=== PATIENT | female | born 1985 | race Caucasian/White ===

== ENCOUNTER 2018-06-05 13:42 | Inpatient (IN) | payer MEDICAID ==
[~2018-06-05] VITALS: Ht 160 cm; Wt 51.8 kg
[~2018-06-05 13:42] MED LIST: ALBU18HF2 INH; AMOX500C2 PO; HYDR1TAB69 PO; SERT25TA PO
[2018-06-05] MEDS ORDERED: normal saline 1000ML IV soln IV ONE (13:50)
[2018-06-05] MEDS ORDERED: vancomycin/NS 1 GM ADD-VANTAGE 250 ML IV ONE (13:50)
[2018-06-05] MEDS ORDERED: CefTRIAXone 2gm/D5W 50ml 50 ML IV ONE (13:50)
[2018-06-05] MEDS ORDERED: metoclopramide 5 mg/ml inj IV ONE (14:00)
[2018-06-05] MEDS ORDERED: diphenhydrAMINE 50 mg/ml inj IV ONE (14:00)
[2018-06-05] MEDS ORDERED: ketorolac trometh. 30mg/ml inj. IV ONE (14:05)
[2018-06-05 14:21] LABS: BASOPHILS % (AUTO) 0 % (0-1); EOSINOPHILS % (AUTO) 0 % (0-6); HEMATOCRIT 34.6 % (35.0-45.0); LYMPHOCYTES # (AUTO) 0.3 X10'3 (1.1-4.8); LYMPHOCYTES % (AUTO) 2.8 % (21-51); MEAN CORPUSCULAR HEMOGLOBIN 30.7 PG (27.0-31.0); MEAN CORPUSCULAR HGB CONC 34.7 % (33.0-36.5); MEAN CORPUSCULAR VOLUME 88.5 FL (78-98); MONOCYTES # (AUTO) 0.3 X10'3 (0-0.9); MONOCYTES % (AUTO) 3.2 % (2-12); NEUTROPHILS # (AUTO) 8.9 X10'3 (1.8-7.7); PLATELET COUNT 73 X10'3 (140-440); RED CELL DISTRIBUTION WIDTH 13.5 % (11.5-14.5); WHITE BLOOD COUNT 9.5 X10'3 (4.5-11.0)
[2018-06-05 14:31] LABS: PARTIAL THROMBOPLASTIN TIME 46 SECONDS (22-32); PROTHROMBIN TIME 20.1 SECONDS (9.0-12.0)
[2018-06-05 14:36] LABS: ALANINE AMINOTRANSFERASE 44 U/L (12-78); ALBUMIN 1.9 G/DL (3.4-5.0); ALBUMIN/GLOBULIN RATIO 0.7 (1.1-1.5); ALKALINE PHOSPHATASE 92 IU/L (46-116); ANION GAP 13 (8-16); ASPARTATE AMINO TRANSFERASE 61 U/L (10-37); BILIRUBIN,TOTAL 1.6 MG/DL (0.1-1.0); BLOOD UREA NITROGEN 19 MG/DL (7-18); BUN/CREATININE RATIO 9.2 (6.6-38.0); CALCIUM 6.6 MG/DL (8.5-10.1); CHLORIDE 96 MMOL/L (99-107); CREATININE 2.07 MG/DL (0.40-0.90); MAGNESIUM 1.1 MG/DL (1.5-2.4); PLATELET ESTIMATE DECREASED; SODIUM 129 MMOL/L (135-145); TOTAL CARBON DIOXIDE 20.2 MMOL/L (24-32); TOTAL CELLS COUNTED 100; TOTAL PROTEIN 4.7 G/DL (6.4-8.2); eGFR 28 ML/MIN
[2018-06-05 14:37] LABS: GLUCOSE 131 MG/DL (70-104)
[2018-06-05] MEDS ORDERED: normal saline 1000ML IV soln IVB ONE (14:50)
[2018-06-05 14:51] LABS: CLARITY,URINE CLOUDY (Clear); COLOR,URINE AMBER (Yellow); GLUCOSE, URINE 100 mg/dl (Neg); KETONES,URINE NEGATIVE (Neg); LEUKOCYTE ESTERASE ,URINE TRACE (Neg); NITRITES, URINE NEGATIVE (Neg); OCCULT BLOOD,URINE TRACE-LYSED (Neg); PROTEIN,URINE 30 mg/dl (Neg); URINE HCG NEGATIVE (NEG); UROBILINOGEN,URINE >=8.0 E.U/dL (0.2-1.0)
[2018-06-05 14:54] LABS: UA COLLECTION TYPE FOLEY CATH
[2018-06-05] MEDS ORDERED: dexamethasone 4mg/ml inj IV STA (14:54)
[2018-06-05 15:01] LABS: AMORPHOUS URATES 2+; BACTERIA,URINE FEW /HPF (Neg); MUCUS STRANDS MODERATE /LPF (Neg); SQUAMOUS EPITHELIAL CELL,UR MODERATE /LPF (FEW); WBC,URINE 20-30 /HPF (0-4)
[2018-06-05] MEDS: magnesium 1gm/100ml D5W IVPB 100 ML IV SCH ×2 (15:02→16:25)
[2018-06-05 15:05] LABS: URINE AMPHETAMINE SCREEN POSITIVE (Neg); URINE BARBITUATE SCREEN NEGATIVE (Neg); URINE BENZODIAZEPINES SCREEN NEGATIVE (Neg); URINE CANNABINOID SCREEN NEGATIVE (Neg); URINE COCAINE SCREEN NEGATIVE (Neg); URINE METHADONE SCREEN NEGATIVE (Neg); URINE OPIATE SCREEN POSITIVE (Neg); URINE PHENCYCLIDINE SCREEN NEGATIVE (Neg)
[2018-06-05 15:46] LABS: TROPONIN I < 0.04 NG/ML (0.0-0.05)
[2018-06-05] MEDS ORDERED: NORepinephrine 8mg/ 250ml NS 250 ML IV PRN ×2 (15:59→16:20)
[2018-06-05] MEDS ORDERED: calcium gluconate inj. 1 GM in normal saline 100ml IV soln 90 ML IV ONE (16:05)
[2018-06-05] MEDS ORDERED: pantoprazole 40 MG vial IV ONE (16:09)
[2018-06-05] MEDS ORDERED: ipratropium/albuterol 3ml nebule NEB PRN (16:10)
[2018-06-05] MEDS ORDERED: acetaminophen 325mg tablet PO PRN ×2 (16:10)
[2018-06-05] MEDS ORDERED: ondansetron/PF 4mg/2ml inj IV PRN (16:10)
[2018-06-05] MEDS: potassium 10mEq/100ml NS w/LIDOcaine (10mg/bag) IV SCH ×2 (16:25→18:55)
[2018-06-05] MEDS: pantoprazole 40 MG vial IV SCH (16:40)
[2018-06-05] MEDS: NORepinephrine 8mg/ 250ml NS 250 ML IV PRN ×2 (16:49→17:38)
[2018-06-05 17:21] LABS: OXYGEN SATURATION (MIXED VEN) 71.2 % (60-80); PO2 MIXED VENOUS (TEMP COR) 38.4 mmHg (35-46)
[2018-06-05] MEDS ORDERED: NO HOME MEDS (18:10)
[2018-06-05] MEDS: normal saline 1000ml 1,000 ML IV SCH (18:55)
[2018-06-05 19:00] VITALS: BP 108/61
[2018-06-05 20:00] VITALS: BP 90/60
[2018-06-05] MEDS ORDERED: vancomycin/NS 1 GM ADD-VANTAGE 250 ML IV SCH (20:00)
[2018-06-05 21:00] VITALS: BP 93/61
[2018-06-05 22:00] VITALS: BP 96/68
[2018-06-05 23:00] VITALS: BP 100/66
[2018-06-05] MEDS: piperacillin/tazo 4.5gm/100ml 100 ML IV SCH (23:42)
[2018-06-06] VITALS (15 sets, daily range): BP systolic 90–104; BP diastolic 57–72
[2018-06-06] MEDS: normal saline 1000ml 1,000 ML IV SCH ×2 (00:09→08:09)
[2018-06-06] MEDS ORDERED: HYDROcodone/acetaminophen 5mg/325mg tablet PO PRN (01:05)
[2018-06-06] MEDS: HYDROcodone/acetaminophen 10/325mg tab PO PRN ×3 (01:11→13:58)
[2018-06-06] MEDS: morphine 2 MG/ML inj. syringe IV PRN ×2 (02:20→08:02)
[2018-06-06 03:29] LABS: BASOPHILS % (AUTO) 0.1 % (0-1); EOSINOPHILS % (AUTO) 0.1 % (0-6); HEMATOCRIT 34.3 % (35.0-45.0); HEMOGLOBIN 11.5 g/dl (12.0-16.0); LYMPHOCYTES # (AUTO) 0.5 X10'3 (1.1-4.8); LYMPHOCYTES % (AUTO) 3.6 % (21-51); MEAN CORPUSCULAR HGB CONC 33.4 % (33.0-36.5); MEAN CORPUSCULAR VOLUME 89.9 FL (78-98); MEAN PLATELET VOLUME 9.4 FL (7.4-10.4); MONOCYTES # (AUTO) 0.3 X10'3 (0-0.9); NEUTROPHILS # (AUTO) 14.2 X10'3 (1.8-7.7); NEUTROPHILS % (AUTO) 94.2 % (42-75); PLATELET COUNT 84 X10'3 (140-440); RED BLOOD COUNT 3.82 X10'6 (4.20-5.60); RED CELL DISTRIBUTION WIDTH 13.1 % (11.5-14.5)
[2018-06-06 03:33] LABS: ALANINE AMINOTRANSFERASE 44 U/L (12-78); ALBUMIN 1.9 G/DL (3.4-5.0); ALBUMIN/GLOBULIN RATIO 0.6 (1.1-1.5); ALKALINE PHOSPHATASE 89 IU/L (46-116); ANION GAP 10 (8-16); ASPARTATE AMINO TRANSFERASE 45 U/L (10-37); BILIRUBIN,TOTAL 2.6 MG/DL (0.1-1.0); BLOOD UREA NITROGEN 19 MG/DL (7-18); BUN/CREATININE RATIO 17.8 (6.6-38.0); CALCIUM 6.5 MG/DL (8.5-10.1); CHLORIDE 106 MMOL/L (99-107); CREATININE 1.07 MG/DL (0.40-0.90); MAGNESIUM 2.2 MG/DL (1.5-2.4); PHOSPHORUS 3.3 MG/DL (2.3-4.5); POTASSIUM 3.8 MMOL/L (3.5-5.1); SODIUM 136 MMOL/L (135-145); TOTAL CARBON DIOXIDE 19.6 MMOL/L (24-32); TOTAL PROTEIN 4.9 G/DL (6.4-8.2); eGFR 60 ML/MIN
[2018-06-06 03:39] LABS: GLUCOSE 135 MG/DL (70-104)
[2018-06-06] MEDS: pantoprazole 40 MG vial IV SCH (07:57)
[2018-06-06] MEDS: piperacillin/tazo 4.5gm/100ml 100 ML IV SCH (07:57)
[2018-06-06] MEDS ORDERED: VANCOMYCIN 750MG IV in NS 250 ML IV SCH (10:00)
[2018-06-06] MEDS ORDERED: vancomycin/NS 1 GM ADD-VANTAGE 250 ML IV SCH (14:00)
[2018-06-06] MEDS ORDERED: baclofen 10mg tablet PO PRN (14:50)
[2018-06-07] MEDS ORDERED: VANCOMYCIN LEVEL IV ONE (21:30)
== END 2018-06-06 17:34 | disposition left against medical advice (07) | DRG 720 ==
LOC: ER 13:43 → ED HOLD 16:09 → CICU 2S 17:44
PROC: 02HV33Z Insertion of Infusion Device into Superior Vena Cava, Percutaneous Approach (ICD-10-PCS; principal; 2018-06-05)
DX: A41.9 Sepsis, unspecified organism (principal); E87.6 Hypokalemia; J45.909 Unspecified asthma, uncomplicated; N39.0 Urinary tract infection, site not specified; F17.210 Nicotine dependence, cigarettes, uncomplicated; Z53.21 Procedure and treatment not carried out due to patient leaving prior to being seen by health care provider; F15.129 Other stimulant abuse with intoxication, unspecified; F11.229 Opioid dependence with intoxication, unspecified; F32.9 Major depressive disorder, single episode, unspecified; F41.9 Anxiety disorder, unspecified; G89.29 Other chronic pain; M54.9 Dorsalgia, unspecified; Z88.8 Allergy status to other drugs, medicaments and biological substances
CPT/HCPCS: 36415; 36556; 70450; 71045; 71250; 80053; 80305; 81001; 81025; 82810; 82948; 83605; 83735; 83880; 84100; 84145; 84484; 85025; 85610; 85730; 87040; 87070; 87077; 87088; 87186; 93005; 93306; 94760; 96365; 96367; 96375; 99291; A4315; A6213; A6257; C1751; C1758; C9113; J0610; J0696; J1100; J1200; J1885; J2270; J2543; J2765; J3370; J3480; J7030

== ENCOUNTER 2018-11-27 08:41 | Inpatient (IN) | payer MEDICAID ==
[2018-11-27] VITALS (20 sets, daily range): BP systolic 81–105; BP diastolic 30–54
[~2018-11-27] VITALS: Ht 160 cm; Wt 52.8 kg
[~2018-11-27 08:41] MED LIST changes: -ALBU18HF2 INH; -AMOX500C2 PO; -HYDR1TAB69 PO; +NO HOME MEDS; -SERT25TA PO
[2018-11-27] MEDS ORDERED: normal saline 1000ML IV soln IV ONE (08:55)
[2018-11-27] MEDS ORDERED: CefTRIAXone/D5W-Rocephin 1gm 50 ML IV ONE (08:55)
[2018-11-27] MEDS ORDERED: fentaNYL/PF 50MCG/1 ML 2ML syringe IV ONE (09:05)
[2018-11-27 09:17] LABS: PARTIAL THROMBOPLASTIN TIME 45 SECONDS (22-32); PROTHROMBIN TIME 19.2 SECONDS (9.0-12.0)
[2018-11-27 09:19] LABS: ALANINE AMINOTRANSFERASE 26 U/L (12-78); ALBUMIN 1.5 G/DL (3.4-5.0); ALBUMIN/GLOBULIN RATIO 0.4 (1.1-1.5); ALKALINE PHOSPHATASE 80 IU/L (46-116); ANION GAP 15 (8-16); ASPARTATE AMINO TRANSFERASE 49 U/L (10-37); BLOOD UREA NITROGEN 64 MG/DL (7-18); CALCIUM 7.2 MG/DL (8.5-10.1); CHLORIDE 92 MMOL/L (99-107); CREATININE 1.83 MG/DL (0.40-0.90); GLUCOSE 115 MG/DL (70-104); MAGNESIUM 2.1 MG/DL (1.5-2.4); POTASSIUM 4.2 MMOL/L (3.5-5.1); SODIUM 127 MMOL/L (135-145); TOTAL CARBON DIOXIDE 19.6 MMOL/L (24-32); TOTAL PROTEIN 5.6 G/DL (6.4-8.2); eGFR 32 ML/MIN
[2018-11-27] MEDS ORDERED: azithromycin/NS 500mg/250ml 250 ML IV ONE (09:25)
[2018-11-27 09:53] LABS: EOSINOPHILS # (AUTO) 0.1 X10'3 (0-0.9); HEMOGLOBIN 9.4 g/dl (12.0-16.0); RED BLOOD COUNT 3.24 X10'6 (4.20-5.60)
[2018-11-27 10:07] LABS: BASOPHILS # (AUTO) 0.1 X10'3 (0-0.2); BASOPHILS % (AUTO) 1.3 % (0-1); EOSINOPHILS % (AUTO) 1.4 % (0-6); HEMATOCRIT 27.8 % (35.0-45.0); LYMPHOCYTES # (AUTO) 0.6 X10'3 (1.1-4.8); LYMPHOCYTES % (AUTO) 14.9 % (21-51); MEAN CORPUSCULAR HGB CONC 33.9 g/dL (33.0-36.5); MEAN CORPUSCULAR VOLUME 85.8 FL (78-98); MEAN PLATELET VOLUME 9.2 FL (7.4-10.4); MONOCYTES # (AUTO) 0.1 X10'3 (0-0.9); MONOCYTES % (AUTO) 3.3 % (2-12); NEUTROPHILS # (AUTO) 3.2 X10'3 (1.8-7.7); NEUTROPHILS % (AUTO) 79.1 % (42-75); RED CELL DISTRIBUTION WIDTH 14.9 % (11.5-14.5); WHITE BLOOD COUNT 4.1 X10'3 (4.5-11.0)
[2018-11-27 10:10] LABS: PLATELET COUNT 8 X10'3 (140-440)
[2018-11-27 10:18] LABS: TOTAL CELLS COUNTED 100
[2018-11-27] MEDS ORDERED: potassium Cl 40MEQ/NS 500ml 500 ML IV PRN ×2 (10:25)
[2018-11-27] MEDS ORDERED: ondansetron/PF 4mg/2ml inj IV PRN (10:25)
[2018-11-27] MEDS ORDERED: potassium Cl 20 mEq SR tablet PO PRN ×2 (10:25)
[2018-11-27] MEDS ORDERED: acetaminophen 325mg tablet PO PRN ×2 (10:25)
[2018-11-27] MEDS ORDERED: morphine 4 MG/ML inj SYRINge IV PRN (10:25)
[2018-11-27] MEDS ORDERED: NORepinephrine 8mg/ 250ml NS 250 ML IV SCH (10:30)
[2018-11-27 10:36] LABS: ABG BASE EXCESS -6.6 mmol/L (-2.0-3.0); ABG HCO3 17.1 mmol/L (22.0-26.0); ABG PCO2 (T) 27.4 mmHg (32.0-45.0); ABG PH (T) 7.414 (7.350-7.450); FCOHb 0.4 % (0.5-1.5); FMetHb 0.3 % (0.3-1.12); FO2Hb 95.3 % (94-100); TOTAL HEMOGLOBIN 7.8 G/dl (12.0-16.0)
[2018-11-27] MEDS ORDERED: LIDOcaine 2% 10ml TOPICAL JELLY (Urojet) MM ONE (10:40)
[2018-11-27 10:41] LABS: SCHISTOCYTES FEW
[2018-11-27 10:43] LABS: TOXIC GRANULATION 1+; TOXIC VACUOLATION 1+
[2018-11-27] MEDS: piperacillin/tazo 3.375gm/50ml 50 ML IV SCH ×2 (10:50→19:08)
[2018-11-27 10:52] LABS: D-DIMER 6.17 MG/L FEU (0-0.50)
[2018-11-27 10:57] LABS: PLATELET ESTIMATE DECREASED
[2018-11-27] MEDS: normal saline 1000ml 1,000 ML IV SCH ×3 (10:57→19:12)
--- NOTE | 2018-11-27 11:06 | NUR ---
Zithromax not give R/T change in ABX Tx from ICU MD Dr. Noland. Pt. Given Zosyn 3.375g in kavitha of.
[2018-11-27 11:46] LABS: URINE HCG NEGATIVE (NEG)
[2018-11-27 11:48] LABS: CLARITY,URINE CLOUDY (Clear); COLOR,URINE YELLOW (Yellow); GLUCOSE, URINE NEGATIVE (Neg); KETONES,URINE NEGATIVE (Neg); LEUKOCYTE ESTERASE ,URINE NEGATIVE (Neg); NITRITES, URINE NEGATIVE (Neg); OCCULT BLOOD,URINE SMALL (Neg); PROTEIN,URINE TRACE mg/dl (Neg); UROBILINOGEN,URINE 0.2 E.U/dL (0.2-1.0)
[2018-11-27 11:54] LABS: UA COLLECTION TYPE FOLEY CATH
[2018-11-27 11:56] LABS: AMORPHOUS URATES 1+; BACTERIA,URINE FEW /HPF (Neg); MUCUS STRANDS MODERATE /LPF (Neg); RBC,URINE 0-2 /HPF (0-2); SQUAMOUS EPITHELIAL CELL,UR FEW /LPF (FEW); WBC,URINE 0-4 /HPF (0-4)
[2018-11-27] MEDS ORDERED: etomidate 2mg/ml inj. ONE (12:00)
[2018-11-27] MEDS ORDERED: rocuronium 10mg/ml inj IV ONE (12:00)
[2018-11-27] MEDS ORDERED: sod chloride 0.9% 10ml flush syringe IV ONE (12:00)
[2018-11-27 12:03] LABS: SODIUM,URINE RANDOM < 15 MEQ/L
[2018-11-27 12:15] LABS: OSMOLALITY UA 384 MOSM/K (50-1400)
[2018-11-27] MEDS: vancomycin/NS 1 GM ADD-VANTAGE 250 ML IV SCH (13:17)
[2018-11-27] MEDS: HYDROcodone/acetaminophen 10/325mg tab PO PRN (13:41)
--- NOTE | 2018-11-27 16:52 | NUR ---
IV with NS running infiltrated in RUE. Fluid aspirated. IV removed, pt has palpable Radial pulse. Elevated and instructed pt to keep elevated. RN will continue to monitor
[2018-11-27] MEDS ORDERED: normal saline 1000ml 1,000 ML IV ONE (16:55)
[2018-11-27] MEDS: diatr meglu/diatrizoate 30ml oral sol.-(3 dose) bottle PO SCH ×3 (17:18→21:26)
[2018-11-27] MEDS: ceFAZolin 1GM/D5W- ADD-VANTAGE 50 ML IV SCH ×2 (17:40→23:59)
[2018-11-27] MEDS ORDERED: NORepinephrine 8mg/ 250ml NS 250 ML IV PRN (18:16)
[2018-11-27] MEDS ORDERED: MIDAZolam 1mg/ml 10ml vial IV ONE (18:20)
--- NOTE | 2018-11-27 18:30 | NUR ---
Patient in room CICU 2007. I have received report from Dustin MATSON and had the opportunity to ask questions and assume patient care.
[2018-11-27] MEDS ORDERED: midazolam 2 mg/2 ml injection ONE (18:33)
[2018-11-27 19:31] LABS: OXYGEN SATURATION (MIXED VEN) 63.7 % (60-80); PO2 MIXED VENOUS (TEMP COR) 36.4 mmHg (35-46)
[2018-11-27] MEDS ORDERED: docusate sod 100mg capsule PO SCH (20:00)
[2018-11-27] MEDS: morphine 4 MG/ML inj SYRINge IV PRN (21:54)
[2018-11-28] VITALS (25 sets, daily range): BP systolic 90–123; BP diastolic 38–75
--- NOTE | 2018-11-28 | NUR ---
CVL and NGT placed. Blood products given CT done. Levophed started to maintain MAP greater than 65.
[2018-11-28] MEDS: piperacillin/tazo 3.375gm/50ml 50 ML IV SCH (00:33)
[2018-11-28] MEDS: normal saline 1000ml 1,000 ML IV SCH ×3 (02:16→20:23)
[2018-11-28] MEDS: HYDROcodone/acetaminophen 10/325mg tab PO PRN (02:16)
[2018-11-28 04:59] LABS: INR 1.3 INR; PROTHROMBIN TIME 13.4 SECONDS (9.0-12.0)
[2018-11-28] MEDS: morphine 4 MG/ML inj SYRINge IV PRN ×3 (04:59→23:10)
[2018-11-28 05:00] LABS: ALANINE AMINOTRANSFERASE 17 U/L (12-78); ALBUMIN 1.6 G/DL (3.4-5.0); ALBUMIN/GLOBULIN RATIO 0.4 (1.1-1.5); ALKALINE PHOSPHATASE 55 IU/L (46-116); ANION GAP 12 (8-16); ASPARTATE AMINO TRANSFERASE 45 U/L (10-37); BILIRUBIN,TOTAL 0.8 MG/DL (0.1-1.0); BLOOD UREA NITROGEN 40 MG/DL (7-18); CALCIUM 7.6 MG/DL (8.5-10.1); CHLORIDE 104 MMOL/L (99-107); CREATININE 0.87 MG/DL (0.40-0.90); GLUCOSE 99 MG/DL (70-104); MAGNESIUM 2.4 MG/DL (1.5-2.4); PHOSPHORUS 3.6 MG/DL (2.3-4.5); POTASSIUM 3.2 MMOL/L (3.5-5.1); SODIUM 137 MMOL/L (135-145); TOTAL CARBON DIOXIDE 21.1 MMOL/L (24-32); TOTAL PROTEIN 5.2 G/DL (6.4-8.2); eGFR 76 ML/MIN
[2018-11-28 05:17] LABS: MEAN CORPUSCULAR HEMOGLOBIN 28.9 PG (27.0-31.0); MEAN CORPUSCULAR HGB CONC 33.5 g/dL (33.0-36.5); MEAN CORPUSCULAR VOLUME 86.2 FL (78-98); RED CELL DISTRIBUTION WIDTH 14.8 % (11.5-14.5); WHITE BLOOD COUNT 2.5 X10'3 (4.5-11.0)
[2018-11-28] MEDS ORDERED: potassium Cl oral solution 20 MEQ/15 ML PO PRN (06:21)
--- NOTE | 2018-11-28 06:38 | NUR ---
Pt still taking rapid shallow breathes, weak cough, using yauker to clear orally. Pt is appropriate and thankful for the care she has received. Problems reprioritized. Patient report given, questions answered & plan of care reviewed with Dustin MATSON.
[2018-11-28] MEDS: acetaminophen 325mg/10.15ml oral unit dose solution PO PRN (06:39)
[2018-11-28] MEDS: potassium Cl oral solution 20 MEQ/15 ML PO PRN ×3 (06:40→15:32)
--- NOTE | 2018-11-28 06:40 | NUR ---
Notified Tobin Burden NP of critical hct and plt. No orders at this time. Deferred to Dr. Solares.
[2018-11-28] MEDS: ceFAZolin 1GM/D5W- ADD-VANTAGE 50 ML IV SCH (06:45)
[2018-11-28 06:52] LABS: PLATELET COUNT 17 X10'3 (140-440)
[2018-11-28 06:53] LABS: RED BLOOD COUNT 2.44 X10'6 (4.20-5.60)
[2018-11-28 06:58] LABS: PLATELET ESTIMATE DECREASED; TOTAL CELLS COUNTED 100; TOXIC GRANULATION 1+
[2018-11-28 06:59] LABS: SCHISTOCYTES 1+
[2018-11-28] MEDS: docusate sodium 100mg/10ml UD cup PO SCH ×2 (08:00→20:00)
[2018-11-28] MEDS ORDERED: gentamicin 40 MG/1 ML inj IV SCH (08:25)
--- NOTE | 2018-11-28 08:30 | NUR ---
Notified Dr. Solares of critical PLT and HCT. no new orders received at this time. RN will continue to monitor
[2018-11-28] MEDS ORDERED: GENTAMICIN IV SCH ×2 (09:00)
[2018-11-28] MEDS ORDERED: NORMAL SALINE IV SCH ×2 (09:00)
[2018-11-28 10:02] LABS: HIV ANTIBODY 1&2 RAPID NON-REACTIVE (Neg)
[2018-11-28] MEDS: vancomycin/NS 1 GM ADD-VANTAGE 250 ML IV SCH ×2 (10:03→22:57)
[2018-11-28] MEDS: ampicillin inj 2 GM in normal saline 100ml IV soln 100 ML IV SCH ×3 (12:22→19:37)
[2018-11-28] MEDS ORDERED: normal saline 1000ml 1,000 ML IV ONE (12:25)
--- NOTE | 2018-11-28 15:45 | NUR ---
Speech therapy at bedside. Will place pt on liquid diet
[2018-11-28] MEDS: NORMAL SALINE IV SCH (21:05)
[2018-11-28] MEDS: GENTAMICIN IV SCH (21:05)
[2018-11-29] VITALS (25 sets, daily range): BP systolic 112–140; BP diastolic 52–85
[2018-11-29] MEDS: ampicillin inj 2 GM in normal saline 100ml IV soln 100 ML IV SCH ×6 (00:27→20:39)
[2018-11-29] MEDS: acetaminophen 325mg/10.15ml oral unit dose solution PO PRN ×2 (01:10→22:57)
[2018-11-29] MEDS: normal saline 1000ml 1,000 ML IV SCH ×2 (02:20→09:58)
[2018-11-29] MEDS: morphine 4 MG/ML inj SYRINge IV PRN ×2 (05:10→09:59)
[2018-11-29 05:55] LABS: LYMPHOCYTES # (AUTO) 0.4 X10'3 (1.1-4.8); MEAN CORPUSCULAR HEMOGLOBIN 28.4 PG (27.0-31.0); MEAN CORPUSCULAR HGB CONC 33.5 g/dL (33.0-36.5); MEAN CORPUSCULAR VOLUME 84.7 FL (78-98); MEAN PLATELET VOLUME 9.7 FL (7.4-10.4); MONOCYTES # (AUTO) 0.1 X10'3 (0-0.9); NEUTROPHILS # (AUTO) 1.3 X10'3 (1.8-7.7); RED BLOOD COUNT 2.04 X10'6 (4.20-5.60); RED CELL DISTRIBUTION WIDTH 16.1 % (11.5-14.5); WHITE BLOOD COUNT 1.7 X10'3 (4.5-11.0)
[2018-11-29 06:08] LABS: HEMATOCRIT 17.3 % (35.0-45.0); HEMOGLOBIN 5.8 g/dl (12.0-16.0)
[2018-11-29 06:09] LABS: PLATELET COUNT 11 X10'3 (140-440)
[2018-11-29 06:10] LABS: BASOPHILS % (AUTO) 0.4 % (0-1); EOSINOPHILS % (AUTO) 0 % (0-6); LYMPHOCYTES % (AUTO) 20.5 % (21-51); MONOCYTES % (AUTO) 5.3 % (2-12); NEUTROPHILS % (AUTO) 73.8 % (42-75)
[2018-11-29 06:11] LABS: PROTHROMBIN TIME 12.7 SECONDS (9.0-12.0)
[2018-11-29 06:12] LABS: ALANINE AMINOTRANSFERASE 13 U/L (12-78); ALBUMIN 1.2 G/DL (3.4-5.0); ALBUMIN/GLOBULIN RATIO 0.3 (1.1-1.5); ALKALINE PHOSPHATASE 145 IU/L (46-116); ANION GAP 6 (8-16); ASPARTATE AMINO TRANSFERASE 40 U/L (10-37); BILIRUBIN,TOTAL 0.5 MG/DL (0.1-1.0); BLOOD UREA NITROGEN 22 MG/DL (7-18); BUN/CREATININE RATIO 32.4 (6.6-38.0); CHLORIDE 111 MMOL/L (99-107); CREATININE 0.68 MG/DL (0.40-0.90); MAGNESIUM 1.9 MG/DL (1.5-2.4); PHOSPHORUS 1.8 MG/DL (2.3-4.5); POTASSIUM 3.6 MMOL/L (3.5-5.1); SODIUM 136 MMOL/L (135-145); TOTAL CARBON DIOXIDE 18.7 MMOL/L (24-32); eGFR > 90 ML/MIN
[2018-11-29 06:13] LABS: GLUCOSE 124 MG/DL (70-104); INR 1.3 INR
--- NOTE | 2018-11-29 06:27 | NUR ---
Attempted to call José Luis Burden twice to notify him regarding patient's critical lab values of hgb 5.8, hct 17.3, and platelets of 11. No answer, left voicemail on cell. Report given to Dustin MATSON, who is aware that I have not been able to contact José Luis Burden.
[2018-11-29 06:49] LABS: TOTAL CELLS COUNTED 100
[2018-11-29 06:50] LABS: ANISOCYTOSIS 1+; PLATELET ESTIMATE DECREASED; SCHISTOCYTES 1+; TOXIC GRANULATION 1+
[2018-11-29] MEDS ORDERED: furosemide 20 MG/2 ML vial IV ONE (07:15)
[2018-11-29] MEDS: docusate sodium 100mg/10ml UD cup PO SCH ×2 (08:00→20:40)
[2018-11-29 08:15] LABS: HBSAG SCREEN Negative (Negative); HEPATITIS C ANTIBODY >11.0 s/co ratio (0.0-0.9)
[2018-11-29] MEDS ORDERED: GENTAMICIN TROUGH IV ONE (08:30)
[2018-11-29] MEDS: NORMAL SALINE IV SCH ×2 (09:58→20:38)
[2018-11-29] MEDS: GENTAMICIN IV SCH ×2 (09:58→20:38)
[2018-11-29] MEDS: vancomycin/NS 1 GM ADD-VANTAGE 250 ML IV SCH ×2 (10:00→22:05)
[2018-11-29 13:35] LABS: HEMOGLOBIN 7.1 g/dl (12.0-16.0); MEAN CORPUSCULAR HEMOGLOBIN 28.3 PG (27.0-31.0); MEAN CORPUSCULAR HGB CONC 33.1 g/dL (33.0-36.5); MEAN CORPUSCULAR VOLUME 85.6 FL (78-98); MEAN PLATELET VOLUME 7.6 FL (7.4-10.4); RED BLOOD COUNT 2.52 X10'6 (4.20-5.60); RED CELL DISTRIBUTION WIDTH 16.1 % (11.5-14.5); WHITE BLOOD COUNT 2.4 X10'3 (4.5-11.0)
[2018-11-29 13:43] LABS: HEMATOCRIT 21.6 % (35.0-45.0); PLATELET COUNT 23 X10'3 (140-440)
[2018-11-29] MEDS: buprenorphine/naloxone 2-0.5mg sublingual tablet SL SCH (14:50)
--- NOTE | 2018-11-29 16:00 | NUR ---
Pt having small amount of vaginal bleeding.
--- NOTE | 2018-11-29 16:55 | NUR ---
Received report from Dustin MATSON in the CICU. Awaiting patient's arrival to the unit.
--- NOTE | 2018-11-29 16:55 | NUR ---
Problems reprioritized. Patient report given, questions answered & plan of care reviewed with DANO Wilkes.
--- NOTE | 2018-11-29 17:20 | NUR ---
Patient arrived to the unit accompanied by ICU personnel. Vital signs obtained, telemetry monitoring continued, 2 RN skin check completed, belongings placed on bedside table, patient oriented to room and call light. Will continue to monitor patient.
--- NOTE | 2018-11-29 18:14 | NUR ---
Problems reprioritized. Patient report given, questions answered & plan of care reviewed with Korin MATSON. Patient stable at transfer of care.
--- NOTE | 2018-11-29 18:15 | NUR ---
Patient in room PCU 3013. I have received report from DANO Subramanian and had the opportunity to ask questions and assume patient care. Patient is sleeping comfortably on hospital bed, I will continue to monitor.
[2018-11-29] MEDS ORDERED: VANCOMYCIN LEVEL IV ONE (21:30)
--- NOTE | 2018-11-29 23:02 | NUR ---
Patient HR has been climbing and is now in the 130's, she is hot to touch and Temp is 103.3. I have just given her Tylenol, a fluid bolus and taken off her blankets. I will continue to monitor.
[2018-11-30] VITALS (20 sets, daily range): BP systolic 88–140; BP diastolic 48–95
[2018-11-30] MEDS: ampicillin inj 2 GM in normal saline 100ml IV soln 100 ML IV SCH ×5 (00:32→16:34)
--- NOTE | 2018-11-30 01:01 | NUR ---
Patient complaining she can't sleep and hyperventilating, I cld JENNIFER Hayes and he said to give her Ativan 2mg IV now.
[2018-11-30] MEDS ORDERED: LORazepam 2 mg/ml vial IV ONE (01:05)
[2018-11-30 03:00] LABS: ABG HCO3 17.7 mmol/L (22.0-26.0); ABG OXYGEN SATURATION 87.6 % (95-98); ABG PCO2 (T) 41.9 mmHg (32.0-45.0); ABG PH (T) 7.244 (7.350-7.450); ABG PO2 (T) 63.7 mmHg (83-108); ALLEN'S TEST Positive; FCOHb 0.7 % (0.5-1.5); FLOW 15 L/min; FMetHb 0.2 % (0.3-1.12); FO2Hb 86.8 % (94-100); RESPIRATORY RATE (OBSERVED) 24 b/min; TOTAL HEMOGLOBIN 9.4 G/dl (12.0-16.0)
--- NOTE | 2018-11-30 03:06 | NUR ---
During vitals patient was found with SpO2 in the low 80's, confused and tachypneic. A non-rebreather mask and 15L O2 were applied and Spo2 went up to the low 90's, Blood Gas was rec'd by RT. Patients pO2 was 63.7, JENNIFER Hayes was called and he ordered Bipap and a blood gas in one hour.
[2018-11-30 04:31] LABS: ABG BASE EXCESS -5.9 mmol/L (-2.0-3.0); ABG HCO3 19.9 mmol/L (22.0-26.0); ABG OXYGEN SATURATION 91.6 % (95-98); ABG PCO2 (T) 40.5 mmHg (32.0-45.0); ABG PH (T) 7.309 (7.350-7.450); ABG PO2 (T) 68.1 mmHg (83-108); ALLEN'S TEST Positive; FCOHb 1.2 % (0.5-1.5); FMetHb 0.2 % (0.3-1.12); FO2Hb 90.3 % (94-100); MINUTE VOLUME 24 L/min; PATIENT TEMPERATURE 36.7; RESPIRATORY RATE 16 b/min; RESPIRATORY RATE (OBSERVED) 67 b/min; TIDAL VOLUME 652 mL; TOTAL HEMOGLOBIN 8.4 G/dl (12.0-16.0)
--- NOTE | 2018-11-30 04:50 | NUR ---
Problems reprioritized. Patient report given, questions answered & plan of care reviewed with DANO Stevens.
[2018-11-30] MEDS ORDERED: NORepinephrine 8mg/ 250ml NS 250 ML IV ONE (04:52)
[2018-11-30] MEDS ORDERED: furosemide 20 MG/2 ML vial IV ONE (04:55)
[2018-11-30 04:58] LABS: BASOPHILS % (AUTO) 0.1 % (0-1); EOSINOPHILS % (AUTO) 0.1 % (0-6); HEMATOCRIT 22.7 % (35.0-45.0); HEMOGLOBIN 7.6 g/dl (12.0-16.0); LYMPHOCYTES # (AUTO) 0.5 X10'3 (1.1-4.8); LYMPHOCYTES % (AUTO) 16.4 % (21-51); MEAN CORPUSCULAR HEMOGLOBIN 28.4 PG (27.0-31.0); MEAN CORPUSCULAR HGB CONC 33.5 g/dL (33.0-36.5); MEAN CORPUSCULAR VOLUME 84.9 FL (78-98); MEAN PLATELET VOLUME 8.5 FL (7.4-10.4); MONOCYTES # (AUTO) 0.1 X10'3 (0-0.9); MONOCYTES % (AUTO) 2.1 % (2-12); NEUTROPHILS # (AUTO) 2.6 X10'3 (1.8-7.7); NEUTROPHILS % (AUTO) 81.3 % (42-75); RED BLOOD COUNT 2.68 X10'6 (4.20-5.60); RED CELL DISTRIBUTION WIDTH 15.9 % (11.5-14.5); WHITE BLOOD COUNT 3.2 X10'3 (4.5-11.0)
[2018-11-30 05:09] LABS: INR 1.3 INR
[2018-11-30 05:10] LABS: PARTIAL THROMBOPLASTIN TIME 37 SECONDS (22-32); PLATELET COUNT 19 X10'3 (140-440)
--- NOTE | 2018-11-30 05:18 | NUR ---
Tried call patient's mother Bailee and update her on Deb's status with no success, [place] [facility] [place]
[2018-11-30 05:33] LABS: ALANINE AMINOTRANSFERASE 10 U/L (12-78); ALBUMIN 1.2 G/DL (3.4-5.0); ALBUMIN/GLOBULIN RATIO 0.3 (1.1-1.5); ALKALINE PHOSPHATASE 114 IU/L (46-116); ANION GAP 11 (8-16); ASPARTATE AMINO TRANSFERASE 34 U/L (10-37); BILIRUBIN,TOTAL 0.8 MG/DL (0.1-1.0); BLOOD UREA NITROGEN 14 MG/DL (7-18); BUN/CREATININE RATIO 24.1 (6.6-38.0); CALCIUM 7.1 MG/DL (8.5-10.1); CHLORIDE 109 MMOL/L (99-107); CREATININE 0.58 MG/DL (0.40-0.90); GLUCOSE 104 MG/DL (70-104); MAGNESIUM 1.6 MG/DL (1.5-2.4); PHOSPHORUS 4.1 MG/DL (2.3-4.5); POTASSIUM 3.7 MMOL/L (3.5-5.1); SODIUM 138 MMOL/L (135-145); TOTAL CARBON DIOXIDE 18.4 MMOL/L (24-32); TOTAL PROTEIN 5.5 G/DL (6.4-8.2); eGFR > 90 ML/MIN
--- NOTE | 2018-11-30 05:56 | NUR ---
[id number]..Received pt from PCU via bed, pt not responsive and tachypneic, ER MD at bedside, pt intubated with 7.0 et tube, x1 attempt. OG tube placed x1 attempt. Pt tolerated well.
--- NOTE | 2018-11-30 05:59 | NUR ---
0545..Incontinent of large amount stool, bath given and complete linen change.
--- NOTE | 2018-11-30 06:28 | NUR ---
0625..Problems reprioritized. Patient report given, questions answered & plan of care reviewed with Anila MATSON.
--- NOTE | 2018-11-30 06:30 | NUR ---
Patient in room CICU 2010. I have received report from DANO Stevens and had the opportunity to ask questions and assume patient care.
[2018-11-30] MEDS: docusate sodium 100mg/10ml UD cup PO SCH ×2 (07:26→19:47)
[2018-11-30] MEDS: buprenorphine/naloxone 2-0.5mg sublingual tablet SL SCH (07:45)
[2018-11-30 08:11] LABS: ABG BASE EXCESS -5.9 mmol/L (-2.0-3.0); ABG HCO3 19.4 mmol/L (22.0-26.0); ABG OXYGEN SATURATION 97.4 % (95-98); ABG PCO2 (T) 37.5 mmHg (32.0-45.0); ABG PH (T) 7.332 (7.350-7.450); ABG PO2 (T) 107.6 mmHg (83-108); FCOHb 0.6 % (0.5-1.5); FMetHb 0.1 % (0.3-1.12); FO2Hb 96.7 % (94-100); MINUTE VOLUME 12 L/min; PEEP 5 cm H2O; RESPIRATORY RATE 18 b/min; RESPIRATORY RATE (OBSERVED) 32 b/min; TIDAL VOLUME 350 mL; TOTAL HEMOGLOBIN 8.8 G/dl (12.0-16.0)
[2018-11-30] MEDS: NORMAL SALINE IV SCH (10:28)
[2018-11-30] MEDS: GENTAMICIN IV SCH (10:28)
[2018-11-30] MEDS ORDERED: VANCOMYCIN LEVEL IV NR (10:30)
--- NOTE | 2018-11-30 11:00 | NUR ---
pt is intubated and sedated. withdraws to light pain. Dr. Solares arrived on unit and assessed pt, order received to pull ETT out 1cm. it is currently 19 at teeth. pt oxygenation well at 99-100%. Titrating FiO2 down to maintain O2sat between 88-90% per Dr. Solares. updated family on plan of care.
[2018-11-30] MEDS: vancomycin/NS 1 GM ADD-VANTAGE 250 ML IV SCH (11:12)
--- NOTE | 2018-11-30 15:01 | NUR ---
Initial: Pt intubated admit w/ low blood pressure, septic pulmonary emboli, and large tricuspid valve vegetation; hx IVDA meth and heroin per RN. Pt has OG in place to suction w/ 400ml out so far per EMR. Pt has open abscess L ankle wound w/ Kris 9. LBM 11/30. Will monitor for nutrition support needs while intubated. Rec: 1. IF TF, Vital HP at 55ml/hr goal or if out of stock Vital AF at 55ml/hr goal 2. IF TF; prealbumin Q /, daily wts Addendum: 11/30/18 at [address] Amended: Links added.
[2018-11-30] MEDS: FENTANYL-0.9 % NACL/PF 100 ML IV PRN (16:34)
--- NOTE | 2018-11-30 18:18 | NUR ---
Problems reprioritized. Patient report given, questions answered & plan of care reviewed with DANO Stevens.
--- NOTE | 2018-11-30 18:29 | NUR ---
182..Patient in room [facility] 2010. I have received report from Sedrick MATSON and had the opportunity to ask questions and assume patient care. Addendum: 11/30/18 at 1947 by Criss Espinoza RN [id number]..Report received from Anila MATSON, not Sedrick MATSON.
[2018-11-30] MEDS ORDERED: cefazolin/dext.iso 2gm/100ml 100 ML IV SCH (18:30)
[2018-11-30] MEDS: ipratropium/albuterol 3ml nebule NEB PRN ×2 (19:21→23:19)
[2018-11-30] MEDS: cefazolin/dext.iso 2gm/50ml 50 ML IV SCH ×2 (19:38→23:28)
--- NOTE | 2018-11-30 20:40 | NUR ---
2000..Assessment as noted, fentanyl and versed effective for sedation and comfort.
[2018-11-30] MEDS ORDERED: CISatracurium **Bolus** 2 mg/ml inj IV PRN (23:20)
--- NOTE | 2018-11-30 23:36 | NUR ---
[id number]..Pt with extreme agitation, 150mg fentanyl and 8 mg versed not effective, call placed to Melodie BRAND SALES MANAGER, orders received. Nimbex 8 mg given IV x1 dose with good effect, no longer with peak pressures and resp rate 50. No other changes noted.
[2018-11-30] MEDS: acetaminophen 325mg/10.15ml oral unit dose solution PO PRN (23:57)
[2018-12-01] VITALS (33 sets, daily range): BP systolic 85–113; BP diastolic 37–64
--- NOTE | 2018-12-01 00:43 | NUR ---
0000..Tylenol given for increased temp, no other changes noted.
[2018-12-01] MEDS: midazolam 100mg in NS 100ml 100 ML IV PRN ×2 (01:18→22:24)
[2018-12-01] MEDS: FENTANYL-0.9 % NACL/PF 100 ML IV PRN ×3 (01:19→23:52)
[2018-12-01 02:50] LABS: BASOPHILS % (AUTO) 0.1 % (0-1); EOSINOPHILS % (AUTO) 0.2 % (0-6); LYMPHOCYTES # (AUTO) 0.5 X10'3 (1.1-4.8); LYMPHOCYTES % (AUTO) 15.2 % (21-51); MEAN CORPUSCULAR HEMOGLOBIN 28.7 PG (27.0-31.0); MEAN CORPUSCULAR HGB CONC 33.5 g/dL (33.0-36.5); MEAN CORPUSCULAR VOLUME 85.5 FL (78-98); MONOCYTES # (AUTO) 0.1 X10'3 (0-0.9); MONOCYTES % (AUTO) 2.2 % (2-12); NEUTROPHILS # (AUTO) 2.4 X10'3 (1.8-7.7); NEUTROPHILS % (AUTO) 82.3 % (42-75); RED BLOOD COUNT 2.28 X10'6 (4.20-5.60); RED CELL DISTRIBUTION WIDTH 16.5 % (11.5-14.5)
[2018-12-01 02:55] LABS: HEMATOCRIT 19.5 % (35.0-45.0); HEMOGLOBIN 6.5 g/dl (12.0-16.0); PLATELET COUNT 15 X10'3 (140-440)
[2018-12-01 02:59] LABS: INR 1.3 INR; PROTHROMBIN TIME 12.7 SECONDS (9.0-12.0)
[2018-12-01 03:03] LABS: ALANINE AMINOTRANSFERASE 13 U/L (12-78); ALBUMIN/GLOBULIN RATIO 0.2 (1.1-1.5); ALKALINE PHOSPHATASE 78 IU/L (46-116); ANION GAP 9 (8-16); ASPARTATE AMINO TRANSFERASE 33 U/L (10-37); BILIRUBIN,TOTAL 0.4 MG/DL (0.1-1.0); BLOOD UREA NITROGEN 20 MG/DL (7-18); BUN/CREATININE RATIO 26.3 (6.6-38.0); CHLORIDE 110 MMOL/L (99-107); CREATININE 0.76 MG/DL (0.40-0.90); MAGNESIUM 1.7 MG/DL (1.5-2.4); PHOSPHORUS 4.8 MG/DL (2.3-4.5); SODIUM 142 MMOL/L (135-145); TOTAL CARBON DIOXIDE 22.7 MMOL/L (24-32); TOTAL PROTEIN 5.2 G/DL (6.4-8.2); eGFR 89 ML/MIN
[2018-12-01 03:07] LABS: GLUCOSE 87 MG/DL (70-104)
[2018-12-01 03:08] LABS: PLATELET ESTIMATE DECREASED; TOTAL CELLS COUNTED 100
[2018-12-01 03:09] LABS: ANISOCYTOSIS 1+; TOXIC GRANULATION 1+
--- NOTE | 2018-12-01 03:37 | NUR ---
0315..Tylenol effective for temp, Melodie notified of low hgb,hct, and plts, orders received. No other changes noted.
[2018-12-01] MEDS: ipratropium/albuterol 3ml nebule NEB PRN (03:39)
[2018-12-01 03:50] LABS: ABG BASE EXCESS -13.5 mmol/L (-2.0-3.0); ABG HCO3 11.2 mmol/L (22.0-26.0); ABG OXYGEN SATURATION 95.6 % (95-98); ABG PCO2 (T) 22.1 mmHg (32.0-45.0); ABG PH (T) 7.321 (7.350-7.450); ABG PO2 (T) 98.4 mmHg (83-108); ALLEN'S TEST Positive; FCOHb 0.6 % (0.5-1.5); FMetHb 0.4 % (0.3-1.12); FO2Hb 94.6 % (94-100); MINUTE VOLUME 12 L/min; PATIENT TEMPERATURE 36.6; PEEP 5 cm H2O; RESPIRATORY RATE 18 b/min; RESPIRATORY RATE (OBSERVED) 29 b/min; TIDAL VOLUME 375 mL; TOTAL HEMOGLOBIN 8.6 G/dl (12.0-16.0)
--- NOTE | 2018-12-01 06:30 | NUR ---
Patient in room CICU 2009. I have received report from DANO Stevens and had the opportunity to ask questions and assume patient care.
[2018-12-01] MEDS: buprenorphine/naloxone 2-0.5mg sublingual tablet SL SCH (07:01)
[2018-12-01] MEDS: docusate sodium 100mg/10ml UD cup PO SCH ×2 (07:32→19:56)
[2018-12-01] MEDS: mineral oil/petrolatum ophthal oint EACHEYE SCH ×3 (07:37→19:57)
[2018-12-01] MEDS: cefazolin/dext.iso 2gm/50ml 50 ML IV SCH ×3 (07:37→23:52)
[2018-12-01 10:29] LABS: PLATELET COUNT 35 X10'3 (140-440)
--- NOTE | 2018-12-01 11:00 | NUR ---
pt is sedated and intubated, tachypnic, one unit of PRBC and 10pk PLT transfused per MD order. no transfusion reaction noted. VSS. Dr. Solares arrived on unit and assessed pt, updated on pt condition, order received to start TF, do not do sedation vacation on pt, and to titrate sedation up as need to keep pt properly sedated and breathing within normal limit. Dr. Escobedo ordered PICC line to be placed and PICC RN needs to be called from [facility] by Wyatt Ramos. updated family on plan of care.
[2018-12-01 11:46] LABS: INR 1.3 INR; PROTHROMBIN TIME 12.7 SECONDS (9.0-12.0)
[2018-12-01 11:47] LABS: D-DIMER 5.84 MG/L FEU (0-0.50); PARTIAL THROMBOPLASTIN TIME 31 SECONDS (22-32)
--- NOTE | 2018-12-01 11:50 | NUR ---
TF Consult: TF to start today. Pt has increased protein needs r/t sepsis, pulmonary emboli, wound healing, and intubation. Kris 9 w/ LLE open abscess and sacral PU. Will monitor for TF tolerance. LBM 11/30 on colace. Rec: 1. OGTF using Vital AF at 55ml/hr goal; to provide 1320ml fluid, 1069ml free water, 1584 kcals, and 99g protein. Initiate at 20ml/hr and advance 20ml Q8 to goal as tolerated. 2. water flush 200ml Q4 per respiratory care program director 3. prealbumin Q /, daily wts 4. monitor for signs of refeeding syndrome Addendum: 12/01/18 at [address] Amended: Links added.
[2018-12-01 14:26] LABS: MEAN CORPUSCULAR HGB CONC 33.3 g/dL (33.0-36.5); MEAN PLATELET VOLUME 8.2 FL (7.4-10.4); RED BLOOD COUNT 2.41 X10'6 (4.20-5.60); RED CELL DISTRIBUTION WIDTH 16.8 % (11.5-14.5); WHITE BLOOD COUNT 2.5 X10'3 (4.5-11.0)
[2018-12-01 14:30] LABS: HEMATOCRIT 20.3 % (35.0-45.0); HEMOGLOBIN 6.8 g/dl (12.0-16.0); PLATELET COUNT 27 X10'3 (140-440)
--- NOTE | 2018-12-01 14:30 | NUR ---
Dr. Solares called regarding critical H&H and platelet count. order received to transfuse another unit of PRBC.
[2018-12-01] MEDS: acetaminophen 325mg/10.15ml oral unit dose solution PO PRN (15:51)
--- NOTE | 2018-12-01 18:30 | NUR ---
Patient in room CICU 2009. I have received report from Liv MATSON and had the opportunity to ask questions and assume patient care.
--- NOTE | 2018-12-01 18:40 | NUR ---
Problems reprioritized. Patient report given, questions answered & plan of care reviewed with DANO Castillo.
[2018-12-01] MEDS: lactobacillus rhamnosus 10,000 MMU CELLS/CAPSULE PO SCH (19:56)
[2018-12-01 22:52] LABS: HEMATOCRIT 25.9 % (35.0-45.0); HEMOGLOBIN 8.7 g/dl (12.0-16.0); MEAN CORPUSCULAR HEMOGLOBIN 28.3 PG (27.0-31.0); MEAN CORPUSCULAR HGB CONC 33.6 g/dL (33.0-36.5); MEAN CORPUSCULAR VOLUME 84.2 FL (78-98); MEAN PLATELET VOLUME 9.7 FL (7.4-10.4); RED BLOOD COUNT 3.08 X10'6 (4.20-5.60); RED CELL DISTRIBUTION WIDTH 16.3 % (11.5-14.5); WHITE BLOOD COUNT 5.2 X10'3 (4.5-11.0)
[2018-12-01 23:03] LABS: PLATELET COUNT 33 X10'3 (140-440)
[2018-12-02] VITALS (24 sets, daily range): BP systolic 91–124; BP diastolic 50–79
--- NOTE | 2018-12-02 | NUR ---
[id number]: Patient given bed bath, wounds redressed with optifoam dressing. Patient coughing with movement and repositioning. Endotracheal tube suctioned and oral suction and care done. Patient with patient facial grimace with cough or repositioning. Will continue to monitor. Addendum: 12/03/18 at 0401 by Etsela Fontanez RN DATE SHOULD BE 12/03/18
[2018-12-02] MEDS: mineral oil/petrolatum ophthal oint EACHEYE SCH ×4 (02:00→20:06)
[2018-12-02 03:55] LABS: BASOPHILS % (AUTO) 0.5 % (0-1); EOSINOPHILS % (AUTO) 0.3 % (0-6); HEMATOCRIT 30.4 % (35.0-45.0); HEMOGLOBIN 10.3 g/dl (12.0-16.0); LYMPHOCYTES # (AUTO) 0.9 X10'3 (1.1-4.8); MEAN CORPUSCULAR HEMOGLOBIN 28.5 PG (27.0-31.0); MEAN CORPUSCULAR HGB CONC 33.8 g/dL (33.0-36.5); MEAN CORPUSCULAR VOLUME 84.2 FL (78-98); MEAN PLATELET VOLUME 9.4 FL (7.4-10.4); MONOCYTES # (AUTO) 0.1 X10'3 (0-0.9); MONOCYTES % (AUTO) 1.5 % (2-12); NEUTROPHILS # (AUTO) 5.9 X10'3 (1.8-7.7); NEUTROPHILS % (AUTO) 84.7 % (42-75); RED BLOOD COUNT 3.61 X10'6 (4.20-5.60); RED CELL DISTRIBUTION WIDTH 16.3 % (11.5-14.5)
[2018-12-02 03:59] LABS: INR 1.2 INR; PROTHROMBIN TIME 12.1 SECONDS (9.0-12.0)
[2018-12-02 04:06] LABS: ALANINE AMINOTRANSFERASE 10 U/L (12-78); ALBUMIN 1.3 G/DL (3.4-5.0); ALBUMIN/GLOBULIN RATIO 0.3 (1.1-1.5); ALKALINE PHOSPHATASE 108 IU/L (46-116); ANION GAP 9 (8-16); ASPARTATE AMINO TRANSFERASE 36 U/L (10-37); BILIRUBIN,TOTAL 0.5 MG/DL (0.1-1.0); BLOOD UREA NITROGEN 24 MG/DL (7-18); BUN/CREATININE RATIO 30.8 (6.6-38.0); CALCIUM 7.4 MG/DL (8.5-10.1); CHLORIDE 110 MMOL/L (99-107); CREATININE 0.78 MG/DL (0.40-0.90); MAGNESIUM 1.9 MG/DL (1.5-2.4); PHOSPHORUS 5.2 MG/DL (2.3-4.5); POTASSIUM 4.5 MMOL/L (3.5-5.1); SODIUM 142 MMOL/L (135-145); TOTAL CARBON DIOXIDE 22.7 MMOL/L (24-32); TOTAL PROTEIN 6.5 G/DL (6.4-8.2); eGFR 86 ML/MIN
[2018-12-02 04:07] LABS: GLUCOSE 106 MG/DL (70-104)
[2018-12-02 04:19] LABS: PLATELET COUNT 38 X10'3 (140-440)
[2018-12-02 04:45] LABS: ABG BASE EXCESS -4.2 mmol/L (-2.0-3.0); ABG HCO3 20.3 mmol/L (22.0-26.0); ABG OXYGEN SATURATION 87.1 % (95-98); ABG PCO2 (T) 35.8 mmHg (32.0-45.0); ABG PH (T) 7.374 (7.350-7.450); ALLEN'S TEST Positive; FCOHb 1.1 % (0.5-1.5); FMetHb 0.2 % (0.3-1.12); MINUTE VOLUME 13 L/min; PATIENT TEMPERATURE 37.5; PEEP 5 cm H2O; RESPIRATORY RATE 18 b/min; RESPIRATORY RATE (OBSERVED) 30 b/min; TIDAL VOLUME 375 mL; TOTAL HEMOGLOBIN 10.5 G/dl (12.0-16.0)
--- NOTE | 2018-12-02 06:50 | NUR ---
Problems reprioritized. Patient report given, questions answered & plan of care reviewed with Yulisa MATSON.
[2018-12-02] MEDS: buprenorphine/naloxone 2-0.5mg sublingual tablet SL SCH (09:16)
[2018-12-02] MEDS: lactobacillus rhamnosus 10,000 MMU CELLS/CAPSULE PO SCH ×2 (09:17→20:06)
[2018-12-02] MEDS: docusate sodium 100mg/10ml UD cup PO SCH ×2 (09:17→20:06)
[2018-12-02] MEDS: FENTANYL-0.9 % NACL/PF 100 ML IV PRN ×2 (09:18→22:56)
[2018-12-02] MEDS: cefazolin/dext.iso 2gm/50ml 50 ML IV SCH ×2 (09:31→17:39)
[2018-12-02] MEDS: midazolam 100mg in NS 100ml 100 ML IV PRN (12:03)
[2018-12-02] MEDS: famotidine/PF 10 mg/ml inj IV SCH ×2 (14:32→20:06)
--- NOTE | 2018-12-02 18:15 | NUR ---
Patient in room CICU 2009. I have received report from DANO Márquez and had the opportunity to ask questions and assume patient care with DANO Bliss. Patient is intubated on the ventilator at FiO2 of 35%. Patient has a PICC line with IV medications infusing: Levophed for blood pressure support, Fentanyl and Versed for pain and sedation. See IV flow sheet for titration per protocol. Patient with tena catheter in place. Limbs on pillows to off load pressure. Resting comfortably at this time. Will continue to monitor.
--- NOTE | 2018-12-02 20:00 | NUR ---
Tube feeding residual 300ml light green bile with tube feed. Tube feed turned off for 1 hour and resumed at rate of 25 ml/hr.
[2018-12-03] VITALS (24 sets, daily range): BP systolic 92–112; BP diastolic 45–67
[2018-12-03] MEDS: cefazolin/dext.iso 2gm/50ml 50 ML IV SCH ×3 (00:05→16:06)
[2018-12-03] MEDS: mineral oil/petrolatum ophthal oint EACHEYE SCH ×4 (02:24→20:19)
[2018-12-03] MEDS: midazolam 100mg in NS 100ml 100 ML IV PRN (02:28)
[2018-12-03 03:15] LABS: BASOPHILS % (AUTO) 0.3 % (0-1); EOSINOPHILS % (AUTO) 0.5 % (0-6); HEMATOCRIT 23.9 % (35.0-45.0); LYMPHOCYTES # (AUTO) 0.7 X10'3 (1.1-4.8); MEAN CORPUSCULAR HEMOGLOBIN 28.2 PG (27.0-31.0); MEAN CORPUSCULAR HGB CONC 33.3 g/dL (33.0-36.5); MEAN CORPUSCULAR VOLUME 84.6 FL (78-98); MEAN PLATELET VOLUME 9.6 FL (7.4-10.4); MONOCYTES # (AUTO) 0.1 X10'3 (0-0.9); MONOCYTES % (AUTO) 2.3 % (2-12); NEUTROPHILS # (AUTO) 3.4 X10'3 (1.8-7.7); NEUTROPHILS % (AUTO) 79.9 % (42-75); RED BLOOD COUNT 2.82 X10'6 (4.20-5.60); RED CELL DISTRIBUTION WIDTH 16.5 % (11.5-14.5); WHITE BLOOD COUNT 4.3 X10'3 (4.5-11.0)
[2018-12-03 03:20] LABS: ALKALINE PHOSPHATASE 93 IU/L (46-116); PLATELET COUNT 31 X10'3 (140-440)
[2018-12-03 03:27] LABS: ALBUMIN 1.1 G/DL (3.4-5.0); ALBUMIN/GLOBULIN RATIO 0.2 (1.1-1.5); ANION GAP 6 (8-16); ASPARTATE AMINO TRANSFERASE 24 U/L (10-37); BILIRUBIN,TOTAL 0.4 MG/DL (0.1-1.0); BLOOD UREA NITROGEN 21 MG/DL (7-18); BUN/CREATININE RATIO 32.8 (6.6-38.0); CALCIUM 7.4 MG/DL (8.5-10.1); CHLORIDE 111 MMOL/L (99-107); CREATININE 0.64 MG/DL (0.40-0.90); MAGNESIUM 1.6 MG/DL (1.5-2.4); PHOSPHORUS 3.1 MG/DL (2.3-4.5); POTASSIUM 3.9 MMOL/L (3.5-5.1); SODIUM 142 MMOL/L (135-145); TOTAL CARBON DIOXIDE 25.3 MMOL/L (24-32); TOTAL PROTEIN 5.8 G/DL (6.4-8.2); eGFR > 90 ML/MIN
[2018-12-03 03:28] LABS: ALANINE AMINOTRANSFERASE < 6 U/L (12-78); GLUCOSE 108 MG/DL (70-104)
--- NOTE | 2018-12-03 03:40 | NUR ---
Critical Lab Value: Platelet of October CHUY Rios notified. H&H 8.0/23.9 with recent transfusion history on the . CHUY Rios will order repeat hemogram at 1100 12/03. Will continue to monitor.
[2018-12-03 04:10] LABS: INR 1.1 INR; PROTHROMBIN TIME 11.5 SECONDS (9.0-12.0)
[2018-12-03 04:11] LABS: ABG HCO3 23.1 mmol/L (22.0-26.0); ABG OXYGEN SATURATION 97.2 % (95-98); ABG PCO2 (T) 37.1 mmHg (32.0-45.0); ABG PH (T) 7.416 (7.350-7.450); ALLEN'S TEST Positive; FCOHb 0.8 % (0.5-1.5); FMetHb 0.2 % (0.3-1.12); FO2Hb 96.2 % (94-100); MINUTE VOLUME 8 L/min; PEEP 5 cm H2O; RESPIRATORY RATE 18 b/min; RESPIRATORY RATE (OBSERVED) 19 b/min; TIDAL VOLUME 375 mL; TOTAL HEMOGLOBIN 8.6 G/dl (12.0-16.0)
[2018-12-03] MEDS: acetaminophen 325mg/10.15ml oral unit dose solution PO PRN ×2 (06:04→16:39)
--- NOTE | 2018-12-03 06:18 | NUR ---
Problems reprioritized. Patient report given, questions answered & plan of care reviewed with DANO Márquez.
--- NOTE | 2018-12-03 06:21 | NUR ---
I have reviewed and agree with all medications administered and interventions performed by Rita MATSON.
[2018-12-03] MEDS: docusate sodium 100mg/10ml UD cup PO SCH ×2 (08:41→20:19)
[2018-12-03] MEDS: lactobacillus rhamnosus 10,000 MMU CELLS/CAPSULE PO SCH ×2 (08:41→20:19)
[2018-12-03] MEDS: famotidine/PF 10 mg/ml inj IV SCH ×2 (08:41→20:19)
[2018-12-03] MEDS: buprenorphine/naloxone 2-0.5mg sublingual tablet SL SCH (08:41)
[2018-12-03 11:55] LABS: HEMATOCRIT 24.6 % (35.0-45.0); HEMOGLOBIN 8.1 g/dl (12.0-16.0); MEAN CORPUSCULAR HEMOGLOBIN 27.8 PG (27.0-31.0); MEAN CORPUSCULAR HGB CONC 32.9 g/dL (33.0-36.5); MEAN CORPUSCULAR VOLUME 84.6 FL (78-98); MEAN PLATELET VOLUME 9.8 FL (7.4-10.4); RED BLOOD COUNT 2.91 X10'6 (4.20-5.60); RED CELL DISTRIBUTION WIDTH 16.1 % (11.5-14.5); WHITE BLOOD COUNT 3.5 X10'3 (4.5-11.0)
[2018-12-03 12:13] LABS: PLATELET COUNT 32 X10'3 (140-440)
--- NOTE | 2018-12-03 15:50 | NUR ---
Patients family member claiming to be her mother approached the room and was immediately aggressive with me, she was asking questions so fast I hardly could answer them quick enough. She was saying " You aren't really a nurse I want someone else, you are lying and wearing someone else's badge" "Im calling the governor, he will have her transferred because you dont know what you are doing" " You are judging her because she was on drugs and you are going to kill her" "I am suing you and having you arrested because you are a fake nurse". I stayed very calm and tried to calm her down but, she continued to be very aggressive and walked up to the patients bedside and tried waking her up, "she knows I'm here!!" she said, at this time the patient was getting very agitated and her HR went up to 130s and her breathing was up to 58 times a minute. I asked the family member to please not agitate her because it was unsafe for her to be breathing that fast, she told me " I can touch her and wake her up if I want to, you can't tell me what to do." she began yelling and telling me that the ventilator needs to come out now!!! I told her that it is not time and that would be very unsafe to do that, she said " she needs to go to [facility] now! " I am calling the governor to have her transferred now, you people are killing her!." she continued to argue and yell and she appeared to be under the influence of something because she was talking so fast and she was very aggressive, she was in my face and I told her I was going to call security, she said " you cant make me leave! I have POA" "Go ahead and call they cant do shit about it", "I am going to sit here all day and watch you so you don't kill her." Security contacted at this point and patient sat down and started making phone calls to what she claimed was the police, she was seated in the chair when security arrived.
--- NOTE | 2018-12-03 18:15 | NUR ---
Patient in room CICU 2009. I have received report from DANO Márquez and had the opportunity to ask questions and assume patient care with DANO Bliss. Patient is intubated on the ventilator settings A/C VC with FiO2 of 30%. Patient has ice packs to axillary areas secondary to increased temperature, Tylenol administered by day shift RN. Will continue to monitor. Patient with Right upper arm PICC line with Fentanyl and Versed infusing for sedation and pain control, see IV flow sheet for titration per MD order. Lynch catheter in place. OG tube with Tube feed at 55 ml/hr.
--- NOTE | 2018-12-03 18:56 | NUR ---
Patients Father, Jessee, called to check up on his daughters condition. Verified that he is on the contact list. Gave an update as to the patients condition. He states that he lives out of the area and was at the bedside a few days ago. Told him that it is okay to call to check in on her condition. He states that he "attempted to talk to her mother and was unable to get any information." Very pleasant to speak with.
--- NOTE | 2018-12-03 19:55 | NUR ---
Patients mother Bailee called to ask about her daughters condition, states "I want to know why she has that tube in her throat? Is it because she stopped breathing? She was fine, I mean she was having some trouble breathing but, did she stop breathing?" Mother continued to state "I looked on the internet that staying with the tube in causes brain damage. You cant leave that in long." Explained to her that we attempted to wean her off the ventilator today and she was unable to breathe on her own. Educated mother that her daughter requires the constant support of the ventilator at this time and if we stop it she will not be able to breathe on her own. Patients mother went on to state "Well I am going to come in there on Wednesday with my POA and tell you guys what treatment she needs." Patients mother continued to state: "I want to speak to the doctor and find out how long she will be on this." Her mother then states " I know that the drugs she was on don't do this."
--- NOTE | 2018-12-03 22:40 | NUR ---
Patients mother called "I need to know what time she is going to have stuff done tomorrow morning." Requested clarification from patients mother. Patients mother states "Doesn't she have an x-ray? I want to be there for that." Informed patients mother that the x-ray is taken prior to our visiting hours. Patients mother states "I want to know what kind of anesthesia she is on." Educated patients mother on the Fentanyl for pain control and the Versed for sedation that patient is currently on. Patients mother quickly states "I don't want her to be over sedated. I am coming in there in the morning and I am taking her home." Patients mother hung up the phone abruptly.
[2018-12-04] VITALS (28 sets, daily range): BP systolic 93–121; BP diastolic 44–81
[2018-12-04] MEDS: cefazolin/dext.iso 2gm/50ml 50 ML IV SCH ×4 (00:15→23:58)
[2018-12-04] MEDS: mineral oil/petrolatum ophthal oint EACHEYE SCH ×4 (02:20→21:10)
[2018-12-04 02:52] LABS: ALBUMIN/GLOBULIN RATIO 0.2 (1.1-1.5); ALKALINE PHOSPHATASE 97 IU/L (46-116); ANION GAP 7 (8-16); ASPARTATE AMINO TRANSFERASE 32 U/L (10-37); BILIRUBIN,TOTAL 0.4 MG/DL (0.1-1.0); BLOOD UREA NITROGEN 18 MG/DL (7-18); CALCIUM 7.2 MG/DL (8.5-10.1); CHLORIDE 108 MMOL/L (99-107); CREATININE 0.62 MG/DL (0.40-0.90); MAGNESIUM 1.4 MG/DL (1.5-2.4); PHOSPHORUS 2.8 MG/DL (2.3-4.5); POTASSIUM 3.8 MMOL/L (3.5-5.1); SODIUM 140 MMOL/L (135-145); TOTAL CARBON DIOXIDE 25.2 MMOL/L (24-32); TOTAL PROTEIN 5.7 G/DL (6.4-8.2); eGFR > 90 ML/MIN
[2018-12-04 02:55] LABS: ALANINE AMINOTRANSFERASE < 6 U/L (12-78); GLUCOSE 104 MG/DL (70-104)
[2018-12-04 03:07] LABS: BASOPHILS % (AUTO) 0.5 % (0-1); EOSINOPHILS % (AUTO) 0.3 % (0-6); LYMPHOCYTES # (AUTO) 0.6 X10'3 (1.1-4.8); LYMPHOCYTES % (AUTO) 21.3 % (21-51); MEAN CORPUSCULAR HEMOGLOBIN 27.9 PG (27.0-31.0); MEAN CORPUSCULAR HGB CONC 32.4 g/dL (33.0-36.5); MEAN PLATELET VOLUME 10.1 FL (7.4-10.4); MONOCYTES # (AUTO) 0.1 X10'3 (0-0.9); NEUTROPHILS # (AUTO) 1.9 X10'3 (1.8-7.7); NEUTROPHILS % (AUTO) 74.9 % (42-75); RED BLOOD COUNT 2.45 X10'6 (4.20-5.60); WHITE BLOOD COUNT 2.6 X10'3 (4.5-11.0)
--- NOTE | 2018-12-04 03:10 | NUR ---
Patient continuing to have oxygen saturation of 89-90%. RT increased FiO2 to 40%. Will continue to monitor.
[2018-12-04 03:16] LABS: HEMATOCRIT 21.1 % (35.0-45.0); HEMOGLOBIN 6.8 g/dl (12.0-16.0); PLATELET COUNT 25 X10'3 (140-440)
[2018-12-04 03:22] LABS: PROTHROMBIN TIME 11.9 SECONDS (9.0-12.0)
[2018-12-04 03:23] LABS: INR 1.2 INR
[2018-12-04] MEDS ORDERED: magnesium 2GM in 50ml NS 50 ML IV ONE (03:25)
[2018-12-04] MEDS: midazolam 100mg in NS 100ml 100 ML IV PRN ×3 (03:51→21:45)
[2018-12-04] MEDS: acetaminophen 325mg/10.15ml oral unit dose solution PO PRN ×2 (03:54→16:56)
[2018-12-04] MEDS: FENTANYL-0.9 % NACL/PF 100 ML IV PRN ×2 (04:11→15:56)
[2018-12-04 05:01] LABS: ABG BASE EXCESS -1.1 mmol/L (-2.0-3.0); ABG HCO3 22.9 mmol/L (22.0-26.0); ABG OXYGEN SATURATION 93.7 % (95-98); ABG PCO2 (T) 37.2 mmHg (32.0-45.0); ABG PH (T) 7.412 (7.350-7.450); ABG PO2 (T) 78.4 mmHg (83-108); ALLEN'S TEST Positive; FCOHb 1.6 % (0.5-1.5); FMetHb 0.3 % (0.3-1.12); FO2Hb 91.9 % (94-100); MINUTE VOLUME 9 L/min; PATIENT TEMPERATURE 38.2; PEEP 5 cm H2O; RESPIRATORY RATE 18 b/min; RESPIRATORY RATE (OBSERVED) 22 b/min; TIDAL VOLUME 375 mL; TOTAL HEMOGLOBIN 8.6 G/dl (12.0-16.0)
--- NOTE | 2018-12-04 05:02 | NUR ---
spoke with Shelia Rios ALTERNATIVE ENERGY ENGINEER regarding pts increase in temp to 38.4, cultures obtained 3 days prior, increased FiO2 needs, right forearm wound, left lower leg wound. order for wound culture to areas described.
[2018-12-04 05:05] LABS: ANISOCYTOSIS 1+; HYPOCHROMASIA 1+; PLATELET ESTIMATE DECREASED; TOTAL CELLS COUNTED 100
--- NOTE | 2018-12-04 05:39 | NUR ---
Called Shelia Rios NP and notified her of changes in AM chest xray.
--- NOTE | 2018-12-04 06:23 | NUR ---
Problems reprioritized. Patient report given, questions answered & plan of care reviewed with DANO Peck.
--- NOTE | 2018-12-04 06:24 | NUR ---
I have reviewed and agree with all medications administered and interventions performed by Rita MATSON
--- NOTE | 2018-12-04 06:30 | NUR ---
Patient in room CICU 2009. I have received report from DANO Bliss and had the opportunity to ask questions and assume patient care.
[2018-12-04] MEDS: famotidine/PF 10 mg/ml inj IV SCH ×2 (08:00→20:00)
[2018-12-04] MEDS: buprenorphine/naloxone 2-0.5mg sublingual tablet SL SCH (08:00)
[2018-12-04] MEDS: lactobacillus rhamnosus 10,000 MMU CELLS/CAPSULE PO SCH (08:21)
--- NOTE | 2018-12-04 10:06 | NUR ---
Dr woods arrived on unit and assessed pt, updated on pt condition, holding pepcid and suboxone per MD order.
[2018-12-04] MEDS: docusate sodium 100mg/10ml UD cup PO SCH ×2 (10:46→21:10)
[2018-12-04 11:08] LABS: HEMATOCRIT 23.6 % (35.0-45.0); HEMOGLOBIN 7.9 g/dl (12.0-16.0); MEAN CORPUSCULAR HEMOGLOBIN 28.5 PG (27.0-31.0); MEAN CORPUSCULAR HGB CONC 33.6 g/dL (33.0-36.5); MEAN CORPUSCULAR VOLUME 84.7 FL (78-98); MEAN PLATELET VOLUME 9.5 FL (7.4-10.4); RED BLOOD COUNT 2.78 X10'6 (4.20-5.60); RED CELL DISTRIBUTION WIDTH 15.6 % (11.5-14.5); WHITE BLOOD COUNT 3.7 X10'3 (4.5-11.0)
[2018-12-04 11:19] LABS: PLATELET COUNT 32 X10'3 (140-440)
--- NOTE | 2018-12-04 12:16 | NUR ---
pt is intubate and sedated, VSS. titrating sedation to maintain RASS score. ETT suction Q@2 PRN with thick blood tint sputum.
--- NOTE | 2018-12-04 15:33 | NUR ---
reassessment: Pt remains on TF at goal and tolerating. LBM 12/03. Pt Kris 12 w/ open abscess to L leg. WBC also low 2.6 and on probiotic; clinical pharmacist to d/c r/t risk of lactobacillus infection. Will continue to monitor for TF tolerance. Rec: 1. OGTF using Vital AF at 55ml/hr goal; to provide 1320ml fluid, 1069ml free water, 1584 kcals, and 99g protein. Initiate at 20ml/hr and advance 20ml Q8 to goal as tolerated. 2. water flush 200ml Q4 per sports medicine specialist 3. prealbumin Q /, daily wts 4. hold probiotic for WBC 2.6 5. monitor for signs of refeeding syndrome Addendum: 12/04/18 at [address] Amended: Links added.
--- NOTE | 2018-12-04 18:16 | NUR ---
Patient in room CICU 2009. I have received report from Liv MATSON and had the opportunity to ask questions and assume patient care. Pt on vent on ac/vc with fifo2 at 40% peep of 5, spo2 at 98%, Fentanyl gtt and Versed gtt for pain control and sedation, will titrate per protocol, see IV flowsheet for more information, all IV fluids infusing via PICC. See interventions for further information. All monitoring alarms audible. Will continue to monitor.
--- NOTE | 2018-12-04 18:27 | NUR ---
Problems reprioritized. Patient report given, questions answered & plan of care reviewed with carlo Bliss.
[2018-12-05] VITALS (23 sets, daily range): BP systolic 89–121; BP diastolic 38–73
[2018-12-05] MEDS: acetaminophen 325mg/10.15ml oral unit dose solution PO PRN ×2 (00:03→21:51)
[2018-12-05 01:37] LABS: BASOPHILS % (AUTO) 0.5 % (0-1); EOSINOPHILS % (AUTO) 0.4 % (0-6); HEMATOCRIT 23.4 % (35.0-45.0); HEMOGLOBIN 7.7 g/dl (12.0-16.0); LYMPHOCYTES # (AUTO) 0.5 X10'3 (1.1-4.8); LYMPHOCYTES % (AUTO) 12.4 % (21-51); MEAN CORPUSCULAR HEMOGLOBIN 28.2 PG (27.0-31.0); MEAN CORPUSCULAR VOLUME 85.3 FL (78-98); MEAN PLATELET VOLUME 9.8 FL (7.4-10.4); MONOCYTES # (AUTO) 0.1 X10'3 (0-0.9); MONOCYTES % (AUTO) 3.6 % (2-12); NEUTROPHILS # (AUTO) 3.3 X10'3 (1.8-7.7); NEUTROPHILS % (AUTO) 83.1 % (42-75); RED BLOOD COUNT 2.75 X10'6 (4.20-5.60); RED CELL DISTRIBUTION WIDTH 15.7 % (11.5-14.5)
[2018-12-05 01:41] LABS: PLATELET COUNT 35 X10'3 (140-440)
[2018-12-05 01:49] LABS: ALANINE AMINOTRANSFERASE 10 U/L (12-78); ALBUMIN 1.1 G/DL (3.4-5.0); ALBUMIN/GLOBULIN RATIO 0.2 (1.1-1.5); ALKALINE PHOSPHATASE 104 IU/L (46-116); ANION GAP 7 (8-16); ASPARTATE AMINO TRANSFERASE 46 U/L (10-37); BILIRUBIN,TOTAL 0.4 MG/DL (0.1-1.0); BLOOD UREA NITROGEN 16 MG/DL (7-18); CALCIUM 7.3 MG/DL (8.5-10.1); CHLORIDE 104 MMOL/L (99-107); CREATININE 0.64 MG/DL (0.40-0.90); MAGNESIUM 1.5 MG/DL (1.5-2.4); PHOSPHORUS 2.7 MG/DL (2.3-4.5); POTASSIUM 3.7 MMOL/L (3.5-5.1); SODIUM 137 MMOL/L (135-145); TOTAL CARBON DIOXIDE 26.1 MMOL/L (24-32); TOTAL PROTEIN 5.9 G/DL (6.4-8.2); eGFR > 90 ML/MIN
[2018-12-05 01:53] LABS: GLUCOSE 97 MG/DL (70-104)
[2018-12-05 02:02] LABS: INR 1.2 INR; PROTHROMBIN TIME 11.9 SECONDS (9.0-12.0)
[2018-12-05] MEDS: mineral oil/petrolatum ophthal oint EACHEYE SCH ×4 (02:21→20:38)
[2018-12-05] MEDS: FENTANYL-0.9 % NACL/PF 100 ML IV PRN ×4 (03:32→23:57)
[2018-12-05 04:01] LABS: ABG BASE EXCESS -0.9 mmol/L (-2.0-3.0); ABG HCO3 23.5 mmol/L (22.0-26.0); ABG OXYGEN SATURATION 97.1 % (95-98); ABG PCO2 (T) 37.6 mmHg (32.0-45.0); ABG PH (T) 7.413 (7.350-7.450); ABG PO2 (T) 99.4 mmHg (83-108); ALLEN'S TEST Positive; FCOHb 1.1 % (0.5-1.5); FMetHb 0.2 % (0.3-1.12); FO2Hb 95.8 % (94-100); MINUTE VOLUME 8 L/min; PEEP 5 cm H2O; RESPIRATORY RATE 18 b/min; RESPIRATORY RATE (OBSERVED) 23 b/min; TIDAL VOLUME 375 mL
[2018-12-05] MEDS: midazolam 100mg in NS 100ml 100 ML IV PRN ×3 (05:03→21:50)
--- NOTE | 2018-12-05 06:00 | NUR ---
Called Shelia Rios STOREPERSON regarding chest xray changes from previous day.
--- NOTE | 2018-12-05 06:30 | NUR ---
Assumed care of pt.
--- NOTE | 2018-12-05 06:39 | NUR ---
Problems reprioritized. Patient report given, questions answered & plan of care reviewed with Chiquis MATSON.
[2018-12-05] MEDS: docusate sodium 100mg/10ml UD cup PO SCH ×2 (07:40→20:00)
[2018-12-05] MEDS: cefazolin/dext.iso 2gm/50ml 50 ML IV SCH ×3 (07:40→23:56)
[2018-12-05] MEDS: buprenorphine/naloxone 2-0.5mg sublingual tablet SL SCH (12:38)
[2018-12-05] MEDS: famotidine/PF 10 mg/ml inj IV SCH ×2 (12:38→20:38)
--- NOTE | 2018-12-05 12:39 | NUR ---
suboxone and pepcid given late r/t confirming with MD that he wanted them given when they had been held previously.
--- NOTE | 2018-12-05 15:00 | NUR ---
CT placement done by CCMD, with RN at bedside. Time out done before procedure. CT draining well.
[2018-12-05 16:18] LABS: AMYLASE,BODY FLUID 37 U/L; GLUCOSE,BODY FLUID 75 MG/DL; LDH,BODY FLUID 550 U/L; TOTAL PROTEIN,BODY FLUID 5.1 G/DL
[2018-12-05 16:42] LABS: BF RBC COUNT 339150 /CU MM; BF WBC COUNT 32 /CU MM (0-1000); BFAPPEAR BLOODY; BFCOLOR RED; BFVOLUME 8 ML
[2018-12-05 17:41] LABS: LYMPHOCYTES,BODY FLUID 29 %; MONOCYTES,BODY FLUID 3 %; NEUTROPHILS,BODY FLUID 68 %
--- NOTE | 2018-12-05 18:20 | NUR ---
Patient in room CICU 2009. I have received report from Chiquis MATSON and had the opportunity to ask questions and assume patient care. Pt on vent at 35% fio2, peep 5, spoe 98%. left lateral chest tube to suction, no air leak, no crepitus. fentanyl gtt, and versed gtt for pain control and sedation, infusing via PICC, will titrate per protocol. See interventions for more information. will continue to monitor.
--- NOTE | 2018-12-05 18:20 | NUR ---
Report given to police shift commander; pt stable.
[2018-12-06] VITALS (29 sets, daily range): BP systolic 90–115; BP diastolic 42–74
[2018-12-06] MEDS: mineral oil/petrolatum ophthal oint EACHEYE SCH ×4 (02:29→21:14)
[2018-12-06] MEDS: NORepinephrine 8mg/ 250ml NS 250 ML IV PRN (02:29)
[2018-12-06 03:06] LABS: BASOPHILS % (AUTO) 0.5 % (0-1); EOSINOPHILS % (AUTO) 0.3 % (0-6); LYMPHOCYTES # (AUTO) 0.5 X10'3 (1.1-4.8); LYMPHOCYTES % (AUTO) 14.9 % (21-51); MEAN CORPUSCULAR HEMOGLOBIN 28.9 PG (27.0-31.0); MEAN PLATELET VOLUME 9.9 FL (7.4-10.4); MONOCYTES # (AUTO) 0.2 X10'3 (0-0.9); MONOCYTES % (AUTO) 5.6 % (2-12); NEUTROPHILS # (AUTO) 2.7 X10'3 (1.8-7.7); NEUTROPHILS % (AUTO) 78.7 % (42-75); RED BLOOD COUNT 2.38 X10'6 (4.20-5.60); RED CELL DISTRIBUTION WIDTH 15.6 % (11.5-14.5); WHITE BLOOD COUNT 3.4 X10'3 (4.5-11.0)
[2018-12-06 03:10] LABS: HEMATOCRIT 20.3 % (35.0-45.0); HEMOGLOBIN 6.9 g/dl (12.0-16.0); PLATELET COUNT 38 X10'3 (140-440)
[2018-12-06 03:11] LABS: INR 1.2 INR; PROTHROMBIN TIME 12.4 SECONDS (9.0-12.0)
[2018-12-06 03:13] LABS: ALBUMIN/GLOBULIN RATIO 0.2 (1.1-1.5); ALKALINE PHOSPHATASE 70 IU/L (46-116); ANION GAP 4 (8-16); ASPARTATE AMINO TRANSFERASE 25 U/L (10-37); BILIRUBIN,TOTAL 0.3 MG/DL (0.1-1.0); BLOOD UREA NITROGEN 15 MG/DL (7-18); BUN/CREATININE RATIO 26.3 (6.6-38.0); CALCIUM 7.2 MG/DL (8.5-10.1); CHLORIDE 104 MMOL/L (99-107); CREATININE 0.57 MG/DL (0.40-0.90); MAGNESIUM 1.3 MG/DL (1.5-2.4); PHOSPHORUS 2.9 MG/DL (2.3-4.5); POTASSIUM 3.8 MMOL/L (3.5-5.1); SODIUM 136 MMOL/L (135-145); TOTAL CARBON DIOXIDE 28.2 MMOL/L (24-32); TOTAL PROTEIN 5.4 G/DL (6.4-8.2); eGFR > 90 ML/MIN
[2018-12-06 03:17] LABS: ALANINE AMINOTRANSFERASE < 6 U/L (12-78); GLUCOSE 101 MG/DL (70-104)
[2018-12-06 03:45] LABS: ABG BASE EXCESS -4.3 mmol/L (-2.0-3.0); ABG HCO3 19.8 mmol/L (22.0-26.0); ABG OXYGEN SATURATION 95.2 % (95-98); ABG PCO2 (T) 34.2 mmHg (32.0-45.0); ABG PH (T) 7.386 (7.350-7.450); ABG PO2 (T) 89.8 mmHg (83-108); ALLEN'S TEST Positive; FMetHb 0.2 % (0.3-1.12); FO2Hb 94.1 % (94-100); MINUTE VOLUME 7 L/min; PATIENT TEMPERATURE 38.4; PEEP 5 cm H2O; RESPIRATORY RATE 18 b/min; RESPIRATORY RATE (OBSERVED) 18 b/min; TIDAL VOLUME 375 mL; TOTAL HEMOGLOBIN 7.8 G/dl (12.0-16.0)
[2018-12-06] MEDS: acetaminophen 325mg/10.15ml oral unit dose solution PO PRN ×3 (04:57→21:13)
--- NOTE | 2018-12-06 06:21 | NUR ---
Problems reprioritized. Patient report given, questions answered & plan of care reviewed with Shannan MATSON.
[2018-12-06] MEDS: midazolam 100mg in NS 100ml 100 ML IV PRN ×2 (06:32→15:34)
[2018-12-06] MEDS: FENTANYL-0.9 % NACL/PF 100 ML IV PRN ×3 (06:32→19:17)
[2018-12-06] MEDS: cefazolin/dext.iso 2gm/50ml 50 ML IV SCH ×2 (08:00→15:12)
[2018-12-06] MEDS: famotidine/PF 10 mg/ml inj IV SCH ×2 (08:00→21:13)
[2018-12-06] MEDS: docusate sodium 100mg/10ml UD cup PO SCH ×2 (08:00→21:13)
[2018-12-06] MEDS: buprenorphine/naloxone 2-0.5mg sublingual tablet SL SCH (08:01)
[2018-12-06] MEDS ORDERED: magnesium 4gm in 100ml NS 100 ML IV ONE (10:45)
[2018-12-06 11:25] LABS: PREALBUMIN 8.5 MG/DL (19-36)
--- NOTE | 2018-12-06 19:02 | NUR ---
Patient in room CICU 2009. I have received report from Lili MATSON and had the opportunity to ask questions and assume patient care.
[2018-12-07] VITALS (24 sets, daily range): BP systolic 88–130; BP diastolic 46–79
[2018-12-07] MEDS: midazolam 100mg in NS 100ml 100 ML IV PRN ×3 (00:25→15:55)
[2018-12-07] MEDS: cefazolin/dext.iso 2gm/50ml 50 ML IV SCH ×4 (00:54→23:43)
--- NOTE | 2018-12-07 01:40 | NUR ---
pt spiked a fever again 39.1, too soon for Tylenol, so i used ice packs, one under her R armpit and one in her groin area. Fever resolved.
[2018-12-07] MEDS: FENTANYL-0.9 % NACL/PF 100 ML IV PRN ×4 (02:07→23:43)
[2018-12-07] MEDS: mineral oil/petrolatum ophthal oint EACHEYE SCH ×4 (02:07→20:13)
[2018-12-07 02:56] LABS: ABG HCO3 25.8 mmol/L (22.0-26.0); ABG PCO2 (T) 39.8 mmHg (32.0-45.0); ABG PH (T) 7.436 (7.350-7.450); ABG PO2 (T) 104.1 mmHg (83-108); ALLEN'S TEST Positive; FCOHb 0.6 % (0.5-1.5); FMetHb 0.2 % (0.3-1.12); FO2Hb 96.2 % (94-100); MINUTE VOLUME 7 L/min; PATIENT TEMPERATURE 38.8; PEEP 5 cm H2O; RESPIRATORY RATE 18 b/min; RESPIRATORY RATE (OBSERVED) 18 b/min; TIDAL VOLUME 375 mL; TOTAL HEMOGLOBIN 9.9 G/dl (12.0-16.0)
[2018-12-07] MEDS: NORepinephrine 8mg/ 250ml NS 250 ML IV PRN (02:59)
[2018-12-07 03:02] LABS: BASOPHILS % (AUTO) 0.3 % (0-1); EOSINOPHILS % (AUTO) 0.2 % (0-6); HEMATOCRIT 26.1 % (35.0-45.0); HEMOGLOBIN 8.9 g/dl (12.0-16.0); LYMPHOCYTES # (AUTO) 0.4 X10'3 (1.1-4.8); LYMPHOCYTES % (AUTO) 9.6 % (21-51); MEAN CORPUSCULAR HGB CONC 34.1 g/dL (33.0-36.5); MEAN CORPUSCULAR VOLUME 84.9 FL (78-98); MEAN PLATELET VOLUME 9.7 FL (7.4-10.4); MONOCYTES # (AUTO) 0.3 X10'3 (0-0.9); MONOCYTES % (AUTO) 7.2 % (2-12); NEUTROPHILS # (AUTO) 3.5 X10'3 (1.8-7.7); NEUTROPHILS % (AUTO) 82.7 % (42-75); RED BLOOD COUNT 3.07 X10'6 (4.20-5.60); RED CELL DISTRIBUTION WIDTH 15.2 % (11.5-14.5); WHITE BLOOD COUNT 4.2 X10'3 (4.5-11.0)
[2018-12-07 03:07] LABS: INR 1.3 INR
[2018-12-07 03:11] LABS: ALBUMIN 1.1 G/DL (3.4-5.0); ALBUMIN/GLOBULIN RATIO 0.2 (1.1-1.5); ALKALINE PHOSPHATASE 79 IU/L (46-116); ANION GAP 6 (8-16); ASPARTATE AMINO TRANSFERASE 30 U/L (10-37); BILIRUBIN,TOTAL 0.5 MG/DL (0.1-1.0); BLOOD UREA NITROGEN 16 MG/DL (7-18); BUN/CREATININE RATIO 30.8 (6.6-38.0); CALCIUM 7.4 MG/DL (8.5-10.1); CHLORIDE 99 MMOL/L (99-107); CREATININE 0.52 MG/DL (0.40-0.90); GLUCOSE 105 MG/DL (70-104); MAGNESIUM 1.8 MG/DL (1.5-2.4); PHOSPHORUS 2.8 MG/DL (2.3-4.5); POTASSIUM 3.6 MMOL/L (3.5-5.1); SODIUM 133 MMOL/L (135-145); TOTAL CARBON DIOXIDE 28.5 MMOL/L (24-32); TOTAL PROTEIN 5.8 G/DL (6.4-8.2); eGFR > 90 ML/MIN
[2018-12-07 03:14] LABS: ALANINE AMINOTRANSFERASE < 6 U/L (12-78)
[2018-12-07 03:17] LABS: PLATELET COUNT 49 X10'3 (140-440)
--- NOTE | 2018-12-07 05:40 | NUR ---
changed, chest tube water seal atrium without difficulty or incident, patient tolerated well, will continue to monitor
--- NOTE | 2018-12-07 06:27 | NUR ---
Problems reprioritized. Patient report given, questions answered & plan of care reviewed with Lili Escamilla.
[2018-12-07] MEDS: famotidine/PF 10 mg/ml inj IV SCH ×2 (07:30→20:13)
[2018-12-07] MEDS: docusate sodium 100mg/10ml UD cup PO SCH ×2 (07:30→20:13)
[2018-12-07] MEDS: buprenorphine/naloxone 2-0.5mg sublingual tablet SL SCH (07:30)
[2018-12-07] MEDS: dexmedetomidin/NS 400mcg/100ml 100 ML IV SCH (11:48)
[2018-12-07] MEDS ORDERED: normal saline 1000ml 1,000 ML IV ONE (12:10)
--- NOTE | 2018-12-07 13:18 | NUR ---
reassessment: Pt TF remains at goal and tolerating; CT 55ml output per RN. Pt has bilateral sacral PU; WOC still pending per RN. LBM 12/06. Will continue to monitor. Rec: 1. OGTF using Vital AF at 55ml/hr goal; to provide 1320ml fluid, 1069ml free water, 1584 kcals, and 99g protein. Initiate at 20ml/hr and advance 20ml Q8 to goal as tolerated. 2. water flush 200ml Q4 per field artillery operations man 3. prealbumin Q M/Th, daily wts 4. hold probiotic for WBC 2.6 5. monitor for signs of refeeding syndrome Addendum: 12/07/18 at [address] Amended: Links added.
--- NOTE | 2018-12-07 18:18 | NUR ---
Report given to security shift supervisor RN. Pt stable.
--- NOTE | 2018-12-07 21:43 | NUR ---
Patient in room CICU 2009. I have received report from Renu Escamilla and had the opportunity to ask questions and assume patient care.
[2018-12-07] MEDS: acetaminophen 325mg/10.15ml oral unit dose solution PO PRN (23:43)
[2018-12-08] VITALS (24 sets, daily range): BP systolic 90–113; BP diastolic 51–72
[2018-12-08] MEDS: mineral oil/petrolatum ophthal oint EACHEYE SCH ×4 (02:00→19:58)
[2018-12-08 02:43] LABS: INR 1.2 INR; PROTHROMBIN TIME 12.4 SECONDS (9.0-12.0)
[2018-12-08 02:45] LABS: ALANINE AMINOTRANSFERASE 7 U/L (12-78); ALBUMIN 1.1 G/DL (3.4-5.0); ALBUMIN/GLOBULIN RATIO 0.2 (1.1-1.5); ALKALINE PHOSPHATASE 73 IU/L (46-116); ANION GAP 5 (8-16); ASPARTATE AMINO TRANSFERASE 22 U/L (10-37); BILIRUBIN,TOTAL 0.4 MG/DL (0.1-1.0); BLOOD UREA NITROGEN 12 MG/DL (7-18); BUN/CREATININE RATIO 24.5 (6.6-38.0); CALCIUM 7.5 MG/DL (8.5-10.1); CHLORIDE 100 MMOL/L (99-107); CREATININE 0.49 MG/DL (0.40-0.90); GLUCOSE 110 MG/DL (70-104); MAGNESIUM 1.6 MG/DL (1.5-2.4); PHOSPHORUS 3.2 MG/DL (2.3-4.5); POTASSIUM 3.2 MMOL/L (3.5-5.1); PREALBUMIN 8.9 MG/DL (19-36); SODIUM 134 MMOL/L (135-145); TOTAL CARBON DIOXIDE 28.7 MMOL/L (24-32); TOTAL PROTEIN 5.9 G/DL (6.4-8.2); eGFR > 90 ML/MIN
[2018-12-08 02:59] LABS: BASOPHILS % (AUTO) 0.7 % (0-1); EOSINOPHILS % (AUTO) 0.3 % (0-6); HEMATOCRIT 26.2 % (35.0-45.0); HEMOGLOBIN 9.1 g/dl (12.0-16.0); LYMPHOCYTES # (AUTO) 0.8 X10'3 (1.1-4.8); LYMPHOCYTES % (AUTO) 17.5 % (21-51); MEAN CORPUSCULAR HEMOGLOBIN 29.6 PG (27.0-31.0); MEAN CORPUSCULAR HGB CONC 34.9 g/dL (33.0-36.5); MEAN CORPUSCULAR VOLUME 84.8 FL (78-98); MEAN PLATELET VOLUME 9.6 FL (7.4-10.4); MONOCYTES # (AUTO) 0.4 X10'3 (0-0.9); MONOCYTES % (AUTO) 8.9 % (2-12); NEUTROPHILS # (AUTO) 3.5 X10'3 (1.8-7.7); NEUTROPHILS % (AUTO) 72.6 % (42-75); PLATELET COUNT 79 X10'3 (140-440); RED BLOOD COUNT 3.09 X10'6 (4.20-5.60); RED CELL DISTRIBUTION WIDTH 15.1 % (11.5-14.5); WHITE BLOOD COUNT 4.8 X10'3 (4.5-11.0)
[2018-12-08 03:56] LABS: ABG BASE EXCESS 2.7 mmol/L (-2.0-3.0); ABG HCO3 25.8 mmol/L (22.0-26.0); ABG OXYGEN SATURATION 96.9 % (95-98); ABG PCO2 (T) 34.3 mmHg (32.0-45.0); ABG PH (T) 7.494 (7.350-7.450); FCOHb 0.7 % (0.5-1.5); FMetHb 0.2 % (0.3-1.12); MINUTE VOLUME 11 L/min; PATIENT TEMPERATURE 37.1; PEEP 5 cm H2O; RESPIRATORY RATE 18 b/min; RESPIRATORY RATE (OBSERVED) 22 b/min; TIDAL VOLUME 375 mL; TOTAL HEMOGLOBIN 10.2 G/dl (12.0-16.0)
[2018-12-08] MEDS: midazolam 100mg in NS 100ml 100 ML IV PRN ×2 (03:58→15:45)
[2018-12-08] MEDS: potassium Cl oral solution 20 MEQ/15 ML PO PRN (04:33)
[2018-12-08] MEDS: dexmedetomidin/NS 400mcg/100ml 100 ML IV SCH (05:10)
[2018-12-08] MEDS: NORepinephrine 8mg/ 250ml NS 250 ML IV PRN (05:27)
[2018-12-08] MEDS: FENTANYL-0.9 % NACL/PF 100 ML IV PRN ×3 (05:58→20:37)
--- NOTE | 2018-12-08 06:26 | NUR ---
Problems reprioritized. Patient report given, questions answered & plan of care reviewed with Mendy MATSON.
[2018-12-08] MEDS: docusate sodium 100mg/10ml UD cup PO SCH ×2 (09:01→19:58)
[2018-12-08] MEDS: cefazolin/dext.iso 2gm/50ml 50 ML IV SCH ×2 (09:01→15:50)
[2018-12-08] MEDS: famotidine/PF 10 mg/ml inj IV SCH ×2 (09:01→19:58)
[2018-12-08] MEDS: buprenorphine/naloxone 2-0.5mg sublingual tablet SL SCH (09:01)
[2018-12-08] MEDS: acetaminophen 325mg/10.15ml oral unit dose solution PO PRN ×2 (11:33→20:25)
[2018-12-08] MEDS ORDERED: normal saline 1000ml 1,000 ML IV ONE (14:50)
[2018-12-08] MEDS: methylnaltrexone br 12mg/0.6ml inj***SubQ only SQ SCH (19:58)
[2018-12-09] VITALS (25 sets, daily range): BP systolic 88–117; BP diastolic 45–82
[2018-12-09] MEDS: cefazolin/dext.iso 2gm/50ml 50 ML IV SCH ×4 (00:05→23:58)
[2018-12-09] MEDS: dexmedetomidin/NS 400mcg/100ml 100 ML IV SCH ×2 (00:05→17:17)
[2018-12-09] MEDS: mineral oil/petrolatum ophthal oint EACHEYE SCH ×4 (02:05→19:28)
[2018-12-09 03:04] LABS: BASOPHILS % (AUTO) 1.3 % (0-1); EOSINOPHILS % (AUTO) 0.5 % (0-6); HEMATOCRIT 23.6 % (35.0-45.0); HEMOGLOBIN 8.1 g/dl (12.0-16.0); LYMPHOCYTES # (AUTO) 0.8 X10'3 (1.1-4.8); LYMPHOCYTES % (AUTO) 19.9 % (21-51); MEAN CORPUSCULAR HEMOGLOBIN 29.3 PG (27.0-31.0); MEAN CORPUSCULAR HGB CONC 34.5 g/dL (33.0-36.5); MEAN CORPUSCULAR VOLUME 85.1 FL (78-98); MONOCYTES # (AUTO) 0.4 X10'3 (0-0.9); MONOCYTES % (AUTO) 10.2 % (2-12); NEUTROPHILS # (AUTO) 2.6 X10'3 (1.8-7.7); NEUTROPHILS % (AUTO) 68.1 % (42-75); PLATELET COUNT 87 X10'3 (140-440); RED BLOOD COUNT 2.77 X10'6 (4.20-5.60); RED CELL DISTRIBUTION WIDTH 15.2 % (11.5-14.5); WHITE BLOOD COUNT 3.8 X10'3 (4.5-11.0)
[2018-12-09 03:11] LABS: INR 1.2 INR
[2018-12-09 03:14] LABS: ALANINE AMINOTRANSFERASE 7 U/L (12-78); ALBUMIN 1.1 G/DL (3.4-5.0); ALBUMIN/GLOBULIN RATIO 0.2 (1.1-1.5); ALKALINE PHOSPHATASE 67 IU/L (46-116); ANION GAP 3 (8-16); ASPARTATE AMINO TRANSFERASE 22 U/L (10-37); BILIRUBIN,TOTAL 0.3 MG/DL (0.1-1.0); BLOOD UREA NITROGEN 12 MG/DL (7-18); BUN/CREATININE RATIO 25.5 (6.6-38.0); CALCIUM 7.7 MG/DL (8.5-10.1); CHLORIDE 101 MMOL/L (99-107); CREATININE 0.47 MG/DL (0.40-0.90); GLUCOSE 108 MG/DL (70-104); MAGNESIUM 1.4 MG/DL (1.5-2.4); PHOSPHORUS 3.3 MG/DL (2.3-4.5); POTASSIUM 3.4 MMOL/L (3.5-5.1); SODIUM 134 MMOL/L (135-145); TOTAL CARBON DIOXIDE 30.3 MMOL/L (24-32); TOTAL PROTEIN 5.9 G/DL (6.4-8.2); eGFR > 90 ML/MIN
[2018-12-09] MEDS: midazolam 100mg in NS 100ml 100 ML IV PRN ×2 (03:35→15:41)
[2018-12-09 03:55] LABS: ABG HCO3 28.6 mmol/L (22.0-26.0); ABG OXYGEN SATURATION 94.6 % (95-98); ABG PCO2 (T) 39.7 mmHg (32.0-45.0); ABG PH (T) 7.479 (7.350-7.450); ABG PO2 (T) 76.3 mmHg (83-108); FCOHb 0.4 % (0.5-1.5); FMetHb 0.2 % (0.3-1.12); MINUTE VOLUME 9 L/min; PEEP 5 cm H2O; RESPIRATORY RATE 18 b/min; RESPIRATORY RATE (OBSERVED) 22 b/min; TIDAL VOLUME 375 mL; TOTAL HEMOGLOBIN 9.3 G/dl (12.0-16.0)
[2018-12-09] MEDS: potassium Cl oral solution 20 MEQ/15 ML PO PRN ×3 (04:00→14:30)
--- NOTE | 2018-12-09 06:30 | NUR ---
Patient in room CICU 2009. I have received report from RN and had the opportunity to ask questions and assume patient care.
[2018-12-09] MEDS: buprenorphine/naloxone 2-0.5mg sublingual tablet SL SCH (07:57)
[2018-12-09] MEDS: acetaminophen 325mg/10.15ml oral unit dose solution PO PRN ×2 (07:57→19:28)
[2018-12-09] MEDS: famotidine/PF 10 mg/ml inj IV SCH ×2 (08:01→19:29)
[2018-12-09] MEDS: docusate sodium 100mg/10ml UD cup PO SCH ×2 (08:01→19:28)
[2018-12-09] MEDS: FENTANYL-0.9 % NACL/PF 100 ML IV PRN (08:02)
--- NOTE | 2018-12-09 08:15 | NUR ---
weaning of vent attempted, CPAP, on, did not tolerate, tachypnic to 40,and tachycardic to 120, returned to former vent settings.
--- NOTE | 2018-12-09 11:46 | NUR ---
Reassessment: Pt continues to tolerate TF at goal with low residuals 3-15 mL. Pt currently getting electrolytes replaced d/t low Na, K, and mag. Per RN pt with healing scabs; per physical assessment pt with abscess to LLE, PU to sacrum, and an abscess to right arm. Current TF rate appropriately calculated with increased protein to aid in wound healing. LBM 12/05, pt with routine Colace and with first dose of Relistor 12/08. Will continue to follow. Rec: 1. OGTF using Vital AF at 55ml/hr goal; to provide 1320ml fluid, 1069ml free water, 1584 kcals, and 99g protein. Initiate at 20ml/hr and advance 20ml Q8 to goal as tolerated. 2. water flush 200ml Q4 per j2ee consultant 3. prealbumin Q /, daily wts 4. hold probiotic for WBC 2.6 5. monitor for signs of refeeding syndrome Addendum: 12/09/18 at [address] Amended: Links added.
--- NOTE | 2018-12-09 18:30 | NUR ---
Patient in room CICU 2009. I have received report from agustina matos and had the opportunity to ask questions and assume patient care.
[2018-12-09] MEDS: NYSTATIN CREAM - 30GM TUBE TP SCH (19:28)
[2018-12-10] VITALS (24 sets, daily range): BP systolic 93–125; BP diastolic 55–80
[2018-12-10] MEDS: mineral oil/petrolatum ophthal oint EACHEYE SCH ×4 (01:57→19:30)
[2018-12-10 02:40] LABS: ABG BASE EXCESS 5.8 mmol/L (-2.0-3.0); ABG HCO3 29.1 mmol/L (22.0-26.0); ABG OXYGEN SATURATION 96.8 % (95-98); ABG PCO2 (T) 37.3 mmHg (32.0-45.0); ABG PH (T) 7.513 (7.350-7.450); ABG PO2 (T) 90.1 mmHg (83-108); ALLEN'S TEST Positive; FMetHb 0.3 % (0.3-1.12); FO2Hb 95.5 % (94-100); MINUTE VOLUME 12 L/min; PATIENT TEMPERATURE 37.8; PEEP 5 cm H2O; RESPIRATORY RATE 18 b/min; RESPIRATORY RATE (OBSERVED) 22 b/min; TIDAL VOLUME 375 mL; TOTAL HEMOGLOBIN 6.9 G/dl (12.0-16.0)
[2018-12-10 02:55] LABS: ALANINE AMINOTRANSFERASE 7 U/L (12-78); ALBUMIN 1.2 G/DL (3.4-5.0); ALBUMIN/GLOBULIN RATIO 0.2 (1.1-1.5); ALKALINE PHOSPHATASE 68 IU/L (46-116); ANION GAP 1 (8-16); ASPARTATE AMINO TRANSFERASE 25 U/L (10-37); BILIRUBIN,TOTAL 0.4 MG/DL (0.1-1.0); BLOOD UREA NITROGEN 12 MG/DL (7-18); BUN/CREATININE RATIO 26.7 (6.6-38.0); CALCIUM 7.8 MG/DL (8.5-10.1); CHLORIDE 100 MMOL/L (99-107); CREATININE 0.45 MG/DL (0.40-0.90); GLUCOSE 101 MG/DL (70-104); INR 1.2 INR; MAGNESIUM 1.4 MG/DL (1.5-2.4); PHOSPHORUS 3.3 MG/DL (2.3-4.5); POTASSIUM 3.9 MMOL/L (3.5-5.1); PROTHROMBIN TIME 12.1 SECONDS (9.0-12.0); SODIUM 131 MMOL/L (135-145); TOTAL CARBON DIOXIDE 30.1 MMOL/L (24-32); TOTAL PROTEIN 6.1 G/DL (6.4-8.2); eGFR > 90 ML/MIN
[2018-12-10 03:11] LABS: BASOPHILS % (AUTO) 0.8 % (0-1); EOSINOPHILS % (AUTO) 0.5 % (0-6); HEMOGLOBIN 7.1 g/dl (12.0-16.0); LYMPHOCYTES # (AUTO) 0.7 X10'3 (1.1-4.8); LYMPHOCYTES % (AUTO) 21.1 % (21-51); MEAN CORPUSCULAR HEMOGLOBIN 28.6 PG (27.0-31.0); MEAN CORPUSCULAR HGB CONC 33.2 g/dL (33.0-36.5); MEAN CORPUSCULAR VOLUME 86.1 FL (78-98); MEAN PLATELET VOLUME 8.8 FL (7.4-10.4); MONOCYTES # (AUTO) 0.4 X10'3 (0-0.9); MONOCYTES % (AUTO) 11.6 % (2-12); NEUTROPHILS # (AUTO) 2.1 X10'3 (1.8-7.7); PLATELET COUNT 93 X10'3 (140-440); RED BLOOD COUNT 2.49 X10'6 (4.20-5.60); RED CELL DISTRIBUTION WIDTH 15.1 % (11.5-14.5); WHITE BLOOD COUNT 3.1 X10'3 (4.5-11.0)
[2018-12-10 03:45] LABS: HEMATOCRIT 21.5 % (35.0-45.0)
--- NOTE | 2018-12-10 06:25 | NUR ---
Problems reprioritized. Patient report given, questions answered & plan of care reviewed with susan matos.
[2018-12-10] MEDS: methylnaltrexone br 12mg/0.6ml inj***SubQ only SQ SCH (08:00)
[2018-12-10] MEDS: docusate sodium 100mg/10ml UD cup PO SCH ×2 (08:00→19:29)
[2018-12-10] MEDS: famotidine/PF 10 mg/ml inj IV SCH ×2 (08:17→19:29)
[2018-12-10] MEDS: NYSTATIN CREAM - 30GM TUBE TP SCH ×2 (08:17→19:29)
[2018-12-10] MEDS: cefazolin/dext.iso 2gm/50ml 50 ML IV SCH ×3 (08:17→23:44)
[2018-12-10] MEDS: dexmedetomidin/NS 400mcg/100ml 100 ML IV SCH ×2 (08:57→19:32)
[2018-12-10] MEDS: midazolam 100mg in NS 100ml 100 ML IV PRN (11:53)
--- NOTE | 2018-12-10 15:59 | NUR ---
There is no order for free water flush. Spoke with maritza nuñez, and she said to follow human performance technologist recommendation for free water flush
--- NOTE | 2018-12-10 18:18 | NUR ---
Patient in room CICU 2009. I have received report and had the opportunity to ask questions and assume patient care.
[2018-12-11] VITALS (24 sets, daily range): BP systolic 99–122; BP diastolic 51–86
[2018-12-11] MEDS: mineral oil/petrolatum ophthal oint EACHEYE SCH ×4 (02:00→20:27)
--- NOTE | 2018-12-11 02:15 | NUR ---
pt able to write to communicate. pt wrote that her mom wants her to sign herself out of the hospital. pt educated on her condition and nods that she understands
[2018-12-11] MEDS ORDERED: NORepinephrine 8mg/ 250ml NS 250 ML IV PRN (03:02)
[2018-12-11 03:49] LABS: ALBUMIN 1.2 G/DL (3.4-5.0); ALBUMIN/GLOBULIN RATIO 0.2 (1.1-1.5); ALKALINE PHOSPHATASE 60 IU/L (46-116); ANION GAP 3 (8-16); ASPARTATE AMINO TRANSFERASE 23 U/L (10-37); BILIRUBIN,TOTAL 0.3 MG/DL (0.1-1.0); BLOOD UREA NITROGEN 12 MG/DL (7-18); BUN/CREATININE RATIO 32.4 (6.6-38.0); CALCIUM 7.6 MG/DL (8.5-10.1); CHLORIDE 104 MMOL/L (99-107); CREATININE 0.37 MG/DL (0.40-0.90); GLUCOSE 103 MG/DL (70-104); MAGNESIUM 1.5 MG/DL (1.5-2.4); PHOSPHORUS 3.7 MG/DL (2.3-4.5); POTASSIUM 3.9 MMOL/L (3.5-5.1); SODIUM 136 MMOL/L (135-145); TOTAL CARBON DIOXIDE 29.3 MMOL/L (24-32); TOTAL PROTEIN 6.1 G/DL (6.4-8.2); eGFR > 90 ML/MIN
[2018-12-11 03:50] LABS: BASOPHILS % (AUTO) 0.8 % (0-1); EOSINOPHILS % (AUTO) 0.9 % (0-6); INR 1.2 INR; LYMPHOCYTES # (AUTO) 0.7 X10'3 (1.1-4.8); LYMPHOCYTES % (AUTO) 23.6 % (21-51); MEAN CORPUSCULAR HEMOGLOBIN 29.1 PG (27.0-31.0); MEAN CORPUSCULAR VOLUME 85.6 FL (78-98); MEAN PLATELET VOLUME 8.6 FL (7.4-10.4); MONOCYTES # (AUTO) 0.3 X10'3 (0-0.9); MONOCYTES % (AUTO) 11.4 % (2-12); NEUTROPHILS # (AUTO) 1.8 X10'3 (1.8-7.7); NEUTROPHILS % (AUTO) 63.3 % (42-75); PLATELET COUNT 110 X10'3 (140-440); PROTHROMBIN TIME 12.3 SECONDS (9.0-12.0); RED BLOOD COUNT 2.31 X10'6 (4.20-5.60); RED CELL DISTRIBUTION WIDTH 15.5 % (11.5-14.5); WHITE BLOOD COUNT 2.9 X10'3 (4.5-11.0)
[2018-12-11 03:51] LABS: ALANINE AMINOTRANSFERASE < 6 U/L (12-78)
[2018-12-11 03:56] LABS: HEMOGLOBIN 6.7 g/dl (12.0-16.0)
[2018-12-11 03:57] LABS: HEMATOCRIT 19.8 % (35.0-45.0)
--- NOTE | 2018-12-11 04:08 | NUR ---
pt hgb 6.7, hct 19.8. notified. order received for one unit prbc
[2018-12-11 04:55] LABS: ABG BASE EXCESS 5.2 mmol/L (-2.0-3.0); ABG HCO3 28.5 mmol/L (22.0-26.0); ABG OXYGEN SATURATION 95.4 % (95-98); ABG PCO2 (T) 37.6 mmHg (32.0-45.0); ABG PH (T) 7.501 (7.350-7.450); ABG PO2 (T) 84.9 mmHg (83-108); FCOHb 0.3 % (0.5-1.5); FMetHb 0.2 % (0.3-1.12); FO2Hb 94.9 % (94-100); PATIENT TEMPERATURE 37.8; PEEP 5 cm H2O; RESPIRATORY RATE 18 b/min; RESPIRATORY RATE (OBSERVED) 18 b/min; TIDAL VOLUME 375 mL; TOTAL HEMOGLOBIN 8.2 G/dl (12.0-16.0)
[2018-12-11] MEDS: dexmedetomidin/NS 400mcg/100ml 100 ML IV SCH (06:45)
[2018-12-11 07:19] LABS: TOTAL CELLS COUNTED 100
[2018-12-11 07:20] LABS: PLATELET ESTIMATE DECREASED
[2018-12-11 07:21] LABS: HYPOCHROMASIA 1+
[2018-12-11 07:22] LABS: ELLIPTOCYTES FEW; SCHISTOCYTES FEW
[2018-12-11] MEDS: NYSTATIN CREAM - 30GM TUBE TP SCH ×2 (07:24→20:27)
[2018-12-11] MEDS: cefazolin/dext.iso 2gm/50ml 50 ML IV SCH ×2 (07:24→17:30)
[2018-12-11] MEDS: famotidine/PF 10 mg/ml inj IV SCH ×2 (07:24→20:27)
[2018-12-11] MEDS: docusate sodium 100mg/10ml UD cup PO SCH ×2 (07:24→20:00)
--- NOTE | 2018-12-11 12:18 | NUR ---
PATIENT ATTEMPTED TO EXTUBATE SELF RESTRAINT LOOSE TUBE REPOSITIONED PLACEMENT CHECKED PER CHEST XRAY. tOLERATING SPONT MODE ON VENT SATS 98%
--- NOTE | 2018-12-11 14:15 | NUR ---
Kris trigger: Kris Schafer w/ sacral PU; receiving adequate nutrition support for wounds. Addendum: 12/11/18 at [address] Amended: Links added.
--- NOTE | 2018-12-11 18:30 | NUR ---
Patient in room CICU 2014. I have received report from Mary MATSON and had the opportunity to ask questions and assume patient care.
[2018-12-11] MEDS: HYDROcodone/acetaminophen 10/325mg tab PO PRN (20:32)
--- NOTE | 2018-12-11 23:00 | NUR ---
1900- Pt's mother at bedside, discussed the plan of care and the importance that she stay intubated for as long as needed. Mother is agreeing and in encouraging her daughter to tough it out. Wound pictures completed, Left lower extremity wound resolved, open to air.
[2018-12-12] VITALS (21 sets, daily range): BP systolic 91–128; BP diastolic 54–81
[2018-12-12] MEDS: HYDROcodone/acetaminophen 10/325mg tab PO PRN ×6 (00:30→19:43)
[2018-12-12] MEDS: cefazolin/dext.iso 2gm/50ml 50 ML IV SCH ×3 (00:30→17:30)
[2018-12-12] MEDS: mineral oil/petrolatum ophthal oint EACHEYE SCH ×3 (02:00→14:00)
[2018-12-12] MEDS ORDERED: Chloraseptic (Phenol) Spray 177ml MM PRN (03:00)
[2018-12-12 03:11] LABS: ABG BASE EXCESS 6.9 mmol/L (-2.0-3.0); ABG HCO3 29.6 mmol/L (22.0-26.0); ABG OXYGEN SATURATION 96.8 % (95-98); ABG PCO2 (T) 34.3 mmHg (32.0-45.0); ABG PH (T) 7.553 (7.350-7.450); ABG PO2 (T) 88.5 mmHg (83-108); FCOHb 0.3 % (0.5-1.5); FMetHb 0.1 % (0.3-1.12); FO2Hb 96.4 % (94-100); MINUTE VOLUME 8 L/min; PATIENT TEMPERATURE 36.7; PEEP 5 cm H2O; RESPIRATORY RATE 18 b/min; RESPIRATORY RATE (OBSERVED) 19 b/min; TIDAL VOLUME 375 mL; TOTAL HEMOGLOBIN 9.8 G/dl (12.0-16.0)
[2018-12-12 03:16] LABS: ALANINE AMINOTRANSFERASE 10 U/L (12-78); ALBUMIN 1.2 G/DL (3.4-5.0); ALBUMIN/GLOBULIN RATIO 0.3 (1.1-1.5); ALKALINE PHOSPHATASE 70 IU/L (46-116); ANION GAP 4 (8-16); ASPARTATE AMINO TRANSFERASE 32 U/L (10-37); BILIRUBIN,TOTAL 0.3 MG/DL (0.1-1.0); BLOOD UREA NITROGEN 14 MG/DL (7-18); BUN/CREATININE RATIO 29.8 (6.6-38.0); CALCIUM 7.6 MG/DL (8.5-10.1); CHLORIDE 101 MMOL/L (99-107); CREATININE 0.47 MG/DL (0.40-0.90); GLUCOSE 100 MG/DL (70-104); MAGNESIUM 1.5 MG/DL (1.5-2.4); PHOSPHORUS 3.6 MG/DL (2.3-4.5); POTASSIUM 3.8 MMOL/L (3.5-5.1); PREALBUMIN 10.3 MG/DL (19-36); SODIUM 133 MMOL/L (135-145); eGFR > 90 ML/MIN
[2018-12-12 03:33] LABS: EOSINOPHILS % (AUTO) 1.1 % (0-6); HEMATOCRIT 25.1 % (35.0-45.0); HEMOGLOBIN 8.6 g/dl (12.0-16.0); LYMPHOCYTES # (AUTO) 0.8 X10'3 (1.1-4.8); LYMPHOCYTES % (AUTO) 19.6 % (21-51); MEAN CORPUSCULAR VOLUME 85.3 FL (78-98); MEAN PLATELET VOLUME 8.7 FL (7.4-10.4); MONOCYTES # (AUTO) 0.5 X10'3 (0-0.9); MONOCYTES % (AUTO) 10.9 % (2-12); NEUTROPHILS # (AUTO) 2.9 X10'3 (1.8-7.7); NEUTROPHILS % (AUTO) 67.4 % (42-75); PLATELET COUNT 141 X10'3 (140-440); RED BLOOD COUNT 2.95 X10'6 (4.20-5.60); RED CELL DISTRIBUTION WIDTH 15.4 % (11.5-14.5); WHITE BLOOD COUNT 4.3 X10'3 (4.5-11.0)
--- NOTE | 2018-12-12 04:48 | NUR ---
Pt continues to complain about throat and chest pain from being intubated and coughing so much to clear secretions. Secretions are much clearer, thinner and smaller in amount. Discussed with Tobin Burden NP and got an order for throat spray. Pt reports that it does help a little.
[2018-12-12] MEDS: dexmedetomidin/NS 400mcg/100ml 100 ML IV SCH (05:08)
--- NOTE | 2018-12-12 06:23 | NUR ---
Problems reprioritized. Patient report given, questions answered & plan of care reviewed with Mary MATSON.
[2018-12-12] MEDS: docusate sodium 100mg/10ml UD cup PO SCH ×2 (06:48→19:44)
[2018-12-12] MEDS: methylnaltrexone br 12mg/0.6ml inj***SubQ only SQ SCH (06:49)
[2018-12-12] MEDS: NYSTATIN CREAM - 30GM TUBE TP SCH ×2 (08:16→19:44)
[2018-12-12] MEDS: famotidine/PF 10 mg/ml inj IV SCH ×2 (08:16→19:43)
[2018-12-12] MEDS ORDERED: furosemide 40mg/4ml inj IV ONE (09:25)
--- NOTE | 2018-12-12 11:28 | NUR ---
Pt's now extubated A/O x4. SS met with pt and engaged her in discussion re substance use treatment/services, provided information re the [facility]. Pt is agreeable to allow SS to provide referral/linkages to the [facility]. WPC was also discussed, pt will think about this and let SS know tomorrow after she talks to her mother. Addendum: 12/12/18 at 1130 by Tatyana Goldsmith SS Amended: Links added.
--- NOTE | 2018-12-12 12:55 | NUR ---
Reassessment: Patient was extubated yesterday, BSS done today by VOLTMETER OPERATOR who reports some slowness with chewing and recommend mechanical soft, chopped foods. No meal intake yet. Will continue to follow and monitor need for ONS. Rec: 1. Continue mechanical soft diet with chopped foods per VOLTMETER OPERATOR recs 2. monitor need for ONS 3. Wt per rx Addendum: 12/12/18 at [address] Amended: Links added.
--- NOTE | 2018-12-12 18:30 | NUR ---
Patient in room CICU 2014. I have received report from Mary MATSON and had the opportunity to ask questions and assume patient care.
[2018-12-12] MEDS: temazepam 15mg capsule PO PRN (23:05)
[2018-12-13] VITALS (15 sets, daily range): BP systolic 98–136; BP diastolic 71–87
--- NOTE | 2018-12-13 | NUR ---
Attempted to comb out pt's dreadlocked hair, some progress made.
[2018-12-13] MEDS: cefazolin/dext.iso 2gm/50ml 50 ML IV SCH ×3 (00:11→16:23)
[2018-12-13] MEDS: HYDROcodone/acetaminophen 10/325mg tab PO PRN ×4 (00:12→12:47)
[2018-12-13] MEDS: temazepam 15mg capsule PO PRN (00:16)
[2018-12-13 04:10] LABS: BASOPHILS # (AUTO) 0.1 X10'3 (0-0.2); BASOPHILS % (AUTO) 1.1 % (0-1); EOSINOPHILS # (AUTO) 0.1 X10'3 (0-0.9); EOSINOPHILS % (AUTO) 1.8 % (0-6); HEMOGLOBIN 9.7 g/dl (12.0-16.0); LYMPHOCYTES # (AUTO) 0.8 X10'3 (1.1-4.8); LYMPHOCYTES % (AUTO) 16.3 % (21-51); MEAN CORPUSCULAR HEMOGLOBIN 29.4 PG (27.0-31.0); MEAN CORPUSCULAR HGB CONC 34.7 g/dL (33.0-36.5); MEAN CORPUSCULAR VOLUME 84.6 FL (78-98); MEAN PLATELET VOLUME 7.4 FL (7.4-10.4); MONOCYTES # (AUTO) 0.5 X10'3 (0-0.9); MONOCYTES % (AUTO) 9.3 % (2-12); NEUTROPHILS # (AUTO) 3.7 X10'3 (1.8-7.7); NEUTROPHILS % (AUTO) 71.5 % (42-75); PLATELET COUNT 185 X10'3 (140-440); RED BLOOD COUNT 3.31 X10'6 (4.20-5.60); RED CELL DISTRIBUTION WIDTH 15.7 % (11.5-14.5); WHITE BLOOD COUNT 5.2 X10'3 (4.5-11.0)
[2018-12-13 04:18] LABS: ALANINE AMINOTRANSFERASE 11 U/L (12-78); ALBUMIN 1.3 G/DL (3.4-5.0); ALBUMIN/GLOBULIN RATIO 0.3 (1.1-1.5); ALKALINE PHOSPHATASE 72 IU/L (46-116); ANION GAP 3 (8-16); ASPARTATE AMINO TRANSFERASE 32 U/L (10-37); BILIRUBIN,TOTAL 0.3 MG/DL (0.1-1.0); BLOOD UREA NITROGEN 11 MG/DL (7-18); BUN/CREATININE RATIO 21.2 (6.6-38.0); CALCIUM 7.9 MG/DL (8.5-10.1); CHLORIDE 104 MMOL/L (99-107); CREATININE 0.52 MG/DL (0.40-0.90); GLUCOSE 104 MG/DL (70-104); MAGNESIUM 1.5 MG/DL (1.5-2.4); PHOSPHORUS 4.3 MG/DL (2.3-4.5); POTASSIUM 3.2 MMOL/L (3.5-5.1); SODIUM 139 MMOL/L (135-145); TOTAL CARBON DIOXIDE 32.2 MMOL/L (24-32); TOTAL PROTEIN 6.4 G/DL (6.4-8.2); eGFR > 90 ML/MIN
--- NOTE | 2018-12-13 06:35 | NUR ---
Problems reprioritized. Patient report given, questions answered & plan of care reviewed with Mary MATSON.
[2018-12-13] MEDS: famotidine/PF 10 mg/ml inj IV SCH (07:55)
[2018-12-13] MEDS: docusate sodium 100mg/10ml UD cup PO SCH (08:00)
[2018-12-13] MEDS: NYSTATIN CREAM - 30GM TUBE TP SCH (08:00)
[2018-12-13] MEDS ORDERED: furosemide 40mg/4ml inj IV SCH (08:00)
[2018-12-13] MEDS ORDERED: potassium Cl 20 mEq SR tablet PO PRN ×2 (08:05)
[2018-12-13] MEDS: dexmedetomidin/NS 400mcg/100ml 100 ML IV SCH (08:08)
--- NOTE | 2018-12-13 16:13 | NUR ---
Reassessment: Patient with poor intake today eating 25-49%, seen at bedside to obtain food preferences, patient had no preferences to report to me and did not want changes to her meals. She is pending discharge to [facility] today per bedside RN. Rec: 1. Continue mechanical soft diet with chopped foods per CLAY BURNER recs 2. monitor need for ONS 3. Wt per rx Addendum: 12/13/18 at [address] Amended: Links added.
--- NOTE | 2018-12-13 16:46 | NUR ---
SS met w/pt today, pt's mood & affect have improved, she's also able to communicate verbally. Engaged pt in discussion re her substance use history and current thoughts associated w/her use. Per discussion, pt agreeable to a referral to the [facility] Recovery program. SS contacted the [place], left vm requesting rt p/c re pt's request for services. Addendum: 12/13/18 at 1656 by Tatyana Goldsmith Amended: Links added.
--- NOTE | 2018-12-13 17:47 | NUR ---
Pt. is discharging to [facility] via [facility] transport. CT, urinary catheter, and PICC line are in place. PICC line flushes with no difficulties. Mother is informed of transfer this evening. Pt. is alert and oriented and has good understanding of the plan for continued antibiotic treatments, and further rehabilitation. Pt. leaves hospital with belongings, in stable condition.
== END 2018-12-13 18:30 | DRG 720 ==
LOC: ER 08:41 → ED HOLD 10:25 → CICU 2S 12:08 → PCU 3S 11-29 17:24 → CICU 2S 11-30 04:55
PROVIDERS: ADMIT Internal Medicine Critical Care Medicine; ATTEND Internal Medicine Critical Care Medicine
PROC: 30233K1 Transfusion of Nonautologous Frozen Plasma into Peripheral Vein, Percutaneous Approach (ICD-10-PCS; principal; 2018-11-27)
PROC: 30233R1 Transfusion of Nonautologous Platelets into Peripheral Vein, Percutaneous Approach (ICD-10-PCS; 2018-11-27)
PROC: 02HV33Z Insertion of Infusion Device into Superior Vena Cava, Percutaneous Approach (ICD-10-PCS; 2018-11-27)
PROC: B548ZZA Ultrasonography of Superior Vena Cava, Guidance (ICD-10-PCS; 2018-11-27)
PROC: 30233N1 Transfusion of Nonautologous Red Blood Cells into Peripheral Vein, Percutaneous Approach (ICD-10-PCS; 2018-11-29)
PROC: 5A1955Z Respiratory Ventilation, Greater than 96 Consecutive Hours (ICD-10-PCS; 2018-11-30)
PROC: 5A09357 Assistance with Respiratory Ventilation, Less than 24 Consecutive Hours, Continuous Positive Airway Pressure (ICD-10-PCS; 2018-11-30)
PROC: 0BH17EZ Insertion of Endotracheal Airway into Trachea, Via Natural or Artificial Opening (ICD-10-PCS; 2018-11-30)
PROC: 0BH17EZ Insertion of Endotracheal Airway into Trachea, Via Natural or Artificial Opening (ICD-10-PCS; 2018-11-30)
PROC: 30233N1 Transfusion of Nonautologous Red Blood Cells into Peripheral Vein, Percutaneous Approach (ICD-10-PCS; 2018-12-01)
PROC: 30233R1 Transfusion of Nonautologous Platelets into Peripheral Vein, Percutaneous Approach (ICD-10-PCS; 2018-12-01)
PROC: 02HV33Z Insertion of Infusion Device into Superior Vena Cava, Percutaneous Approach (ICD-10-PCS; 2018-12-01)
PROC: B548ZZA Ultrasonography of Superior Vena Cava, Guidance (ICD-10-PCS; 2018-12-01)
PROC: 4A02X4A Measurement of Cardiac Electrical Activity, Guidance, External Approach (ICD-10-PCS; 2018-12-01)
PROC: 30233N1 Transfusion of Nonautologous Red Blood Cells into Peripheral Vein, Percutaneous Approach (ICD-10-PCS; 2018-12-04)
PROC: 0W9B30Z Drainage of Left Pleural Cavity with Drainage Device, Percutaneous Approach (ICD-10-PCS; 2018-12-05)
PROC: 30233N1 Transfusion of Nonautologous Red Blood Cells into Peripheral Vein, Percutaneous Approach (ICD-10-PCS; 2018-12-06)
PROC: 30233N1 Transfusion of Nonautologous Red Blood Cells into Peripheral Vein, Percutaneous Approach (ICD-10-PCS; 2018-12-11)
DX: A41.01 Sepsis due to Methicillin susceptible Staphylococcus aureus (principal); J96.01 Acute respiratory failure with hypoxia; I33.0 Acute and subacute infective endocarditis; I76 Septic arterial embolism; R65.21 Severe sepsis with septic shock; J18.9 Pneumonia, unspecified organism; D61.818 Other pancytopenia; J90 Pleural effusion, not elsewhere classified; A41.89 Other specified sepsis; N17.9 Acute kidney failure, unspecified; D68.9 Coagulation defect, unspecified; E87.1 Hypo-osmolality and hyponatremia; E86.9 Volume depletion, unspecified; F11.23 Opioid dependence with withdrawal; F15.90 Other stimulant use, unspecified, uncomplicated; G89.29 Other chronic pain; J45.909 Unspecified asthma, uncomplicated; I36.1 Nonrheumatic tricuspid (valve) insufficiency; J98.11 Atelectasis; F41.9 Anxiety disorder, unspecified; F32.9 Major depressive disorder, single episode, unspecified; R16.2 Hepatomegaly with splenomegaly, not elsewhere classified; Z88.8 Allergy status to other drugs, medicaments and biological substances; Z86.19 Personal history of other infectious and parasitic diseases; Z98.49 Cataract extraction status, unspecified eye
CPT/HCPCS: 36415; 36430; 36573; 36600; 71045; 71250; 74176; 76937; 80053; 80202; 81001; 81025; 82150; 82570; 82803; 82810; 82945; 82948; 83010; 83605; 83615; 83735; 83935; 84100; 84132; 84134; 84145; 84157; 84300; 85018; 85025; 85027; 85379; 85384; 85610; 85730; 86703; 86803; 86885; 86900; 86901; 86920; 87040; 87070; 87075; 87077; 87186; 87340; 89051; 92616; 93005; 93308; 94002; 94003; 94640; 94660; 94760; 96365; 96368; 96375; 97110; 97116; 97162; 97530; 99291; G0378; J0290; J0456; J0690; J0696; J1580; J1940; J2060; J2250; J2270; J2543; J3010; J3370; J3475; J3490; J7030; P9016; P9035; P9059; Q9963

== ENCOUNTER 2018-12-18 22:08 | Emergency (ER) | payer MEDICAID ==
[~2018-12-18] VITALS: Ht 157.5 cm; Wt 45.0 kg
[2018-12-19 03:01] VITALS: BP 167/65
== END 2018-12-19 03:03 | disposition home or self-care (01) ==
LOC: ER 22:08
DX: R53.83 Other fatigue (principal); J45.909 Unspecified asthma, uncomplicated; G89.29 Other chronic pain; M54.9 Dorsalgia, unspecified; F11.90 Opioid use, unspecified, uncomplicated; Z56.0 Unemployment, unspecified; Z88.8 Allergy status to other drugs, medicaments and biological substances
CPT/HCPCS: 70450; 99284

== ENCOUNTER 2019-01-10 07:05 | Day surgery (SDC) | payer MEDICAID ==
[~2019-01-10] VITALS: Ht 177.8 cm; Wt 56.0 kg
[2019-01-10] VITALS (13 sets, daily range): BP systolic 102–133; BP diastolic 59–98
[2019-01-10] MEDS ORDERED: ONDA4TAB6 PO (07:31)
[2019-01-10] MEDS ORDERED: ZOSYN 3.373.375 GM/5 IV (07:31)
[2019-01-10] MEDS ORDERED: OXYC10TA57 PO (07:31)
[2019-01-10] MEDS ORDERED: MAGN400C PO (07:31)
[2019-01-10] MEDS ORDERED: HYDR1SYR3 IV (07:31)
[2019-01-10] MEDS ORDERED: FAMO-128 PO (07:31)
[2019-01-10] MEDS ORDERED: DOCU-28 PO (07:31)
[2019-01-10] MEDS ORDERED: FURO-149 PO (07:31)
[2019-01-10] MEDS ORDERED: METO50TA17 PO (07:31)
[2019-01-10] MEDS ORDERED: LORA2VIA30 IJ (07:31)
[2019-01-10] MEDS ORDERED: ZYV600I IV (07:31)
[2019-01-10] MEDS ORDERED: OXAZEpam 10mg capsule PO PRN (08:20)
[2019-01-10] MEDS ORDERED: OXAZEpam 15mg capsule PO ONE (08:30)
[2019-01-10] MEDS ORDERED: LIDOcaine 1%/PF 5ML 10 MG/ML VIAL SQ ONE (08:30)
[2019-01-10] MEDS ORDERED: LIDOcaine 1%/PF 5ML 10 MG/ML VIAL ONE ×2 (08:38→11:53)
[2019-01-10] MEDS ORDERED: LIDOcaine 2% 5ml jelly ONE (08:48)
[2019-01-10] MEDS ORDERED: LIDOcaine 2% 5ml jelly TOP ONE (08:50)
[2019-01-10] MEDS ORDERED: alteplase 1 mg/ml 5ml syringe ICATH ONE (09:35)
[2019-01-10] MEDS ORDERED: tPA-cathflo 2 MG/2 ml IV flush ONE (09:36)
[2019-01-10] MEDS ORDERED: TPA CATHFLO ICATH ONE ×2 (09:40)
[2019-01-10] MEDS ORDERED: FLUSH 10 MG ICATH ONE (09:40)
[2019-01-10] MEDS ORDERED: NORMAL SALINE ICATH ONE ×2 (09:40)
[2019-01-10] MEDS ORDERED: FLUSH 4 MG ICATH ONE (09:40)
[2019-01-10] MEDS ORDERED: oxyCODONE IR 5mg (immed. release) tablet PO ONE (10:15)
[2019-01-10] MEDS ORDERED: iohexol 350MG/ML 100ml bottle IV ONE (11:30)
--- NOTE | 2019-01-10 14:37 | NUR ---
REPORTED TO TITLE I DIRECTOR FROM [facility] VIA PHONE MED OXYCODONE 5MG GIVEN TO PT AT APPROXIMATELY 1025 AM WHEN SHE HAD A CHEST TUBE IN PLACE.
== END 2019-01-10 14:05 | disposition home or self-care (01) ==
LOC: SSTAY O 07:05
PROVIDERS: ATTEND Radiology Vascular & Interventional Radiology
DX: J90 Pleural effusion, not elsewhere classified (principal); Z98.890 Other specified postprocedural states; Z79.899 Other long term (current) drug therapy
CPT/HCPCS: 32555; 32561; 76000; 87070; C1729; J2001; J2997; Q9967; J7040

== ENCOUNTER 2020-06-03 01:13 | Emergency (ER) | payer MEDICAID, OTHER ==
[~2020-06-03] VITALS: Ht 157.5 cm; Wt 45.0 kg
[~2020-06-03 01:13] MED LIST changes: +DOCU-28 PO; +FAMO-128 PO; +FURO-149 PO; +HYDR1SYR3 IV; +LORA2VIA30 IJ; +MAGN400C PO; +METO50TA17 PO; +ONDA4TAB6 PO; +OXYC10TA57 PO; +ZOSYN 3.373.375 GM/5 IV; +ZYV600I IV
[2020-06-03 01:18] VITALS: BP 102/75
[2020-06-03 01:43] LABS: URINE HCG NEGATIVE (NEG)
[2020-06-03 01:48] LABS: CLARITY,URINE CLEAR (Clear); COLOR,URINE YELLOW (Yellow); GLUCOSE, URINE NEGATIVE (Neg); KETONES,URINE NEGATIVE (Neg); LEUKOCYTE ESTERASE ,URINE TRACE (Neg); NITRITES, URINE NEGATIVE (Neg); OCCULT BLOOD,URINE TRACE-INTACT (Neg); PROTEIN,URINE NEGATIVE (Neg)
[2020-06-03 01:54] LABS: UA COLLECTION TYPE CLN CATCH MIDSTREAM
[2020-06-03 01:55] LABS: BACTERIA,URINE FEW /HPF (Neg); RBC,URINE 0-2 /HPF (0-2); SQUAMOUS EPITHELIAL CELL,UR FEW /LPF (FEW)
[2020-06-03] MEDS ORDERED: PHEN-824 PO (02:14)
[2020-06-03] MEDS ORDERED: CEPH250T PO (02:14)
[2020-06-03] MEDS ORDERED: cephalexin 250mg capsule PO ONE (02:15)
[2020-06-03] MEDS ORDERED: phenazopyridine 100mg tablet PO ONE (02:15)
== END 2020-06-03 02:31 | disposition home or self-care (01) ==
LOC: ER 01:14
DX: N39.0 Urinary tract infection, site not specified (principal); J45.909 Unspecified asthma, uncomplicated; G89.29 Other chronic pain; F41.9 Anxiety disorder, unspecified; F32.9 Major depressive disorder, single episode, unspecified; F15.90 Other stimulant use, unspecified, uncomplicated; F11.90 Opioid use, unspecified, uncomplicated; Z59.0 Homelessness; Z56.0 Unemployment, unspecified; Z98.890 Other specified postprocedural states; Z88.6 Allergy status to analgesic agent; Z79.899 Other long term (current) drug therapy
CPT/HCPCS: 81001; 81025; 87088; 99283

== ENCOUNTER 2025-02-13 21:18 | Inpatient (IN) | payer MEDICAID ==
[~2025-02-13] VITALS: Ht 157.5 cm; Wt 54.9 kg
[~2025-02-13 21:18] MED LIST changes: +PHEN-824 PO
[2025-02-13 22:27] LABS: BASOPHILS % (AUTO) 0.3 % (0-1); EOSINOPHILS # (AUTO) 0.1 X10'3 (0-0.9); EOSINOPHILS % (AUTO) 0.5 % (0-6); LYMPHOCYTES # (AUTO) 1.3 X10'3 (1.1-4.8); LYMPHOCYTES % (AUTO) 9.5 % (21-51); MEAN CORPUSCULAR HEMOGLOBIN 30.4 PG (27.0-31.0); MEAN CORPUSCULAR HGB CONC 34.3 g/dL (33.0-36.5); MEAN CORPUSCULAR VOLUME 88.6 FL (78-98); MEAN PLATELET VOLUME 7.6 FL (7.4-10.4); MONOCYTES # (AUTO) 0.9 X10'3 (0-0.9); MONOCYTES % (AUTO) 6.8 % (2-12); NEUTROPHILS # (AUTO) 11.4 X10'3 (1.8-7.7); NEUTROPHILS % (AUTO) 82.9 % (42-75); PLATELET COUNT 173 X10'3 (140-440); RED BLOOD COUNT 3.95 X10'6 (4.20-5.60); RED CELL DISTRIBUTION WIDTH 12.2 % (11.5-14.5); WHITE BLOOD COUNT 13.8 X10'3 (4.5-11.0)
[2025-02-13 22:35] LABS: ALBUMIN 3.1 G/DL (3.4-5.0); ANION GAP 3 (8-16); BLOOD UREA NITROGEN 14 MG/DL (7-18); BUN/CREATININE RATIO 17.9 (10.0-20.0); CALCIUM 8.6 MG/DL (8.5-10.1); CHLORIDE 99 MMOL/L (99-107); CREATININE 0.78 MG/DL (0.40-0.90); GLUCOSE 118 MG/DL (70-104); POTASSIUM 3.9 MMOL/L (3.5-5.1); SODIUM 135 MMOL/L (135-145); TOTAL CARBON DIOXIDE 32.7 MMOL/L (24-32); eCRCL 78 ML/MIN; eGFR 83 ML/MIN
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
[2025-02-14] MEDS ORDERED: vancomycin inj 1,000 MG in normal saline 250ml IV soln 250 ML IV STA (00:29)
[2025-02-14] MEDS ORDERED: iohexol 300mg/ml 100ml inj. ONE (00:48)
[2025-02-14] MEDS ORDERED: magnesium sulf-water 4G/100mL 100 ML IV PRN (00:50)
[2025-02-14] MEDS ORDERED: mag hydrox/Alum hydrox/simeth 30ml oral suspension PO PRN (00:50)
[2025-02-14] MEDS ORDERED: magnesium Cl slow-release 64mg tablet PO PRN (00:50)
[2025-02-14] MEDS ORDERED: ondansetron/PF 4mg/2ml inj IV PRN (00:50)
[2025-02-14] MEDS ORDERED: magnesium sulf-water 2g/50mL 50 ML IV PRN (00:50)
[2025-02-14] MEDS ORDERED: potassium Cl 20 mEq SR tablet PO PRN ×2 (00:50)
[2025-02-14] MEDS: ondansetron/PF 4mg/2ml inj IV ONE (00:50)
[2025-02-14] MEDS ORDERED: potassium Cl 40MEQ/1/2NS 520ml 520 ML IV PRN (00:50)
[2025-02-14] MEDS ORDERED: magnesium hydroxide 30ml (MOM) UD suspension PO PRN (00:50)
[2025-02-14] MEDS: morphine 4 MG/ML inj SYRINge IV ONE (00:50)
[2025-02-14] MEDS: piperacillin/tazo 3.375gm/50ml 50 ML IV ONE (00:52)
[2025-02-14 01:12] LABS: HCG SERUM QL NEGATIVE
[2025-02-14 01:29] LABS: HEMOGLOBIN A1C 5.2 % (4.5-6.2)
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
[2025-02-14] MEDS: vancomycin/NS 1 GM ADD-VANTAGE 250 ML IV STA (01:50)
[2025-02-14] MEDS: bacitracin 15gm ointment TP ONE (01:50)
[2025-02-14] MEDS: normal saline 1000ML IV soln IVB ONE (01:50)
--- NOTE | 2025-02-14 02:02 | RADIOLOGY REPORT ---
Clinical History finger pain, RIGHT HAND, REDNESS TO UPPER ARM Comparison None Technique: All CT scans at this medical facility are performed using dose modulation techniques as appropriate t o a performed exam including the following: Automated exposure control was utilized; adjustment of th e mA and/or kV according to patient size; and use of iterative reconstruction technique. All CT studies are reported to the Dose Index Registry of the [employer]. Contrast: OMNI 300 100ML Radiation Dose: CTDI (mGy): 3.04; DLP (mGy-cm): 95.92 ASTRID TORREZ, [id number] CT hand, right. Clinical history: 39-year-old Findings: Axial images demonstrate air within the tendon sheath of the flexor tendons of theMetacarpal phalange al joint. Gas can be within soft tissue due to laceration or gas forming organism. Impression: There is Gas within the flexor tendon sheath of the third metacarpal phalangeal joint. This report was electronically signed by Donnell Godoy MD on 02/14/2025 1:59:34 AM.
[2025-02-14 02:15] LABS: BASOPHILS % (AUTO) 0.4 % (0-1); EOSINOPHILS # (AUTO) 0.1 X10'3 (0-0.9); EOSINOPHILS % (AUTO) 0.6 % (0-6); HEMATOCRIT 33.9 % (35.0-45.0); HEMOGLOBIN 11.8 g/dl (12.0-16.0); LYMPHOCYTES # (AUTO) 1.3 X10'3 (1.1-4.8); LYMPHOCYTES % (AUTO) 11.5 % (21-51); MEAN CORPUSCULAR HEMOGLOBIN 30.9 PG (27.0-31.0); MEAN CORPUSCULAR HGB CONC 34.7 g/dL (33.0-36.5); MEAN PLATELET VOLUME 7.6 FL (7.4-10.4); MONOCYTES # (AUTO) 0.7 X10'3 (0-0.9); MONOCYTES % (AUTO) 6.6 % (2-12); NEUTROPHILS % (AUTO) 80.9 % (42-75); PLATELET COUNT 156 X10'3 (140-440); RED BLOOD COUNT 3.81 X10'6 (4.20-5.60); RED CELL DISTRIBUTION WIDTH 12.3 % (11.5-14.5); WHITE BLOOD COUNT 11.2 X10'3 (4.5-11.0)
[2025-02-14 02:21] LABS: ALANINE AMINOTRANSFERASE 50 U/L (12-78); ALBUMIN 2.8 G/DL (3.4-5.0); ALBUMIN/GLOBULIN RATIO 0.8 (1.1-1.5); ALKALINE PHOSPHATASE 82 IU/L (46-116); ANION GAP 3 (8-16); ASPARTATE AMINO TRANSFERASE 42 U/L (10-37); BILIRUBIN,TOTAL 0.5 MG/DL (0.1-1.0); BLOOD UREA NITROGEN 12 MG/DL (7-18); BUN/CREATININE RATIO 14.6 (10.0-20.0); C-REACTIVE PROTEIN 9.46 MG/DL (0.0-0.5); CALCIUM 8.4 MG/DL (8.5-10.1); CHLORIDE 98 MMOL/L (99-107); CREATININE 0.82 MG/DL (0.40-0.90); GLUCOSE 107 MG/DL (70-104); MAGNESIUM 1.6 MG/DL (1.5-2.4); POTASSIUM 3.8 MMOL/L (3.5-5.1); SODIUM 133 MMOL/L (135-145); TOTAL CARBON DIOXIDE 31.7 MMOL/L (24-32); TOTAL PROTEIN 6.3 G/DL (6.4-8.2); eCRCL 74 ML/MIN; eGFR 78 ML/MIN
[2025-02-14 03:15] LABS: BILIRUBIN,URINE NEGATIVE (Neg); CLARITY,URINE CLEAR (Clear); COLOR,URINE YELLOW (Yellow); GLUCOSE, URINE NEGATIVE (Neg); KETONES,URINE NEGATIVE (Neg); LEUKOCYTE ESTERASE ,URINE NEGATIVE (Neg); NITRITES, URINE POSITIVE (Neg); OCCULT BLOOD,URINE NEGATIVE (Neg); PROTEIN,URINE NEGATIVE (Neg); UROBILINOGEN,URINE 0.2 E.U/dL (0.2-1.0)
[2025-02-14] MEDS: lactobacillus rhamnosus 10,000 MMU CELLS/CAPSULE PO SCH (03:18)
[2025-02-14] MEDS: normal saline 1000ml 1,000 ML IV SCH (03:19)
[2025-02-14 03:20] LABS: URINE AMPHETAMINE SCREEN POSITIVE (Neg); URINE BARBITUATE SCREEN NEGATIVE (Neg); URINE BENZODIAZEPINES SCREEN NEGATIVE (Neg); URINE CANNABINOID SCREEN NEGATIVE (Neg); URINE COCAINE SCREEN NEGATIVE (Neg); URINE METHADONE SCREEN NEGATIVE (Neg); URINE OPIATE SCREEN NEGATIVE (Neg); URINE PHENCYCLIDINE SCREEN NEGATIVE (Neg)
[2025-02-14 03:24] LABS: UA COLLECTION TYPE NON-SPECIFIED
[2025-02-14 03:26] LABS: BACTERIA,URINE 4+ /HPF (Neg); RBC,URINE 0-2 /HPF (0-2); SQUAMOUS EPITHELIAL CELL,UR FEW /LPF (FEW)
[2025-02-14 03:27] LABS: MUCUS STRANDS FEW /LPF (Neg)
[2025-02-14 04:00] VITALS: BP 117/86; PULSE 111; RESP 18; TEMP 99.3; O2SAT 100
[2025-02-14] MEDS ORDERED: morphine 2 MG/ML inj. syringe IV PRN ×2 (04:30→20:55)
[2025-02-14] MEDS: HYDROcodone/acetaminophen 10/325mg tab PO PRN (04:54)
[2025-02-14 06:00] VITALS: BP 117/86; PULSE 111; RESP 18; TEMP 99.3; O2SAT 100
[2025-02-14] MEDS: K and/or MAG REPLACEMENT MC SCH (08:00)
[2025-02-14] MEDS: piperacillin/tazo 3.375gm/50ml 50 ML IV SCH (08:03)
[2025-02-14 10:00] VITALS: BP 135/56; PULSE 113; RESP 18; TEMP 97; O2SAT 93
--- NOTE | 2025-02-14 11:34 | VASCULAR REPORT ---
RIGHT Upper Extremity Venous Duplex Clinical History: Right upper extremity swelling Comparison: None Technique: Duplex Doppler evaluation of the venous system of the RIGHT lower neck and upper extremity including color Doppler and spectral/pulsed waveform analysis was performed. Findings: The internal jugular vein demonstrates appropriate compressibility and waveform variability . The subclavian vein is patent on color Doppler evaluation without intraluminal thrombus and demonstra daniel waveform variability . The visualized portion of the brachiocephalic vein is patent on color Doppler evaluation without intr aluminal thrombus and demonstrates waveform variability . The axillary vein demonstrates appropriate compressibility and waveform variability . The brachial veins demonstrate appropriate compressibility and patency on Doppler evaluation. The basilic vein demonstrates appropriate compressibility and patency on Doppler evaluation. The cephalic vein demonstrates appropriate compressibility and patency on Doppler evaluation. Multiple lymph nodes are seen in the right axilla which are not enlarged by CT size criteria Impression: 1. No venous thrombus identified in the RIGHT upper extremity vessels evaluated above. 2. If clinical concern/symptoms persist or worsen, short-interval follow-up study is suggested.
[2025-02-14] MEDS: vancomycin/NS 1 GM ADD-VANTAGE 250 ML IV SCH (14:09)
[2025-02-14 18:00] VITALS: BP 101/67; PULSE 101; RESP 17; TEMP 98.9; O2SAT 97
--- NOTE | 2025-02-14 18:19 | RADIOLOGY REPORT ---
EXAM: MR MRI UPPER EXTREMITY RIGHT INDICATION: Right upper extremity cellulitis, abscess of right middle finger. TECHNIQUE: Multisequence, multiplanar MRI of the right wrist was performed in the absence of gadolini um contrast material. COMPARISON: None FINDINGS: CARPAL TUNNEL: The traversing flexor tendons are intact. Normal thickness of the overlying flexor ret inaculum. Normal signal intensity and morphology of the median nerve. FLEXOR TENDONS: Intact without tenosynovitis. EXTENSOR TENDONS: Intact without tenosynovitis. TRIANGULAR FIBROCARTILAGE: Intact. EXTRINSIC/INTRINSIC LIGAMENTS: Intact. JOINTS: No joint effusion. No measurable cartilage defect. BONES: Suspected osteomyelitis of the distal phalanx of the 3rd digit.. MUSCLES: Normal. NEUROVASCULAR: Normal signal intensity and morphology of the ulnar nerve at Guyon's canal. The radial neurovascular bundle is intact. OTHER: Cellulitis primarily at the distal aspect of the 3rd digit with distal soft tissue abscess. Ex tensive bland edema without enhancement along the dorsal aspect of the hand without evidence of infec tious tenosynovitis of the extensor tendons or drainable fluid collection along the dorsal aspect IMPRESSION: 1. Large distal 3rd digit abscess with underlying osteomyelitis of the 3rd distal phalanx. 2. Extensive bland edema at the dorsal aspect of the hand. 3. Cellulitis extending proximally along the 3rd digit.
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
[2025-02-14 20:00] VITALS: RESP 16; O2SAT 97
[2025-02-14] MEDS ORDERED: morphine 4 MG/ML inj SYRINge IV PRN (20:55)
[2025-02-15 04:53] LABS: BASOPHILS % (AUTO) 0.2 % (0-1); EOSINOPHILS # (AUTO) 0.2 X10'3 (0-0.9); EOSINOPHILS % (AUTO) 2.4 % (0-6); HEMOGLOBIN 11.2 g/dl (12.0-16.0); LYMPHOCYTES # (AUTO) 0.8 X10'3 (1.1-4.8); MEAN CORPUSCULAR HEMOGLOBIN 31.6 PG (27.0-31.0); MEAN CORPUSCULAR VOLUME 90.2 FL (78-98); MEAN PLATELET VOLUME 8.1 FL (7.4-10.4); MONOCYTES # (AUTO) 0.5 X10'3 (0-0.9); MONOCYTES % (AUTO) 7.1 % (2-12); NEUTROPHILS # (AUTO) 6.1 X10'3 (1.8-7.7); NEUTROPHILS % (AUTO) 79.3 % (42-75); PLATELET COUNT 134 X10'3 (140-440); RED BLOOD COUNT 3.55 X10'6 (4.20-5.60); RED CELL DISTRIBUTION WIDTH 12.6 % (11.5-14.5); WHITE BLOOD COUNT 7.7 X10'3 (4.5-11.0)
[2025-02-15 05:25] LABS: ALANINE AMINOTRANSFERASE 65 U/L (12-78); ALBUMIN 2.3 G/DL (3.4-5.0); ALBUMIN/GLOBULIN RATIO 0.7 (1.1-1.5); ALKALINE PHOSPHATASE 102 IU/L (46-116); ANION GAP 6 (8-16); ASPARTATE AMINO TRANSFERASE 57 U/L (10-37); BLOOD UREA NITROGEN 8 MG/DL (7-18); BUN/CREATININE RATIO 10.7 (10.0-20.0); CALCIUM 8.1 MG/DL (8.5-10.1); CHLORIDE 102 MMOL/L (99-107); CHOL/HDL RATIO 2.7 (0.00-4.99); CHOLESTEROL 86 MG/DL (0-200); CREATININE 0.75 MG/DL (0.40-0.90); GLUCOSE 93 MG/DL (70-104); HDL CHOLESTEROL 32 MG/DL (35-60); LDL CHOLESTEROL 51 MG/DL (50-100); MAGNESIUM 1.8 MG/DL (1.5-2.4); POTASSIUM 3.7 MMOL/L (3.5-5.1); SODIUM 137 MMOL/L (135-145); TOTAL CARBON DIOXIDE 28.9 MMOL/L (24-32); TOTAL PROTEIN 5.8 G/DL (6.4-8.2); TRIGLYCERIDES 35 MG/DL (20-135); eCRCL 81 ML/MIN; eGFR 87 ML/MIN
[2025-02-15 06:00] VITALS: BP 97/56; PULSE 112; RESP 17; TEMP 101.1; O2SAT 96
[2025-02-15] MEDS: acetaminophen 325mg tablet PO PRN (06:02)
[2025-02-15 08:00] VITALS: RESP 17; O2SAT 96
[2025-02-15 10:00] VITALS: BP 92/59; PULSE 81; RESP 14; TEMP 97.7; O2SAT 97
[2025-02-15] MEDS: VANCOMYCIN LEVEL IV ONE (13:30)
[2025-02-15] MEDS: GADOTERATE MEGLUMINE 7.5 MMOL/15 ML VIAL IV ONE (16:48)
[2025-02-15 18:00] VITALS: BP 98/65; PULSE 91; RESP 17; TEMP 99.2; O2SAT 100
--- NOTE | 2025-02-15 19:49 | PROGRESS NOTE ---
Daily Progress Note Providers to CC ~ no new complaint today, pain well controlled Central Line/PICC still needed: No Lynch-Non Protocol Lynch Indications Met/Not Met: F/C Indications Not Met Antibiotic Timeout Antibiotic Ordered?: Yes MRSA Education MRSA Education Provided to pt: Yes Subjective As above Objective Vital Signs Date Time Temp Pulse Resp B/P (MAP) Pulse Ox O2 Delivery O2 Flow Rate FiO2 02/15/25 10:00 97.7 81 14 92/59 (70) 97 Room Air 02/14/25 20:00 0.0 Vital signs, stable ,afebrile. Pulse Oximetry reflects adequate oxygenation. General: well developed, well nourished. Awake , alert, and oriented x4, resting comfortably in the bed, in no acute distress . Skin: Warm, dry, no pallor, no rash or petechiae. HEENT: Atraumatic, normocephalic, EOMI, anicteric sclera B; pink conjunctiva; PERRLA, normal oropharynx, moist oral and nasal mucosa. Tympanic membrane , nose , throat clear. Neck: Trachea midline. Supple, full range of motion, no JVD, bruit , hepatojugular reflex , lymphadenopathy or masses, or other lesions Cardiac: Regular rhythm, regular rate no murmurs, rubs, or gallops. Normal S1 and S2, no S3 noticed. PMI is normal. Respiratory: Equal breath sounds bilaterally, no tachypnea; lungs clear to auscultation bilaterally, no wheezing ,rub or rales, or crackles. Chest wall is symmetric and without deformity. No signs of trauma. Chest wall is nontender. No signs of respiratory distress. Resonance is normal upon percussion bilaterally. Gastrointestinal: Abdomen symmetric, non-distended, soft, non-tender, normal bowel sounds x4 quadrant, normoactive, no hepatosplenomegaly , no masses , no bruit, no flank pain bilaterally. No voluntary guarding, rebound, or rigidity. No tenderness to percussion. No pulsatile masses. Equal femoral pulses. No Key's sign or McBurney point tenderness. Back; no CVA tenderness bilaterally, no deformities. Neck and back are without deformity as well. No tenderness noted on palpation of the spinous processes. Spinous processes are midline. Cervical, thoracic, and lumbar paraspinal muscles are not tender and are without spasm. Dressing on the right head, clean dry intact, neurologically grossly intact Musculoskeletal: Extremities, normal range of motion, non-tender, muscle strength 5/5 x 4. Negative Homans signs bilaterally on lower extremity. Distal pulses full symmetrical, no clubbing, cyanosis , edema. Neurological: Speech is clear, alert, and oriented x 4. No motor or sensory deficit, deep tendon reflexes normal, cerebellar intact. Cranial nerves II-XII intact. Psych: Alert and or appropriate, normal affect. Vascular: Good distal pulses, which are equal x4; capillary refill less than 2 seconds. Lymphatic, no lymphadenopathy. Result Diagram: 02/15/2542902/15/25429 Problem\Assessment\Plan Assessment and plan: 39-year-old female patient came to the hospital with chief complaint of right upper extremity pain. Sepsis likely secondary to right upper extremity cellulitis: Sepsis criteria (WBC 30.8, temperature 100.1, pulse 119, presence of source of infection): Patient came to the hospital with chief complaint of right upper extremity pain, redness evidenced on physical exam, drained right middle finger abscess. CT scan of the right upper extremity: There is Gas within the flexor tendon sheath of the third metacarpal phalangeal joint. Follow-up MRI of the right upper extremity. Follow-up vascular ultrasound. Follow-up blood cultures. Follow-up blood culture. Wound care consulted. Vancomycin pharmacy to dose. Zosyn IV t.i.d. Culturelle [id number] mmu b.i.d. NS at 50 mL/hour. Orthopedic doctor consulted appreciate expertise and assistance Substance use disorder: Patient endorsed he has a fentanyl of methamphetamines. Substance use navigator consulted. Hypertension: The patient endorses history of high blood pressure. Current blood pressure within reference range. The patient was not taking blood pressure medication at home. Code status: Full code DVT prophylaxis: SCDs Analgesia/sedation: Morphine Line/tube: PIV GI prophylaxis: None Nutrition: Regular diet PT: Yes Prognosis: Guarded Sepsis Screening Reassessment Date: February 15, 2025 Date of Service: February 15, 2025 Billing Provider: PERRI BAUTISTA MD Common Visit Codes: [id number] INP/OBS CARE(HIGH) PERRI BAUTISTA MD February 15, 2025 19:49
[2025-02-15 20:00] VITALS: RESP 18; O2SAT 93
[2025-02-15 22:00] VITALS: BP 95/54; PULSE 110; RESP 16; TEMP 97.8; O2SAT 96
[2025-02-16] MEDS: VANCOmycin 1250MG/NS 250ml Bag 250 ML IV SCH (02:28)
[2025-02-16 05:00] VITALS: BP 101/66; PULSE 96; RESP 16; TEMP 98.8; O2SAT 96
[2025-02-16 06:53] LABS: BASOPHILS % (AUTO) 0.2 % (0-1); EOSINOPHILS # (AUTO) 0.2 X10'3 (0-0.9); EOSINOPHILS % (AUTO) 4.3 % (0-6); HEMATOCRIT 32.6 % (35.0-45.0); HEMOGLOBIN 11.2 g/dl (12.0-16.0); LYMPHOCYTES # (AUTO) 0.7 X10'3 (1.1-4.8); LYMPHOCYTES % (AUTO) 15.8 % (21-51); MEAN CORPUSCULAR HEMOGLOBIN 30.8 PG (27.0-31.0); MEAN CORPUSCULAR HGB CONC 34.3 g/dL (33.0-36.5); MEAN CORPUSCULAR VOLUME 89.9 FL (78-98); MEAN PLATELET VOLUME 7.9 FL (7.4-10.4); MONOCYTES # (AUTO) 0.4 X10'3 (0-0.9); MONOCYTES % (AUTO) 9.5 % (2-12); NEUTROPHILS # (AUTO) 3.2 X10'3 (1.8-7.7); NEUTROPHILS % (AUTO) 70.2 % (42-75); PLATELET COUNT 152 X10'3 (140-440); RED BLOOD COUNT 3.63 X10'6 (4.20-5.60); RED CELL DISTRIBUTION WIDTH 12.6 % (11.5-14.5); WHITE BLOOD COUNT 4.6 X10'3 (4.5-11.0)
[2025-02-16 07:17] LABS: ALANINE AMINOTRANSFERASE 57 U/L (12-78); ALBUMIN 2.2 G/DL (3.4-5.0); ALBUMIN/GLOBULIN RATIO 0.6 (1.1-1.5); ALKALINE PHOSPHATASE 98 IU/L (46-116); ANION GAP 8 (8-16); ASPARTATE AMINO TRANSFERASE 45 U/L (10-37); BILIRUBIN,TOTAL 0.4 MG/DL (0.1-1.0); BLOOD UREA NITROGEN 9 MG/DL (7-18); BUN/CREATININE RATIO 11.5 (10.0-20.0); CALCIUM 7.9 MG/DL (8.5-10.1); CHLORIDE 105 MMOL/L (99-107); CREATININE 0.78 MG/DL (0.40-0.90); GLUCOSE 86 MG/DL (70-104); MAGNESIUM 1.9 MG/DL (1.5-2.4); POTASSIUM 4.2 MMOL/L (3.5-5.1); SODIUM 140 MMOL/L (135-145); TOTAL CARBON DIOXIDE 27.5 MMOL/L (24-32); eCRCL 78 ML/MIN; eGFR 83 ML/MIN
[2025-02-16 08:00] VITALS: RESP 16; O2SAT 96
[2025-02-16 10:00] VITALS: BP 93/56; PULSE 92; RESP 18; TEMP 99.9; O2SAT 98
--- NOTE | 2025-02-16 13:09 | PROGRESS NOTE ---
Progress Note Ortho Follow Up ROS ROS No new complaints Exam Exam: Appropriate, Vital signs are stable Exam Comments No erythema in the finger. The tip of the finger is still swollen and there was slight drainage. There does not appear to be any tendon involvement Problem/Assessment/Plan Problems/Diagnosis: (1) Abscess Additional Plan Recommend wound care consultation for open wound at the tip of the finger. Results/Orders Result Diagram: 02/16/25 0615 02/16/25 0615 WALDEMAR LOPEZ Jr., MD February 16, 2025 13:09
[2025-02-16 18:00] VITALS: BP 87/54; PULSE 91; RESP 20; TEMP 99.4; O2SAT 99
--- NOTE | 2025-02-16 18:12 | PROGRESS NOTE ---
Daily Progress Note Providers to CC No new complaint today, resting comfortably in the bed ~ Central Line/PICC still needed: No Lynch-Non Protocol Lynch Indications Met/Not Met: F/C Indications Not Met Antibiotic Timeout Antibiotic Ordered?: Yes MRSA Education MRSA Education Provided to pt: Yes Subjective As above Objective Vital Signs Date Time Temp Pulse Resp B/P (MAP) Pulse Ox O2 Delivery O2 Flow Rate FiO2 02/16/25 10:00 99.9 92 18 93/56 (68) 98 Room Air 02/14/25 20:00 0.0 Vital signs, stable ,afebrile. Pulse Oximetry reflects adequate oxygenation. General: well developed, well nourished. Awake , alert, and oriented x4, resting comfortably in the bed, in no acute distress . Skin: Warm, dry, no pallor, no rash or petechiae. HEENT: Atraumatic, normocephalic, EOMI, anicteric sclera B; pink conjunctiva; PERRLA, normal oropharynx, moist oral and nasal mucosa. Tympanic membrane , nose , throat clear. Neck: Trachea midline. Supple, full range of motion, no JVD, bruit , hepatojugular reflex , lymphadenopathy or masses, or other lesions Cardiac: Regular rhythm, regular rate no murmurs, rubs, or gallops. Normal S1 and S2, no S3 noticed. PMI is normal. Respiratory: Equal breath sounds bilaterally, no tachypnea; lungs clear to auscultation bilaterally, no wheezing ,rub or rales, or crackles. Chest wall is symmetric and without deformity. No signs of trauma. Chest wall is nontender. No signs of respiratory distress. Resonance is normal upon percussion bilaterally. Gastrointestinal: Abdomen symmetric, non-distended, soft, non-tender, normal bowel sounds x4 quadrant, normoactive, no hepatosplenomegaly , no masses , no bruit, no flank pain bilaterally. No voluntary guarding, rebound, or rigidity. No tenderness to percussion. No pulsatile masses. Equal femoral pulses. No Key's sign or McBurney point tenderness. Back; no CVA tenderness bilaterally, no deformities. Neck and back are without deformity as well. No tenderness noted on palpation of the spinous processes. Spinous processes are midline. Cervical, thoracic, and lumbar paraspinal muscles are not tender and are without spasm. Locally, a right 3rd finger, dressing clean dry intact Musculoskeletal: Extremities, normal range of motion, non-tender, muscle strength 5/5 x 4. Negative Homans signs bilaterally on lower extremity. Distal pulses full symmetrical, no clubbing, cyanosis , edema. Neurological: Speech is clear, alert, and oriented x 4. No motor or sensory deficit, deep tendon reflexes normal, cerebellar intact. Cranial nerves II-XII intact. Psych: Alert and or appropriate, normal affect. Vascular: Good distal pulses, which are equal x4; capillary refill less than 2 seconds. Lymphatic, no lymphadenopathy. Result Diagram: 02/16/2561402/16/25614 Problem\Assessment\Plan Assessment and plan: 39-year-old female patient came to the hospital with chief complaint of right upper extremity pain. Sepsis likely secondary to right upper extremity cellulitis: Sepsis criteria (WBC 30.8, temperature 100.1, pulse 119, presence of source of infection): Patient came to the hospital with chief complaint of right upper extremity pain, redness evidenced on physical exam, drained right middle finger abscess. CT scan of the right upper extremity: There is Gas within the flexor tendon sheath of the third metacarpal phalangeal joint. Follow-up MRI of the right upper extremity. Follow-up vascular ultrasound. Follow-up blood cultures. Follow-up blood culture. Wound care consulted. Left 3rd finger osteomyelitis, colten sensible to Leva[place] Culturelle [id number] mmu b.i.d. NS at 50 mL/hour. Orthopedic doctor consulted appreciate expertise and assistance Substance use disorder: Patient endorsed he has a fentanyl of methamphetamines. Substance use navigator consulted. Hypertension: The patient endorses history of high blood pressure. Current blood pressure within reference range. The patient was not taking blood pressure medication at home. Code status: Full code DVT prophylaxis: SCDs Analgesia/sedation: Morphine Line/tube: PIV GI prophylaxis: None Nutrition: Regular diet PT: Yes Prognosis: Guarded Sepsis Screening Reassessment Date: February 16, 2025 Date of Service: February 16, 2025 Billing Provider: PERRI BAUTISTA MD Common Visit Codes: [id number] INP/OBS CARE(HIGH) PERRI BAUTISTA MD February 16, 2025 18:12
[2025-02-16 20:00] VITALS: RESP 20; O2SAT 99
[2025-02-16 22:00] VITALS: BP 92/62; PULSE 78; RESP 16; TEMP 98.3; O2SAT 97
[2025-02-17 06:00] VITALS: BP 93/62; PULSE 81; RESP 17; TEMP 98.2; O2SAT 99
[2025-02-17 06:49] LABS: BASOPHILS % (AUTO) 0.4 % (0-1); EOSINOPHILS # (AUTO) 0.2 X10'3 (0-0.9); EOSINOPHILS % (AUTO) 5.5 % (0-6); HEMOGLOBIN 10.6 g/dl (12.0-16.0); LYMPHOCYTES # (AUTO) 0.7 X10'3 (1.1-4.8); MEAN CORPUSCULAR HEMOGLOBIN 30.8 PG (27.0-31.0); MEAN CORPUSCULAR HGB CONC 34.1 g/dL (33.0-36.5); MEAN CORPUSCULAR VOLUME 90.3 FL (78-98); MEAN PLATELET VOLUME 8.2 FL (7.4-10.4); MONOCYTES # (AUTO) 0.4 X10'3 (0-0.9); MONOCYTES % (AUTO) 14.5 % (2-12); NEUTROPHILS # (AUTO) 1.6 X10'3 (1.8-7.7); NEUTROPHILS % (AUTO) 55.6 % (42-75); PLATELET COUNT 127 X10'3 (140-440); RED BLOOD COUNT 3.43 X10'6 (4.20-5.60); RED CELL DISTRIBUTION WIDTH 12.4 % (11.5-14.5); WHITE BLOOD COUNT 2.9 X10'3 (4.5-11.0)
[2025-02-17 07:12] LABS: ALANINE AMINOTRANSFERASE 46 U/L (12-78); ALBUMIN/GLOBULIN RATIO 0.5 (1.1-1.5); ALKALINE PHOSPHATASE 82 IU/L (46-116); ANION GAP 5 (8-16); ASPARTATE AMINO TRANSFERASE 40 U/L (10-37); BILIRUBIN,TOTAL 0.3 MG/DL (0.1-1.0); BLOOD UREA NITROGEN 7 MG/DL (7-18); BUN/CREATININE RATIO 9.2 (10.0-20.0); CHLORIDE 109 MMOL/L (99-107); CREATININE 0.76 MG/DL (0.40-0.90); GLUCOSE 85 MG/DL (70-104); MAGNESIUM 1.9 MG/DL (1.5-2.4); SODIUM 143 MMOL/L (135-145); TOTAL CARBON DIOXIDE 29.1 MMOL/L (24-32); TOTAL PROTEIN 5.8 G/DL (6.4-8.2); eCRCL 80 ML/MIN; eGFR 86 ML/MIN
[2025-02-17 07:26] LABS: PLATELET ESTIMATE DECREASED; TOTAL CELLS COUNTED 100
[2025-02-17 08:00] VITALS: RESP 14; O2SAT 98
[2025-02-17] MEDS: LIDOcaine 1% (10mg/ml) 2ml vial SQ ONE (08:45)
[2025-02-17] MEDS: LIDOcaine 1% (10mg/ml) 2ml vial ONE ×2 (08:46→08:48)
--- NOTE | 2025-02-17 09:05 | PROGRESS NOTE ---
Progress Note Ortho Follow Up (says her finger feels about the same) ROS ROS No new complaints Exam Exam Comments erythema improved, fingertip still draining, tense, swollen, gave local digital block and decompressed the fingertip, some pus was decompressed, and new dressing applied, recommend redress q shift Problem/Assessment/Plan Problems/Diagnosis: (1) Abscess Results/Orders Result Diagram: 02/17/25 0547 02/17/25 0547 WALDEMAR LOPEZ Jr., MD February 17, 2025 09:05
[2025-02-17 10:00] VITALS: BP 86/53; PULSE 84; RESP 14; TEMP 98.3; O2SAT 98
[2025-02-17] MEDS: ringers solution, lacted 1,000 ML IV ONE (10:19)
[2025-02-17] MEDS: VANCOMYCIN LEVEL IV ONE (13:30)
[2025-02-17] MEDS: vancomycin inj. 750 MG in normal saline 250ml IV soln 250 ML IV SCH (16:14)
--- NOTE | 2025-02-17 16:35 | PROGRESS NOTE ---
Daily Progress Note Providers to CC ~ no new complaint today resting comfortably in the bed, had I and D of the finger today Central Line/PICC still needed: No Antibiotic Timeout Antibiotic Ordered?: Yes MRSA Education MRSA Education Provided to pt: Yes Subjective As above Objective Vital Signs Date Time Temp Pulse Resp B/P (MAP) Pulse Ox O2 Delivery O2 Flow Rate FiO2 02/17/25 10:00 98.3 84 14 86/53 (64) 98 Room Air 02/14/25 20:00 0.0 Vital signs, stable ,afebrile. Low blood pressure noticed, Pulse Oximetry reflects adequate oxygenation. General: well developed, well nourished. Awake , alert, and oriented x4, resting comfortably in the bed, in no acute distress . Skin: Warm, dry, no pallor, no rash or petechiae. HEENT: Atraumatic, normocephalic, EOMI, anicteric sclera B; pink conjunctiva; PERRLA, normal oropharynx, moist oral and nasal mucosa. Tympanic membrane , nose , throat clear. Neck: Trachea midline. Supple, full range of motion, no JVD, bruit , hepatojugular reflex , lymphadenopathy or masses, or other lesions Cardiac: Regular rhythm, regular rate no murmurs, rubs, or gallops. Normal S1 and S2, no S3 noticed. PMI is normal. Respiratory: Equal breath sounds bilaterally, no tachypnea; lungs clear to auscultation bilaterally, no wheezing ,rub or rales, or crackles. Chest wall is symmetric and without deformity. No signs of trauma. Chest wall is nontender. No signs of respiratory distress. Resonance is normal upon percussion bilaterally. Gastrointestinal: Abdomen symmetric, non-distended, soft, non-tender, normal bowel sounds x4 quadrant, normoactive, no hepatosplenomegaly , no masses , no bruit, no flank pain bilaterally. No voluntary guarding, rebound, or rigidity. No tenderness to percussion. No pulsatile masses. Equal femoral pulses. No Key's sign or McBurney point tenderness. Back; no CVA tenderness bilaterally, no deformities. Neck and back are without deformity as well. No tenderness noted on palpation of the spinous processes. Spinous processes are midline. Cervical, thoracic, and lumbar paraspinal muscles are not tender and are without spasm. Locally, a right 3rd finger dressing clean dry intact neurologic intact Musculoskeletal: Extremities, normal range of motion, non-tender, muscle strength 5/5 x 4. Negative Homans signs bilaterally on lower extremity. Distal pulses full symmetrical, no clubbing, cyanosis , edema. Neurological: Speech is clear, alert, and oriented x 4. No motor or sensory deficit, deep tendon reflexes normal, cerebellar intact. Cranial nerves II-XII intact. Psych: Alert and or appropriate, normal affect. Vascular: Good distal pulses, which are equal x4; capillary refill less than 2 seconds. Lymphatic, no lymphadenopathy. Result Diagram: 02/17/[id number]/17/25546 Problem\Assessment\Plan Assessment and plan: 39-year-old female patient came to the hospital with chief complaint of right upper extremity pain. Sepsis likely secondary to right upper extremity cellulitis: Sepsis criteria (WBC 30.8, temperature 100.1, pulse 119, presence of source of infection): Patient came to the hospital with chief complaint of right upper extremity pain, redness evidenced on physical exam, drained right middle finger abscess. CT scan of the right upper extremity: There is Gas within the flexor tendon sheath of the third metacarpal phalangeal joint. Follow-up MRI of the right upper extremity. Follow-up vascular ultrasound. Follow-up blood cultures. Follow-up blood culture. Wound care consulted. Left 3rd finger osteomyelitis, colten sensible to [place] IV Culturelle [id number] mmu b.i.d. NS at 50 mL/hour. Orthopedic doctor consulted appreciate expertise and assistance; status post I&D a right 3rd finger abscess, good recovery, postoperative day number one today Substance use disorder: Patient endorsed he has a fentanyl of methamphetamines. Substance use navigator consulted. Hypertension: The patient endorses history of high blood pressure. Current blood pressure within reference range. The patient was not taking blood pressure medication at home. Code status: Full code DVT prophylaxis: SCDs Analgesia/sedation: Morphine Line/tube: PIV GI prophylaxis: None Nutrition: Regular diet PT: Yes Prognosis: Guarded Sepsis Screening Reassessment Date: February 17, 2025 Date of Service: February 17, 2025 Billing Provider: PERRI BAUTISTA MD Common Visit Codes: [id number] INP/OBS CARE(HIGH) PERRI BAUTISTA MD February 17, 2025 16:35
[2025-02-17 17:00] VITALS: BP 108/72; PULSE 80; RESP 14; TEMP 98; O2SAT 99
[2025-02-17] MEDS: albumin (Human) 5% 250ml 250 ML IV ONE (17:07)
[2025-02-17 18:00] VITALS: BP 107/68; PULSE 85; TEMP 98.5; O2SAT 100
[2025-02-17 22:00] VITALS: BP 97/64; PULSE 83; RESP 14; TEMP 97.6; O2SAT 97
[2025-02-18] MEDS: vancomycin 750mg inj ONE (01:07)
[2025-02-18 06:31] VITALS: BP 109/68; PULSE 93; RESP 20; TEMP 98.4; O2SAT 100
[2025-02-18 08:00] VITALS: RESP 16
[2025-02-18 10:10] LABS: BASOPHILS % (AUTO) 0.4 % (0-1); EOSINOPHILS # (AUTO) 0.1 X10'3 (0-0.9); EOSINOPHILS % (AUTO) 4.8 % (0-6); HEMATOCRIT 28.6 % (35.0-45.0); HEMOGLOBIN 9.9 g/dl (12.0-16.0); LYMPHOCYTES # (AUTO) 0.4 X10'3 (1.1-4.8); LYMPHOCYTES % (AUTO) 18.4 % (21-51); MEAN CORPUSCULAR HEMOGLOBIN 31.2 PG (27.0-31.0); MEAN CORPUSCULAR HGB CONC 34.5 g/dL (33.0-36.5); MEAN CORPUSCULAR VOLUME 90.3 FL (78-98); MEAN PLATELET VOLUME 7.7 FL (7.4-10.4); MONOCYTES # (AUTO) 0.2 X10'3 (0-0.9); MONOCYTES % (AUTO) 8.9 % (2-12); NEUTROPHILS # (AUTO) 1.4 X10'3 (1.8-7.7); NEUTROPHILS % (AUTO) 67.5 % (42-75); PLATELET COUNT 98 X10'3 (140-440); RED BLOOD COUNT 3.17 X10'6 (4.20-5.60); RED CELL DISTRIBUTION WIDTH 12.2 % (11.5-14.5); WHITE BLOOD COUNT 2.1 X10'3 (4.5-11.0)
[2025-02-18 10:20] LABS: ALANINE AMINOTRANSFERASE 33 U/L (12-78); ALBUMIN/GLOBULIN RATIO 0.6 (1.1-1.5); ALKALINE PHOSPHATASE 69 IU/L (46-116); ANION GAP 11 (8-16); ASPARTATE AMINO TRANSFERASE 23 U/L (10-37); BILIRUBIN,TOTAL 0.2 MG/DL (0.1-1.0); BLOOD UREA NITROGEN 5 MG/DL (7-18); BUN/CREATININE RATIO 6.9 (10.0-20.0); CALCIUM 7.4 MG/DL (8.5-10.1); CHLORIDE 110 MMOL/L (99-107); CREATININE 0.72 MG/DL (0.40-0.90); GLUCOSE 121 MG/DL (70-104); MAGNESIUM 1.6 MG/DL (1.5-2.4); POTASSIUM 3.7 MMOL/L (3.5-5.1); SODIUM 147 MMOL/L (135-145); TOTAL CARBON DIOXIDE 25.7 MMOL/L (24-32); TOTAL PROTEIN 5.5 G/DL (6.4-8.2); eCRCL 85 ML/MIN; eGFR > 90 ML/MIN
[2025-02-18 10:50] LABS: PLATELET ESTIMATE DECREASED; TOTAL CELLS COUNTED 100
[2025-02-18] MEDS ORDERED: CEPH250T PO (11:49)
[2025-02-18 14:48] VITALS: RESP 16
[2025-02-18] MEDS ORDERED: VANCOMYCIN LEVEL IV ONE (15:30)
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
== END 2025-02-18 15:01 | disposition home or self-care (01) | DRG 720 ==
LOC: ER 21:18 → ED HOLD 02-14 00:53 → EDBEDREQ 02-14 02:27 → ORTHO 4S 02-14 04:09 → SUR 3N 02-17 16:10
PROVIDERS: ADMIT Internal Medicine Pulmonary Disease; ATTEND Family Medicine
PROC: 0H9FXZZ Drainage of Right Hand Skin, External Approach (ICD-10-PCS; principal; 2025-02-14)
PROC: BP2N1ZZ Computerized Tomography (CT Scan) of Right Hand using Low Osmolar Contrast (ICD-10-PCS; 2025-02-14)
DX: A41.9 Sepsis, unspecified organism (principal); M86.8X4 Other osteomyelitis, hand; F32.A Depression, unspecified; F41.9 Anxiety disorder, unspecified; G89.29 Other chronic pain; M54.9 Dorsalgia, unspecified; J45.909 Unspecified asthma, uncomplicated; L02.511 Cutaneous abscess of right hand; I10 Essential (primary) hypertension; F15.10 Other stimulant abuse, uncomplicated; F11.10 Opioid abuse, uncomplicated; L03.011 Cellulitis of right finger; Z79.899 Other long term (current) drug therapy; Z88.8 Allergy status to other drugs, medicaments and biological substances; Z72.0 Tobacco use
CPT/HCPCS: 10060; 36415; 73201; 73220; 80048; 80053; 80061; 80202; 80305; 81001; 83036; 83605; 83735; 84145; 84703; 85007; 85025; 85651; 86140; 87040; 87070; 87077; 87081; 87088; 87186; 93971; 96374; 96375; 97116; 97161; 97530; 99291; A6209; A6212; A6223; A6258; A6260; A6446; A6449; G0378; J2003; J2270; J2405; J2543; J3370; J7030; J7050; J7120; P9045; Q9967

== ENCOUNTER 2025-05-02 23:11 | Inpatient (IN) | payer MEDICAID ==
[~2025-05-02] VITALS: Ht 157.5 cm; Wt 50.0 kg
[2025-05-03] VITALS (9 sets, daily range): BP systolic 85–94; BP diastolic 46–59; PULSE 82–100; RESP 15–30; TEMP 97.2–98.8; O2SAT 95–99
--- NOTE | 2025-05-03 01:50 | Physician Documentation ---
History of Present Illness ~ Chief Complaint: Foot pain Stated Complaint: INFECTION Time Seen by MD: 01:45 OK to notify your PCP?: Yes Primary Medical Doctor: Dr Lanier Source: patient, RN/, RN notes reviewed, old records Mode of Arrival: POV Exam Limitations: no limitations HPI 39 year old female with history of endocarditis seen in bed 19 presents to the emergency department for pain to her left foot and hand that has been present for one week. She states that her left foot has been infected as it is red and burning. She complains of pain everywhere on her left hand as well as increased swelling. Patient states that she is currently homeless and denies any drug use. Tetanus witin 5 years: No Medication Reconciliation Allergies: Coded Allergies: tramadol (Verified Allergy, Unknown, TINGLING, 05/02/25) Scheduled Docusate Sodium (Colace), 1 CAP PO Q12H, (Reported) Doxycycline Monohydrate (Doxycycline Monohydrate), 1 CAP PO Q12H Famotidine (Pepcid), 1 TAB PO Q12H, (Reported) Furosemide (Lasix), 1 TAB PO DAILY, (Reported) Linezolid (Zyvox Iv), 600 MG IV Q12H, (Reported) Magnesium Oxide (Magnesium), 1 CAP PO TID, (Reported) Metoprolol Tartrate* (Metoprolol Tartrate*), 1 TAB PO Q12H, (Reported) Ondansetron Hcl (Zofran), 1 TAB PO Q6H, (Reported) Oxycodone HCl (Oxycontin), 1 TAB PO Q12H, (Reported) Piperacillin/Tazobactam/Dex-Is (Zosyn 3.375 Gm Pre Mix-Bag), 3.375 GM IV Q6H, (Reported) Miscellaneous Medications Home Med List (No Home Medications), (Reported) Hydromorphone HCl/Pf (Dilaudid 1 mg/ml Syringe), 1 MG IV, (Reported) Lorazepam (Ativan), 0.5 MG IJ, (Reported) Discontinued Medications Phenazopyridine HCl (Pyridium), 1 TAB PO Q8H Discontinued Reason: patient no longer taking Past Medical History Past Medical History: Endocarditis, Asthma, Chronic Pain, Chronic Back Pain, Anxiety, Depression Past Surgical History: noncontributory, other Other Past Surgical History: Cataract Surgery Alcohol Use: None Drug Use: methamphetamine, heroin Lives with: Other Lives In: Homeless Occupation: unemployed Review of Systems All Other Systems at this time: Reviewed and Negative ROS As stated above in the HPI, otherwise all systems are reviewed and negative. Physical Exam Vital Signs: RN Vital Signs have been reviewed: Yes, Temperature: 99.5, Source: Temporal, Heart Rate: 97, Respiratory Rate: 18, BP: 112/71, Pulse Oximetry: 100, Weight: 50.000 Oxygen Flow Rate: 0 Pulse Oximetry Reflects: adequate oxygenation Physical Exam General: The patient is well developed, well nourished, nontoxic appearing and is in no acute distress. Skin: [place], warm and dry with no rashes. HEENT: Head was normocephalic and atraumatic. Eyes - pupils equal, round, reactive to light and accommodation. Extraocular movements were intact. Conjunctivae were nonicteric. Ears - bilateral tympanic membranes were normal. The mouth and oropharynx were clear with moist mucous membranes. There were no pharyngeal exudates or erythema. Neck: Supple and nontender. There was no jugular venous distention, lymphadenopathy, thyromegaly or masses. Chest: Clear to auscultation bilaterally without wheezes, rales or rhonchi. No accessory muscle use. No dullness to percussion. Heart: Rate regular and rhythmic. S1, S2. No murmurs. Palpation of the chest wall was normal. No rubs or thrills. Abdomen: Soft, nontender and nondistended. Positive bowel sounds. No guarding or rebound. No hepatosplenomegaly or palpable masses. Extremities: Left hand is swollen, red and tender. The patient moves all extremities. Pulses were equal and symmetric. Neurologic: Cranial nerves II-XII were intact. Sensation was intact to light touch throughout. Motor strength was 5/5 in all four extremities. Deep tendon reflexes were intact in both upper and lower extremities. Psychologic: The patient was oriented to person, place and time. The patient demonstrated appropriate judgement and insight. Progress Progress Note [id number]: Admission orders were entered at this time. Results/Orders Reviewed/noted all lab results: Yes Results/Orders Orders - MICHELE CORLEY MD Electrocardiogram (05/03/25 01:53) Culture Blood (05/03/25 01:53) Hand, Complete (3vw Min) (05/03/25 02:06) Chest,Single View (05/03/25 03:20) Page Hospitalist (05/03/25 03:08) Fill Out Med Reconciliation (05/03/25 03:08) Normal Saline 1000ml (0.9% Sodium Chlori (05/03/25 03:10) Completed Orders - MICHELE CORLEY MD Electrocardiogram (05/03/25 01:53) Cbc/Diff (05/03/25 01:53) MG (05/03/25 01:53) Hcg, Ur Ql (05/03/25 01:53) Procalcitonin (05/03/25 01:53) BMP (05/03/25 01:53) Lacticsepsis (05/03/25 01:53) Hand, Complete (3vw Min) (05/03/25 02:06) Doxycycline 100mg Capsule (Vibramycin 10 (05/03/25 02:25) Man Diff (05/03/25 02:12) Chest,Single View (05/03/25 03:20) Potassium Cl Sr Tablet (K-Dur Tablet) (05/03/25 02:54) Potassium Cl 10meq/100ml Bag (Potassium (05/03/25 03:10) Hgb A1c (05/03/25 02:12) Ua W/Microscopic, Cult If Ind (05/03/25 04:45) Medications Received in ER Medications (Trade) Dose Ordered Sig/Sean Route PRN Reason Start Time Stop Time Status Last Admin Dose Admin (VIBRAMYCIN 100mg capsule) 100 mg ONCE STAT PO 05/03/25 02:25 05/03/25 02:26 DC 05/03/25 02:36 100 MG (K-DUR tablet) 40 meq ONCE STAT PO 05/03/25 02:54 05/03/25 02:55 DC 05/03/25 03:12 40 MEQ Potassium Chloride 100 ml @ 100 mls/hr ONCE ONCE IV 05/03/25 03:10 05/03/25 04:09 DC 05/03/25 03:45 100 MLS/HR Sodium Chloride 1,000 ml @ 200 mls/hr Q5H ONCE IV 05/03/25 03:10 05/03/25 08:09 05/03/25 03:46 200 MLS/HR Vital Signs 05/02/25 05/03/25 23:14 03:00 Temp 99.5 Pulse 97 97 Resp 18 16 B/P (MAP) 112/71 113/72 (86) Pulse Ox 100 99 O2 Flow Rate 0 0 Laboratory Tests Test 05/03/25 02:12 White Blood Count 10.3 Red Blood Count 4.48 Hemoglobin 13.1 Hematocrit 38.1 Mean Corpuscular Volume 85.0 Mean Corpuscular Hemoglobin 29.2 Mean Corpuscular Hemoglobin Concent 34.4 Red Cell Distribution Width 13.2 Platelet Count 103 L Mean Platelet Volume 9.2 Neutrophils (%) (Auto) 91.5 H Lymphocytes (%) (Auto) 5.1 L Monocytes (%) (Auto) 3.0 Eosinophils (%) (Auto) 0.2 Basophils (%) (Auto) 0.2 Neutrophils # (Auto) 9.4 H Lymphocytes # (Auto) 0.5 L Monocytes # (Auto) 0.3 Eosinophils # (Auto) 0.0 Basophils # (Auto) 0.0 CBC Comment Differential Total Cells Counted 100 Neutrophils % (Manual) 78 H Band Neutrophils % 13 H Lymphocytes % (Manual) 7 L Monocytes % (Manual) 2 Toxic Vacuolation 2+ Platelet Estimate Decreased Large Platelets Few Red Blood Cell Morphology Normal Basophilic Stippling D-Dimer 2.84 H D-Dimer Comment Sodium Level 129 L Potassium Level 2.6 *L Chloride Level 90 L Carbon Dioxide Level 30.4 Anion Gap 9 Blood Urea Nitrogen 5 L Creatinine 0.84 Estimated GFR/1.73 m2 76 BUN/Creatinine Ratio 6.0 L Glucose Level 134 H Hemoglobin A1c 5.2 Osmolality 265 L Lactic Acid Level 1.3 Calcium Level 8.7 Magnesium Level 1.9 Albumin 3.0 L Procalcitonin 0.56 H Chemistry Comments Microbiology Date/Time Source Procedure Growth Status 05/03/25 02:12 Blood Arm Right Blood Culture - Preliminary NEGATIVE (LESS THAN 24 HOURS) Resulted Re-Evaluation Re-Evaluation : Re-Evaluation: Improved Progress PATIENT WAS SEEN AND EXAMINED. PATIENT WAS GIVEN REASSURANCE. PATIENT IS HOMELESS APPEARS MUCH MUCH OLDER THAN STATED AGE. MULTIPLE RISK FACTORS AND OF GENERALIZED POOR HEALTH. Patient was initially complaining of left foot pain l lizbeth a neuropathy but determined she has a blister can not rule out a thrombotic or an effective emboli. Patient had no cardiac murmur does have a history of endocarditis in the past. Also her hand also had osteomyelitis back in February but now with the contralateral hand seems to be swollen and infected. White count however is within normal limits with a WBC of 10.3 hemoglobin 13 hematocrit 38 platelets low at 103 with a left shift of 91.5. There was also 13 bands which is somewhat concerning for acute infection. Patient's urinalysis was reassuring. Patient's tox screen is positive for fentanyl, methamphetamine and the patient's chemistry shows significant metabolic derangement. Patient's procalcitonin is elevated at 0.56 consistent with infection lactic acid however is only 1.3. Patient's sodium however is 129 in critically low potassium of 2.6. Patient was then given oral antibiotics of doxycycline which was given because the patient was thought to be going to be discharged however as the workup progressed patient had some critical findings. Initial potassium of 40 mEq was given and later after IV lines were established patient received potassium chloride. Additional fluid bolus was also given. I later contacted the hospitalist regarding management of the patient. Continuous residential monitor interpretation shows sinus tachycardia heart rate 100s, abnormal, my interpretation. Pulse oximetry monitor interpretation shows normal oxygenation at 95% room air, normal, my interpretation. EKG/XRAY/CT/US/VASC/MRI EKG : Additional Comment 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 Michele Corley Measurements Intervals [place] Rate: 96 P: 56 IN: 133 QRS: 85 QRSD: 110 T: 26 QT: 342 QTc: 433 Interpretive Statements Sinus rhythm Probable left atrial enlargement RSR' in V1 or V2, right VCD or RVH Borderline T abnormalities, anterior leads Electronically Signed On 05-03-2025 4:45:[address] Michele Corley Please click the below link to view image of tracing. EKG Date and Time:05/03/25 9316 Electronically Signed by: MICHELE CORLEY MD Date and Time: 05/03/25 7882 Chest X-Ray : Additional Comments CHEST RADIOGRAPH Indication: CHEST PAIN Technique: Single frontal view of the chest was obtained COMPARISON: None FINDINGS: Lines and Tubes: None Lungs: Clear Pleura: No effusion. No pneumothorax. Cardiomediastinal contours: Unremarkable Bones: Unremarkable IMPRESSION: 1. No acute disease. Electronically Signed by:JONATHAN MOORE MD Date & Time: 05/03/25 034 Bone/Soft Tissue X-Ray (Ext.) : Additional Comment CLINICAL INDICATION: hand LEFT TECHNIQUE: DI HAND, COMPLETE (3VW MIN) Comparison: None FINDINGS/IMPRESSION: : There is no evidence of acute fracture or dislocation. Soft tissues are unremarkable. Electronically Signed by:JONATHAN MOORE MD Date & Time: 05/03/25222 Dictated by: JONATHAN MOORE MD Dictation date and time: 05/03/25222 Medical Decision Making Additional info obtained from: old records General Diff Dx:Considerations: Include: Abrasion, Contusion, Fracture, Hematoma, Sprain, Other Departure Disposition: ADMITTED INPATIENT Admitted to Inpatient Unit: to hospitalist Admission Level of Care: PCU with Tele Impression: Primary Impression: Cellulitis of right hand Additional Impressions: Blister of great toe, left Qualified Codes: S90.422A - Blister (nonthermal), left great toe, initial encounter Hypokalemia Hyponatremia Homeless Condition: Stable Discharge Instructions: Cellulitis Referrals: NO PRIMARY CARE PROVIDER (PCP) Prescriptions Doxycycline Monohydrate (Doxycycline Monohydrate) 100 Mg Capsule 1 CAP PO Q12H for 14 Days, #28 CAP Prov: MICHELE CORLEY MD 05/03/25 Education Educated: Patient Educated regarding: diagnosis, treatment, prognosis, need for follow up Signature Scribe Signature: Scribed for Michele Corley MD by Lester Tolentino . 05/03/25 02:05 Attestation: The note accurately reflects work and decisions made by me.Michele Corley MD 05/03/25 01:50 MICHELE CORLEY MD May 03, 2025 01:50 LESTER GALLEGOS May 03, 2025 02:04
[2025-05-03 02:21] LABS: MEAN PLATELET VOLUME 9.2 FL (7.4-10.4); RED CELL DISTRIBUTION WIDTH 13.2 % (11.5-14.5)
--- NOTE | 2025-05-03 02:25 | RADIOLOGY REPORT ---
CLINICAL INDICATION: hand LEFT TECHNIQUE: DI HAND, COMPLETE (3VW MIN) Comparison: None FINDINGS/IMPRESSION: : There is no evidence of acute fracture or dislocation. Soft tissues are unremarkable.
[2025-05-03] MEDS ORDERED: DOXY-460 PO (02:26)
[2025-05-03 02:31] LABS: CREATININE 0.84 MG/DL (0.40-0.90); TOTAL CARBON DIOXIDE 30.4 MMOL/L (24-32); eCRCL 72 ML/MIN; eGFR 76 ML/MIN
[2025-05-03] MEDS: DOXYCYCLINE 100MG CAPSULE PO STA (02:36)
[2025-05-03 02:53] LABS: BANDS% (MANUAL) 13 % (0-10); LYMPHOCYTES % (MANUAL) 7 % (21-51); MONOCYTES % (MANUAL) 2 % (2-12); NEUTROPHILS % (MANUAL) 78 % (42-75); PLATELET ESTIMATE DECREASED
[2025-05-03 02:54] LABS: LARGE PLATELETS FEW
[2025-05-03] MEDS: potassium Cl 20 mEq SR tablet PO STA (03:12)
[2025-05-03] MEDS: potassium CL 10mEq/100ml bag 100 ML IV ONE (03:45)
--- NOTE | 2025-05-03 03:45 | RADIOLOGY REPORT ---
CHEST RADIOGRAPH Indication: CHEST PAIN Technique: Single frontal view of the chest was obtained COMPARISON: None FINDINGS: Lines and Tubes: None Lungs: Clear Pleura: No effusion. No pneumothorax. Cardiomediastinal contours: Unremarkable Bones: Unremarkable IMPRESSION: 1. No acute disease.
[2025-05-03] MEDS: normal saline 1000ml 1,000 ML IV ONE ×3 (03:46→20:04)
[2025-05-03] MEDS ORDERED: mag hydrox/Alum hydrox/simeth 30ml oral suspension PO PRN (03:50)
[2025-05-03] MEDS ORDERED: magnesium sulf-water 2g/50mL 50 ML IV PRN (03:50)
[2025-05-03] MEDS ORDERED: potassium Cl 40MEQ/1/2NS 520ml 520 ML IV PRN (03:50)
[2025-05-03] MEDS: normal saline 1000ml 1,000 ML IV SCH (03:50)
[2025-05-03] MEDS ORDERED: potassium Cl 20 mEq SR tablet PO PRN (03:50)
[2025-05-03] MEDS ORDERED: magnesium Cl slow-release 64mg tablet PO PRN (03:50)
[2025-05-03] MEDS ORDERED: magnesium hydroxide 30ml (MOM) UD suspension PO PRN (03:50)
[2025-05-03] MEDS ORDERED: magnesium sulf-water 4G/100mL 100 ML IV PRN (03:50)
--- NOTE | 2025-05-03 03:59 | ELECTROCARDIOGRAPH REPORT ---
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 Sandra Anderson Measurements Intervals [place] Rate: 96 P: 56 DC: 133 QRS: 85 QRSD: 110 T: 26 QT: 342 QTc: 433 Interpretive Statements Sinus rhythm Probable left atrial enlargement RSR' in V1 or V2, right VCD or RVH Borderline T abnormalities, anterior leads Electronically Signed On 05-03-2025 4:45:[address] Sandra Anderson Please click the below link to view image of tracing.
--- NOTE | 2025-05-03 04:17 | HISTORY AND PHYSICAL-Residence ---
History & Physical Providers to CC Resident Creating Document: JORDY ROMERO, RES CC: BONNY GRAY MD ~ History of Present Illness Reason for Admit\Complaint: Pain and swelling in the left upper extremity History of Present Illness A 39-year-old female with past medical history of tricuspid valve IE, HTN and methamphetamine abuse presented to the ED in view of pain and swelling in the left upper extremity, right arm and left foot since this morning. Patient describes up severe with the pain is 9/10 which is sharp with no radiation or aggravating or relieving factors. Patient denies fever but endorses chills. Patient also endorses that she is weak tired and has fatigue. Patient reported that she had a small pustule that gradually progressed to the size of an abscess with draining pus. Patient had done self drainage of the scalp lesion that has currently appearing as a bald patch. Patient has very irrelevant and generalized complaints as mentioned above. Reportedly, patient was treated for right 3rd digit osteomyelitis in March 04. Allergies: Coded Allergies: tramadol (Verified Allergy, Unknown, TINGLING, 05/02/25) Home Medications Home Medications Active Doxycycline Monohydrate 100 Mg Capsule 1 Cap PO Q12H 14 Days Reported Dilaudid 1 mg/ml Syringe (Hydromorphone HCl/Pf) 1 Mg/1 Ml Syringe 1 Mg IV Ativan (Lorazepam) 2 Mg/1 Ml Vial 0.5 Mg IJ Zofran (Ondansetron Hcl) 4 Mg Tablet 1 Tab PO Q6H Zosyn 3.375 Gm Pre Mix-Bag (Piperacillin/Tazobactam/Dex-Is) 3.375 Gm/50 Ml Froz.piggy 3.375 Gm IV Q6H Zyvox Iv (Linezolid/Dextrose) 600 Mg/300 Ml Iv.soln 600 Mg IV Q12H Oxycontin (Oxycodone HCl) 10 Mg Tab.er.12h 1 Tab PO Q12H Metoprolol Tartrate* (Metoprolol Tartrate) 50 Mg Tablet 1 Tab PO Q12H Magnesium (Magnesium Oxide) 400 Mg Capsule 1 Cap PO TID Lasix (Furosemide) 40 Mg Tablet 1 Tab PO DAILY Colace (Docusate Sodium) 100 Mg Capsule 1 Cap PO Q12H Pepcid (Famotidine) 20 Mg Tablet 1 Tab PO Q12H No Home Medications (Home Med List) Each Past Medical History Past Medical History Tricuspid valve infective endocarditis in 2019 HTN Osteomyelitis of right hand Methamphetamine abuse Past Surgical History Surgical History Comment Cataract surgery Past Social History Social History Comment Smokes 1-2 cigarettes per day for the last 20 years Denies alcohol marijuana or illicit drug use Patient is homeless and does not have a primary care provider Smoking: Less than 1 pack/day Alcohol Use: None Drug Use: Methamphetamine, Heroin Lives with: Other Lives In: Homeless Occupation: unemployed ROS ROS All other systems reviewed in full and negative except for the pertinent positives mentioned in the HPI Exam Vitals: Vital Signs Date Time Temp Pulse Resp B/P (MAP) Pulse Ox O2 Delivery O2 Flow Rate FiO2 05/02/25 23:14 99.5 97 18 112/71 100 0 General: General: Malnourished female, Alert, awake, oriented, not in acute distress HEENT: PERRLA, no icterus, pallor, lymphadenopathy, carotid bruit, loss of multiple teeth, discoloration of the teeth Respiratory system: Decreased breath sounds in the bilateral lower lung regions CVS: S1-S2 heard, no murmurs/rubs/gallop GI: Soft, nontender, no organomegaly, no guarding/rigidity, bowel sounds present Neuro: No focal neurological deficits present Extremities: Swollen left hand, with tenderness, warmth, small blister at the base of left great toe on the plantar side, Peripheral pulses present, No edema cyanosis clubbing/deformities, multiple track moraes present, feet are dirty but pale with multiple dilated veins Skin: Warm and dry Diagnostic Data Last Recorded Lab Results: 05/03/25 0212 05/04/25 0005 Advance Care Planning Advanced Care plannin - 30 Minutes (I spent 20 minutes discussing various resuscitative measures and the patient decided to be full code) Additional Plan Assessment: A 39-year-old female with tricuspid valve IE, methamphetamine abuse, HTN presented to the ED in view of swelling and pain of the left hand. Patient is admitted for the evaluation management of left hand cellulitis and possible bloodstream infection. Plan: Left hand cellulitis DVT, rule out Can not rule out BSI Hand x-ray: No significant findings Follow up with CT upper extremity, vascular ultrasound, D-dimer Elevated procalcitonin, normal lactic acid IV fluids at 100 cc/hour Pain management Started the patient on IV Zosyn, IV vancomycin Follow up with echo to rule out endocarditis, CT chest Hyponatremia Hypokalemia follow up with urine and serum osmolality, urine sodium, EKG On hyper/hypokalemia protocol Continue to monitor sodium q.6h and potassium HTN Patient isn't on any antihypertensive medications at home IV drug abuse Substance abuse navigator, follow up with U tox Homeless human resources services specialist consult Patient is on metoprolol tartrate 50 mg q.12h at home, reason unknown Follow up with urinalysis and U tox Code status: Full code Diet: Heart healthy DVT prophylaxis: Heparin Disposition: Admit to PCU, follow up with echo, CT and vascular ultrasound of the upper extremity Jordy Romero MD Internal Medicine, PGY 2 Addendum I personally reviewed the chart, labs and imaging and reviewed the patient with the team. I agree with the assessment and plan as documented by the resident. Patient was seen through remote audio-visual assessment through HIPAA compliance setup. Date of Service: May 03, 2025 Billing Provider: BONNY GRAY MD, SIVA, RES May 03, 2025 04:17 BONNY GRAY MD May 04, 2025 04:08
[2025-05-03] MEDS: vancomycin/NS 1 GM ADD-VANTAGE 250 ML IV ONE (04:51)
[2025-05-03 05:53] LABS: OSMOLALITY UA 342 MOSM/K (50-1400); URINE HCG NEGATIVE (NEG)
[2025-05-03 06:04] LABS: URINE AMPHETAMINE SCREEN POSITIVE (Neg); URINE BARBITUATE SCREEN NEGATIVE (Neg); URINE BENZODIAZEPINES SCREEN NEGATIVE (Neg); URINE CANNABINOID SCREEN NEGATIVE (Neg); URINE COCAINE SCREEN NEGATIVE (Neg); URINE METHADONE SCREEN NEGATIVE (Neg); URINE OPIATE SCREEN NEGATIVE (Neg); URINE PHENCYCLIDINE SCREEN NEGATIVE (Neg)
[2025-05-03 06:11] LABS: LEUKOCYTE ESTERASE ,URINE NEGATIVE (Neg); NITRITES, URINE NEGATIVE (Neg); OCCULT BLOOD,URINE SMALL (Neg)
[2025-05-03 06:14] LABS: UA COLLECTION TYPE CLN CATCH MIDSTREAM
[2025-05-03 06:16] LABS: MUCUS STRANDS NONE SEEN /LPF (Neg); SQUAMOUS EPITHELIAL CELL,UR FEW /LPF (FEW)
[2025-05-03] MEDS ORDERED: piperacillin/tazo 4.5gm/100ml 100 ML IV SCH ×2 (08:00→12:00)
[2025-05-03] MEDS: docusate sod 100mg capsule PO SCH (08:00)
[2025-05-03] MEDS: K and/or MAG REPLACEMENT MC SCH (08:00)
[2025-05-03] MEDS ORDERED: piperacillin/tazo 4.5gm/100ml 100 ML IV ONE (08:00)
[2025-05-03] MEDS: CefTRIAXone 2gm/D5W 50ml BAG 50 ML IV SCH (09:04)
[2025-05-03] MEDS: heparin, porcine 5000 units/ml vial SQ SCH (09:07)
[2025-05-03 09:16] LABS: CREATININE 0.77 MG/DL (0.40-0.90); TOTAL CARBON DIOXIDE 28.4 MMOL/L (24-32); eCRCL 79 ML/MIN; eGFR 84 ML/MIN
[2025-05-03] MEDS: potassium Cl 20 mEq SR tablet PO PRN (11:02)
--- NOTE | 2025-05-03 12:49 | VASCULAR REPORT ---
Technique: Real-time ultrasound imaging, with color Doppler and compression of the bilateral upper extremity veins. Indication: Swelling of the bilateral upper extremities Comparison: VASC VL VENOUS on DOS: 02/14/25 Findings: There is normal compressibility and flow augmentation in all of the imaged deep veins. There are no f illing defects. Impression: No evidence of DVT in the bilateral upper extremities
--- NOTE | 2025-05-03 13:09 | RADIOLOGY REPORT ---
INDICATION: RIGHT UPPER EXTREMITY REDNESS SHOULDER TO FINGERS COMPARISON: None TECHNIQUE: CT of the right upper extremity was performed without contrast. Volume transverse images w ere obtained and reconstructed in multiple planes using bone and soft tissue algorithms. CONTRAST: None Radiation Dose Information: CTDI volume is 12.9 mGy. Dose-length product is 962.9 mGy*cm FINDINGS: The alignment is normal. Moderate soft-tissue swelling and edema in the forearm and hand. There is no fracture, dislocation, or focal osseous lesion. Prominent right axillary lymph nodes are present measuring up to 0.9 cm ; nonspecific and likely reac tive. Partially imaged masslike opacity in the right lower lobe. IMPRESSION: No acute fracture or dislocation. Moderate soft-tissue and swelling in the forearm and hand; possibly cellulitis. Partially imaged masslike opacity in the right lower lobe. Please refer to CT chest dated the same fo r detailed findings.
--- NOTE | 2025-05-03 13:16 | RADIOLOGY REPORT ---
Indication: Pneumonia Technique: CT axial images of the chest are obtained without contrast. Coronal and sagittal reformats were obtained. Radiation Dose Information: CTDI volume is 6 mGy. Dose-length product is 200 mGy*cm Comparison: None FINDINGS: Trachea patent. No pneumothorax. Multifocal pulmonary airspace consolidation /nodular disease. This i ncludes right middle lobe solid lesion measuring 13 mm, right lower lobe solid lesion measuring 3 cm, right lower lobe solid lesion measuring 7 mm, left upper lobe solid lesion measuring 7 mmm, left upp er lobe solid lesion measuring 1.7 cm, left lower lobe solid lesion measuring 13 mm, left lower lobe solid lesion measuring 9 mm. The heart is normal in size. No supraclavicularm lymphadenopathy. 1.6 cm left axillary lymph node. R ight axillary lymph nodes up to 10 mm. Subcarinal lymph node measuring 1.6 cm. No aggressive osseous process. Mild thoracic degenerative disc disease. IMPRESSION: Limited evaluation without contrast. Multifocal pulmonary airspace consolidation / nodularity with lesions as described measuring up to 3 cm. Differential considerations include infection / atypical infectious processes/pneumonia, septic emboli, metastases/malignancy. Follow-up to resolution to exclude malignancy. Axillary and mediastinal lymphadenopathy as described.
--- NOTE | 2025-05-03 13:36 | RADIOLOGY REPORT ---
INDICATION: Cellulitis COMPARISON: CT CT UPPER EXTREMITIES W/ IV CONTRAST on DOS: 02/14/25 TECHNIQUE: CT of the left upper extremity was performed without contrast. Volume transverse images we re obtained and reconstructed in multiple planes using bone and soft tissue algorithms. CONTRAST: None Radiation Dose Information: CTDI volume is 12.1 mGy. Dose-length product is 820 mGy*cm FINDINGS: The alignment is normal. The joint spaces are normal. The glenohumeral joint is normal. The acromioclavicular joint is normal. There is no fracture, dislocation, or focal osseous lesion. Few subcentimeter short axis lymph nodes are present in the left axilla; likely reactive. The imaged portions of the mediastinum and left hemithorax are normal. There is mild diffuse subcutaneous soft-tissue edema and swelling most prominent in the forearm and h and. IMPRESSION: Mild diffuse subcutaneous soft-tissue edema and swelling most prominent in the forearm and hand; poss ibly cellulitis.
[2025-05-03] MEDS ORDERED: ipratropium/albuterol 3ml nebule NEB PRN (17:00)
[2025-05-03] MEDS: vancomycin/NS 1 GM ADD-VANTAGE 250 ML X 1 DOSE IV SCH (17:13)
--- NOTE | 2025-05-03 18:59 | CARDIOLOGY REPORT ---
APPROVED REPORT EXAM: Comprehensive 2D, Doppler, and color-flow Echocardiogram. Patient Location: 3019 Blood Pressure: 94/56 mmHg Heart Rate: 105 bpm Rhythm: Sinus Tachycardia Indications Evaluate for enodcarditis Hx Meth Previous echo 11/27/18 [facility] 65-70% EF ; echogenic mass on TV leaflet 2D Dimensions LA Diam2.9 cm IVSd 1.0 (0.7-1.1cm) LVDd 3.4 cm PWd 1.0 (0.7-1.1cm) IVSs 1.3 (0.8-1.2cm) LVDs 2.2 (2.5-4.0cm) Aortic Root(2D) 2.6 cm PWs 1.3 (0.8-1.2cm) LVOT Diameter 1.97 (1.8-2.4cm) LVEF(%) 65.1 (>50%) IVC 16.24 mmFS (%) 34.7 % SV 30.5 ml CO 3.1 L/min M-Mode Dimensions MV EPSS 0.5 (<0.5cm) Aortic Valve AoV Peak Zeyad. 150.6 cm/s AoV VTI 24.8 cm AO Peak GR. 9.1 mmHg AO Mean GR. 5 mmHg LVOT VTI 20.38 cm LVOT Peak Zeyad. 113.5 cm/s KRISTIN(VTI)/BSA 2.50 cm2/m2 KRISTIN (VTI) 2.50 cm2 Mitral Valve MV E Velocity 117.2 cm/s MV Peak Gr. 7 mmHg MV DECEL TIME 204 ms MV A Velocity 129.8 cm/s MV PHT 56 ms E/A Ratio 0.9 MVA (PHT) 3.93 cm2 MV RLct840.5 cm/s TDI Medial E' P. V 17.01 cm/s E/Medial E' 6.9 Tricuspid Valve TR P. Velocity 311 cm/s RAP ESTIMATE 10 mmHg TR Peak Gr. 39 mmHg RVSP 49 mmHg Pulmonary Vein S1 Velocity 44.6 cm/s D2 Velocity 29.8 cm/s PVa Ieleatpn45.5 cm/s PVa Moynbcer157 msec LEFT VENTRICLE LV is small in size with normal wall thickness. Overall systolic function is normal. LVEF is 65%. RIGHT VENTRICLE RV appears moderately dilated with normal contractility. RVSP is estimated at 49 mmHG. ATRIA The left atrium size is normal. AORTIC VALVE Trileaflet AV appears sclerotic without stenosis. No insufficiency. MITRAL VALVE MV is thickened with no annular calcification or stenosis. Trace mitral regurgitation. TRICUSPID VALVE TV leaflets are thickened. Difficult to assess for echogenic mass on leaflets due to fast heart rate. Cannot rule out endocarditis, recommend clinical correlation. Moderate tricuspid regurgitation. PULMONIC VALVE Pulmonic valve is not well visualized. GREAT VESSELS The aortic root is normal in size. The IVC is normal in size and collapses >50% with inspiration. PERICARDIUM There is no pericardial effusion. Pleural effusion. Other Information Study Quality: Adequate Conclusion LV is small in size with normal wall thickness. Overall systolic function is normal. LVEF is 65%. RV appears moderately dilated with normal contractility. RVSP is estimated at 49 mmHG. The left atrium size is normal. Trileaflet AV appears sclerotic without stenosis. No insufficiency. MV is thickened with no annular calcification or stenosis. Trace mitral regurgitation. TV leaflets are thickened. Difficult to assess for echogenic mass on leaflets due to fast heart rate. Cannot rule out endocarditis, recommend clinical correlation. Moderate tricuspid regurgitation. There is no pericardial effusion.
[2025-05-03] MEDS: ipratropium/albuterol 3ml nebule NEB SCH (20:26)
[2025-05-03] MEDS: methylPREDNISolone sod succ/PF 40mg inj. IV SCH (20:55)
[2025-05-04] VITALS (9 sets, daily range): BP systolic 97–116; BP diastolic 52–68; PULSE 68–87; RESP 16–25; TEMP 97.3–97.7; O2SAT 95–100
[2025-05-04 06:48] LABS: MEAN PLATELET VOLUME 9.8 FL (7.4-10.4); RED CELL DISTRIBUTION WIDTH 13.5 % (11.5-14.5)
[2025-05-04 07:09] LABS: CHOL/HDL RATIO 7.3 (0.00-4.99); CREATININE 0.67 MG/DL (0.40-0.90); LDL CHOLESTEROL 46 MG/DL (50-100); TOTAL CARBON DIOXIDE 23.8 MMOL/L (24-32); eCRCL 91 ML/MIN; eGFR > 90 ML/MIN
[2025-05-04] MEDS: HYDROcodone/acetaminophen 5mg/325mg tablet PO PRN (08:49)
[2025-05-04] MEDS: ondansetron/PF 4mg/2ml inj IV PRN (10:17)
[2025-05-04] MEDS ORDERED: VANCOMYCIN LEVEL IV ONE (16:30)
--- NOTE | 2025-05-04 17:47 | DISCHARGE SUMMARY-Residence ---
Discharge Summary Providers to CC Resident Creating Document: RAMA LYMANLEAH ~ Discharge Summary Admission Diagnosis: LEFT HAND CELLULITIS, POSSIBLE SEPSIS & ENDOCARDITIS, RULE OUT Hospital Course DATE OF ADMISSION: DATE OF DISCHARGE: Discharge Diagnosis\Comment: Left hand cellulitis with possible osteomyelitis Possible sepsis secondary to osteomyelitis History of infective endocarditis DVT, ruled out Hyponatremia Hypokalemia HTN IV drug abuse Homeless Operations\Procedures: None Consultants: Infectious disease Complications: None Condition on DC: Stable Discharge Summary: HPI as per admitting physician: A 39-year-old female with past medical history of tricuspid valve IE, HTN and methamphetamine abuse presented to the ED in view of pain and swelling in the left upper extremity, right arm and left foot since this morning. Patient describes up severe with the pain is 9/10 which is sharp with no radiation or aggravating or relieving factors. Patient denies fever but endorses chills. Patient also endorses that she is weak tired and has fatigue. Patient reported that she had a small pustule that gradually progressed to the size of an abscess with draining pus. Patient had done self drainage of the scalp lesion that has currently appearing as a bald patch. Patient has very irrelevant and generalized complaints as mentioned above. Reportedly, patient was treated for right 3rd digit osteomyelitis in March 04. Hospital course: Patient presented with swelling and pain in the left hand, right arm, and left foot. She described severe pain with associated chills and reported a scalp abscess that she self-drained. On admission, she was febrile with leukocytosis and had physical exam findings consistent with left hand cellulitis and a plantar foot blister. Given concern for a possible bloodstream infection and history of IE, blood cultures were drawn and empiric antibiotics with IV vancomycin and ceftriaxone were started. Blood cultures later grew gram- positive cocci in clusters. MRI was ordered to evaluate for possible osteomyelitis, and an echocardiogram was performed to assess for recurrent endocarditis; however, the echo was non-confirmatory. MRI to rule out osteomyelitis pending at the time of discharge. CT upper extremity showed No acute fracture or dislocation. Moderate soft-tissue and swelling in the forearm and hand; possibly cellulitis. CT chest showed Multifocal pulmonary airspace consolidation / nodularity with lesions as described measuring up to 3 cm. Patient was also started on breathing treatment with IV methylprednisolone. Vascular ultrasound ruled out DVT She was also noted to have electrolyte disturbances including hyponatremia and hypokalemia, managed with close monitoring and replacement per protocol. Social history revealed homelessness and IV drug use, with multiple track moraes seen on exam. Despite social work involvement and substance use counseling, the patient was not ready to accept resources. Pain was managed with opioids, and she received IV fluids and supportive care. ID was also consulted but unfortunately, the patient left against medical advice (AMA) prior to completion of workup, including pending MRI and full course of IV antibiotics. Physical examination today HEENT: PERRLA, loss of multiple teeth, discoloration of the teeth Respiratory system: Normal breath sounds in the bilateral lower lung regions CVS: S1-S2 heard, no murmurs/rubs/gallop GI: Soft, nontender, no organomegaly, no guarding/rigidity, bowel sounds present Neuro: No focal neurological deficits present Extremities: Swollen left hand, with tenderness, warmth, small blister at the base of left great toe on the plantar side, Peripheral pulses present, No edema cyanosis clubbing/deformities, multiple track moraes present, feet are dirty but pale with multiple dilated veins Skin: Warm and dry *Problems/Diagnosis: (1) Endocarditis (2) Acute respiratory failure (3) Homeless Status: Acute (4) Cellulitis of right hand Status: Acute Total Time Spent on D/C: Up to 30 Minutes Date of Service: May 04, 2025 Billing Provider: ANDREY JOY MD, GAURAV, RES May 04, 2025 17:45
[2025-05-05 09:11] LABS: HBSAG SCREEN Negative (Negative); HEP B CORE AB, IGM Negative (Negative); HEP B CORE AB, TOT Negative (Negative)
== END 2025-05-04 15:30 | disposition left against medical advice (07) | DRG 720 ==
LOC: ER 23:12 → ED HOLD 05-03 03:56 → PCU 3S 05-03 05:39
PROVIDERS: ADMIT Internal Medicine Sleep Medicine; ATTEND Family Medicine
DX: A41.9 Sepsis, unspecified organism (principal); J96.00 Acute respiratory failure, unspecified whether with hypoxia or hypercapnia; E87.1 Hypo-osmolality and hyponatremia; L03.114 Cellulitis of left upper limb; M86.8X4 Other osteomyelitis, hand; L03.113 Cellulitis of right upper limb; E87.6 Hypokalemia; J45.909 Unspecified asthma, uncomplicated; S90.422A Blister (nonthermal), left great toe, initial encounter; Z53.21 Procedure and treatment not carried out due to patient leaving prior to being seen by health care provider; X58.XXXA Exposure to other specified factors, initial encounter; F11.90 Opioid use, unspecified, uncomplicated; I10 Essential (primary) hypertension; F15.10 Other stimulant abuse, uncomplicated; F32.A Depression, unspecified; F41.9 Anxiety disorder, unspecified; G89.29 Other chronic pain; Y93.89 Activity, other specified; Z88.8 Allergy status to other drugs, medicaments and biological substances; Z79.899 Other long term (current) drug therapy; Z59.00 Homelessness unspecified; Y92.89 Other specified places as the place of occurrence of the external cause
CPT/HCPCS: 36415; 71045; 71250; 73130; 73200; 80048; 80053; 80061; 80076; 80305; 81001; 81025; 83036; 83605; 83735; 83930; 83935; 84132; 84145; 84295; 84300; 85007; 85025; 85379; 85651; 86704; 86705; 87040; 87077; 87081; 87088; 87186; 87340; 93005; 93306; 93970; 94640; 94760; 96365; 96366; 96367; 96375; 99285; A6258; G0378; J0696; J1644; J2270; J2405; J2919; J3373; J3480; J7030; J7040; J7512

== ENCOUNTER 2025-06-01 06:51 | Emergency (ER) | payer MEDICAID ==
[~2025-06-01] VITALS: Ht 170.2 cm; Wt 45.0 kg
[~2025-06-01 06:51] MED LIST changes: -PHEN-824 PO
--- NOTE | 2025-06-01 08:00 | Physician Documentation ---
History of Present Illness General Chief Complaint: General Stated Complaint: BODY PAIN Time Seen by MD: 07:53 History of Present Illness Initial Comments Patient is a 39-year-old female who is living on the streets, she was brought in by ambulance after a complaint of all whole-body pain as well as foot pain. The patient states she has had foot pain for several weeks and that it has been worse over the last two days. Patient states she last used methamphetamine two days ago. Patient denies any fevers chills nausea or vomiting. Patient's symptoms are mild and persistent. Patient denies any significant trauma. Medication Reconciliation Allergies: Coded Allergies: tramadol (Verified Allergy, Unknown, TINGLING, 06/01/25) Scheduled Docusate Sodium (Colace), 1 CAP PO Q12H, (Reported) Famotidine (Pepcid), 1 TAB PO Q12H, (Reported) Furosemide (Lasix), 1 TAB PO DAILY, (Reported) Linezolid (Zyvox Iv), 600 MG IV Q12H, (Reported) Magnesium Oxide (Magnesium), 1 CAP PO TID, (Reported) Metoprolol Tartrate* (Metoprolol Tartrate*), 1 TAB PO Q12H, (Reported) Ondansetron Hcl (Zofran), 1 TAB PO Q6H, (Reported) Oxycodone HCl (Oxycontin), 1 TAB PO Q12H, (Reported) Piperacillin/Tazobactam/Dex-Is (Zosyn 3.375 Gm Pre Mix-Bag), 3.375 GM IV Q6H, (Reported) Miscellaneous Medications Home Med List (No Home Medications), (Reported) Home Med List (No Home Medications), (Reported) Hydromorphone HCl/Pf (Dilaudid 1 mg/ml Syringe), 1 MG IV, (Reported) Lorazepam (Ativan), 0.5 MG IJ, (Reported) Past Medical History Past Medical History: Endocarditis, Asthma, Chronic Pain, Chronic Back Pain, Anxiety, Depression Past Surgical History: noncontributory, other Other Past Surgical History: Cataract Surgery Smoking: Less than 1 pack/day Alcohol Use: None Drug Use: methamphetamine, heroin Lives with: Other Lives In: Homeless Occupation: unemployed Review of Systems All Other Systems at this time: Reviewed and Negative Physical Exam Physical Exam Vital Signs: Temperature: 98.4, Source: Temporal, Heart Rate: 112, Respiratory Rate: 18, BP: 94/59, Pulse Oximetry: 100, Weight: 45.000 Physical Exam VITALS: Reviewed and as above. GENERAL: Alert, no apparent distress. HEENT: Normocephalic, atraumatic, PERRL, EOMI, dry mucosa, no erythema RESPIRATORY: Lungs clear, normal breath sounds, no respiratory distress. CHEST: No accessory muscle use, no retractions CV: Regular rate, rhythm, no edema, no murmur, No: JVD GI: Soft, non-tender, bowels sounds present, no rebound, guarding, or rigidity BACK: No CVA tenderness, or swelling MUSCULOSKELETAL: No deformities, no edema SKIN: Warm and dry, no rash NEURO: Oriented x4, No motor or sensory deficit PSYCH: Normal mood and affect, no agitation Progress Results/Orders Results/Orders Vital Signs 06/01/25 06/01/25 06/01/25 06/01/25 06:54 08:10 08:50 10:47 Temp 98.4 98.4 Pulse 112 98 104 113 Resp 18 16 16 14 B/P (MAP) 94/59 100/62 (75) 93/56 (68) 104/71 Pulse Ox 100 100 100 98 O2 Flow Rate 0 0 Medical Decision Making Findings The patient presents with a complaint of foot pain in her feet were examined there was no evidence of the infectious process there was no deformity or significant point tenderness. The patient has no erythema. At this time there is no evidence of any acute pathology that explains her symptoms. The patient will be discharged with instructions to follow up as an outpatient. Prior hospitalizations has been reviewed pulse oximetry was interpreted as normal and adequate. playground monitor was interpreted as sinus rhythm. The patient has been advised to return for worsening of her symptoms. Departure Disposition: HOME / SELF CARE / HOMELESS Impression: Primary Impression: Foot pain, bilateral Referrals: NO PRIMARY CARE PROVIDER (PCP) Signature Scribe Signature: No scribe Attestation: The note accurately reflects work and decisions made by me.Naima Presley MD 06/02/25 17:18 NAIMA PRESLEY MD Jun 01, 2025 08:00
[2025-06-01 08:50] VITALS: TEMP 98.4
[2025-06-01 10:47] VITALS: BP 104/71; PULSE 113; RESP 14; O2SAT 98
== END 2025-06-01 10:52 | disposition home or self-care (01) ==
LOC: ER 06:51
DX: M79.671 Pain in right foot (principal); M79.672 Pain in left foot; J45.909 Unspecified asthma, uncomplicated; F41.9 Anxiety disorder, unspecified; F32.A Depression, unspecified; F15.90 Other stimulant use, unspecified, uncomplicated; F11.90 Opioid use, unspecified, uncomplicated; F17.210 Nicotine dependence, cigarettes, uncomplicated; Z56.0 Unemployment, unspecified; Z59.00 Homelessness unspecified; Z88.8 Allergy status to other drugs, medicaments and biological substances; Z79.899 Other long term (current) drug therapy
CPT/HCPCS: 99283

== ENCOUNTER 2025-06-01 19:30 | Inpatient (IN) | payer MEDICAID ==
[~2025-06-01] VITALS: Ht 165.1 cm; Wt 57.4 kg
[~2025-06-01 19:30] MED LIST changes: +rocuronium 10mg/ml inj IV ONE
--- NOTE | 2025-06-01 19:59 | Physician Documentation ---
History of Present Illness ~ Chief Complaint: ALOC Stated Complaint: ALTERED Time Seen by MD: 19:59 Primary Medical Doctor: Dr Yolande HUERTA 39-year-old female brought in by EMS with altered mental status Unable to obtain any history from the patient due to her clinical condition EMS reports that a bystander called because she was acting confused an abnormal. No other history available. Medication Reconciliation Allergies: Coded Allergies: tramadol (Verified Allergy, Unknown, TINGLING, 06/01/25) Scheduled Docusate Sodium (Colace), 1 CAP PO Q12H, (Reported) Famotidine (Pepcid), 1 TAB PO Q12H, (Reported) Furosemide (Lasix), 1 TAB PO DAILY, (Reported) Linezolid (Zyvox Iv), 600 MG IV Q12H, (Reported) Magnesium Oxide (Magnesium), 1 CAP PO TID, (Reported) Metoprolol Tartrate* (Metoprolol Tartrate*), 1 TAB PO Q12H, (Reported) Ondansetron Hcl (Zofran), 1 TAB PO Q6H, (Reported) Oxycodone HCl (Oxycontin), 1 TAB PO Q12H, (Reported) Piperacillin/Tazobactam/Dex-Is (Zosyn 3.375 Gm Pre Mix-Bag), 3.375 GM IV Q6H, (Reported) Miscellaneous Medications Home Med List (No Home Medications), (Reported) Home Med List (No Home Medications), (Reported) Hydromorphone HCl/Pf (Dilaudid 1 mg/ml Syringe), 1 MG IV, (Reported) Lorazepam (Ativan), 0.5 MG IJ, (Reported) Past Medical History Past Medical History: Endocarditis, Asthma, Chronic Pain, Chronic Back Pain, Anxiety, Depression Past Surgical History: noncontributory, other Other Past Surgical History: Cataract Surgery Alcohol Use: None Drug Use: methamphetamine, heroin Lives with: Other Lives In: Homeless Occupation: unemployed Review of Systems Unable to obtain complete ROS: altered mental status Physical Exam Vital Signs: Temperature: 101.2, Source: Temporal, Heart Rate: 135, Respiratory Rate: 20, BP: 103/57, Pulse Oximetry: 98, Weight: 50.000 Oxygen Flow Rate: 0 Physical Exam General: This is an ill-appearing thin cachectic young woman HEENT: Atraumatic, no obvious abrasions or hematoma to the scalp, oropharynx is dry with cracked lips Heart: Tachycardic, appears regular, no loud murmur although who has difficulty here due to the tachycardia Lungs: Coarse breath sounds bilateral, mild tachypnea, no cough, oxygen saturations normal on room air Abdomen: Soft, nondistended, no reaction to palpation of the abdomen Extremities: Warm and well-perfused, no significant edema Neuro: The patient is not alert, but does open her eyes to stimulation, she answer some very basic questions but does not answer most questions, she does move all 4 extremities Psychiatric: Altered Progress Results/Orders Results/Orders Orders - DEMOND SESAY MD Cbc/Diff (06/01/25 20:12) Culture Blood (06/01/25 20:12) Chest,Single View (06/01/25 20:12) Monitor (06/01/25 20:12) Oxygen (06/01/25 20:12) Saline Lock (06/01/25 20:12) Straight Cath For Urine Sample (06/01/25 20:12) Cult Urine + [facility] (06/01/25 20:43) Man Diff (06/01/25 20:30) Pathology Review (06/01/25 20:30) Ct Chest (06/01/25 21:42) Page Hospitalist (06/01/25 21:42) Completed Orders - DEMOND SESAY MD Chest,Single View (06/01/25 20:12) Procalcitonin (06/01/25 20:12) BMP (06/01/25 20:12) Lacticsepsis (06/01/25 20:12) Normal Saline 1000ml (0.9% Sodium Chlori (06/01/25 20:20) Ua W/Microscopic, Cult If Ind (06/01/25 19:56) Type And Screen (06/01/25 21:40) Drug Screen, Urine (06/01/25 21:40) Normal Saline 1000ml (0.9% Sodium Chlori (06/01/25 21:40) Ceftriaxone 2gm/D5w 50ml Bag (Rocephin 2 (06/01/25 21:40) Acetaminophen 1,000mg/100ml Iv (Ofirmev (06/02/25 02:00) Hs Troponin I W Calculations (06/01/25 21:40) Ct Chest (06/01/25 21:42) Potassium Cl Inj (Potassium Cl Inj) (06/01/25 21:45) MG (06/01/25 20:30) PBNP (06/01/25 20:30) Acetaminophen 1,000mg/100ml Iv (Ofirmev (06/01/25 21:46) Potassium Cl 40meq/1/2ns 520ml ([place] (06/01/25 21:49) Vancomycin*Pharmacy To Dose* (Vancomycin (06/01/25 22:05) Vancomycin/Ns 1 Gm Add-[place] (Vancomyc (06/01/25 22:20) Vital Signs 06/01/25 06/01/25 06/01/25 06/01/25 19:37 20:12 21:08 21:20 Temp 101.2 100.8 Pulse 135 130 126 Resp 20 24 20 20 B/P (MAP) 103/57 117/65 (82) 111/74 (86) Pulse Ox 98 100 95 O2 Flow Rate 0 Laboratory Tests Test 06/01/25 19:56 06/01/25 20:30 Urine Specimen Description Straight cath Urine Color Yellow Urine Clarity Cloudy Urine pH 5.5 Urine Specific [place] 1.025 Urine Protein 100 H Urine Glucose (UA) Negative Urine Ketones Trace H Urine Occult Blood Large H Urine Nitrite Negative Urine Bilirubin Moderate Urine Urobilinogen 2.0 H Urine Leukocyte Esterase Trace H Urine RBC Tntc Urine WBC 5-10 H Urine Squamous Epithelial Cells None seen Urine Bacteria 3+ Urine Culture Indicated Indicated Volume Urine Centrifuged 10 ml Urine Comment Urine Opiates Screen Negative Urine Methadone Screen Negative Urine Fentanyl Screen Positive H Urine Barbiturates Screen Negative Urine Phencyclidine Screen Negative Urine Amphetamines Screen Positive Urine Benzodiazepines Screen Negative Urine Cocaine Screen Negative Urine Cannabinoids Screen Negative Drug Screen Comment White Blood Count 3.1 L Red Blood Count 2.33 L Hemoglobin 6.5 *L Hematocrit 18.8 *L Mean Corpuscular Volume 80.6 Mean Corpuscular Hemoglobin 27.9 Mean Corpuscular Hemoglobin Concent 34.6 Red Cell Distribution Width 14.8 H Platelet Count 28 *L Mean Platelet Volume 11.4 H Neutrophils (%) (Auto) 89.4 H Lymphocytes (%) (Auto) 6.4 L Monocytes (%) (Auto) 1.2 L Eosinophils (%) (Auto) 2.6 Basophils (%) (Auto) 0.4 Neutrophils # (Auto) 2.8 Lymphocytes # (Auto) 0.2 L Monocytes # (Auto) 0.0 Eosinophils # (Auto) 0.1 Basophils # (Auto) 0.0 CBC Comment Differential Total Cells Counted 100 Neutrophils % (Manual) 93.0 H Lymphocytes % (Manual) 5.0 L Monocytes % (Manual) 2.0 Platelet Estimate Decreased Red Blood Cell Morphology Perf Basophilic Stippling Anisocytosis 1+ Stomatocytes 1+ Rouleau 1+ Sodium Level 130 L Potassium Level 2.9 *L Chloride Level 90 L Carbon Dioxide Level 20.7 L Anion Gap 19 H Blood Urea Nitrogen 124 H Creatinine 3.81 H Estimated GFR/1.73 m2 13 BUN/Creatinine Ratio 32.5 H Glucose Level 110 H Lactic Acid Level 4.0 *H Calcium Level 7.3 L Magnesium Level 2.1 Troponin I High Sensitivity 114 *H Pro-B-Type Natriuretic Peptide 15302 H Albumin 1.6 L Procalcitonin 26.39 H Chemistry Comments Microbiology Date/Time Source Procedure Growth Status 06/01/25 21:30 Blood Arm Left Blood Culture - Preliminary Positive Culture Resulted 06/01/25 20:43 Urine Straight Cath Urine Culture - Preliminary Culture received. Resulted EKG/XRAY/CT/US/VASC/MRI Chest X-Ray : Additional Comments I personally reviewed the x-ray, and it shows: Multifocal opacities bilateral CT : Impression I personally reviewed the CT scan, and this shows multifocal opacities concerning for septic emboli Consults/PCP Consults/PCP : Additional Comment Consult: I spoke to the internal medicine service, for admission in the hospital Medical Decision Making Differential Dx:Considerations: Include: dehydration, Delirium Tr., DKA, encephalopathy, hypoglycemia, hyponatremia, postictal, drug overdose, encephalopathy, ETOH intoxication, medication toxicity, infection - sepsis, infection - UTI, respiratory failure Additional Information The patient presents with altered mental status. She is found to be febrile, tachycardic, and otherwise appears likely to have a serious infection or sepsis. Her workup does show multiple abnormalities consistent with likely sepsis. Chest x-ray concerning for possible pneumonia. Given her history of substance use so was concern for endocarditis, and so a CT scan of the chest was then o btained. This does show findings concerning for septic emboli. She was started on broad-spectrum IV antibiotics. She was given IV fluids and electrolyte repletion. She will be admitted to the medicine service for further treatment. Departure Impression: Primary Impression: Altered mental status Additional Impressions: Pneumonia Sepsis Referrals: NO PRIMARY CARE PROVIDER (PCP) Signature Scribe Signature: na Attestation: DEMOND Bermudez MD Jun 01, 2025 19:59
[2025-06-01] MEDS: normal saline 1000ML IV soln IVB ONE ×3 (20:21→22:38)
[2025-06-01 20:33] LABS: LEUKOCYTE ESTERASE ,URINE TRACE (Neg); NITRITES, URINE NEGATIVE (Neg); OCCULT BLOOD,URINE LARGE (Neg)
[2025-06-01 20:38] LABS: UA COLLECTION TYPE STRAIGHT CATH
[2025-06-01 20:42] LABS: SQUAMOUS EPITHELIAL CELL,UR NONE SEEN /LPF (FEW)
[2025-06-01 20:49] LABS: MEAN PLATELET VOLUME 11.4 FL (7.4-10.4); RED CELL DISTRIBUTION WIDTH 14.8 % (11.5-14.5)
[2025-06-01 20:52] LABS: CREATININE 3.81 MG/DL (0.40-0.90); TOTAL CARBON DIOXIDE 20.7 MMOL/L (24-32); eCRCL 16 ML/MIN; eGFR 13 ML/MIN
--- NOTE | 2025-06-01 20:59 | RADIOLOGY REPORT ---
CHEST RADIOGRAPH Indication: r o sepsis Technique: 1 view Comparison: CT CT CHEST on DOS: 05/03/25, DI CHEST,SINGLE VIEW on DOS: 05/03/25 FINDINGS: Lines and Tubes: None Lungs: Dense consolidations in the left lower, right upper and lower lungs with scattered increased r eticular opacities also present. Pleura: Trace right pleural effusions suspected. No pneumothorax. Cardiomediastinal contours: Unremarkable. Other: No acute osseous abnormality. IMPRESSION: Bilateral airspace disease and suspected trace pleural effusion compatible with multifocal pneumonia.
[2025-06-01 21:11] LABS: LYMPHOCYTES % (MANUAL) 5.0 % (21-51); MONOCYTES % (MANUAL) 2.0 % (2-12); NEUTROPHILS % (MANUAL) 93.0 % (42-75)
[2025-06-01 21:34] LABS: PLATELET ESTIMATE DECREASED
[2025-06-01] MEDS ORDERED: Potassium Cl inj 40 MEQ in normal saline 500ml IV soln 500 ML IV ONE (21:45)
[2025-06-01] MEDS: CefTRIAXone 2gm/D5W 50ml BAG 50 ML IV ONE (21:54)
[2025-06-01] MEDS: acetaminophen 1,000mg/100ml IV 100 ML IV STA (21:54)
[2025-06-01] MEDS: potassium Cl 40MEQ/1/2NS 520ml 520 ML IV ONE (21:57)
[2025-06-01 22:08] LABS: PRO BRAIN NATRIURETIC PEPTIDE 11871 PG/ML (0-125)
[2025-06-01 22:17] LABS: URINE AMPHETAMINE SCREEN POSITIVE (Neg); URINE BARBITUATE SCREEN NEGATIVE (Neg); URINE BENZODIAZEPINES SCREEN NEGATIVE (Neg); URINE CANNABINOID SCREEN NEGATIVE (Neg); URINE COCAINE SCREEN NEGATIVE (Neg); URINE METHADONE SCREEN NEGATIVE (Neg); URINE OPIATE SCREEN NEGATIVE (Neg); URINE PHENCYCLIDINE SCREEN NEGATIVE (Neg)
[2025-06-01] MEDS ORDERED: magnesium sulf-water 4G/100mL 100 ML IV PRN (22:20)
[2025-06-01] MEDS ORDERED: ondansetron/PF 4mg/2ml inj IV PRN (22:20)
[2025-06-01] MEDS ORDERED: potassium Cl 40MEQ/1/2NS 520ml 520 ML IV PRN (22:20)
[2025-06-01] MEDS ORDERED: mag hydrox/Alum hydrox/simeth 30ml oral suspension PO PRN (22:20)
[2025-06-01] MEDS ORDERED: potassium Cl 20 mEq SR tablet PO PRN ×2 (22:20)
[2025-06-01] MEDS ORDERED: magnesium sulf-water 2g/50mL 50 ML IV PRN (22:20)
[2025-06-01] MEDS ORDERED: magnesium Cl slow-release 64mg tablet PO PRN (22:20)
[2025-06-01] MEDS ORDERED: magnesium hydroxide 30ml (MOM) UD suspension PO PRN (22:20)
--- NOTE | 2025-06-01 22:33 | RADIOLOGY REPORT ---
Exam: CT CT CHEST History: Pneumonia, eval abscess, sepsis Comparison Study: CT CT CHEST on DOS: 05/03/25 Technique: Multidetector spiral CT of the abdomen was performed from lung bases to pubic symphysis. Imaging was performed without IV contrast. Axial, coronal and sagittal multiplanar reformats were ob tained from the axial data set by the technologist. Radiation Dose : 1. Abdomen/Pelvis: CTDIvol 11.5 mGy, DLP 454 mGy*cm. Findings: Evaluation of solid organs is limited due to lack of intravenous contrast use. Lung Bases: Innumerable cavitary nodular densities throughout both lungs, the largest measuring up to 3.2 cm in the left lower lobe. Liver: The liver is normal in size. No focal lesions. Gallbladder and Biliary Tree: Unremarkable Spleen: Unremarkable Pancreas: The pancreas is grossly normal in appearance. Adrenal Glands: Unremarkable Kidneys: Kidneys are grossly normal without calculi or hydronephrosis. Bladder: Grossly unremarkable for degree of distention. Bowel: The stomach is grossly normal in appearance. Small bowel and colon are normal in caliber and d istribution. The appendix is not visualized; however, no secondary findings of acute appendicitis id entified. Ascites: Absent Lymphadenopathy: No mesenteric, retroperitoneal or periportal lymphadenopathy. Abdominal Wall and Mesentery: Unremarkable. Vasculature: The visualized abdominal aorta is normal in size and caliber. Evaluation of abdominal a nd pelvic vessels is limited due to lack of intravenous contrast. Pelvic Organs: Unremarkable Musculoskeletal: No aggressive focal bony lesions, acute fractures or dislocation. IMPRESSION: 1. Innumerable cavitary nodular densities throughout both lungs, the largest measuring up to 3.2 cm i n the left lower lobe. These findings may reflect cavitary multifocal pneumonia, cavitary metastatic disease, or sequelae of septic emboli. Radiation optimization: All CT scans at this facility use at least one of these dose optimization jesika hniques: automated exposure control mA and/or kV adjustment per patient size (includes targeted exam s where dose is matched to clinical indication) or iterative reconstruction.
[2025-06-01] MEDS ORDERED: diatr meglu/diatrizoate 30ml oral sol.-(3 dose) bottle ONE (22:50)
--- NOTE | 2025-06-01 22:56 | HISTORY AND PHYSICAL-Residence ---
History & Physical Providers to CC Resident Creating Document: JANESSA NUNEZTYLEREMANI MONROY CC: GISSELLE GALINDO MD ~ History of Present Illness Primary Medical Doctor: Dr Lanier Reason for Admit\Complaint: Altered level of consciousness History of Present Illness Patient is a 39-year-old female with history of infective endocarditis, osteomyelitis and substance abuse who was brought to the ED by EMS due to altered level of consciousness. Patient was not able to provide any history. According to ED report, patient is homeless and people around her noticed that she was altered and decided to call 911. In ED, patient was found with altered level of consciousness, febrile, tachycardic, and with signs of dehydration. She also had an episode of loose stools. She received aggressive hydration, vancomycin and ceftriaxone in ED. Allergies: Coded Allergies: tramadol (Verified Allergy, Unknown, TINGLING, 06/01/25) Home Medications Home Medications Active Reported Dilaudid 1 mg/ml Syringe (Hydromorphone HCl/Pf) 1 Mg/1 Ml Syringe 1 Mg IV Ativan (Lorazepam) 2 Mg/1 Ml Vial 0.5 Mg IJ Zofran (Ondansetron Hcl) 4 Mg Tablet 1 Tab PO Q6H Zosyn 3.375 Gm Pre Mix-Bag (Piperacillin/Tazobactam/Dex-Is) 3.375 Gm/50 Ml Froz.piggy 3.375 Gm IV Q6H Zyvox Iv (Linezolid/Dextrose) 600 Mg/300 Ml Iv.soln 600 Mg IV Q12H Oxycontin (Oxycodone HCl) 10 Mg Tab.er.12h 1 Tab PO Q12H Metoprolol Tartrate* (Metoprolol Tartrate) 50 Mg Tablet 1 Tab PO Q12H Magnesium (Magnesium Oxide) 400 Mg Capsule 1 Cap PO TID Lasix (Furosemide) 40 Mg Tablet 1 Tab PO DAILY Colace (Docusate Sodium) 100 Mg Capsule 1 Cap PO Q12H Pepcid (Famotidine) 20 Mg Tablet 1 Tab PO Q12H No Home Medications (Home Med List) Each Past Medical History Past Medical History Infective endocarditis Osteomyelitis Substance abuse Past Surgical History Surgical History Comment Cataract surgery (per prior records) Past Social History Social History Comment Unable to obtain today, but according to prior records she has a following social history: Smokes 1-2 cigarettes per day for the last 20 years Patient is homeless and does not have a primary care provider Smoking: Less than 1 pack/day Alcohol Use: None Drug Use: Methamphetamine, Heroin Lives with: Other Lives In: Homeless Occupation: unemployed ROS ROS Unable to obtain due to altered level consciousness Exam Vitals: Vital Signs Date Time Temp Pulse Resp B/P (MAP) Pulse Ox O2 Delivery O2 Flow Rate FiO2 06/01/25 21:20 20 06/01/25 21:08 100.8 126 111/74 (86) 95 06/01/25 19:37 0 General: General: Cachectic, Confused, not following commands, stares but does not answer questions HEENT: Significant pallor present, significantly dry mucous membranes. Neck: No masses and tenderness Resp: Tachypneic. Coarse breath sounds bilaterally Chest: Shallow breathing Cardiovascular: Tachycardic, regular rhythm, normal S1 and S2 without murmur, rub or gallop Abdomen: Slightly distended and appears tender to palpation throughout, seems worse in costovertebral fossa, no guarding and rigidity, bowel sounds present Neuro: Limited evaluation due to altered level of consciousness. Not following commands. Extremities: Significant muscle wasting. No cyanosis,clubbing or edema Skin: Multiple small lesions in upper extremities Diagnostic Data Last Recorded Lab Results: 06/01/25202906/01/252029 Advance Care Planning Advanced Care plannin - 30 Minutes Additional Plan Patient is a 39-year-old female with history of infective endocarditis, osteomyelitis and substance abuse who was brought to the ED by EMS due to altered level of consciousness. Patient was not able to provide any history. According to ED report, patient is homeless and people around her noticed that she was altered and decided to call 911. In ED, patient was found with altered level of consciousness, febrile, tachycardic, and with signs of dehydration. She also had an episode of loose stools. She received aggressive hydration, vancomycin and ceftriaxone in ED. Admitted for evaluation and management of severe sepsis. Severe sepsis, possibly multiple sources including: Multifocal pneumonia, UTI, possible colitis, possible infective endocarditis Acute metabolic encephalopathy secondary to above Labs show: WBC: 3.1 with significant neutrophilia, procalcitonin: 26.39, lactic acid: 4 Significantly elevated proBNP. Possibly 2/2 SHWETHA Urinalysis is consistent with UTI HIV from 2012 was negative. Hep C was positive. Will repeat CT chest shows: Innumerable cavitary nodular densities throughout both lungs, the largest measuring up to 3.2 cm in the left lower lobe Echocardiogram from 05/03/25 showed: EF 65%. TV leaflets are thickened. Difficult to assess for echogenic mass on leaflets due to fast heart rate. C annot rule out endocarditis, recommend clinical correlation. Moderate tricuspid regurgitation. Prior culture from 05/03/2025 showed: MSSA in single bottle Received 3 L IV NS in ED Will continue maintenance IV NS at 150 cc/hour Received ceftriaxone and vancomycin ED Will continue with IV vancomycin and Zosyn Pending blood cultures, urine culture, stool culture Pending repeat echocardiogram Pending CT abdomen and pelvis Pending ID consult Severe normocytic anemia Severe thrombocytopenia Pancytopenia Possible GI bleed Hb: 6.5 Plt: 28 2 units of PRBC ordered Protonix 40 mg IV b.i.d. Pending occult blood in stool Consider Nephro consult SHWETHA, likely prerenal secondary to vasomotor nephropathy. Possible associated ATN Anion gap metabolic acidosis likely to secondary to sepsis/SHWETHA/lactic acidosis Respiratory acidosis Hypokalemia Mild hyponatremia Creatinine: 3.81, GFR: 13 IV fluids as above Urine lytes ordered Pending abdomen/pelvis CT Substance abuse: Methamphetamines, fentanyl Patient was history of IV drug use Social service and substance abuse navigator consult ordered Severe protein calorie malnutrition BMI 18.3 Nutrition consult ordered Code Status: Assumed full code. Will reassess when mental status improves DVT prophylaxis: Held in view of thrombocytopenia GI prophylaxis: Protonix Nutrition: NPO Prognosis: Guarded Disposition: Admit to PCU with tele monitoring. Continue medical management Tyler Nunez MD Internal Medicine Resident PGY-2 I saw and evaluated the patient and discussed the case with the resident team. Agree with assessment and plan as documented Very ill patient monitor closely suggest asking for Hematology opinion as well to look again at the pancytopenia ID consult also suggested Date of Service: Jun 01, 2025 Billing Provider: GISSELLE GALINDO MD, LEONARDO LUIS Jun 01, 2025 22:56 GISSELLE GALINDO MD Jun 02, 2025 07:45
[2025-06-01] MEDS: PERFLUTREN PROTEIN-A MICROSPHR (Optison) 0.22 MG/ML 3ML VIAL IV ONE (23:15)
[2025-06-01] MEDS: vancomycin/NS 1 GM ADD-VANTAGE 250 ML IV ONE (23:18)
[2025-06-01 23:35] VITALS: BP 102/63; PULSE 124; RESP 20; TEMP 98.4
[2025-06-01 23:45] VITALS: BP 107/55; PULSE 123; RESP 18; TEMP 98.5
[2025-06-02] VITALS (25 sets, daily range): BP systolic 90–110; BP diastolic 54–74; PULSE 97–150; RESP 16–47; TEMP 96.9–98.4; O2SAT 92–99
[2025-06-02] MEDS: piperacillin/tazo 4.5gm/100ml 100 ML IV SCH
[2025-06-02] MEDS ORDERED: piperacillin/tazo 3.375gm/50ml 50 ML IV SCH
[2025-06-02 00:22] LABS: ABG BASE EXCESS -6.3 mmol/L (-2.0-3.0); ABG HCO3 16.2 mmol/L (21.0-28.0); ABG OXYGEN SATURATION 95.6 % (94.0-98.0); ABG PCO2 (T) 21.0 mmHg (32.0-45.0); ABG PH (T) 7.504 (7.350-7.450); ABG PO2 (T) 89.6 mmHg (83.0-108.0); ALLEN'S TEST Modified; FCOHb 0.5 % (0.5-1.5); FHHb 4.4 % (0.0-5.0); FIO2 21.0 mmHg/%; FMetHb 0.3 % (0.0-1.5); FO2Hb 94.8 % (94.0-98.0); MODE ROOM AIR; PATIENT TEMPERATURE 36.9; TOTAL HEMOGLOBIN 6.3 G/dl (12.0-16.0)
[2025-06-02] MEDS: normal saline 1000ml 1,000 ML IV SCH (00:26)
[2025-06-02 01:56] LABS: OCCULT BLOOD STOOL NEGATIVE (Neg)
[2025-06-02] MEDS ORDERED: acetaminophen 1,000mg/100ml IV 100 ML IV ONE (02:00)
[2025-06-02] MEDS: piperacillin/tazo 4.5gm/100ml 100 ML IV ONE (02:23)
[2025-06-02 08:00] LABS: MEAN PLATELET VOLUME 10.4 FL (7.4-10.4); RED CELL DISTRIBUTION WIDTH 15.2 % (11.5-14.5)
[2025-06-02] MEDS ORDERED: heparin, porcine 5000 units/ml vial SQ SCH (08:00)
[2025-06-02] MEDS: K and/or MAG REPLACEMENT MC SCH (08:00)
[2025-06-02] MEDS: docusate sod 100mg capsule PO SCH (08:00)
[2025-06-02 08:02] LABS: MEAN PLATELET VOLUME 10.5 FL (7.4-10.4); RED CELL DISTRIBUTION WIDTH 14.9 % (11.5-14.5)
[2025-06-02 08:32] LABS: CREATININE 3.07 MG/DL (0.40-0.90); TOTAL CARBON DIOXIDE 15.7 MMOL/L (24-32); eCRCL 20 ML/MIN; eGFR 17 ML/MIN
[2025-06-02 08:34] LABS: HIV ANTIBODY 1&2 RAPID NON-REACTIVE (Neg)
[2025-06-02 09:05] LABS: BANDS% (MANUAL) 4.0 % (0-10); LYMPHOCYTES % (MANUAL) 4.0 % (21-51); METAMYLEOCYTES% (MANUAL) 1.0 % (0-0); MONOCYTES % (MANUAL) 3.0 % (2-12); NEUTROPHILS % (MANUAL) 88.0 % (42-75); PLATELET ESTIMATE DECREASED
[2025-06-02] MEDS: sodium bicarbonate 1meq/ml inj 150 ML in sodium chloride 0.45% 1,000 ML IV SCH (10:00)
[2025-06-02] MEDS ORDERED: vancomycin/NS 1 GM ADD-VANTAGE 250 ML IV PRN (10:25)
[2025-06-02] MEDS: potassium CL 10mEq/100ml bag 100 ML IV ONE ×2 (11:50→15:28)
[2025-06-02 12:34] LABS: OSMOLALITY 312 MOSM/K (280-300)
[2025-06-02 12:42] LABS: OSMOLALITY UA 334 MOSM/K (50-1400)
[2025-06-02 12:42] LABS: ETHANOL < 10 MG/DL (<10)
[2025-06-02 12:45] LABS: LACTATE DEHYDROGENASE 364 U/L (81-234); PHOSPHORUS 5.4 MG/DL (2.3-4.5)
[2025-06-02 12:59] LABS: CREATININE,URINE RANDOM 186.0 MG/DL; TOTAL PROTEIN,URINE RANDOM 125.8 MG/DL
[2025-06-02 13:15] LABS: APTT 41 SECONDS (22-32); INR 2.1 INR
--- NOTE | 2025-06-02 13:25 | CONSULTATION REPORT - RESIDENT ---
Consult Providers to CC Resident Creating Document: EMMACHANDRIKAANIKET RES History of Present Illness Reason for Admit\Complaint: Altered level of consciousness History of Present Illness Patient is a 39-year-old female (poor historian) with history of infective endocarditis, osteomyelitis and substance abuse brought by EMS to the ED with altered level of consciousness. Patient was not able to provide any history. According to ED report, patient is homeless and people around her noticed that she was altered and decided to call 911. In ED, patient was found with altered level of consciousness, febrile, tachycardic, and with signs of dehydration. She also had an episode of loose stools. She received aggressive hydration, vancomycin and ceftriaxone in ED. Allergies: Coded Allergies: tramadol (Verified Allergy, Unknown, TINGLING, 06/01/25) Home Medications Home Medications Active Reported No Home Medications (Home Med List) Each Dilaudid 1 mg/ml Syringe (Hydromorphone HCl/Pf) 1 Mg/1 Ml Syringe 1 Mg IV Ativan (Lorazepam) 2 Mg/1 Ml Vial 0.5 Mg IJ Zofran (Ondansetron Hcl) 4 Mg Tablet 1 Tab PO Q6H Zosyn 3.375 Gm Pre Mix-Bag (Piperacillin/Tazobactam/Dex-Is) 3.375 Gm/50 Ml Froz.piggy 3.375 Gm IV Q6H Zyvox Iv (Linezolid/Dextrose) 600 Mg/300 Ml Iv.soln 600 Mg IV Q12H Oxycontin (Oxycodone HCl) 10 Mg Tab.er.12h 1 Tab PO Q12H Metoprolol Tartrate* (Metoprolol Tartrate) 50 Mg Tablet 1 Tab PO Q12H Magnesium (Magnesium Oxide) 400 Mg Capsule 1 Cap PO TID Lasix (Furosemide) 40 Mg Tablet 1 Tab PO DAILY Colace (Docusate Sodium) 100 Mg Capsule 1 Cap PO Q12H Pepcid (Famotidine) 20 Mg Tablet 1 Tab PO Q12H No Home Medications (Home Med List) Each Past Medical History Past Medical History Infective endocarditis Osteomyelitis Substance abuse Past Surgical History Surgical History Comment Cataract surgery (per prior records) Past Social History Social History Comment Unable to obtain today, but according to prior records she has a following social history: Smokes 1-2 cigarettes per day for the last 20 years Patient is homeless and does not have a primary care provider Smoking: Less than 1 pack/day Alcohol Use: None Drug Use: Methamphetamine, Heroin Lives with: Other Lives In: Homeless Occupation: unemployed ROS ROS Unable to obtain due to altered level consciousness Exam Vitals: Vital Signs Date Time Temp Pulse Resp B/P (MAP) Pulse Ox O2 Delivery O2 Flow Rate FiO2 06/02/25 11:14 44 06/02/25 06:52 113 06/02/25 06:05 97.6 104/66 06/02/25 01:10 99 06/02/25 01:10 Room Air 06/01/25 19:37 0 General: General: Cachectic and malnourished state. In confusion and not following verbal commands, stares but does not answer questions HEENT: Significant pallor present, significantly dry mucous membranes. Neck: No masses and tenderness Resp: Tachypneic. Coarse breath sounds bilaterally Chest: Shallow breathing Cardiovascular: Tachycardic, regular rhythm, normal S1 and S2 without murmur, rub or gallop Abdomen: Slightly distended and appears tender to palpation throughout, seems worse in costovertebral fossa, no guarding and rigidity, bowel sounds present Neuro: Limited evaluation due to altered level of consciousness. Not following commands. Extremities: Significant muscle wasting. No cyanosis,clubbing or edema Skin: Multiple small lesions in upper extremities Diagnostic Data Last Recorded Lab Results: 06/02/25 1103 06/02/25 0631 Diagnostic Data: Laboratory Tests Test 06/02/25 11:03 Prothrombin Time 19.9 SECONDS (9.0-12.0) H INR International Normalized Ratio 2.1 INR Activated Partial Thromboplast Time 41 SECONDS (22-32) H Fibrinogen 116 MG/DL (177-424) L D-Dimer 10.44 MG/L FEU (0-0.50) H DIC Profile Interpretation See dic report Coagulation Comments Additional Plan Sepsis from unknown source Multiorgan dysfunction syndrome Acute metabolic encephalopathy Pancytopenia Severe thrombocytopenia Severe normocytic anemia SHWETHA High anion gap metabolic acidosis Hypokalemia Hyponatremia Substance use disorder Methamphetamine use Fentanyl use Severe protein malnutrition Failure to thrive Type 2 AR Transaminitis Acute liver injury We saw the patient and examined the patient and reviewed the record and most of the problem might be due to sepsis evolving into multiorgan dysfunction syndrome. Recommended to continue workup for sepsis. We will review with the echocardiogram. Continue with the plan per hospitalist team. Consult ID team. Aniket Suragani IM resident, PGY 2 Cardiology Patient seen and examined with resident physician by Dr. Alex TRONCOSO. Chart reviewed. We will sign off at this time. Sepsis Screening Reassessment Date: Jun 02, 2025 Date of Service: Jun 02, 2025 Billing Provider: SUSY OLSON MD, VENKATESH, [facility] Jun 02, 2025 13:25 SUSY OLSON MD Jun 02, 2025 17:05
[2025-06-02] MEDS: VANCOMYCIN LEVEL IV ONE (14:00)
--- NOTE | 2025-06-02 15:22 | RADIOLOGY REPORT ---
Procedure: CT CT [facility] Study Date and Requested Time: 06/02/2025 02:39 PM History: ams Comparison: None Dose: CTDI: 48.15 mGy DLP: 788.66 mGycm Technique: Multiplanar images obtained through the brain without intravenous contrast. Findings: Normal brain volume and formation. Mild chronic small vessel ischemic changes. No hemorrhages, masses, mass effect, midline shift, herniation or cytotoxic edema following a large v ascular territory. No intra-axial or extra-axial fluid collections. No evidence of hydrocephalus. The basal cisterns are patent. The pituitary gland, sella and parasellar regions are unremarkable. The cerebellar tonsils are in nor mal position. The cerebellum is unremarkable. The orbits and globes are unremarkable. Layering fluid within the left sphenoid sinus. Otherwise, the paranasal sinuses and mastoids are clear. There are no worrisome calvarial lesions. Impression: No evidence of acute intracranial abnormality.
--- NOTE | 2025-06-02 15:32 | RADIOLOGY REPORT ---
Procedure: CT CT ABDOMEN PELVIS [facility] Study Date and Requested Time: 02:42 PM Ordering Physician: History: Abdominal pain Comparison: CT chest 06/01/2025 Dose: CTDI: 11.28 mGy DLP: 575.11 mGycm Technique: Multiplanar images obtained through the abdomen and pelvis without contrast Findings: Small bilateral pleural effusions with associated atelectasis. Multiple cavitating and non cavitating nodules of the lung bases with ground-glass opacity of the lung bases and linear atelectasis. Heart size is within normal limits with small pericardial effusion. Mild hepatosplenomegaly. Otherwise, liver, spleen, and adrenal glands unremarkable. Limited evaluatio n of the pancreas. Cholelithiasis with surrounding ascites limiting evaluation for acute cholecystiti s. Kidneys, ureters and urinary bladder unremarkable. Urinary bladder is decompressed with Lynch cathete r in place. Stomach is unremarkable. Mild wall Thickening of proximal small bowel loops. The remainder of the sm all bowel loops unremarkable. Appendix is not well-visualized. Mild wall thickening of the ascending colon, proximal transverse colon, descending colon, sigmoid and rectum. No evidence of intraperitoneal free air. Moderate volume ascites. No evidence of aortic aneurysm. Mild atherosclerotic calcification of the aorta. No significant lymphadenopathy. Moderate body wall edema. No evidence of acute osseous abnormalities. Impression: Limited noncontrast imaging. Small bilateral pleural effusions with associated atelectasis, new from 06/01/2025 Redemonstration of multiple cavitating and non cavitating nodular lesions of the lung bases which may represent multifocal cavitary pneumonia / cavitary metastatic disease or sequela of septic emboli. Cholelithiasis with with Limited evaluation for acute cholecystitis given ascites. If there is scarlett rn for acute cholecystitis, right upper quadrant ultrasound should be considered for further evaluati on. Moderate volume ascites. Limited evaluation of the pancreas and appendix. Mild wall Thickening of proximal small bowel loops with mild colonic wall thickening as detailed abov e which may be from the surrounding ascites /inadequate distention with enteritis and colitis respect ively not excluded. Moderate body wall edema. Additional findings as above.
[2025-06-02 17:27] LABS: MEAN PLATELET VOLUME 9.6 FL (7.4-10.4); RED CELL DISTRIBUTION WIDTH 14.9 % (11.5-14.5)
[2025-06-02 17:37] LABS: CREATININE 3.15 MG/DL (0.40-0.90); TOTAL CARBON DIOXIDE 19.0 MMOL/L (24-32); eCRCL 19 ML/MIN; eGFR 17 ML/MIN
[2025-06-02] MEDS: lactulose 20gm/30ml cup PO SCH (18:20)
--- NOTE | 2025-06-02 18:36 | PROGRESS NOTE- Residence ---
Progress Note - Resident Providers to CC Resident Creating Document: SUGEY BANUELOS, RES ~ Antibiotic Timeout Antibiotic Ordered?: Yes Subjective Patient is seen and examined at the bedside. Patient still has altered sensorium. She is oriented to person, place and time. She is complaining of pain all over the body. Objective Vital Signs Date Time Temp Pulse Resp B/P (MAP) Pulse Ox O2 Delivery O2 Flow Rate FiO2 06/02/25 15:00 97.6 109 29 96/71 (79) 96 06/02/25 08:00 Room Air 06/01/25 19:37 0 Result Diagram: 06/02/25 1713 06/02/25 1713 General: Patient looks ill-appearing cachectic lying in bed uncomfortable and in pain. she is dysphoric and responds slowly but is oriented to person, place and time. patient has pallor, icterus, mild clubbing but no cyanosis, lymphadenopathy and edema. HEENT: conjunctival icterus noted, excoriations noted on upper and lower lips. Neck: No masses but patient complained of neck pain when asked to flex the neck. Resp: Tachypneic. Coarse breath sounds bilaterally Chest: Shallow breathing Cardiovascular: Tachycardic, regular rhythm, normal S1 and S2, no murmurs appreciated with a background of coarse breath sounds. Abdomen: Slightly distended and appears tender to palpation throughout, seems worse in costovertebral fossa, no guarding and rigidity, bowel sounds present. Neuro: Limited evaluation due to altered level of consciousness. Extremities: Significant muscle wasting. Bilateral feet pale compared to the rest of the body, capillary refill slightly delayed, pulses palpable and symmetric no cyanosis or edema. Skin: Bilateral feet pale with intact pulses, multiple small spider angiomas noted along with needle track moraes related to IV drug abuse. no petechia, purpura and palpable purpura. Coagulation Studies Laboratory Tests Test 06/02/25 11:03 Prothrombin Time 19.9 SECONDS (9.0-12.0) H INR International Normalized Ratio 2.1 INR Activated Partial Thromboplast Time 41 SECONDS (22-32) H Fibrinogen 116 MG/DL (177-424) L D-Dimer 10.44 MG/L FEU (0-0.50) H DIC Profile Interpretation See dic report Coagulation Comments Assessment Assessment This is a 39-year-old homeless and malnourished woman with history of endocarditis and poly drug abuse now presenting with severe sepsis and MODS due to Staph aureus bacteremia with multiple cavitary pulmonary lesions in bilateral lower lungs and complicated by DIC, acute kidney injury and sepsis associated encephalopathy. This patient currently meets the Modified dukes criteria for possible infective endocarditis 1. She has a single set of blood cultures positive for staph aureus 2. history of IV drug use and prior endocarditis 3. fever greater than 38 centigrade 4. septic pulmonary emboli on CT and glomerular nephritis Confirmation of tricuspid valve vegetations on echocardiography would fulfill major criteria for endocardial involvement and it satisfies the diagnosis to definite infective endocarditis. Plan Plan Severe sepsis with multiorgan dysfunction, possibly multiple sources including: Multifocal pneumonia, UTI, possible infective endocarditis, cholangitis Septic shock Community-acquired pneumonia Urinary tract infection H/O MDRO urine Labs show: WBC: increased to 7.7 from 3.1 after blood transfusion( significant neutrophilia ), procalcitonin: 26.39, lactic acid: Improved to 2.7 from 4 Blood culture is positive for Gram-positive cocci in clusters. CT chest Abdomen showed: multiple cavitating non cavitating nodules of the lung bases with ground-glass opacity of the lung bases and linear atelectasis. cholelithiasis and moderate volume ascites. mild hepatosplenomegaly. Qualntiferon gold to evaluate for tuberculosis as a potential cause of the cavitary lung lesions given her risk factors including homelessness Urinalysis is consistent with UTI. Elevated direct bilirubin Transaminasemia Moderate ascites Diffuse abdominal tenderness Direct bilirubin is 5.3 most probably due to sepsis associated cholestasis or gallstone obstruction needs further evaluation. AST 202 and ALT 49. alk phos 207. monitor LFTs including ALP and GGT for cholestasis trend. HIV is negative and Hep C ab was positive. Likely secondary to chronic liver disease with portal hypertension and sepsis associated cholelithiasis rule out spontaneous bacterial peritonitis with a diagnostic paracentesis. Monitor LFTs, coagulation and fluid status. Possible infective endocarditis H/o infective endocarditis in 2019 Echocardiogram from 05/03/25 showed: EF 65%. TV leaflets are thickened. Difficult to assess for echogenic mass on leaflets due to fast heart rate. Cannot rule out endocarditis, recommend clinical correlation. Moderate tricuspid regurgitation. Pending repeat echocardiogram Pending cardio(Dr. Dumont) and ID (Dr. Escobedo) consult Acute metabolic encephalopathy Possible hepatic encephalopathy Monitor neuro status closely and escalate if she becomes more encephalopathic. CT head showed no acute intracranial process. Follow up with ammonia. Pancytopenia DIC Two PRBCs were given and hemoglobin was improved from 6.5-10.5[place] [address] [place] [address]. 2 bags of platelets were given. repeat CBC has to be done to see the platelet Count. LDH is 364 probably due to hemolysis. peripheral smear and haptoglobin has to be checked to confirm hemolysis. PT and APTT were elevated and fibrinogen level is low, D-dimer is elevated, confirming DIC. Monitor coagulation profile closely. Stool occult blood negative. SHWETHA, likely prerenal secondary to vasomotor nephropathy Possible associated ATN The patient's renal dysfunction is multifactorial. She has SHWETHA with urinalysis showing protein, blood, WBCs and bacteria. The hematuria and proteinuria raise concern for immune complex glomerulonephritis in the setting of possible infective endocarditis while WBCs and bacteria confirm a concurrent urinary tract infection BUN /creatinine improved from 45 to 38 after giving fluids. Hypokalemia improved Mild hyponatremia Creatinine: 3.81, GFR: 13 IV fluids as above Respiratory Alkalosis due to sepsis induced hyperventilation and Anion gap metabolic acidosis likely to secondary to sepsis/SHWETHA/lactic acidosis sepsis management with fluids and antibiotics to decrease respiratory rate. intubation if the patient develops respiratory muscle fatigue. Monitor potassium levels in view of respiratory alkalosis Substance abuse: fentanyl Patient was history of IV drug use Social service and substance abuse navigator consult ordered Diffuse myalgias and arthralgias Creatinine kinase is normal. needs to be evaluated. Bilateral foot pallor Bilateral foot pallor with intact pulses probably due to microvascular ischemia secondary to sepsis induced DIC. Severe protein calorie malnutrition BMI 18.3 Nutrition consult ordered. Code Status: Full code DVT Prophylaxis: SCDs Analgesia/Sedation: Morphine, Dilaudid Lines/Tubes: PIV, Lynch's Nutrition: Regular diet PT: Ordered Prognosis: Guarded Disposition: Continue IV fluids, antibiotics. Follow up with ABG, ammonia, MRCP. Continue BiPAP. Consult ICU if her respirations get worse. Cheikh Lomeli MD [employer] Sugey Banuelos MD Internal Medicine Resident PGY-2 Date of Service: Jun 02, 2025 Billing Provider: ANDREY JOY MD,SUGEY GRANADOS, RES Jun 02, 2025 18:36
[2025-06-02] MEDS ORDERED: ipratropium/albuterol 3ml nebule NEB PRN (19:00)
[2025-06-02] MEDS: metroNIDAZOLE-Flagyl 500mg/NS 100 ML IV SCH (20:28)
[2025-06-02] MEDS: ipratropium/albuterol 3ml nebule NEB SCH (21:11)
[2025-06-02] MEDS: cefepime 1GM in D5W 50mL 50 ML IV SCH (21:50)
[2025-06-02] MEDS: ringers solution, lacted 1,000 ML IV SCH (23:59)
[2025-06-03] VITALS (19 sets, daily range): BP systolic 93–110; BP diastolic 52–76; PULSE 70–115; RESP 24–45; TEMP 97.1–98; O2SAT 90–96
[2025-06-03] MEDS: potassium Cl 40MEQ/1/2NS 520ml 520 ML IV ONE (00:44)
[2025-06-03] MEDS: VANCOMYCIN LEVEL IV SCH (03:00)
[2025-06-03] MEDS: normal saline 1000ml 1,000 ML IV ONE (04:48)
[2025-06-03 06:41] LABS: MEAN PLATELET VOLUME 9.5 FL (7.4-10.4); RED CELL DISTRIBUTION WIDTH 15.2 % (11.5-14.5)
[2025-06-03 07:16] LABS: CREATININE 3.30 MG/DL (0.40-0.90); TOTAL CARBON DIOXIDE 18.4 MMOL/L (24-32); eCRCL 18 ML/MIN; eGFR 16 ML/MIN
[2025-06-03 07:44] LABS: BANDS% (MANUAL) 5.0 % (0-10); LARGE PLATELETS FEW; LYMPHOCYTES % (MANUAL) 6.0 % (21-51); MONOCYTES % (MANUAL) 4.0 % (2-12); NEUTROPHILS % (MANUAL) 85.0 % (42-75); PLATELET ESTIMATE DECREASED
[2025-06-03] MEDS: sodium bicarbonate 1meq/ml inj 150 ML in dextrose 5%-water 1,000 ML IV SCH (07:50)
--- NOTE | 2025-06-03 08:31 | CONSULTATION REPORT ---
Consult Providers to CC ~ History of Present Illness Primary Medical Doctor: Sugey Locke MD Reason for Admit\Complaint: SHWETHA History of Present Illness Patient is a 39-year-old female with history of infective endocarditis, osteomyelitis and substance abuse who was brought to the ED by EMS due to altered level of consciousness. Patient was not able to provide any history. even to me today. According to ED report, patient is homeless and people around her noticed that she was altered and decided to call 911. In ED, patient was found with altered level of consciousness, febrile, tachycardic, and with signs of dehydration. She also had an episode of loose stools. She received aggressive hydration, vancomycin and ceftriaxone in ED. She has been found to have ongoing azotemia and i was called to consult from renal standpoint. Entry creatinine was 3.8 and it came down to 3.0 and today it is 3.3. urine output is not impressive. Her renal function was normal in April of this year. Her urine is active with red cells and protein.with some wbcs and leukocyte esterase. US of the liver and gall bladder showed Hepatic cirrhosis. Moderate ascites. Cholelithiasis and thickened edematous appearance of the gallbladder wall. CT abdomen and pelvis showed: Limited noncontrast imaging. Small bilateral pleural effusions with associated atelectasis, new from 06/01/2025 Redemonstration of multiple cavitating and non cavitating nodular lesions of the lung bases which may represent multifocal cavitary pneumonia / cavitary metastatic disease or sequela of septic emboli. Cholelithiasis with with Limited evaluation for acute cholecystitis given ascites. If there is concern for acute cholecystitis, right upper quadrant ultrasound should be considered for further evaluation. Moderate volume ascites. Limited evaluation of the pancreas and appendix. Mild wall Thickening of proximal small bowel loops with mild colonic wall thickening as detailed above which may be from the surrounding ascites /inadequate distention with enteritis and colitis respectively not excluded. Moderate body wall edema. Allergies: Coded Allergies: tramadol (Verified Allergy, Unknown, TINGLING, 06/01/25) Home Medications Home Medications Active Reported No Home Medications (Home Med List) Each Dilaudid 1 mg/ml Syringe (Hydromorphone HCl/Pf) 1 Mg/1 Ml Syringe 1 Mg IV Ativan (Lorazepam) 2 Mg/1 Ml Vial 0.5 Mg IJ Zofran (Ondansetron Hcl) 4 Mg Tablet 1 Tab PO Q6H Zosyn 3.375 Gm Pre Mix-Bag (Piperacillin/Tazobactam/Dex-Is) 3.375 Gm/50 Ml Froz.piggy 3.375 Gm IV Q6H Zyvox Iv (Linezolid/Dextrose) 600 Mg/300 Ml Iv.soln 600 Mg IV Q12H Oxycontin (Oxycodone HCl) 10 Mg Tab.er.12h 1 Tab PO Q12H Metoprolol Tartrate* (Metoprolol Tartrate) 50 Mg Tablet 1 Tab PO Q12H Magnesium (Magnesium Oxide) 400 Mg Capsule 1 Cap PO TID Lasix (Furosemide) 40 Mg Tablet 1 Tab PO DAILY Colace (Docusate Sodium) 100 Mg Capsule 1 Cap PO Q12H Pepcid (Famotidine) 20 Mg Tablet 1 Tab PO Q12H No Home Medications (Home Med List) Each Past Medical History Past Medical History Infective endocarditis Osteomyelitis Substance abuse Past Surgical History Surgical History Comment Cataract surgery (per prior records) Past Social History Social History Comment Unable to obtain today, but according to prior records she has a following social history: Smokes 1-2 cigarettes per day for the last 20 years Patient is homeless and does not have a primary care provider Smoking: Less than 1 pack/day Alcohol Use: None Drug Use: Methamphetamine, Heroin Lives with: Other Lives In: Homeless Occupation: unemployed ROS ROS unable to. She is moaning and groaning, in pain. no resp distress. Exam Vitals: Vital Signs Date Time Temp Pulse Resp B/P (MAP) Pulse Ox O2 Delivery O2 Flow Rate FiO2 06/03/25 08:19 103 30 Room Air 21 06/03/25 08:08 95 0 06/03/25 02:00 97.6 97/67 (77) General: Vital Signs: As above, skin turgor poor. in agony General: petite body habitus, . Skin: No rashes, lumps, ulcers, blisters, purpura or petechiae HEENT: Anicteric sclera, Neck: Supple and nontender without enlargement of the thyroid, or lymphadenopathy. Chest: Normal size and shape, no tenderness, CTA bilaterally Heart: Regular. No jugular venous distention, S1 and S2 heard , no gallop Abdomen: Soft and non tender no organomegaly,BS+ Extremities: No pedal edema Neuro: Nonfocal. Diagnostic Data Last Recorded Lab Results: 06/03/25 0608 06/03/25 0608 Diagnostic Data: Laboratory Tests Test 06/02/25 11:03 06/03/25 08:08 Fibrinogen 116 MG/DL (177-424) L D-Dimer 10.44 MG/L FEU (0-0.50) H DIC Profile Interpretation See dic report Coagulation Comments Problems: (1) SHWETHA (acute kidney injury) Assessment & Plan: - to begin with, she came in quite volume depleted + sepsis. Strong suspicion of embolic phenomena with endocarditis - awaiting the official reading of the Echocardiogram. - rule out Gloermulonephritis- Infection related, vs interstitial nephritis, vs ongoing UTI. She has probably sustained ATN already from the severe dehydration. There is also a possibility of drug induced glomerulopathies such as ivDrugs. hydration is being done. If she does not favorably respond in the next day or two, she is heading towards dialysis. - She is getting bicarb drip for her metabolic acidosis. - will do the proteinuria work up as usual. rule out high ASO titers - renal diet only. - do not give morphine, especially with the suspicion of acute cholecystitis - use only dilaudid, in the setting of renal failure. Use fentanyl if needed. NO NSAIDS please. _ No iv contrast please. (2) Thrombocytopenia Assessment & Plan: ? related to sepsis vs liver cirrhosis. if she is to get cholecystostomy tube, she needs platelet transfusion. (3) Acute exacerbation of chronic low back pain Status: Acute Assessment & Plan: on pain meds. see discussion above. (4) Homeless Status: Acute Assessment & Plan: PROPERTY APPRAISER consult. (5) Sepsis Status: Acute Assessment & Plan: being covered with antibiotics. avoid vanco/zosyn combo please. await echocardiogram. AYO TSANG MD Jun 03, 2025 08:31
[2025-06-03 08:52] LABS: APTT 33 SECONDS (22-32); INR 1.8 INR
[2025-06-03] MEDS: HYDROmorphone inj. 0.5 MG/0.5 ML DISP.SYRIN IV PRN (09:02)
--- NOTE | 2025-06-03 11:02 | RADIOLOGY REPORT ---
INDICATION: ABDOMINAL PAIN; R/O CHOLECYSTTIS TECHNIQUE: Multiple real-time sonographic images were obtained of the right upper quadrant. COMPARISON: CT CT ABDOMEN PELVIS on DOS: 06/02/25 FINDINGS: The liver demonstrates heterogeneous nodular echotexture without focal mass lesions. The l iver measures 15.7 cm. There is no intrahepatic or extrahepatic ductal dilatation. The common duct measures 0.4 cm. Cholelithiasis. The gallbladder wall measures 0.5 cm and is thickened and edematous. The right kidney measures 10.8 cm. The right kidney is normal in contour, size, and shape. The echoge nicity is normal. There is no hydronephrosis. The pancreas is not well visualized due to overlying bowel gas. IMPRESSION: Hepatic cirrhosis. Moderate ascites. Cholelithiasis and thickened edematous appearance of the gallbladder wall.
[2025-06-03] MEDS: VANCOMYCIN IV ONE (13:19)
--- NOTE | 2025-06-03 17:57 | PROGRESS NOTE- Residence ---
Progress Note - Resident Providers to CC Resident Creating Document: LEX READ, LEAH ~ Antibiotic Timeout Antibiotic Ordered?: Yes Subjective Patient is seen and examined at the bedside today. She is oriented to place and person. Appears to be in significant distress. Continues to complain of diffuse nonspecific pain throughout her body. Objective Vital Signs Date Time Temp Pulse Resp B/P (MAP) Pulse Ox O2 Delivery O2 Flow Rate FiO2 06/03/25 15:38 28 06/03/25 15:31 97.7 107 102/69 (80) 92 Room Air 06/03/25 08:19 21 06/03/25 08:08 0 Result Diagram: 06/03/25 0608 06/03/25 0608 General: Thin ill-appearing female in acute distress. HEENT: conjunctival icterus noted, excoriations noted on upper and lower lips. Neck: No masses but patient complained of neck pain when asked to flex the neck. Resp: Shallow and rapid breathing. Coarse breath sounds bilaterally. Cardiovascular: Regular rate and rhythm, S1-S2 heard. No murmurs or rubs heard. Abdomen: Slightly distended and appears tender to palpation throughout, seems worse in costovertebral fossa, no guarding and rigidity, bowel sounds present. Neuro: Limited evaluation due to altered level of consciousness. Extremities: Significant muscle wasting. Bilateral feet pale compared to the rest of the body, capillary refill slightly delayed, pulses palpable and symmetric no cyanosis or edema. Skin: Bilateral feet pale with intact pulses, multiple small spider angiomas noted along with needle track moraes related to IV drug abuse. no petechia, purpura and palpable purpura. Coagulation Studies Laboratory Tests Test 06/02/25 11:03 06/03/25 08:08 Fibrinogen 116 MG/DL (177-424) L D-Dimer 10.44 MG/L FEU (0-0.50) H DIC Profile Interpretation See dic report Prothrombin Time 17.2 SECONDS (9.0-12.0) H INR International Normalized Ratio 1.8 INR Activated Partial Thromboplast Time 33 SECONDS (22-32) H Coagulation Comments Assessment Assessment 39-year-old female with past medical history of polysubstance abuse, liver cirrhosis, infective endocarditis, osteomyelitis is admitted in the hospital for evaluation and management of altered level of consciousness most likely secondary to metabolic encephalopathy, sepsis due to septic emboli causing multifocal cavitary pneumonia. Plan Plan Severe sepsis, present on admission Possible infective endocarditis Multifocal cavitary pneumonia due to septic emboli Urinary tract infection Multiorgan dysfunction Metabolic encephalopathy due to sepsis and underlying hepatic encephalopathy Acute hypoxemic respiratory failure due to pneumonia Respiratory alkalosis Blood cultures from 06/01/2025 positive for gram-positive cocci in clusters. 1/2 Blood cultures from 06/02/2025 are positive for Gram-positive cocci in clusters. CT chest Abdomen showed: multiple cavitating non cavitating nodules of the lung bases with ground-glass opacity of the lung bases and linear atelectasis. cholelithiasis and moderate volume ascites. mild hepatosplenomegaly. Started the patient on IV vancomycin, IV cefepime and IV metronidazole. The Infectious Disease specialist Dr. Escobedo has been consulted. Continuing supportive care with oxygen supplementation, IV fluids for hydration and maintenance. The nailhead operator Dr. Jones was consulted in view of the patient's significant respiratory distress and increased work of breathing with the tachypnea and respiratory rate going as high as 40-45. Dr. Jones has seen the patient at the bedside during which I was present and per his recommendation the patient is being treated for now in the PCU. We will reconsult in case the patient's condition worsens. Continue IV methylprednisolone 60 mg b.i.d. Continue DuoNeb nebulizations, albuterol as needed. Respiratory therapy evaluation and treatment. Repeat ABG. Decompensated liver cirrhosis Ascites Possible hepatic encephalopathy Transaminitis Rule out spontaneous bacterial peritonitis Most likely secondary to hepatitis C. Follow up with the hepatitis-C, HIV. The AST, ALT improving. Bilirubin is trending up. Patient is started on lactulose. CT scan of the abdomen was significant for cholelithiasis, moderate volume ascites and limited evaluation of the pancreas and appendix. There was wall thickening of the small bowel loops possibly secondary to the surrounding ascites versus colitis/enteritis. An ultrasound of the abdomen was done today that shows hepatic cirrhosis, moderate ascites and cholelithiasis with a edematous gallbladder. Follow up with the the MRCP tomorrow in a.m.. Continue IV antibiotics. Plan paracentesis to check for any underlying SBP. Possible infective endocarditis H/o infective endocarditis in 2019 Echocardiogram from 05/03/25 showed: EF 65%. TV leaflets are thickened. Difficult to assess for echogenic mass on leaflets due to fast heart rate. Cannot rule out endocarditis, recommend clinical correlation. Moderate tricuspid regurgitation. Repeat ECHO final report pending. Cattle Dehorner (Dr. Dumont) and ID specialist (Dr. Escobedo) have been consulted. Awaiting recommendations. Pancytopenia DIC Patient was given two PRBC transfusions and to platelet transfusions. Hemoglobin is 11.9 today and the platelets are at 28. No active bleeding noted. PT and APTT were elevated and fibrinogen level is low, D-dimer is elevated, confirming DIC. Stool occult blood negative. No active bleeding noted. Acute kidney injury Most likely secondary to acute tubular necrosis and toxic nephropathy. Respiratory alkalosis with possible underlying mixed anion gap metabolic acidosis Hypokalemia Mild hyponatremia The medical superintendent has been consulted. Appreciate recommendations. Patient has been receiving a aggressive fluid resuscitation. If the patient's condition does not improve she might require dialysis. We will follow up accordingly as per the Nephrology recommendations. Substance abuse: fentanyl Patient was history of IV drug use Social service and substance abuse navigator consult ordered Diffuse myalgias and arthralgias Creatinine kinase is normal. Bilateral foot pallor Bilateral foot pallor with intact pulses probably due to microvascular ischemia secondary to sepsis induced DIC. Severe protein calorie malnutrition BMI 18.3 Nutrition consult ordered. Code Status: Full code DVT Prophylaxis: SCDs Analgesia/Sedation: Morphine, Dilaudid Lines/Tubes: PIV, Lynch's Nutrition: Regular diet PT: Ordered Prognosis: Guarded Critical care time greater than 35 minutes. Disposition: Continue care in the PCU unit. Patient needs close monitoring. The nailhead operator Dr. Jones has been consulted. ID Dr. Escobedo and occupational therapy department chair Dr. Dumont has also been consulted. Date of Service: Jun 03, 2025 Billing Provider: ANDREY JOY MD, SURYA PRATIK, RES Jun 03, 2025 17:57
--- NOTE | 2025-06-03 18:01 | CARDIOLOGY REPORT ---
APPROVED REPORT EXAM: Limited 2D, Doppler, and color-flow Echocardiogram. Patient Location: [address] Blood Pressure: 96/71 mmHg Heart Rate: 103 bpm Rhythm: Sinus Tachycardia Indications Endocarditis Evaluate for Vegetations Hx of Infective Endocarditis Hx of Meth and IV Drug use Severe Sepsis Arboriculture Teacher: NONE Previous echo: 05/03/2025 [facility] EF:65% 2D Dimensions RVDd 3.6 cm LA Diam2.9 cm IVSd 0.9 (0.7-1.1cm) LVDd 2.9 cm PWd 0.6 (0.7-1.1cm) IVSs 1.0 (0.8-1.2cm) RA Minor4.7 cmLVDs 1.7 (2.5-4.0cm) PWs 0.9 (0.8-1.2cm) LVEF(%) 74.7 (>50%) FS (%) 42.0 % SV 23.4 ml CO 2.4 L/min Tricuspid Valve TR P. Velocity 289 cm/s RAP ESTIMATE 10 mmHg TR Peak Gr. 34 mmHg RVSP 44 mmHg LEFT VENTRICLE The LV is reduced in size with normal wall thickness. Overall systolic function appears to be hyperdy namic. Overall LVEF appears to be 70-75%. RIGHT VENTRICLE Right ventricle is moderately dilated with reduced function. Estimated PA systolic pressure is 44 mmH g. ATRIA The left atrium size is normal. Right atrium is moderately dilated. AORTIC VALVE Trileaflet AV appears thickened without gross stenosis or insufficiency. MITRAL VALVE Mild MV annular and leaflet thickening without gross stenosis. mild regurgitation. TRICUSPID VALVE TV appears thickened with thickened leaflets. Mobile echogenic structure appears to be attached to th e Septal Tricuspid Valve leaflet (Image [id number] 47). Cannot rule out possible Endocarditis Vegetation. Re commend clinical correlation if indicated. Severe tricuspid regurgitation. PERICARDIUM No pericardial effusion seen. Other Information Study Quality: Adequate Conclusion Overall LVEF appears to be 70-75%. The LV is reduced in size with normal wall thickness. Overall systolic function appears to be hyperdy namic. Right ventricle is moderately dilated with reduced function. Estimated PA systolic pressure is 44 mmH g. Trileaflet AV appears thickened without gross stenosis or insufficiency. Mild MV annular and leaflet thickening without gross stenosis. Trace to mild regurgitation. Overall LVEF appears to be 70-75%. The LV is reduced in size with normal wall thickness. Overall systolic function appears to be hyperdy namic. Right ventricle is moderately dilated with reduced function. Estimated PA systolic pressure is 44 mmH g. Mild MV annular and leaflet thickening without gross stenosis. mild regurgitation. TV appears thickened with thickened leaflets. Mobile echogenic structure appears to be attached to the Septal Tricuspid Valve leaflet (Image 46- 47). Cannot rule out possible Endocarditis Vegetation. Recommend clinical correlation if indicated. Severe tricuspid regurgitation. No pericardial effusion seen.
[2025-06-04] VITALS (11 sets, daily range): BP systolic 96–121; BP diastolic 62–84; PULSE 106–116; RESP 14–38; TEMP 97.1–97.7; O2SAT 88–98
[2025-06-04 09:06] LABS: MEAN PLATELET VOLUME 11.1 FL (7.4-10.4); RED CELL DISTRIBUTION WIDTH 16.0 % (11.5-14.5)
[2025-06-04 09:26] LABS: CREATININE 3.18 MG/DL (0.40-0.90); TOTAL CARBON DIOXIDE 19.3 MMOL/L (24-32); eCRCL 19 ML/MIN; eGFR 16 ML/MIN
[2025-06-04 09:27] LABS: LACTATE DEHYDROGENASE 329 U/L (81-234)
[2025-06-04 10:03] LABS: HIV ANTIBODY 1&2 RAPID NON-REACTIVE (Neg)
[2025-06-04] MEDS: vancomycin/NS 1 GM ADD-VANTAGE 250 ML IV ONE (11:06)
[2025-06-04] MEDS: nafcillin inj 2 GM in normal saline 100ml IV soln 100 ML IV SCH (12:11)
--- NOTE | 2025-06-04 15:18 | RADIOLOGY REPORT ---
CLINICAL INFORMATION: Rule out cholecystitis. Abnormal findings on ultrasound. TECHNIQUE: 5.4 mCi of Choletec were administered intravenously. Images of the upper abdomen were ob tained at 5 minute intervals up to a total time of 45 minutes. COMPARISON: US ULTRASOUND OF ABDOMEN on DOS: 06/03/25, CT CT ABDOMEN PELVIS on DOS: 06/02/25 FINDINGS: The gallbladder is not visualized on images obtained up to 45 minutes. No visualized excre tion of activity into the small bowel is seen. The patient terminated the examination after the 45 m inute images. IMPRESSION: Examination was terminated at 45 minutes due to the patient unable to tolerate further imaging. The g allbladder was not visualized during the examination. No visualized excretion of activity into the s mall bowel. Acute cholecystitis can not be excluded.
--- NOTE | 2025-06-04 15:28 | PROGRESS NOTE- Residence ---
Progress Note - Resident Providers to CC Resident Creating Document: KOREY PRECIADO, LEAH ~ Antibiotic Timeout Antibiotic Ordered?: Yes Subjective The patient has been evaluated at bedside. The patient is awake, oriented, complains of generalized pain. Objective Vital Signs Date Time Temp Pulse Resp B/P (MAP) Pulse Ox O2 Delivery O2 Flow Rate FiO2 06/04/25 11:09 109 32 94 Nasal Cannula* 2 28 06/04/25 11:00 97.6 121/84 (96) Physical exam: General: Awake, oriented, cachectic. HEENT: Conjunctive are pink, sclerae clear, icterus present. Neck: Supple, no JVD, no lymphadenopathy and thyromegaly. Chest: Presence of coarse sounds bilaterally. Cardiovascular: S1-S2 regular sinus rhythm and, regular rate, no gallops, no rubs, no murmurs Abdomen: Distended, mild tenderness to palpation, no guarding or rigidity, presence of bowel sounds with auscultation. Extremities: No obvious deformities, no pitting edema bilaterally, capillary refill intact, peripheral pulsations are intact on both sides Central Nervous System: No focal neurological deficits, no motor or sensory weakness in all 4 extremities, could move all 4 extremities, 2+ deep tendon reflexes, negative Babinski. Musculoskeletal: No joint swelling, deformities, inflammations, and no scoliosis and back tenderness Skin: Presence of needle track moraes related to IV drug, presence of spider angioma. Result Diagram: 06/04/25 0833 06/04/25 0833 Coagulation Studies Laboratory Tests Test 06/02/25 11:03 06/03/25 08:08 Fibrinogen 116 MG/DL (177-424) L D-Dimer 10.44 MG/L FEU (0-0.50) H DIC Profile Interpretation See dic report Prothrombin Time 17.2 SECONDS (9.0-12.0) H INR International Normalized Ratio 1.8 INR Activated Partial Thromboplast Time 33 SECONDS (22-32) H Coagulation Comments Assessment Assessment 39-year-old female patient came to the hospital with chief complaint of altered level of consciousness. Plan Plan Sepsis Possible infective endocarditis Multiorgan dysfunction syndrome Acute metabolic encephalopathy Echocardiogram: Overall LVEF appears to be 70-75%. The LV is reduced in size with normal wall thickness. Overall systolic function appears to be hyperdynamic. Right ventricle is moderately dilated with reduced function. Estimated PA systolic pressure is 44 mmHg. Trileaflet AV appears thickened without gross stenosis or insufficiency. Mild MV annular and leaflet thickening without gross stenosis. Trace to mild regurgitation. Overall LVEF appears to be 70-75%. The LV is reduced in size with normal wall thickness. Overall systolic function appears to be hyperdynamic. Right ventricle is moderately dilated with reduced function. Estimated PA systolic pressure is 44 mmHg. Mild MV annular and leaflet thickening without gross stenosis. mild regurgitation. TV appears thickened with thickened leaflets. Mobile echogenic structure appears to be attached to the Septal Tricuspid Valve leaflet (Image 46- 47). Cannot rule out possible Endocarditis Vegetation. Recommend clinical correlation if indicated. Severe tricuspid regurgitation. No pericardial effusion seen. Plan: Infectious Disease, Dr. Escobedo contacted, high suspicion of infective endocarditis, echocardiogram showing presence of vegetation in the level of tricuspid valve which is common in patients with history of injected substance use disorder. By ID recommendation nafcillin IV q.4h. Decompensated liver cirrhosis Ascites Possible metabolic encephalopathy Pancytopenia DIC Severe normocytic anemia Continue management as per hospitalist team. SHWETHA High anion gap metabolic acidosis Hypokalemia Hyponatremia Nephrology, Dr. Garcia following. Substance use disorder Severe protein malnutrition Failure to thrive Korey Escalona Internal Medicine Resident [facility] Patient seen and examined by Dr. CAMACHO. Case also discussed with infectious disease specialist . Date of Service: Jun 04, 2025 Billing Provider: SUSY OLSON MD, FRANCO LUIS, RES Jun 04, 2025 15:28 SUSY OLSON MD Jun 04, 2025 17:05
--- NOTE | 2025-06-04 15:51 | PROGRESS NOTE ---
Progress Note Dictate Providers to CC ~ Central Line/PICC still needed: No Lynch Indications Met/Not Met: F/C Indications Met Antibiotic Ordered?: Yes Subjective Subjective MSSA sepsis with severe TR, previous history of Endocarditis, with repeat Echocardiogram suspicious for vegetations, ID consult pending. cut back iv fluids to 70 cc per hour. Already getting Nafcillin which involves frequent dosing and iv pb that way. Higher BUn due to solumedrol. creatinine slightly better, Urine output not stellar yet. Objective Vitals Vital Signs Date Time Temp Pulse Resp B/P (MAP) Pulse Ox O2 Delivery O2 Flow Rate FiO2 06/04/25 15:25 24 06/04/25 11:09 109 94 Nasal Cannula* 2 28 06/04/25 11:00 97.6 121/84 (96) Lab Results: 06/04/25 0833 06/04/25 0833 Objective Vital Signs: As above General: petite body habitus, sitting up, moaning. Skin: No rashes, lumps, ulcers, blisters, purpura or petechiae HEENT: Anicteric sclera, Neck: Supple and nontender without enlargement of the thyroid, or lymphadenopathy. Chest: Normal size and shape, no tenderness, CTA bilaterally Heart: Regular. No jugular venous distention, S1 and S2 heard , no gallop Abdomen: Soft and non tender no organomegaly,BS+ Extremities: No pedal edema Neuro: Nonfocal. Coagulation Studies Laboratory Tests Test 06/02/25 11:03 06/03/25 08:08 Fibrinogen 116 MG/DL (177-424) L D-Dimer 10.44 MG/L FEU (0-0.50) H DIC Profile Interpretation See dic report Prothrombin Time 17.2 SECONDS (9.0-12.0) H INR International Normalized Ratio 1.8 INR Activated Partial Thromboplast Time 33 SECONDS (22-32) H Coagulation Comments Advance Care Planning Advanced Care plannin - 30 Minutes Problem\Assessment\Plan Problems/Diagnosis: (1) SHWETHA (acute kidney injury) Assessment & Plan: - to begin with, she came in quite volume depleted + sepsis. Strong suspicion of embolic phenomena with endocarditis - ID consult is required. Now on nafcillin. reviewed Echocardiogram. - rule out Gloermulonephritis- Infection related, vs interstitial nephritis, vs ongoing UTI. She has probably sustained ATN already from the severe dehydration. There is also a possibility of drug induced glomerulopathies such as ivDrugs. hydration is being done. If she does not favorably respond in the next day or two, she is heading towards dialysis. - She is getting bicarb drip for her metabolic acidosis. cut back to 70 cc per hour. - will do the proteinuria work up as usual. rule out high ASO titers - renal diet only. - do not give morphine, especially with the suspicion of acute cholecystitis - use only dilaudid, in the setting of renal failure. Use fentanyl if needed. NO NSAIDS please. _ No iv contrast please. (2) Thrombocytopenia Assessment & Plan: ? related to sepsis vs liver cirrhosis. if she is to get cholecystostomy tube, she needs platelet transfusion. (3) Acute exacerbation of chronic low back pain Assessment & Plan: on pain meds. see discussion above. (4) Homeless Assessment & Plan: PROFESSIONAL FIGHTER consult. (5) Sepsis Assessment & Plan: being covered with antibiotics. avoid vanco/zosyn combo please. reviewed the results of echocardiogram. AYO TSANG MD Jun 04, 2025 15:51
--- NOTE | 2025-06-04 16:21 | PROGRESS NOTE- Residence ---
Progress Note - Resident Providers to CC Resident Creating Document: TISH LEMON RES ~ Antibiotic Timeout Antibiotic Ordered?: Yes Subjective Patient is seen and examined at the bedside today. She appears to be in significant respiratory distress. She continues to complain of diffuse nonspecific pain throughout her body. She is refusing her oral meds and is not eating, she states she does not want to take meds at this time, will reconsider at a later time. Objective Vital Signs Date Time Temp Pulse Resp B/P (MAP) Pulse Ox O2 Delivery O2 Flow Rate FiO2 06/04/25 15:25 24 06/04/25 11:09 109 94 Nasal Cannula* 2 28 06/04/25 11:00 97.6 121/84 (96) Result Diagram: 06/04/25 0833 06/04/25 0833 General: Jaundiced appearance, Thin ill-appearing female in mild acute distress. Awake Alert and oriented x 4. HEENT: Conjunctival icterus noted, excoriations noted on upper and lower lips. Neck: No masses Resp: Shallow and rapid breathing. Coarse breath sounds bilaterally. Cardiovascular: Regular rate and rhythm, S1-S2 heard. Holo Systolic murmur in the left lower sternal border. Abdomen: Slightly distended and appears tender to palpation throughout, guarding present, no rigidity, bowel sounds present. Neuro: No gross sensory or motor abnormalities noted Extremities: No cyanosis,clubbing or edema. Skin: Juandiced/icteric appearance. Multiple small spider angiomas noted along with needle track moraes related to IV drug abuse. Coagulation Studies Laboratory Tests Test 06/02/25 11:03 06/03/25 08:08 Fibrinogen 116 MG/DL (177-424) L D-Dimer 10.44 MG/L FEU (0-0.50) H DIC Profile Interpretation See dic report Prothrombin Time 17.2 SECONDS (9.0-12.0) H INR International Normalized Ratio 1.8 INR Activated Partial Thromboplast Time 33 SECONDS (22-32) H Coagulation Comments Assessment Assessment 39-year-old woman with IV drug abuse and prior infective endocarditis, now with definitive right-sided infective endocarditis ( tricuspid vegetation, severe tricuspid regurgitation ) due to methicillin sensitive Staphylococcus aureus complicated by sepsis with septic pulmonary emboli and respiratory distress, SHWETHA, decompensated cirrhosis, possible acute cholecystitis or cholangitis, severe thrombocytopenia and coagulopathy and malnutrition. Plan Plan Severe sepsis, likely secondary to infective endocarditis POA Definitive Right sided infective endocarditis, severe tricuspid regurgitation Multifocal cavitary pneumonia due to septic emboli Multiorgan dysfunction Metabolic encephalopathy due to sepsis and possible underlying hepatic encephalopathy - resolved Respiratory alkalosis and metabolic acidosis Blood cultures from 06/01/2025 positive for gram-positive cocci in clusters. Repeat Blood cultures from 06/02/2025 are positive for Gram-positive cocci in clusters MSSA. CT chest Abdomen: multiple cavitary nodules of the lung bases with ground-glass opacity of the lung bases and linear atelectasis. cholelithiasis and moderate volume ascites. mild hepatosplenomegaly. Continuing supportive care with oxygen supplementation, IV fluids for hydration and maintenance. Evaluated by pipelines superintendent Dr. Jones on 06/03 in view of significant respiratory distress with the tachypnea and respiratory rate going as high as 40-45. Dr. Jones recommended medical management in the PCU for now, will reconsult if conditin detoriates Continue IV methylprednisolone 60 mg b.i.d. Continue DuoNeb nebulizations, albuterol as needed. Initially treated with IV vancomycin, IV cefepime and IV metronidazole. Started IV Nafcillin 2g per ID recommendations Wheel Borer (Dr. Dumont) consulted, appreciate recs Decompensated liver cirrhosis Ascites, Ultrasound abdomen 06/03/2025 - Hepatic cirrhosis, Moderate ascites, Cholelithiasis and thickened edematous appearance of the gallbladder wall. CT scan of the abdomen 06/02/2025- Significant for cholelithiasis, moderate volume ascites and limited evaluation of the pancreas and appendix. There was wall thickening of the small bowel loops possibly secondary to the surrounding ascites versus colitis/enteritis. Paracentesis to rule out spontaneous bacterial peritonitis. The AST, ALT improving. Bilirubin is trending up, total bilirubin 10.5. HIDA Scan - inconclusive, patient unable to tolerate the exam Continue lactulose. Monitor LFTs, INR, ammonia. Severe thrombocytopenia (28,000) with consumptive coagulopathy, DIC S/p 2 units PRBC and platelet transfusions Hemoglobin is 10.4, platelets 28. Stool occult blood negative. No active bleeding noted. PT and APTT 17.2 and 1.8 respectively and fibrinogen level 116, D-dimer 10.4 confirming DIC. Bilateral foot pallor with intact pulses probably due to microvascular ischemia secondary to sepsis induced DIC. Transfuse [place] [id number] or if bleeding. Acute kidney injury secondary to ATN Nephrology consult for dialysis evaluation in view of rising BUN and creatinine and oliguria. Respiratory alkalosis with possible underlying mixed anion gap metabolic acidosis. Avoid nephrotoxic drugs. Possible infective endocarditis related glomerulonephritis. Continue aggressive fluid resuscitation. Might be heading towards dialysis. We will follow up accordingly as per the Nephrology recommendations. Acute hypoxemic respiratory failure likely due to septic pulmonary emboli, mild pulmonary hypertension, volume overload from SHWETHA. SpO2 92-94 percent on 2 L nasal cannula and respiratory rate of 40-44. Substance abuse: meth and fentanyl Patient was history of IV drug use Social service and substance abuse navigator consulted Diffuse myalgias and arthralgias Creatinine kinase is normal. Severe protein calorie malnutrition BMI 18.3 Nutrition consulted Code Status: Full code DVT prophylaxis: None in view of DIC and thrombocytopenia Analgesia/sedation: None Line/tube: PIV, Lynch's GI prophylaxis: Protonix Nutrition: Regular diet Prognosis: Critical, she is very sick with multiorgan failure and high risk of detoriating. If she detoriates overnight transfer to ICU. Critical care time 35 minutes. Cheikh Lomeli MD aluminum shingle roofer Tish Lemon MD IM Resident PGY 3 Date of Service: Jun 04, 2025 Billing Provider: ANDREY JOY MD, ELIZABETH, LEAH Jun 04, 2025 16:21
--- NOTE | 2025-06-04 19:16 | CONSULTATION REPORT - RESIDENT ---
Consult Providers to CC Resident Creating Document: KRISTY ALEJANDRE RES History of Present Illness Reason for Admit\Complaint: Severe sepsis History of Present Illness 40 years old female with history of cirrhosis, hepatitis-C, osteomyelitis, tricuspid endocarditis, homeless, substance abuse, history of IV drug abuse in the past, CKD brought to the ED with altered level of consciousness, tachycardia, febrile, in the ED patient received IV fluid and admitted with severe sepsis with multiorgan dysfunction Patient is poor historian and information gathered from medical staff and previous chart. Allergies: Coded Allergies: tramadol (Verified Allergy, Unknown, TINGLING, 06/01/25) Home Medications Home Medications Active Reported No Home Medications (Home Med List) Each Dilaudid 1 mg/ml Syringe (Hydromorphone HCl/Pf) 1 Mg/1 Ml Syringe 1 Mg IV Ativan (Lorazepam) 2 Mg/1 Ml Vial 0.5 Mg IJ Zofran (Ondansetron Hcl) 4 Mg Tablet 1 Tab PO Q6H Zosyn 3.375 Gm Pre Mix-Bag (Piperacillin/Tazobactam/Dex-Is) 3.375 Gm/50 Ml Froz.piggy 3.375 Gm IV Q6H Zyvox Iv (Linezolid/Dextrose) 600 Mg/300 Ml Iv.soln 600 Mg IV Q12H Oxycontin (Oxycodone HCl) 10 Mg Tab.er.12h 1 Tab PO Q12H Metoprolol Tartrate* (Metoprolol Tartrate) 50 Mg Tablet 1 Tab PO Q12H Magnesium (Magnesium Oxide) 400 Mg Capsule 1 Cap PO TID Lasix (Furosemide) 40 Mg Tablet 1 Tab PO DAILY Colace (Docusate Sodium) 100 Mg Capsule 1 Cap PO Q12H Pepcid (Famotidine) 20 Mg Tablet 1 Tab PO Q12H No Home Medications (Home Med List) Each Past Medical History Past Medical History Tricuspid endocarditis 2019 Osteomyelitis IV drug abuse Homeless Cirrhosis Hepatitis-C Past Surgical History Surgical History Comment Cataract per old record Past Social History Social History Comment As old records Smokes for more than 20 years, Patient is homeless and had history of IV drug abuse including heroin and methamphetamine Unemployed, no record of amount of alcohol drinking ROS ROS The history of present illness included a review of system, which yielded relevant positives and negatives Exam Vitals: Vital Signs Date Time Temp Pulse Resp B/P (MAP) Pulse Ox O2 Delivery O2 Flow Rate FiO2 06/04/25 16:25 38 06/04/25 15:00 97.3 112 100/64 (76) 95 Nasal Cannula 2.0 06/04/25 11:09 28 General: General: Awake and mildly confused, moderate acute distress. HEENT: Conjunctiva pale, Sclera icteric, subconjuctiva hemorrhage Mucus Membranes dry. Very poor dental/oral hygiene, lots of dental cavities Neck: Supple without masses and tenderness. Resp: Coarse breath sounds bilaterally, no rales Heart: Regular Rate and rhythm, normal S1 and S2 Abdomen: Mildly distended, mild tenderness on palpitation Extremities: No cyanosis,clubbing or edema. Skin: Icteric skin, no any Osler nodes Nails: Can not evaluated for splinter hemorrhage due to very dry and coarse Neurological: Speech is clear, alert, and oriented to person, no gross neurological deficits Diagnostic Data Last Recorded Lab Results: 06/04/25 0833 06/04/25 0833 Diagnostic Data: Laboratory Tests Test 06/02/25 11:03 06/03/25 08:08 Fibrinogen 116 MG/DL (177-424) L D-Dimer 10.44 MG/L FEU (0-0.50) H DIC Profile Interpretation See dic report Prothrombin Time 17.2 SECONDS (9.0-12.0) H INR International Normalized Ratio 1.8 INR Activated Partial Thromboplast Time 33 SECONDS (22-32) H Coagulation Comments Additional Plan 39 years old female with history of IV drug abuse, tricuspid valve endocarditis in 2019, hepatitis-C cirrhosis brought to the ED with altered level of consciousness fever and tachycardia and admitted with following workup and diagnosis Severe sepsis Definitive infective endocarditis ( Typical pathogen in IE from 2 separate blood culture set + fever+ hx of IE/ IV drug abuse + septic emboli) tricuspid valve endocarditis, hx of IV drug abuse Multifocal cavitary pneumonia due to septic emboli Multiorgan dysfunction Hepatitis-C, cirrhosis CT chest Abdomen: multiple cavitary nodules of the lung bases with ground-glass opacity of the lung bases and linear atelectasis. cholelithiasis and moderate volume ascites. mild hepatosplenomegaly. ECHO: No vegetation reported Both blood culture on and 02 of June is positive for staph aureus, Blood culture MSSA Initially patient was started on vancomycin, and Zosyn and metronidazole, due to culture sensitivity we changed it to Naficilin 2 gr Q4H We will repeat blood culture tomorrow Possible DIC, hepatitis-C and cirrhosis Severe thrombocytopenia which could be due to sepsis/DIC Elevated PT PTT and low fibrinogen however patient also had history of cirrhosis and hepatitis-C which could be contributed to low fibrinogen Ultrasounds and CT scan concern for acute cholecystitis, HIDA scan ordered which was inconclusive, because patient could not tolerat it Acute on chronic kidney failure Despite excessive fluid resuscitation, kidney function not improving much Nephrology team is following Kristy Alejandre MD ID consult Date of Service: Jun 04, 2025 Billing Provider: OMEGA STEVE MD, ELAHE, RES Jun 04, 2025 19:16
--- NOTE | 2025-06-04 23:24 | CONSULTATION REPORT ---
Consult Consult Consultation Pt seen and examined with Dr. East. Agree with her note. I cared for Deb in 2019 when she had similar disease. Here again with right-sided IE due to MSSA with pulmonary septic emboli. She also demonstrates renal failure and hepatic failure. She has h/o cirrhosis and chronic HCV with rising bilirubin. Homeless with h/o IVDA. HIV negative. In addition, she has coagulopathy and thrombocytopenia with probable contributions from sepsis and liver disease. Will see how she does with nafcillin and supportive care. DC methylprednisolone. OMEGA STEVE MD Jun 04, 2025 23:24
[2025-06-05] VITALS (27 sets, daily range): BP systolic 78–110; BP diastolic 42–73; PULSE 101–122; RESP 15–42; TEMP 96.5–98.3; O2SAT 85–100
[2025-06-05 05:13] LABS: HBSAG SCREEN Negative (Negative)
[2025-06-05] MEDS ORDERED: pantoprazole 40mg Tablet.DR PO SCH (07:30)
[2025-06-05 10:18] LABS: CREATININE 3.59 MG/DL (0.40-0.90); TOTAL CARBON DIOXIDE 16.8 MMOL/L (24-32); eCRCL 17 ML/MIN; eGFR 14 ML/MIN
[2025-06-05 10:21] LABS: PHOSPHORUS 8.1 MG/DL (2.3-4.5)
[2025-06-05 11:17] LABS: ANTINUCLEAR ANTIBODIES Positive (Negative); ANTISTREPTOLYSIN O AB 56.8 IU/mL (0.0-200.0); COMPLEMENT C3, SERUM <4 mg/dL (82-167); COMPLEMENT C4, SERUM <2 mg/dL (12-38)
[2025-06-05] MEDS: diazepam inj 5 MG/ML inj. IV ONE ×3 (15:00→15:33)
[2025-06-05] MEDS: LIDOcaine 1% (10mg/ml) 2ml vial SQ ONE (15:01)
--- NOTE | 2025-06-05 15:54 | PROGRESS NOTE- Residence ---
Progress Note - Resident Providers to CC Resident Creating Document: KRISTY ALEJANDRE RES ~ Antibiotic Timeout Antibiotic Ordered?: Yes Subjective Patient seen and examined at the bedside, agitated tachypneic and tachycardic not answering questions correctly and reported I am not feeling good Objective Vital Signs Date Time Temp Pulse Resp B/P (MAP) Pulse Ox O2 Delivery O2 Flow Rate FiO2 06/05/25 14:52 36 06/05/25 12:30 113 94/61 (72) 95 Room Air 06/05/25 10:58 0.0 06/05/25 10:52 21 06/05/25 06:00 96.5 Result Diagram: 06/04/25 0833 06/05/25 0930 General: Awake and mildly confused, moderate acute distress. HEENT: Conjunctiva pale, Sclera icteric, subconjuctiva hemorrhage Mucus Membranes dry. Very poor dental/oral hygiene, lots of dental cavities Neck: Supple without masses and tenderness. Resp: Coarse breath sounds bilaterally, no rales Heart: Regular Rate and rhythm, normal S1 and S2 Abdomen: Mildly distended, mild tenderness on palpitation Extremities: Lower extremity called in touch and pale/icteric Skin: Icteric skin, no any Osler nodes, multiple petechia on the chest Nails: Can not evaluated for splinter hemorrhage due to very dry and coarse Neurological: Speech is clear, alert, and oriented to person, no gross neurological deficits Coagulation Studies Laboratory Tests Test 06/02/25 11:03 06/03/25 08:08 Fibrinogen 116 MG/DL (177-424) L D-Dimer 10.44 MG/L FEU (0-0.50) H DIC Profile Interpretation See dic report Prothrombin Time 17.2 SECONDS (9.0-12.0) H INR International Normalized Ratio 1.8 INR Activated Partial Thromboplast Time 33 SECONDS (22-32) H Coagulation Comments Assessment Assessment 39-year-old woman with IV drug abuse and prior infective endocarditis, now with definitive right-sided infective endocarditis ( tricuspid vegetation, severe tricuspid regurgitation ) due to methicillin sensitive Staphylococcus aureus complicated by sepsis with septic pulmonary emboli and respiratory distress, SHWETHA, decompensated cirrhosis, possible acute cholecystitis or cholangitis, severe thrombocytopenia and coagulopathy and malnutrition. Plan Plan Severe sepsis Definitive infective endocarditis ( Typical pathogen in IE from 2 separate blood culture set + fever+ hx of IE/ IV drug abuse + septic emboli) tricuspid valve endocarditis, hx of IV drug abuse Multifocal cavitary pneumonia due to septic emboli, possible ARDS Multiorgan dysfunction Hepatitis-C, cirrhosis ECHO: No vegetation reported Blood cultures with MSSA Currently on treatment with nafcillin 2 g every 4 hours 06/05/2025: ARDS, possibly patient need intubation Patient is tachypneic and tachycardic, sounds volume overloaded, Chest x-ray showed worsening infiltration and possible ARDS HIV negative, HBS antigen negative, low complement C3 and C4 and positive PATRICIA Blood culture repeat today, continue nafcillin 2 g q.4 hour day two Possible DIC, hepatitis-C and cirrhosis Severe thrombocytopenia which could be due to sepsis/DIC Elevated PT PTT and low fibrinogen however patient also had history of cirrhosis and hepatitis-C which could be contributed to low fibrinogen Acute on chronic kidney failure Despite excessive fluid resuscitation, kidney function not improving Low C3-C4, and a positive PATRICIA Possible infection related glomerulonephritis Nephrology team is following and plan to start CVVH today Kristy Alejandre MD Infectious diseases progress note Agree with above note. Patient seen and examined. Discussed with Dr. Alejandre. [place] is poor with deteriorating renal and hepatic function. She has been moved to the ICU and she is now intubated. Discussed with Dr. Jones. Date of Service: Jun 05, 2025 Billing Provider: OMEGA STEVE MD, ELAHE, RES Jun 05, 2025 15:54 OMEGA STEVE MD Jun 05, 2025 18:36
--- NOTE | 2025-06-05 16:24 | RADIOLOGY REPORT ---
EXAM: DI CHEST,SINGLE VIEW HISTORY: Advid Catheter Placement Confirmation COMPARISON: CT CT CHEST on DOS: 06/01/25, DI CHEST,SINGLE VIEW on DOS: 06/01/25, CT CT CHEST on DOS: , DI CHEST,SINGLE VIEW on DOS: 05/03/25 TECHNIQUE: Portable AP view of the chest was performed. FINDINGS: There is a new right IJ central line with its tip in the lower SVC. There are increased diffuse bila teral pulmonary infiltrates. No pneumothorax. The heart is nonenlarged. IMPRESSION: 1. New right IJ central line in good position without pneumothorax. 2. Diffusely increased bilateral pulmonary infiltrates may be due to bilateral pneumonia and/or CHF.
[2025-06-05] MEDS ORDERED: sodium phosphate inj. 30 MMOL in dextrose 5%-water 250 ML IV PRN (16:35)
[2025-06-05] MEDS ORDERED: magnesium sulf-water 4G/100mL 100 ML IV PRN (16:35)
[2025-06-05] MEDS ORDERED: Duosol 4K/3 Ca (w/calcium) 5,000 ML HE SCH (16:35)
[2025-06-05] MEDS ORDERED: potassium Cl 40MEQ/270ML bag 270 ML IV PRN (16:35)
--- NOTE | 2025-06-05 16:37 | PROGRESS NOTE ---
Progress Note Dictate Providers to CC ~ Central Line/PICC still needed: Yes Central Line/PICC Necessity: Req HD/Plasmapheresis Lynch Indications Met/Not Met: F/C Indications Met Antibiotic Ordered?: Yes Subjective Subjective The patietn is tachypneic, septic, hypotensive, CXR shows bilateral infiltrates suggestive of fluid overload pulmonary edema pattern vs ARDS. She has received quite a bit of fluids and is positive, with poor urine output from the ATN. She needs CVVH started in icu. I have spoken to . She is critically ill. It took about 35 minutes to coordinate the care. She agrees to go on dialysis. has placed right IJ sanjeev cath and I don't see pneumo thorax in the latest CXR. She will be moved to icu and CVVH orders have been placed. She is critically ill. high likelihood of endocarditis. She is a high risk to this admission. Objective Vitals Vital Signs Date Time Temp Pulse Resp B/P (MAP) Pulse Ox O2 Delivery O2 Flow Rate FiO2 06/05/25 14:52 36 06/05/25 12:30 113 94/61 (72) 95 Room Air 06/05/25 10:58 0.0 06/05/25 10:52 21 06/05/25 06:00 96.5 Lab Results: 06/04/25 0833 06/05/25 0930 Objective Vital Signs: As above General: petite body habitus, sitting up, moaning. Skin: No rashes, lumps, ulcers, blisters, purpura or petechiae HEENT: Anicteric sclera, Neck: Supple and nontender without enlargement of the thyroid, or lymphadenopathy. Chest: Normal size and shape, no tenderness, CTA bilaterally Heart: Regular. No jugular venous distention, S1 and S2 heard , no gallop Abdomen: Soft and non tender no organomegaly,BS+ Extremities: No pedal edema Neuro: Nonfocal. Coagulation Studies Laboratory Tests Test 06/02/25 11:03 06/03/25 08:08 Fibrinogen 116 MG/DL (177-424) L D-Dimer 10.44 MG/L FEU (0-0.50) H DIC Profile Interpretation See dic report Prothrombin Time 17.2 SECONDS (9.0-12.0) H INR International Normalized Ratio 1.8 INR Activated Partial Thromboplast Time 33 SECONDS (22-32) H Coagulation Comments Advance Care Planning Advanced Care plannin - 30 Minutes Problem\Assessment\Plan Problems/Diagnosis: (1) SHWETHA (acute kidney injury) Assessment & Plan: Echocardiogram shows suspected TV vegetation with wide open TR. She is hypotensive. She is in ATN from sepsis. - possible IRGN. - will most likely need to be intubated later today in icu. - worsening clinical scenariio and needs CVVH. Unstable to do regular HD. =- she is in acute resp distress from the fluid overload. (2) Thrombocytopenia Assessment & Plan: ? related to sepsis vs liver cirrhosis. if she is to get cholecystostomy tube, she needs platelet transfusion. (3) Acute exacerbation of chronic low back pain Assessment & Plan: on pain meds. see discussion above. (4) Homeless Assessment & Plan: PARK INTERPRETIVE RANGER consult. (5) Sepsis Assessment & Plan: being covered with antibiotics. avoid vanco/zosyn combo please. reviewed the results of echocardiogram. AYO TSANG MD Jun 05, 2025 16:37
[2025-06-05 17:06] LABS: MEAN PLATELET VOLUME 11.5 FL (7.4-10.4); RED CELL DISTRIBUTION WIDTH 16.0 % (11.5-14.5)
[2025-06-05] MEDS: albumin (human) 25% 100 ML IV solution IV ONE ×3 (17:07→22:07)
[2025-06-05] MEDS: albumin (human) 25% 100ml IV 100 ML IV ONE (17:07)
[2025-06-05] MEDS: Duosol 4K/3 Ca (w/calcium) 5,000 ML HE SCH (17:23)
[2025-06-05] MEDS ORDERED: fentaNYL/PF 50MCG/1 ML 2ML syringe IV PRN (17:30)
[2025-06-05] MEDS: propofol 1000mg/100ml bottle 100 ML IV SCH (17:47)
[2025-06-05] MEDS: FENTANYL-0.9 % NACL/PF 100 ML IV SCH (17:47)
[2025-06-05] MEDS: propofol 1000mg/100ml bottle 100 ML IV ONE (17:47)
--- NOTE | 2025-06-05 17:48 | PROGRESS NOTE- Residence ---
Progress Note - Resident Providers to CC Resident Creating Document: TISH LEMON RES ~ Antibiotic Timeout Antibiotic Ordered?: Yes Subjective Patient seen and examined at bedside. She continues to refuse blood draws and medications. Her creatinine is trending up. She had the paracentesis done with minimal output. Talked to Dr. Garcia target worker and she will need temporary dialysis catheter, going to get her 1st round of CVVH today. Objective Vital Signs Date Time Temp Pulse Resp B/P (MAP) Pulse Ox O2 Delivery O2 Flow Rate FiO2 06/05/25 16:36 108 30 Nasal Cannula 6.0 06/05/25 16:27 89 44 06/05/25 12:30 94/61 (72) 06/05/25 06:00 96.5 Result Diagram: 06/04/25 0833 06/05/25 0930 General: Jaundiced appearance, Thin ill-appearing female in mild acute distress. Awake Alert and oriented x 4. HEENT: Flushed face and neck, Conjunctival icterus noted, excoriations noted on upper and lower lips. Neck: No masses Resp: Shallow and rapid breathing. Coarse breath sounds bilaterally. Cardiovascular: Regular rate and rhythm, S1-S2 heard. Holo Systolic murmur in the left lower sternal border. Abdomen: Slightly distended and appears tender to palpation throughout, guarding present, no rigidity, bowel sounds present. Neuro: No gross sensory or motor abnormalities noted Extremities: No cyanosis,clubbing or edema. Skin: Juandiced/icteric appearance. Multiple small spider angiomas noted along with needle track moraes related to IV drug abuse. Coagulation Studies Laboratory Tests Test 06/02/25 11:03 06/03/25 08:08 Fibrinogen 116 MG/DL (177-424) L D-Dimer 10.44 MG/L FEU (0-0.50) H DIC Profile Interpretation See dic report Prothrombin Time 17.2 SECONDS (9.0-12.0) H INR International Normalized Ratio 1.8 INR Activated Partial Thromboplast Time 33 SECONDS (22-32) H Coagulation Comments Assessment Assessment 39-year-old female with history of polysubstance abuse, liver cirrhosis, infective endocarditis and osteomyelitis admitted for altered level of consciousness, sepsis and metabolic encephalopathy. Plan Plan Severe sepsis, secondary to infective endocarditis POA Definitive Right sided infective endocarditis, severe tricuspid regurgitation Multifocal cavitary pneumonia due to septic emboli Multiorgan dysfunction Metabolic encephalopathy due to sepsis and possible underlying hepatic encephalopathy - resolved Respiratory alkalosis and metabolic acidosis Blood cultures from 06/01/2025 positive for gram-positive cocci in clusters. Repeat Blood cultures from 06/02/2025 are positive for Gram-positive cocci in clusters MSSA. CT chest Abdomen: multiple cavitary nodules of the lung bases with ground-glass opacity of the lung bases and linear atelectasis. cholelithiasis and moderate volume ascites. mild hepatosplenomegaly. Continuing supportive care with oxygen supplementation, IV fluids for hydration and maintenance. Evaluated by pharmacist intern Dr. Jones on 06/03 in view of significant respiratory distress with the tachypnea and respiratory rate going as high as 40-45. Dr. Jones recommended medical management in the PCU for now, will reconsult if conditin detoriates Continue IV methylprednisolone 60 mg b.i.d. Continue DuoNeb nebulizations, albuterol as needed. Initially treated with IV vancomycin, IV cefepime and IV metronidazole. Started IV Nafcillin 2g per ID recommendations [facility] (Dr. Dumont) consulted, appreciate recs 06/05/2025 Refusing lab draws Continue IV nafcillin and follow up repeat blood cultures Decompensated liver cirrhosis Ascites, Ultrasound abdomen 06/03/2025 - Hepatic cirrhosis, Moderate ascites, Cholelithiasis and thickened edematous appearance of the gallbladder wall. CT scan of the abdomen 06/02/2025- Significant for cholelithiasis, moderate volume ascites and limited evaluation of the pancreas and appendix. There was wall thickening of the small bowel loops possibly secondary to the surrounding ascites versus colitis/enteritis. Paracentesis to rule out spontaneous bacterial peritonitis. The AST, ALT improving. Bilirubin is trending up, total bilirubin 10.5. HIDA Scan - inconclusive, patient unable to tolerate the exam Continue lactulose. Monitor LFTs, INR, ammonia. 06/05/2025 She is refusing oral lactulose, Paracentesis was done today with minimal output Severe thrombocytopenia (28,000) with consumptive coagulopathy, DIC S/p 2 units PRBC and platelet transfusions Hemoglobin is 10.4, platelets 28. Stool occult blood negative. No active bleeding noted. PT and APTT 17.2 and 1.8 respectively and fibrinogen level 116, D-dimer 10.4 confirming DIC. Bilateral foot pallor with intact pulses probably due to microvascular ischemia secondary to sepsis induced DIC. Transfuse platelets if less than [address] or if bleeding. Acute kidney injury secondary to ATN 1st episode of dialysis CVVH on 06/05/2025 Nephrology consult for dialysis evaluation in view of rising BUN and creatinine and oliguria. Respiratory alkalosis with possible underlying mixed anion gap metabolic acidosis. Avoid nephrotoxic drugs. Possible infective endocarditis related glomerulonephritis. Continue aggressive fluid resuscitation. Might be heading towards dialysis. We will follow up accordingly as per the Nephrology recommendations. 06/05/2025 Barely producing any urine, talked to Dr. Garcia this morning, recommended that the patient will need temporary dialysis Temporary dialysis catheter placed, patient currently being transferred to the ICU for CVVH Acute hypoxemic respiratory failure likely due to septic pulmonary emboli, mild pulmonary hypertension, volume overload from SHWETHA. SpO2 92-94 percent on 2 L nasal cannula and respiratory rate of 40-44. Substance abuse: meth and fentanyl Patient was history of IV drug use Social service and substance abuse navigator consulted Diffuse myalgias and arthralgias Creatinine kinase is normal. Severe protein calorie malnutrition BMI 18.3 Nutrition consulted Code Status: Full code DVT prophylaxis: None in view of DIC and thrombocytopenia Analgesia/sedation: None Line/tube: PIV, Lynch's GI prophylaxis: Protonix Nutrition: Regular diet Prognosis: Critical, she is very sick with multiorgan failure and high risk of detoriating. Being transferred to the ICU for CVVH. Critical care time 35 minutes. Tish Lemon MD IM Resident PGY 3 Date of Service: Jun 05, 2025 Billing Provider: ANDREY JOY MD, ELIZABETH, RES Jun 05, 2025 17:48
--- NOTE | 2025-06-05 17:59 | CONSULTATION REPORT - RESIDENT ---
Consult Providers to CC Resident Creating Document: TISH LEMON RES History of Present Illness Reason for Admit\Complaint: Sepsis History of Present Illness 39-year-old female with history of polysubstance abuse, liver cirrhosis, infective endocarditis and osteomyelitis admitted for altered level consciousness metabolic encephalopathy and sepsis secondary to infective endocarditis present on admission. Multifocal cavitary pneumonia due to septic emboli and respiratory alkalosis with metabolic acidosis. She is also in decompensated liver failure with ascites and DIC severe thrombocytopenia status post 2 units of PRBCs and platelets. She has severe acute kidney injury secondary to ATN requiring dialysis. ICU has been consulted for temporary dialysis catheter placement and CVVH. Allergies: Coded Allergies: tramadol (Verified Allergy, Unknown, TINGLING, 06/01/25) Home Medications Home Medications Active Reported No Home Medications (Home Med List) Each Dilaudid 1 mg/ml Syringe (Hydromorphone HCl/Pf) 1 Mg/1 Ml Syringe 1 Mg IV Ativan (Lorazepam) 2 Mg/1 Ml Vial 0.5 Mg IJ Zofran (Ondansetron Hcl) 4 Mg Tablet 1 Tab PO Q6H Zosyn 3.375 Gm Pre Mix-Bag (Piperacillin/Tazobactam/Dex-Is) 3.375 Gm/50 Ml Froz.piggy 3.375 Gm IV Q6H Zyvox Iv (Linezolid/Dextrose) 600 Mg/300 Ml Iv.soln 600 Mg IV Q12H Oxycontin (Oxycodone HCl) 10 Mg Tab.er.12h 1 Tab PO Q12H Metoprolol Tartrate* (Metoprolol Tartrate) 50 Mg Tablet 1 Tab PO Q12H Magnesium (Magnesium Oxide) 400 Mg Capsule 1 Cap PO TID Lasix (Furosemide) 40 Mg Tablet 1 Tab PO DAILY Colace (Docusate Sodium) 100 Mg Capsule 1 Cap PO Q12H Pepcid (Famotidine) 20 Mg Tablet 1 Tab PO Q12H No Home Medications (Home Med List) Each Past Medical History Past Medical History Infective endocarditis Osteomyelitis Substance abuse Past Surgical History Surgical History Comment Cataract surgery ROS ROS Reviewed in full. All negative except for pertinent positive HPI. Exam Vitals: Vital Signs Date Time Temp Pulse Resp B/P (MAP) Pulse Ox O2 Delivery O2 Flow Rate FiO2 06/05/25 16:36 108 30 Nasal Cannula 6.0 06/05/25 16:27 89 44 06/05/25 12:30 94/61 (72) 06/05/25 06:00 96.5 General: General: Jaundiced appearance, Thin ill-appearing female in mild acute distress. Awake Alert and oriented x 4. HEENT: Flushed face and neck, Conjunctival icterus noted, excoriations noted on upper and lower lips. Neck: No masses Resp: Shallow and rapid breathing. Coarse breath sounds bilaterally. Cardiovascular: Regular rate and rhythm, S1-S2 heard. Holo Systolic murmur in the left lower sternal border. Abdomen: Slightly distended and appears tender to palpation throughout, guarding present, no rigidity, bowel sounds present. Neuro: No gross sensory or motor abnormalities noted Extremities: No cyanosis,clubbing or edema. Skin: Juandiced/icteric appearance. Multiple small spider angiomas noted along with needle track moraes related to IV drug abuse. Diagnostic Data Last Recorded Lab Results: 06/04/25 0833 06/05/25 0930 Diagnostic Data: Laboratory Tests Test 06/02/25 11:03 06/03/25 08:08 Fibrinogen 116 MG/DL (177-424) L D-Dimer 10.44 MG/L FEU (0-0.50) H DIC Profile Interpretation See dic report Prothrombin Time 17.2 SECONDS (9.0-12.0) H INR International Normalized Ratio 1.8 INR Activated Partial Thromboplast Time 33 SECONDS (22-32) H Coagulation Comments Additional Plan 39-year-old female with history of polysubstance abuse, liver cirrhosis, infective endocarditis and osteomyelitis admitted for altered level of consciousness, sepsis and metabolic encephalopathy. Severe sepsis, secondary to infective endocarditis POA Definitive Right sided infective endocarditis, severe tricuspid regurgitation Multifocal cavitary pneumonia due to septic emboli Multiorgan dysfunction Metabolic encephalopathy due to sepsis and possible underlying hepatic encephalopathy - resolved Respiratory alkalosis and metabolic acidosis Decompensated liver cirrhosis Ascites, Severe thrombocytopenia (28,000) with consumptive coagulopathy, DIC Acute kidney injury secondary to ATN 1st episode of dialysis CVVH on 06/05/2025 Substance abuse: meth and fentanyl Patient was history of IV drug use Social service and substance abuse navigator consulted Diffuse myalgias and arthralgias Creatinine kinase normal. Severe protein calorie malnutrition BMI 18.3 Nutrition consulted Code Status: Full code DVT prophylaxis: None in view of DIC and thrombocytopenia Analgesia/sedation: None Line/tube: PIV, Lynch's GI prophylaxis: Protonix Nutrition: Regular diet Prognosis: Critical, she is very sick with multiorgan failure and high risk of detoriating. Being transferred to the ICU for CVVH. Critical care time 35 minutes. Tish Lemon MD IM Resident PGY 3 Date of Service: Jun 05, 2025 Billing Provider: ANNIE GONZALEZ MD, ELIZABETH, RES Jun 05, 2025 17:59
--- NOTE | 2025-06-05 18:05 | PROCEDURE NOTE- Residance ---
Procedure Note Providers to CC CC: TISH LEMON RES ~ Planned Procedure Dialysis catheter placement in the right IJ Indications Acute kidney failure secondary to ATN requiring dialysis Neurophysiology Tech Tish Lemon resident Type of Anesthesia Local anesthesia Informed Consent Obtained Description Patient is placed in supine position with the head held slightly down in Trendelenburg position. Right neck and upper chest were prepped and draped in a sterile fashion. Using ultrasound guidance the right internal jugular vein was identified and found to be patent. Under direct ultrasound visualization the vein was cannulated with an introducer needle. Dark nonpulsatile venous blood was aspirated. Guidewire was advanced through the needle into the vein and correct placement was confirmed under ultrasound. Needle was removed. Small skin incision was made at the insertion site and the tract was dilated sequentially. A tunneled dialysis catheter was advanced over the guidewire into the superior vena cava. With the guidewire and dilator were removed and blood was aspirated easily from both lumens followed by flushing with a sterile syringe. Catheter was secured to the skin with sutures and sterile dressing was applied. Estimated blood loss less than 10 mL. Complications none. Patient tolerated the procedure well catheter and is ready for use. Postprocedure chest x-ray ordered and confirmed position and ruled out pneumothorax. Estimated Blood Loss Less than 10 mL Complication None X-Ray Findings Dialysis catheter noted in the right IJ. Date of Service: Jun 05, 2025 Billing Provider: ANNIE GONZALEZ MD, ELIZABETH, RES Jun 05, 2025 18:05
[2025-06-05 18:31] LABS: BANDS% (MANUAL) 2.0 % (0-10); LARGE PLATELETS FEW; LYMPHOCYTES % (MANUAL) 5.0 % (21-51); METAMYLEOCYTES% (MANUAL) 1.0 % (0-0); MONOCYTES % (MANUAL) 2.0 % (2-12); NEUTROPHILS % (MANUAL) 90.0 % (42-75); PLATELET ESTIMATE DECREASED
--- NOTE | 2025-06-05 18:38 | PROGRESS NOTE- Residence ---
Progress Note - Resident Providers to CC Resident Creating Document: KOREY PRECIADO, RES ~ Antibiotic Timeout Antibiotic Ordered?: Yes Subjective The patient has been evaluated at the bedside. Patient is anxious, states that she is feeling pain but not able to localize it. Objective Vital Signs Date Time Temp Pulse Resp B/P (MAP) Pulse Ox O2 Delivery O2 Flow Rate FiO2 06/05/25 17:49 109 16 98 06/05/25 17:47 104/73 06/05/25 17:33 Non-Rebreather 15.0 06/05/25 16:27 44 06/05/25 15:00 98.3 Physical exam: General: Awake, oriented, cachectic, moderately agitated. HEENT: Conjunctive are pink, sclerae clear, icterus present. Neck: Supple, no JVD, no lymphadenopathy and thyromegaly. Chest: Presence of coarse sounds bilaterally. Cardiovascular: S1-S2 regular sinus rhythm and, regular rate, Abdomen: Distended, mild tenderness to palpation, no guarding or rigidity, presence of bowel sounds with auscultation. Extremities: No obvious deformities, no pitting edema bilaterally, capillary refill intact, peripheral pulsations are intact on both sides Central Nervous System: No focal neurological deficits, no motor or sensory weakness in all 4 extremities, could move all 4 extremities, 2+ deep tendon reflexes, negative Babinski. Musculoskeletal: No joint swelling, deformities, inflammations, and no scoliosis and back tenderness Skin: Presence of needle track moraes related to IV drug, presence of spider angioma, presence of bruises at the level of the chest. Result Diagram: 06/05/25 1646 06/05/25 0930 Coagulation Studies Laboratory Tests Test 06/02/25 11:03 06/03/25 08:08 Fibrinogen 116 MG/DL (177-424) L D-Dimer 10.44 MG/L FEU (0-0.50) H DIC Profile Interpretation See dic report Prothrombin Time 17.2 SECONDS (9.0-12.0) H INR International Normalized Ratio 1.8 INR Activated Partial Thromboplast Time 33 SECONDS (22-32) H Coagulation Comments Assessment Assessment 39-year-old female patient came to the hospital with chief complaint of altered level of consciousness. Plan Plan Sepsis Definite Infective endocarditis Tricuspid valve endocarditis Multiorgan dysfunction syndrome Acute metabolic encephalopathy Gaitan criteria: Blood cultures positive for Staphylococcus aureus, evidence of endocardial involvement in echocardiogram, predisposing injection drug use, fever: Echocardiogram: Overall LVEF appears to be 70-75%. The LV is reduced in size with normal wall thickness. Overall systolic function appears to be hyperdynamic. Right ventricle is moderately dilated with reduced function. Estimated PA systolic pressure is 44 mmHg. Trileaflet AV appears thickened without gross stenosis or insufficiency. Mild MV annular and leaflet thickening without gross stenosis. Trace to mild regurgitation. Overall LVEF appears to be 70-75%. The LV is reduced in size with normal wall thickness. Overall systolic function appears to be hyperdynamic. Right ventricle is moderately dilated with reduced function. Estimated PA systolic pressure is 44 mmHg. Mild MV annular and leaflet thickening without gross stenosis. mild regurgitation. TV appears thickened with thickened leaflets. Mobile echogenic structure appears to be attached to the Septal Tricuspid Valve leaflet (Image [id number]). Cannot rule out possible Endocarditis Vegetation. Recommend clinical correlation if indicated. Severe tricuspid regurgitation. No pericardial effusion seen. Plan: Infectious Disease, Dr. Escobedo contacted, high suspicion of infective endocarditis, echocardiogram showing presence of vegetation in the level of tricuspid valve which is common in patients with history of injected substance use disorder. By ID recommendation nafcillin IV q.4h day 2.. Decompensated liver cirrhosis Ascites: S/p paracentesis on 07/06/2025, small amount of fluid evidenced not enough for drainage. Metabolic encephalopathy secondary to sepsis and underlying hepatic encephalopathy-resolved Pancytopenia Severe thrombocytopenia with consumptive coagulopathy, DIC Severe normocytic anemia Continue management as per hospitalist team. SHWETHA secondary to acute tubular necrosis High anion gap metabolic acidosis Hypokalemia Hyponatremia Nephrology, Dr. Garcia following. Plan for CVVH by Dr. Garcia. Substance use disorder Severe protein malnutrition Failure to thrive Disposition: The patient was transferred to ICU. Korey Escalona Internal Medicine Resident [facility] Patient seen and examined by Dr. Alex TRONCOSO. Patient has multiple comorbidities and doing poorly. Date of Service: Jun 05, 2025 Billing Provider: SUSY OLSON MD, FRANCO LUIS, RES Jun 05, 2025 18:38 SUSY OLSON MD Jun 06, 2025 19:29
--- NOTE | 2025-06-05 18:53 | RADIOLOGY REPORT ---
EXAM: DI CHEST,SINGLE VIEW HISTORY: ET Tube PLacement, LINE PLACEMENT TECHNIQUE: 1 view of the chest COMPARISON: DI CHEST,SINGLE VIEW on DOS: 06/05/25 FINDINGS/IMPRESSION: LUNGS: Diffuse distribution of coalescent opacification most likely compatible with a acute respirato ry distress syndrome versus coalescent opacities in correlate with clinical exam. MEDIASTINUM: Unremarkable BONES: No acute osseous abnormality OTHER: Status post intubation and left internal jugular central venous catheter. Unchanged right int ernal jugular central venous catheter. Endotracheal tube proximally 1.8 cm above the carla.
[2025-06-05] MEDS: NORepinephrine 8mg/ 250ml NS 250 ML IV ONE (18:56)
[2025-06-05] MEDS: mannitol 12.5gm/50mL VIAL IV ONE (19:26)
[2025-06-05] MEDS: EPOETIN ALFA-EPBX 20,000 UNIT/ML 1 ML MDV IV ONE (19:27)
[2025-06-05] MEDS: NORepinephrine 8mg/ 250ml NS 250 ML IV SCH (19:28)
[2025-06-05 19:40] LABS: ABG BASE EXCESS -12.6 mmol/L (-2.0-3.0); ABG HCO3 18.2 mmol/L (21.0-28.0); ABG OXYGEN SATURATION 96.8 % (94.0-98.0); ABG PCO2 (T) 60.5 mmHg (32.0-45.0); ABG PH (T) 7.079 (7.350-7.450); ABG PO2 (T) 118.5 mmHg (83.0-108.0); FCOHb 2.2 % (0.5-1.5); FHHb 3.1 % (0.0-5.0); FIO2 80.0 mmHg/%; FMetHb 0.2 % (0.0-1.5); FO2Hb 94.5 % (94.0-98.0); MODE CMV PRVC IT.95; PATIENT TEMPERATURE 34.4; PEEP 5 cm H2O; RESPIRATORY RATE 16 b/min; TIDAL VOLUME 300 mL; TOTAL HEMOGLOBIN 11.3 G/dl (12.0-16.0)
[2025-06-05 19:45] LABS: MEAN PLATELET VOLUME 10.9 FL (7.4-10.4); RED CELL DISTRIBUTION WIDTH 16.6 % (11.5-14.5)
[2025-06-05 20:05] LABS: CALCIUM CVVH 6.4 MG/DL (8.5-10.1); TOTAL CARBON DIOXIDE 21.2 MMOL/L (24-32)
[2025-06-05 20:12] LABS: CREATININE 3.61 MG/DL (0.40-0.90); PHOSPHORUS 9.3 MG/DL (2.3-4.5); eGFR 14 ML/MIN
[2025-06-05] MEDS: albumin (human) 25% 100 ML IV solution IV STA (20:25)
[2025-06-05] MEDS: VASOPRESSIN 20 UNITS/NS 100mL 100 ML IV SCH (20:25)
[2025-06-05] MEDS: ringers solution, lacted 1,000 ML IV ONE (20:26)
[2025-06-05 21:29] LABS: ABG BASE EXCESS -8.6 mmol/L (-2.0-3.0); ABG HCO3 17.9 mmol/L (21.0-28.0); ABG OXYGEN SATURATION 96.3 % (94.0-98.0); ABG PCO2 (T) 35.4 mmHg (32.0-45.0); ABG PH (T) 7.304 (7.350-7.450); ABG PO2 (T) 87.0 mmHg (83.0-108.0); FCOHb 1.9 % (0.5-1.5); FHHb 3.6 % (0.0-5.0); FIO2 70.0 mmHg/%; FMetHb 0.0 % (0.0-1.5); FO2Hb 94.5 % (94.0-98.0); MODE CMV PRVC IT .95; PATIENT TEMPERATURE 33.5; PEEP 5 cm H2O; RESPIRATORY RATE 24 b/min; TIDAL VOLUME 400 mL; TOTAL HEMOGLOBIN 9.4 G/dl (12.0-16.0)
[2025-06-05] MEDS: calcium chloride inj. 1,000 MG in normal saline 100ml IV soln 100 ML IV PRN (21:37)
[2025-06-05] MEDS: COMMUNICATION ORDER 1 EA MISC MC ONE (21:37)
[2025-06-05 21:38] LABS: RED CELL DISTRIBUTION WIDTH 16.5 % (11.5-14.5)
[2025-06-05 21:40] LABS: MEAN PLATELET VOLUME 9.9 FL (7.4-10.4)
--- NOTE | 2025-06-05 21:58 | HISTORY AND PHYSICAL ---
History & Physical - Short Providers to CC sepsis, fever ~ History of Present Illness Chief Complain & History sepsis, fever Allergies: Coded Allergies: tramadol (Verified Allergy, Unknown, TINGLING, 06/01/25) Home Medications Home Medications Active Reported No Home Medications (Home Med List) Each Dilaudid 1 mg/ml Syringe (Hydromorphone HCl/Pf) 1 Mg/1 Ml Syringe 1 Mg IV Ativan (Lorazepam) 2 Mg/1 Ml Vial 0.5 Mg IJ Zofran (Ondansetron Hcl) 4 Mg Tablet 1 Tab PO Q6H Zosyn 3.375 Gm Pre Mix-Bag (Piperacillin/Tazobactam/Dex-Is) 3.375 Gm/50 Ml Froz.piggy 3.375 Gm IV Q6H Zyvox Iv (Linezolid/Dextrose) 600 Mg/300 Ml Iv.soln 600 Mg IV Q12H Oxycontin (Oxycodone HCl) 10 Mg Tab.er.12h 1 Tab PO Q12H Metoprolol Tartrate* (Metoprolol Tartrate) 50 Mg Tablet 1 Tab PO Q12H Magnesium (Magnesium Oxide) 400 Mg Capsule 1 Cap PO TID Lasix (Furosemide) 40 Mg Tablet 1 Tab PO DAILY Colace (Docusate Sodium) 100 Mg Capsule 1 Cap PO Q12H Pepcid (Famotidine) 20 Mg Tablet 1 Tab PO Q12H No Home Medications (Home Med List) Each Exam Last recorded Lab results: 06/05/25192906/05/251929 Vitals: Vital Signs Date Time Temp Pulse Resp B/P (MAP) Pulse Ox O2 Delivery O2 Flow Rate FiO2 06/05/25 20:00 93.2 122 24 78/42 (54) 98 Mechanical Ventilator 70 06/05/25 17:33 15.0 Diagnostic Data Diagnostic Data: Laboratory Tests Test 06/02/25 11:03 06/03/25 08:08 Fibrinogen 116 MG/DL (177-424) L D-Dimer 10.44 MG/L FEU (0-0.50) H DIC Profile Interpretation See dic report Prothrombin Time 17.2 SECONDS (9.0-12.0) H INR International Normalized Ratio 1.8 INR Activated Partial Thromboplast Time 33 SECONDS (22-32) H Coagulation Comments Counseling Services Smoking & Tobacco Cessation: N/A Advance Care Planning Advanced Care planning: N/A Problem\Assessment\Plan Problems: (1) SHWETHA (acute kidney injury) (2) Thrombocytopenia (3) Acute exacerbation of chronic low back pain Status: Acute (4) Homeless Status: Acute (5) Sepsis Status: Acute Additional Plan Sepsis Definite Infective endocarditis Tricuspid valve endocarditis Multiorgan dysfunction syndrome Acute metabolic encephalopathy Gaitan criteria: Blood cultures positive for Staphylococcus aureus, evidence of endocardial involvement in echocardiogram, predisposing injection drug use, fever: Infectious Disease on board, high suspicion of infective endocarditis, echocardiogram showing presence of vegetation in the level of tricuspid valve which is common in patients with history of injected substance use disorder. On nafcillin IV q.4h day 2.. Decompensated liver cirrhosis Ascites: S/p paracentesis on 07/06/2025, small amount of fluid evidenced not enough for drainage. Metabolic encephalopathy secondary to sepsis and underlying hepatic encephalopathy-resolved Pancytopenia Severe thrombocytopenia with consumptive coagulopathy, DIC Severe normocytic anemia SHWETHA secondary to acute tubular necrosis High anion gap metabolic acidosis Hypokalemia Hyponatremia Nephrology, Jose following. Tolerating CVVHD, no UOP Pressors to keep MAP > 65 ABG pending Substance use disorder Severe protein malnutrition Failure to thrive Patient seen and assessed using HIPAA compliant audio visual aid Critical care 60 mins time Mariah Rowe MD Sepsis Screening Skin Color: Normal MARIAH ROWE MD Jun 05, 2025 21:58
[2025-06-05 22:13] LABS: MEAN PLATELET VOLUME 9.8 FL (7.4-10.4); RED CELL DISTRIBUTION WIDTH 16.1 % (11.5-14.5)
[2025-06-05 22:23] LABS: CALCIUM CVVH 6.8 MG/DL (8.5-10.1); CREATININE 3.36 MG/DL (0.40-0.90); TOTAL CARBON DIOXIDE 18.7 MMOL/L (24-32); eGFR 15 ML/MIN
[2025-06-05 22:28] LABS: PHOSPHORUS 8.7 MG/DL (2.3-4.5)
--- NOTE | 2025-06-05 23:04 | PROCEDURE NOTE- Residance ---
Procedure Note Providers to CC ~ Date of Service: Jun 05, 2025 Billing Provider: ANNIE GONZALEZ MD, LEONARDO LUIS Jun 05, 2025 23:04
--- NOTE | 2025-06-05 23:04 | PROCEDURE NOTE- Residance ---
Procedure Note Providers to CC CC: ANNIE GONZALEZ MD ~ Planned Procedure Paracentesis Retail Receiving Clerk Dr Gonzalez / Dr Talley Description A time-out was performed. My hands were washed immediately prior to the procedure. I wore a surgical cap, mask with protective eyewear, sterile gown and sterile gloves throughout the procedure. The area was cleansed and draped in usual sterile fashion using chlorhexidine scrub. Anesthesia was achieved with 1% lidocaine. Ascitic fluid was identified with ultrasound. The left lower quadrant of the abdomen was prepped and draped in a sterile fashion using chlorhexidine scrub. 1% lidocaine was used to numb the skin, soft tissue and peritoneum. The paracentesis catheter was inserted and advanced with negative pressure until colby colored fluid was aspirated. The catheter was then connected to the vaccutainer and only 50 cc of additional ascitic fluid were drained. The catheter was removed and no leaking was noted. A bandaid was placed over the puncture wound. The patient tolerated the procedure well without any immediate complications. Estimated blood loss was minimal. Date of Service: Jun 05, 2025 Billing Provider: ANNIE GONZALEZ MDMALIA MONROY Jun 05, 2025 23:04
[2025-06-05 23:05] LABS: CALCIUM CVVH 8.0 MG/DL (8.5-10.1); CREATININE 3.29 MG/DL (0.40-0.90); PHOSPHORUS 8.4 MG/DL (2.3-4.5); TOTAL CARBON DIOXIDE 18.9 MMOL/L (24-32); eGFR 16 ML/MIN
[2025-06-05 23:17] LABS: MEAN PLATELET VOLUME 10.0 FL (7.4-10.4); RED CELL DISTRIBUTION WIDTH 16.3 % (11.5-14.5)
[2025-06-05 23:31] LABS: CALCIUM CVVH 7.5 MG/DL (8.5-10.1); TOTAL CARBON DIOXIDE 21.1 MMOL/L (24-32)
[2025-06-05 23:32] LABS: CREATININE 3.31 MG/DL (0.40-0.90); PHOSPHORUS 7.8 MG/DL (2.3-4.5); eGFR 16 ML/MIN
[2025-06-06] VITALS (54 sets, daily range): BP systolic 82–119; BP diastolic 47–64; PULSE 117–140; RESP 24–45; TEMP 97.3–97.6; O2SAT 90–98
[2025-06-06 02:49] LABS: MEAN PLATELET VOLUME 10.6 FL (7.4-10.4); RED CELL DISTRIBUTION WIDTH 16.1 % (11.5-14.5)
[2025-06-06 03:42] LABS: ABG BASE EXCESS -5.7 mmol/L (-2.0-3.0); ABG HCO3 18.8 mmol/L (21.0-28.0); ABG OXYGEN SATURATION 96.1 % (94.0-98.0); ABG PCO2 (T) 31.9 mmHg (32.0-45.0); ABG PH (T) 7.385 (7.350-7.450); ABG PO2 (T) 89.8 mmHg (83.0-108.0); FCOHb 2.3 % (0.5-1.5); FHHb 3.8 % (0.0-5.0); FIO2 65.0 mmHg/%; FMetHb 0.3 % (0.0-1.5); FO2Hb 93.6 % (94.0-98.0); MODE CMV PRVC IT.95; PATIENT TEMPERATURE 36.3; PEEP 5 cm H2O; RESPIRATORY RATE 24 b/min; TIDAL VOLUME 400 mL; TOTAL HEMOGLOBIN 8.3 G/dl (12.0-16.0)
[2025-06-06 04:02] LABS: CALCIUM CVVH 7.2 MG/DL (8.5-10.1); TOTAL CARBON DIOXIDE 20.1 MMOL/L (24-32)
[2025-06-06 05:28] LABS: HEPATITIS C VIRUS ANTIBODY Reactive (Non Reactive)
[2025-06-06] MEDS: albumin (human) 25% 100 ML IV solution IV ONE ×2 (05:38→09:01)
--- NOTE | 2025-06-06 05:59 | RADIOLOGY REPORT ---
CHEST RADIOGRAPH Indication: ET Tube PLacement Technique: Single frontal view of the chest was obtained COMPARISON: DI CHEST,SINGLE VIEW on DOS: 06/05/25, DI CHEST,SINGLE VIEW on DOS: 06/05/25, CT CT CHEST o n DOS: 06/01/25, DI CHEST,SINGLE VIEW on DOS: 06/01/25, CT CT CHEST on DOS: 05/03/25 FINDINGS: Lines and Tubes: Endotracheal tube, enteric catheter and right and left central venous catheter is in satisfactory position Lungs: Multifocal airspace disease Pleura: No effusion. No pneumothorax. Cardiomediastinal contours: Unremarkable Bones: Unremarkable IMPRESSION: Lines and tubes in satisfactory position. No significant interval change.
[2025-06-06 07:04] LABS: CREATININE 3.17 MG/DL (0.40-0.90); PHOSPHORUS 7.2 MG/DL (2.3-4.5); eCRCL 19 ML/MIN; eGFR 16 ML/MIN
--- NOTE | 2025-06-06 08:01 | PROGRESS NOTE ---
Progress Note Dictate Providers to CC ~ Central Line/PICC still needed: Yes Central Line/PICC Necessity: Req HD/Plasmapheresis Lynch Indications Met/Not Met: F/C Indications Met Antibiotic Ordered?: Yes Subjective Subjective The patient remains critically ill. As suspected, ended up on ventilator last evening. CVVh started yesterday. remains septic with thrombocytopenia. 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 Fluid did not help in alleviating the SHWETHA and she is in full blown ATN now, with septic shock. 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 Wide open Tricuspid regurgitation. chronic HCV with rising bilirubin. Homeless with h/o IVDA. HIV negative. Objective Vitals Vital Signs Date Time Temp Pulse Resp B/P (MAP) Pulse Ox O2 Delivery O2 Flow Rate FiO2 06/06/25 17:28 24 06/06/25 17:00 100 06/06/25 17:00 97.3 131 83/54 (64) 97 Mechanical Ventilator 06/06/25 08:00 0.0 Lab Results: 06/06/25 1500 06/06/25 1500 Objective Vital Signs: As above, on the ventilator now General: petite body habitus, Skin: No rashes, lumps, ulcers, blisters, purpura or petechiae HEENT: Anicteric sclera, Neck: Supple and nontender without enlargement of the thyroid, or lymphadenopathy. Chest: Normal size and shape, no tenderness, CTA bilaterally Heart: tachycardic Abdomen: Soft and non tender no organomegaly,BS+ Extremities: ++ pedal edema Neuro: Nonfocal. Coagulation Studies Laboratory Tests Test 06/02/25 11:03 06/06/25 15:35 D-Dimer 10.44 MG/L FEU (0-0.50) H DIC Profile Interpretation See dic report Prothrombin Time 18.3 SECONDS (9.0-12.0) H INR International Normalized Ratio 1.9 INR Activated Partial Thromboplast Time 54 SECONDS (22-32) H Fibrinogen 122 MG/DL (177-424) L Coagulation Comments Coagulation Clinical Comments Advance Care Planning Advanced Care plannin - 30 Minutes Problem\Assessment\Plan Problems/Diagnosis: (1) SHWETHA (acute kidney injury) Assessment & Plan: Echocardiogram shows TV vegetation with wide open TR. She is hypotensive. She is in ATN from sepsis. - possible IRGN. - now intubated, critically ill - coordinating and managing the CVVH - metabolically stabilizing - hypoxic with bilateral infiltrates with fluid overload + septic emboli and ARDS - prognosis very poor ahead and high mortality risk. (2) Thrombocytopenia Assessment & Plan: related to sepsis + liver cirrhosis. if she is to get cholecystostomy tube, she needs platelet transfusion. (3) Acute exacerbation of chronic low back pain Assessment & Plan: now sedated and is on ventilator (4) Homeless Assessment & Plan: ART SUPERVISOR consult. (5) Sepsis Assessment & Plan: being covered with antibiotics. following. currently on Nafcillin which requires frequent dosing and ivPB from that. so continuing CVVH makes sense. reviewed the results of echocardiogram. Sepsis Screening Skin Color: Normal AYO TSANG MD Jun 06, 2025 08:01
--- NOTE | 2025-06-06 08:29 | RADIOLOGY REPORT ---
PROCEDURE: ULTRASOUND GUIDED PARACENTESIS HISTORY: 39 Female requiring paracentesis. TECHNIQUE: The risks and benefits of the procedure including but not limited to bleeding, infection and injury t o abdominal organs were explained to the patient and written informed consent was obtained. Optimal site for puncture was determined using ultrasound and the area sterilized and draped. Using a 5 [employer] catheter, paracentesis was performed in the left lower abdomen. Approximately 0.5 c c straw colroed fluid was removed. The patient tolerated the procedure well. There were no immediate complications. IMPRESSION: Ultrasound-guided paracentesis with no immediate complications.
[2025-06-06] MEDS: midazolam 1 mg/ML 2ml injection IV ONE (08:40)
[2025-06-06] MEDS: albumin (Human) 5% 250ml 250 ML IV SCH (08:40)
[2025-06-06 08:52] LABS: MEAN PLATELET VOLUME 9.8 FL (7.4-10.4); RED CELL DISTRIBUTION WIDTH 16.5 % (11.5-14.5)
[2025-06-06] MEDS ORDERED: VASOPRESSIN 20 UNITS/NS 100mL 100 ML IV PRN (08:55)
[2025-06-06 09:07] LABS: CALCIUM CVVH 7.4 MG/DL (8.5-10.1); TOTAL CARBON DIOXIDE 23.0 MMOL/L (24-32)
[2025-06-06] MEDS: midazolam 100mg in NS 100ml 100 ML IV SCH (09:11)
[2025-06-06 09:28] LABS: CREATININE 2.69 MG/DL (0.40-0.90); PHOSPHORUS 5.6 MG/DL (2.3-4.5); eGFR 20 ML/MIN
--- NOTE | 2025-06-06 09:52 | PROGRESS NOTE- Residence ---
Progress Note - Resident Providers to CC Resident Creating Document: KOREY PRECIADO, LEAH ~ Antibiotic Timeout Antibiotic Ordered?: Yes Subjective The patient has been evaluated at bedside. Transferred yesterday to ICU due to septic shock. Currently under sedation due to mechanical ventilation. Objective Vital Signs Date Time Temp Pulse Resp B/P (MAP) Pulse Ox O2 Delivery O2 Flow Rate FiO2 06/06/25 09:37 123 33 93 90 06/06/25 09:11 91/52 06/06/25 08:48 97.6 Mechanical Ventilator 06/06/25 08:00 0.0 Physical exam: General: Currently under sedation due to mechanical ventilation, cachectic. HEENT: Conjunctive are pale, sclerae clear, icterus present. Neck: Supple, no JVD, no lymphadenopathy and thyromegaly, presence of dialysis catheter at the level of the right side, central line in the left side of the neck. Chest: Presence of coarse sounds bilaterally. Cardiovascular: S1-S2 regular sinus rhythm and, regular rate, Abdomen: Distended, mild tenderness to palpation, no guarding or rigidity, presence of bowel sounds with auscultation. Extremities: No obvious deformities, no pitting edema bilaterally, capillary refill intact, peripheral pulsations are intact on both sides Central Nervous System: Currently under sedation due to mechanical ventilation. Musculoskeletal: No joint swelling, deformities, inflammations, and no scoliosis and back tenderness Skin: Presence of needle track morase related to IV drug, presence of spider angioma, presence of bruises at the level of the chest. Result Diagram: 06/06/25 0840 06/06/25 0840 Coagulation Studies Laboratory Tests Test 06/02/25 11:03 06/03/25 08:08 Fibrinogen 116 MG/DL (177-424) L D-Dimer 10.44 MG/L FEU (0-0.50) H DIC Profile Interpretation See dic report Prothrombin Time 17.2 SECONDS (9.0-12.0) H INR International Normalized Ratio 1.8 INR Activated Partial Thromboplast Time 33 SECONDS (22-32) H Coagulation Comments Assessment Assessment 39-year-old female patient came to the hospital with chief complaint of altered level of consciousness. Plan Plan Septic shock Definite Infective endocarditis Tricuspid valve endocarditis Multiorgan dysfunction syndrome Acute metabolic encephalopathy Gaitan criteria: Blood cultures positive for Staphylococcus aureus, evidence of endocardial involvement in echocardiogram, predisposing injection drug use, fever: Echocardiogram: Overall LVEF appears to be 70-75%. The LV is reduced in size with normal wall thickness. Overall systolic function appears to be hyperdynamic. Right ventricle is moderately dilated with reduced function. Estimated PA systolic pressure is 44 mmHg. Trileaflet AV appears thickened without gross stenosis or insufficiency. Mild MV annular and leaflet thickening without gross stenosis. Trace to mild regurgitation. Overall LVEF appears to be 70-75%. The LV is reduced in size with normal wall thickness. Overall systolic function appears to be hyperdynamic. Right ventricle is moderately dilated with reduced function. Estimated PA systolic pressure is 44 mmHg. Mild MV annular and leaflet thickening without gross stenosis. mild regurgitation. TV appears thickened with thickened leaflets. Mobile echogenic structure appears to be attached to the Septal Tricuspid Valve leaflet (Image [id number] 47). Cannot rule out possible Endocarditis Vegetation. Recommend clinical correlation if indicated. Severe tricuspid regurgitation. No pericardial effusion seen. Plan: Infectious Disease, Dr. Escobedo contacted, high suspicion of infective endocarditis, echocardiogram showing presence of vegetation in the level of tricuspid valve which is common in patients with history of injected substance use disorder. Repeat blood cultures obtained. By ID recommendation nafcillin IV q.4h day 3. Currently in ICU requiring vasopressors based on norepinephrine and vasopressin. On albumin 5%. Decompensated liver cirrhosis Ascites: S/p paracentesis on 07/06/2025, small amount of fluid evidenced not enough for drainage. Metabolic encephalopathy secondary to sepsis and underlying hepatic encephalopathy-resolved Pancytopenia Severe thrombocytopenia with consumptive coagulopathy, DIC Severe normocytic anemia Continue management as per grapple crew leader team. SHWETHA secondary to acute tubular necrosis High anion gap metabolic acidosis Hypokalemia Hyponatremia Nephrology, Dr. Garcia following. Plan for CVVH by Dr. Garcia. Substance use disorder Severe protein malnutrition Failure to thrive Disposition: Continue management as per ICU team. Korey Escalona Internal Medicine Resident [facility] Patient seen and examined by Dr. CAMACHO this evening. Events of last night and this morning noted. Patient intubated on CVVH. Patient is hypotensive on maximum pressor vasopressin and Levophed undergoing CVVH multiple comorbidities, see sepsis and pancytopenia overall prognosis very poor. Noted input from Dr. Garcia. Date of Service: Jun 06, 2025 Billing Provider: SUSY OLSON MD,KOREY MONROY, RES Jun 06, 2025 09:52 SUSY OLSON MD Jun 06, 2025 19:31
[2025-06-06 09:56] LABS: BANDS% (MANUAL) 1.0 % (0-10); EOSINOPHILS % (MANUAL) 1.0 % (0-6); LYMPHOCYTES % (MANUAL) 10.0 % (21-51); METAMYLEOCYTES% (MANUAL) 2.0 % (0-0); MONOCYTES % (MANUAL) 1.0 % (2-12); NEUTROPHILS % (MANUAL) 85.0 % (42-75); NUCLEATED RED BLOOD CELLS 5 /100WBC (0-0)
[2025-06-06 09:58] LABS: PLATELET ESTIMATE DECREASED
[2025-06-06 09:59] LABS: ELLIPTOCYTES FEW
[2025-06-06] MEDS ORDERED: acetaminophen 325mg/10.15ml oral unit dose solution OGT PRN (11:17)
[2025-06-06] MEDS: docusate sodium 100mg/10ml UD cup OGT SCH (11:18)
[2025-06-06] MEDS ORDERED: magnesium hydroxide 30ml (MOM) UD suspension OGT PRN (11:19)
[2025-06-06] MEDS ORDERED: mag hydrox/Alum hydrox/simeth 30ml oral suspension OGT PRN (11:19)
[2025-06-06] MEDS ORDERED: UNABLE TO OBTAIN (11:30)
[2025-06-06] MEDS: CISatracurium besylate inj. 100 MG in normal saline 100ml IV soln 90 ML IV PRN (11:59)
[2025-06-06] MEDS: ceFAZolin 2gm/dext,iso 50mL 50 ML IV SCH (13:18)
[2025-06-06] MEDS: VECuronium br 10mg inj. IV ONE (13:23)
[2025-06-06] MEDS: COMMUNICATION ORDER 1 EA MISC MC ONE (13:30)
[2025-06-06] MEDS: dextrose 50%-water 50ml dispensing syringe IV ONE (13:52)
[2025-06-06] MEDS: NORepinephrine 32mg/250mL bag 250 ML IV SCH (14:20)
--- NOTE | 2025-06-06 14:40 | PROGRESS NOTE- Residence ---
Progress Note - Resident Providers to CC Resident Creating Document: TYLER CHAVARRIA CC: ANNIE GONZALEZ MD ~ Antibiotic Timeout Antibiotic Ordered?: Yes Subjective The patient has been evaluated at bedside. She is sedated, intubated and mechanically ventilated. Still very ill-appearing Objective Vital Signs Date Time Temp Pulse Resp B/P (MAP) Pulse Ox O2 Delivery O2 Flow Rate FiO2 06/06/25 14:20 99/56 06/06/25 13:25 35 06/06/25 13:13 140 94 100 06/06/25 13:00 97.0 Mechanical Ventilator 06/06/25 08:00 0.0 Result Diagram: 06/06/25 0840 06/06/25 0840 General: Jaundiced appearance, Thin ill-appearing female in mild acute distress. Awake Alert and oriented x 4. HEENT: Central line present on the left. Flushed face and neck, Conjunctival icterus noted, excoriations noted on upper and lower lips. Neck: No masses Resp: Shallow and rapid breathing. Coarse breath sounds bilaterally. Cardiovascular: Regular rate and rhythm, S1-S2 heard. HoloSystolic murmur in the left lower sternal border. Abdomen: Slightly distended and appears tender to palpation throughout, no rigidity, bowel sounds present. Neuro: No gross sensory or motor abnormalities noted Extremities: No cyanosis,clubbing or edema. Skin: Juandiced/icteric appearance. Multiple small spider angiomas noted along with needle track moraes related to IV drug abuse. Coagulation Studies Laboratory Tests Test 06/02/25 11:03 06/03/25 08:08 Fibrinogen 116 MG/DL (177-424) L D-Dimer 10.44 MG/L FEU (0-0.50) H DIC Profile Interpretation See dic report Prothrombin Time 17.2 SECONDS (9.0-12.0) H INR International Normalized Ratio 1.8 INR Activated Partial Thromboplast Time 33 SECONDS (22-32) H Coagulation Comments Plan Plan ID: Septic shock Definite Infective endocarditis Tricuspid valve endocarditis Multiorgan dysfunction syndrome Acute metabolic encephalopathy Gaitan criteria: Blood cultures positive for Staphylococcus aureus, evidence of endocardial involvement in echocardiogram, predisposing injection drug use, fever: Echocardiogram shows finding consistent with i.e. of mitral valve and aortic valve Repeat blood cultures obtained. By ID recommendation nafcillin IV q.4h day 4 Started on clindamycin today per ID Continue norepinephrine and vasopressin. On albumin 5%. Will continue recommendations per ID Respiratory: Acute hypoxic respiratory failure ARDS Sedated and mechanically ventilated Will start prone ventilation today PEEP 12, FiO2 100% GI: Decompensated liver cirrhosis Ascites: S/p paracentesis on 07/06/2025, small amount of fluid evidenced not enough for drainage. Metabolic encephalopathy secondary to sepsis and underlying hepatic encephalopathy Pancytopenia Severe thrombocytopenia with consumptive coagulopathy, DIC Severe normocytic anemia Continue monitoring Tube feeds started SHWETHA secondary to acute tubular necrosis High anion gap metabolic acidosis Hypokalemia Hyponatremia Nephrology, Dr. Garcia following. Plan for CVVH by Dr. Garcia. Continue monitoring CMP and blood gas Substance use disorder, methamphetamines Severe protein malnutrition Failure to thrive Code Status: Full code GI prophylaxis: Protonix Nutrition: Tube feeds Prognosis: Guarded Disposition: Continue care in CICU. Continue medical management Tyler Talley MD Internal Medicine Resident PGY-2 Date of Service: Jun 06, 2025 Billing Provider: ANNIE GONZALEZ MD, LEONARDO LUIS Jun 06, 2025 14:39
[2025-06-06] MEDS: clindamycin-Cleocin 900mg/D5W 50 ML IV SCH (15:03)
[2025-06-06] MEDS: NORepinephrine 32 MG in normal saline 250ml IV soln 218 ML IV SCH (15:03)
[2025-06-06 15:13] LABS: MEAN PLATELET VOLUME 7.5 FL (7.4-10.4); RED CELL DISTRIBUTION WIDTH 16.9 % (11.5-14.5)
[2025-06-06 15:25] LABS: CALCIUM CVVH 7.4 MG/DL (8.5-10.1); TOTAL CARBON DIOXIDE 24.4 MMOL/L (24-32)
[2025-06-06 15:27] LABS: CREATININE 2.33 MG/DL (0.40-0.90); PHOSPHORUS 5.4 MG/DL (2.3-4.5); eGFR 24 ML/MIN
--- NOTE | 2025-06-06 15:34 | PROGRESS NOTE- Residence ---
Progress Note - Resident Providers to CC Resident Creating Document: KRISTY ALEJANDRE RES ~ Antibiotic Timeout Antibiotic Ordered?: Yes Subjective Patient seen and examined at the bedside, intubated and sedated, very poor prognosis Objective Vital Signs Date Time Temp Pulse Resp B/P (MAP) Pulse Ox O2 Delivery O2 Flow Rate FiO2 06/06/25 15:03 94/55 06/06/25 14:00 97.0 134 24 90 Mechanical Ventilator 100 06/06/25 08:00 0.0 Result Diagram: 06/06/25 0840 06/06/25 0840 General: Sedated and intubated HEENT: Conjunctiva pale, Sclera icteric, subconjuctiva hemorrhage Mucus Membranes moist. Very poor dental/oral hygiene, lots of dental cavities Neck: Supple without masses and tenderness. Resp: Bilateral scattered crackles Heart: Regular Rate and rhythm, normal S1 and S2 Abdomen: Mildly distended, mild tenderness on palpitation Extremities: Lower extremity cold in touch and pale/icteric Skin: Icteric skin, no any Osler nodes, multiple petechia on the chest Nails: Can not evaluated for splinter hemorrhage due to very dry and coarse nails Neurological: Speech is clear, alert, and oriented to person, no gross neurological deficits Coagulation Studies Laboratory Tests Test 06/02/25 11:03 06/03/25 08:08 Fibrinogen 116 MG/DL (177-424) L D-Dimer 10.44 MG/L FEU (0-0.50) H DIC Profile Interpretation See dic report Prothrombin Time 17.2 SECONDS (9.0-12.0) H INR International Normalized Ratio 1.8 INR Activated Partial Thromboplast Time 33 SECONDS (22-32) H Coagulation Comments Plan Plan 39-year-old woman with IV drug abuse and prior infective endocarditis, now with definitive right-sided infective endocarditis ( tricuspid vegetation, severe tricuspid regurgitation ) due to methicillin sensitive Staphylococcus aureus complicated by sepsis with septic pulmonary emboli and respiratory distress, SHWETHA, decompensated cirrhosis, possible acute cholecystitis or cholangitis, severe thrombocytopenia and coagulopathy and malnutrition. Severe sepsis Definitive infective endocarditis ( Typical pathogen in IE from 2 separate blood culture set + suspected finding on echo fever+ hx of IE/ IV drug abuse + septic emboli) Blood culture showed MSSA tricuspid valve endocarditis, hx of IV drug abuse Multifocal cavitary pneumonia due to septic emboli, ARDS Multiorgan dysfunction Hepatitis-C, cirrhosis ECHO: TV appears thickened with thickened leaflets. Mobile echogenic structure appears to be attached to the Septal Tricuspid Valve leaflet. Blood cultures with MSSA Started on treatment with nafcillin 2 g every 4 hours 06/05/2025: ARDS, possibly patient need intubation Patient is tachypneic and tachycardic, sounds volume overloaded, Chest x-ray showed worsening infiltration and possible ARDS HIV negative, HBS antigen negative, low complement C3 and C4 and positive PATRICIA Blood culture repeat today, continue nafcillin 2 g q.4 hour day two 06/06/25: Patient intubated and transferred to ICU yesterday On norepinephrine and vasopressin Very poor prognosis, patient was on nafcillin 2 g q.4 hour for 2 days, we change it to cefazolin 2 g q.12 and clindamycin as combination therapy Possible DIC, hepatitis-C and cirrhosis Severe thrombocytopenia which could be due to sepsis/DIC Elevated PT PTT and low fibrinogen however patient also had history of cirrhosis and hepatitis-C which could be contributed to low fibrinogen Bilirubin trending up to 25 today DIC panel repeated Acute on chronic kidney failure Despite excessive fluid resuscitation, kidney function not improving Low C3-C4, and a positive PATRICIA Possible infection related glomerulonephritis Nephrology team is following and she is on CVVH Kristy Alejandre MD Infectious diseases progress note Agree with above note. Patient seen and examined with Dr. Alejandre. She is horribly ill. She is currently on 100% FiO2 and she is requiring high doses of vasopressors. She is currently on CRRT. We will alter antibiotic therapy given that nafcillin is cleared by the liver, and her bilirubin has been rising rapidly. We will utilize cefazolin (dosed for CRRT) and clindamycin. [employer] remains very poor. Date of Service: Jun 06, 2025 Billing Provider: OMEGA STEVE MD, ELAHE, LEAH Jun 06, 2025 15:34 OMEGA STEVE MD Jun 06, 2025 18:31
[2025-06-06] MEDS: lactulose 20gm/30ml cup OGT SCH (15:38)
[2025-06-06 16:56] LABS: APTT 54 SECONDS (22-32); INR 1.9 INR
[2025-06-06 17:40] LABS: ABG BASE EXCESS -6.0 mmol/L (-2.0-3.0); ABG HCO3 21.5 mmol/L (21.0-28.0); ABG OXYGEN SATURATION 95.2 % (94.0-98.0); ABG PCO2 (T) 52.5 mmHg (32.0-45.0); ABG PH (T) 7.226 (7.350-7.450); ABG PO2 (T) 84.1 mmHg (83.0-108.0); FCOHb 2.6 % (0.5-1.5); FHHb 4.7 % (0.0-5.0); FIO2 90.0 mmHg/%; FMetHb 0.1 % (0.0-1.5); FO2Hb 92.6 % (94.0-98.0); MODE VENT - AC/PRVC; PATIENT TEMPERATURE 36.3; PEEP 12 cm H2O; RESPIRATORY RATE 24 b/min; TIDAL VOLUME 400 mL; TOTAL HEMOGLOBIN 8.0 G/dl (12.0-16.0)
--- NOTE | 2025-06-06 18:59 | PROGRESS NOTE- Residence ---
Progress Note - Resident Providers to CC Resident Creating Document: TISH LEMON RES ~ Antibiotic Timeout Antibiotic Ordered?: Yes Subjective Patient seen and examined at the bedside. He had tolerated last night and had to be intubated and sedated. She is currently undergoing continuous CVVH, placed prone, and undergoing blood transfusion. Her prognosis is critical and poor. Objective Vital Signs Date Time Temp Pulse Resp B/P (MAP) Pulse Ox O2 Delivery O2 Flow Rate FiO2 06/06/25 18:46 97.6 128 28 96/64 06/06/25 18:00 95 Mechanical Ventilator 80 06/06/25 08:00 0.0 Result Diagram: 06/06/25 1500 06/06/25 1500 General: Jaundiced appearance, Thin ill-appearing female intubated and sedated. HEENT: Flushed face and neck, Conjunctival icterus noted, excoriations noted on upper and lower lips. Neck: Right IJ dialysis catheter in place. No masses Resp: Shallow and rapid breathing. Coarse breath sounds bilaterally. Cardiovascular: Regular rate and rhythm, S1-S2 heard. Holo Systolic murmur in the left lower sternal border. Abdomen: Slightly distended and appears tender to palpation throughout, guarding present, no rigidity, bowel sounds present. Neuro: No gross sensory or motor abnormalities noted Extremities: No cyanosis,clubbing or edema. Skin: Juandiced/icteric appearance. Multiple small spider angiomas noted along with needle track moraes related to IV drug abuse. Coagulation Studies Laboratory Tests Test 06/02/25 11:03 06/06/25 15:35 D-Dimer 10.44 MG/L FEU (0-0.50) H DIC Profile Interpretation See dic report Prothrombin Time 18.3 SECONDS (9.0-12.0) H INR International Normalized Ratio 1.9 INR Activated Partial Thromboplast Time 54 SECONDS (22-32) H Fibrinogen 122 MG/DL (177-424) L Coagulation Comments Coagulation Clinical Comments Plan Plan Severe sepsis, secondary to infective endocarditis POA Definitive Right sided infective endocarditis, severe tricuspid regurgitation Multifocal cavitary pneumonia due to septic emboli Multiorgan dysfunction Metabolic encephalopathy due to sepsis and possible underlying hepatic encephalopathy - resolved Respiratory alkalosis and metabolic acidosis Blood cultures from 06/01/2025 positive for gram-positive cocci in clusters. Repeat Blood cultures from 06/02/2025 are positive for Gram-positive cocci in clusters MSSA. CT chest Abdomen: multiple cavitary nodules of the lung bases with ground-glass opacity of the lung bases and linear atelectasis. cholelithiasis and moderate volume ascites. mild hepatosplenomegaly. Continuing supportive care with oxygen supplementation, IV fluids for hydration and maintenance. Evaluated by rivet hole puncher Dr. Jones on 06/03 in view of significant respiratory distress with the tachypnea and respiratory rate going as high as 40-45. Dr. Jones recommended medical management in the PCU for now, will reconsult if conditin detoriates Continue IV methylprednisolone 60 mg b.i.d. Continue DuoNeb nebulizations, albuterol as needed. Initially treated with IV vancomycin, IV cefepime and IV metronidazole. Started IV Nafcillin 2g per ID recommendations Green Coffee Blender (Dr. Dumont) consulted, appreciate recs 06/06/2025 Currently undergoing continuous CVVH on pressor support intubated and sedated placed prone and managed in the ICU Also getting blood transfusion She is on clindamycin and cefazolin Her prognosis is very poor and she is likely to deteriorate soon Decompensated liver cirrhosis Ascites, Ultrasound abdomen 06/03/2025 - Hepatic cirrhosis, Moderate ascites, Cholelithiasis and thickened edematous appearance of the gallbladder wall. CT scan of the abdomen 06/02/2025- Significant for cholelithiasis, moderate volume ascites and limited evaluation of the pancreas and appendix. There was wall thickening of the small bowel loops possibly secondary to the surrounding ascites versus colitis/enteritis. Paracentesis to rule out spontaneous bacterial peritonitis. The AST, ALT improving. Bilirubin is trending up, total bilirubin 10.5. HIDA Scan - inconclusive, patient unable to tolerate the exam Continue lactulose. Monitor LFTs, INR, ammonia. 06/05/2025 She is refusing oral lactulose, Paracentesis was done on 06/05 with minimal output Severe thrombocytopenia (28,000) with consumptive coagulopathy, DIC Severe anemia S/p 2 units PRBC and platelet transfusions Hemoglobin is 10.4, platelets 28. Stool occult blood negative. No active bleeding noted. PT and APTT 17.2 and 1.8 respectively and fibrinogen level 116, D-dimer 10.4 confirming DIC. Bilateral foot pallor with intact pulses probably due to microvascular ischemia secondary to sepsis induced DIC. Transfuse platelets if less [place] [id number] or if bleeding. 06/06/2025 Severe anemia requiring blood transfusion Acute kidney injury secondary to ATN 1st episode of dialysis CVVH on 06/05/2025 Nephrology consult for dialysis evaluation in view of rising BUN and creatinine and oliguria. Respiratory alkalosis with possible underlying mixed anion gap metabolic acidosis. Avoid nephrotoxic drugs. Possible infective endocarditis related glomerulonephritis. Continue aggressive fluid resuscitation. Might be heading towards dialysis. We will follow up accordingly as per the Nephrology recommendations. 06/06/2025 Currently undergoing continuous CVVH, management per nephrology Dr. Garcia Substance abuse: meth and fentanyl Patient was history of IV drug use Social service and substance abuse navigator consulted Diffuse myalgias and arthralgias Creatinine kinase is normal. Severe protein calorie malnutrition BMI 18.3 Nutrition consulted Code Status: Full code DVT prophylaxis: None in view of DIC and thrombocytopenia Analgesia/sedation: None Line/tube: PIV, Lynch's, right IJ dialysis catheter GI prophylaxis: Protonix Prognosis: Critical, she is very sick with multiorgan failure and high risk of detoriating. Currently in the ICU managed by the rivet hole puncher, hospitalist team will continue to follow. Tish Lemon MD IM Resident PGY 3 Date of Service: Jun 06, 2025 Billing Provider: ANDREY JOY MD, ELIZABETH, RES Jun 06, 2025 18:59
[2025-06-06] MEDS: dextrose 50%-water 50ml dispensing syringe IV PRN (20:42)
[2025-06-06 20:54] LABS: RED CELL DISTRIBUTION WIDTH 15.3 % (11.5-14.5)
[2025-06-06 20:55] LABS: MEAN PLATELET VOLUME 9.6 FL (7.4-10.4)
[2025-06-06] MEDS: mineral oil/petrolatum ophthal oint EACHEYE SCH (21:30)
[2025-06-06 21:42] LABS: BANDS% (MANUAL) 11 % (0-10); LYMPHOCYTES % (MANUAL) 6 % (21-51); NEUTROPHILS % (MANUAL) 83 % (42-75); NUCLEATED RED BLOOD CELLS 2 /100WBC (0-0); PLATELET ESTIMATE DECREASED
[2025-06-06 21:44] LABS: ELLIPTOCYTES FEW
[2025-06-06 21:59] LABS: CALCIUM CVVH 7.4 MG/DL (8.5-10.1); TOTAL CARBON DIOXIDE 22.8 MMOL/L (24-32)
[2025-06-06 22:00] LABS: CREATININE 2.04 MG/DL (0.40-0.90); PHOSPHORUS 5.1 MG/DL (2.3-4.5); eGFR 27 ML/MIN
[2025-06-06 22:01] LABS: ABG BASE EXCESS -6.8 mmol/L (-2.0-3.0); ABG HCO3 20.7 mmol/L (21.0-28.0); ABG OXYGEN SATURATION 91.2 % (94.0-98.0); ABG PCO2 (T) 51.4 mmHg (32.0-45.0); ABG PH (T) 7.223 (7.350-7.450); ABG PO2 (T) 62.3 mmHg (83.0-108.0); FCOHb 2.4 % (0.5-1.5); FHHb 8.6 % (0.0-5.0); FIO2 80.0 mmHg/%; FMetHb 0.0 % (0.0-1.5); FO2Hb 89.0 % (94.0-98.0); MODE VENT - AC; PATIENT TEMPERATURE 36.9; PEEP 12 cm H2O; RESPIRATORY RATE 28 b/min; TIDAL VOLUME 350 mL; TOTAL HEMOGLOBIN 9.4 G/dl (12.0-16.0)
[2025-06-07] VITALS (57 sets, daily range): BP systolic 55–111; BP diastolic 34–74; PULSE 69–136; RESP 20–49; TEMP 94.1–98.4; O2SAT 69–100
[2025-06-07 02:49] LABS: MEAN PLATELET VOLUME 9.6 FL (7.4-10.4); RED CELL DISTRIBUTION WIDTH 15.3 % (11.5-14.5)
[2025-06-07 02:58] LABS: CALCIUM CVVH 7.4 MG/DL (8.5-10.1); TOTAL CARBON DIOXIDE 22.6 MMOL/L (24-32)
[2025-06-07 03:26] LABS: CREATININE 1.95 MG/DL (0.40-0.90); PHOSPHORUS 5.1 MG/DL (2.3-4.5); eCRCL 31 ML/MIN; eGFR 29 ML/MIN
[2025-06-07 03:43] LABS: APTT 52 SECONDS (22-32); INR 1.8 INR
[2025-06-07 03:43] LABS: ABG BASE EXCESS -6.4 mmol/L (-2.0-3.0); ABG HCO3 21.2 mmol/L (21.0-28.0); ABG OXYGEN SATURATION 91.9 % (94.0-98.0); ABG PCO2 (T) 53.3 mmHg (32.0-45.0); ABG PH (T) 7.218 (7.350-7.450); ABG PO2 (T) 69.4 mmHg (83.0-108.0); FCOHb 2.6 % (0.5-1.5); FHHb 7.9 % (0.0-5.0); FIO2 90.0 mmHg/%; FMetHb 0.1 % (0.0-1.5); FO2Hb 89.4 % (94.0-98.0); MODE VENT - AC; PATIENT TEMPERATURE 37.0; PEEP 12 cm H2O; RESPIRATORY RATE 28 b/min; TIDAL VOLUME 350 mL; TOTAL HEMOGLOBIN 8.7 G/dl (12.0-16.0)
[2025-06-07] MEDS ORDERED: dextrose 50%-water 50ml dispensing syringe IV ONE (08:00)
[2025-06-07] MEDS: dextrose 50%-water 50ml dispensing syringe IV PRN (08:29)
[2025-06-07 08:38] LABS: MEAN PLATELET VOLUME 8.1 FL (7.4-10.4); RED CELL DISTRIBUTION WIDTH 15.7 % (11.5-14.5)
[2025-06-07 08:54] LABS: CALCIUM CVVH 7.4 MG/DL (8.5-10.1); CREATININE 1.89 MG/DL (0.40-0.90); TOTAL CARBON DIOXIDE 23.4 MMOL/L (24-32); eGFR 30 ML/MIN
[2025-06-07 09:02] LABS: PHOSPHORUS 5.2 MG/DL (2.3-4.5)
--- NOTE | 2025-06-07 11:04 | PROGRESS NOTE ---
Progress Note Dictate Providers to CC ~ Central Line/PICC still needed: Yes Central Line/PICC Necessity: Req HD/Plasmapheresis Lynch Indications Met/Not Met: F/C Indications Met Antibiotic Ordered?: Yes Subjective Subjective moribundly ill, on ventilator, proned. lip swelling noted. facial swelling plethoric due to prone positioning . on (0% FiO2. Unable to pull any fluids and trying to atleast keep her even. high mortality risk. Objective Vitals Vital Signs Date Time Temp Pulse Resp B/P (MAP) Pulse Ox O2 Delivery O2 Flow Rate FiO2 06/07/25 10:01 86/51 06/07/25 10:00 98.1 124 28 98 Mechanical Ventilator 90 06/06/25 08:00 0.0 Lab Results: 06/07/25 0823 06/07/25 0823 Objective Vital Signs: As above, on the ventilator now General: petite body habitus, Skin: No rashes, lumps, ulcers, blisters, purpura or petechiae HEENT: Anicteric sclera, Neck: Supple and nontender without enlargement of the thyroid, or lymphadenopathy. Chest: Normal size and shape, no tenderness, CTA bilaterally Heart: tachycardic Abdomen: Soft and non tender no organomegaly,BS+ Extremities: ++ pedal edema Neuro: Nonfocal. Coagulation Studies Laboratory Tests Test 06/02/25 11:03 06/06/25 15:35 06/07/25 02:21 D-Dimer 10.44 MG/L FEU (0-0.50) H DIC Profile Interpretation See dic report Fibrinogen 122 MG/DL (177-424) L Coagulation Clinical Comments Prothrombin Time 17.7 SECONDS (9.0-12.0) H INR International Normalized Ratio 1.8 INR Activated Partial Thromboplast Time 52 SECONDS (22-32) H Coagulation Comments Advance Care Planning Advanced Care plannin - 30 Minutes Problem\Assessment\Plan Problems/Diagnosis: (1) SHWETHA (acute kidney injury) Assessment & Plan: Echocardiogram shows TV vegetation with wide open TR. She is hypotensive. She is in ATN from sepsis. - possible IRGN. - now intubated, critically ill - coordinating and managing the CVVH. unable to keep her negative fluid balance. - metabolically stabilizing - hypoxic with bilateral infiltrates with fluid overload + septic emboli and ARDS - prognosis very poor ahead and high mortality risk. (2) Thrombocytopenia Assessment & Plan: related to sepsis + liver cirrhosis. (3) Acute exacerbation of chronic low back pain Assessment & Plan: now sedated and is on ventilator (4) Sepsis Assessment & Plan: being covered with antibiotics. following. currently on Nafcillin which requires frequent dosing and ivPB from that. so continuing CVVH makes sense. reviewed the results of echocardiogram. (5) Homeless Assessment & Plan: she is very critically ill. I doubt if she is going to make =it through next 24 hours. Sepsis Screening Skin Color: Normal AYO TSANG MD Jun 07, 2025 11:04
--- NOTE | 2025-06-07 12:49 | PROGRESS NOTE- Residence ---
Progress Note - Resident Providers to CC Resident Creating Document: OKREY PRECIADO RES ~ Antibiotic Timeout Antibiotic Ordered?: Yes Subjective The patient has been evaluated at bedside. Currently in prone position under sedation due to mechanical ventilation. Objective Vital Signs Date Time Temp Pulse Resp B/P (MAP) Pulse Ox O2 Delivery O2 Flow Rate FiO2 06/07/25 12:00 97.9 129 28 84/48 (60) 98 Mechanical Ventilator 70 06/06/25 08:00 0.0 Physical exam: General: Currently in prone position under sedation due to mechanical ventilation, cachectic. HEENT: Conjunctive are pale, sclerae clear, icterus present. Neck: Supple, no JVD, no lymphadenopathy and thyromegaly, presence of dialysis catheter at the level of the right side, central line in the left side of the neck. Chest: Presence of coarse sounds bilaterally. Cardiovascular: S1-S2 regular sinus rhythm and, regular rate, Abdomen: Distended, mild tenderness to palpation, no guarding or rigidity, presence of bowel sounds with auscultation. Extremities: No obvious deformities, no pitting edema bilaterally, capillary refill intact, peripheral pulsations are intact on both sides Central Nervous System: Currently under sedation due to mechanical ventilation. Musculoskeletal: No joint swelling, deformities, inflammations, and no scoliosis and back tenderness Skin: Presence of needle track moraes related to IV drug, presence of spider angioma, presence of bruises at the level of the chest. Result Diagram: 06/07/25 0823 06/07/25 0823 Coagulation Studies Laboratory Tests Test 06/02/25 11:03 06/06/25 15:35 06/07/25 02:21 D-Dimer 10.44 MG/L FEU (0-0.50) H DIC Profile Interpretation See dic report Fibrinogen 122 MG/DL (177-424) L Coagulation Clinical Comments Prothrombin Time 17.7 SECONDS (9.0-12.0) H INR International Normalized Ratio 1.8 INR Activated Partial Thromboplast Time 52 SECONDS (22-32) H Coagulation Comments Assessment Assessment 39-year-old female patient came to the hospital with chief complaint of altered level of consciousness. Plan Plan Septic shock Definite Infective endocarditis Tricuspid valve endocarditis Multiorgan dysfunction syndrome Acute metabolic encephalopathy Gaitan criteria: Blood cultures positive for Staphylococcus aureus, evidence of endocardial involvement in echocardiogram, predisposing injection drug use, fever: Echocardiogram: Overall LVEF appears to be 70-75%. The LV is reduced in size with normal wall thickness. Overall systolic function appears to be hyperdynamic. Right ventricle is moderately dilated with reduced function. Estimated PA systolic pressure is 44 mmHg. Trileaflet AV appears thickened without gross stenosis or insufficiency. Mild MV annular and leaflet thickening without gross stenosis. Trace to mild regurgitation. Overall LVEF appears to be 70-75%. The LV is reduced in size with normal wall thickness. Overall systolic function appears to be hyperdynamic. Right ventricle is moderately dilated with reduced function. Estimated PA systolic pressure is 44 mmHg. Mild MV annular and leaflet thickening without gross stenosis. mild regurgitation. TV appears thickened with thickened leaflets. Mobile echogenic structure appears to be attached to the Septal Tricuspid Valve leaflet (Image [id number]). Cannot rule out possible Endocarditis Vegetation. Recommend clinical correlation if indicated. Severe tricuspid regurgitation. No pericardial effusion seen. Plan: Repeat blood cultures obtained. By ID recommendation discontinue nafcillin, currently on clindamycin and cefazolin. Currently in ICU requiring vasopressors based on norepinephrine and vasopressin. The patient is currently on prone position under mechanical ventilation, overall poor prognosis. Decompensated liver cirrhosis Ascites: S/p paracentesis on 07/06/2025, small amount of fluid evidenced not enough for drainage. Metabolic encephalopathy secondary to sepsis and underlying hepatic encephalopathy-resolved Hepatitis-C: Pancytopenia Severe thrombocytopenia with consumptive coagulopathy, DIC Severe normocytic anemia Continue management as per lever miller team. SHWETHA secondary to acute tubular necrosis High anion gap metabolic acidosis Hypokalemia Hyponatremia Nephrology, Dr. Garcia following. Plan for CVVH by Dr. Garcia. Substance use disorder Severe protein malnutrition Failure to thrive Code status: DNR DVT prophylaxis: SCDs Analgesia/sedation: Cisatracurium, fentanyl, midazolam Line/tube: HD catheter, central line, PIV, rectal tube, tube feed. GI prophylaxis: Protonix 40 mg IV daily. Nutrition: Tube feeding. PT: Ordered Prognosis: Poor Disposition: Overall poor prognosis. Continue management as per ICU team. Korey Escalona Internal Medicine Resident [facility] Patient seen and examined by Dr. Alex TRONCOSO. Patient with multiple comorbidities. Overall prognosis poor. Date of Service: Jun 07, 2025 Billing Provider: SUSY OLSON MD, FRANCO LUIS, RES Jun 07, 2025 12:49 SUSY OLSON MD Jun 07, 2025 18:02
[2025-06-07] MEDS: PHENYLephrine 10mg/ml inj. 50 MG in normal saline 250ml IV soln 245 ML IV PRN (13:46)
[2025-06-07] MEDS: DEXTROSE 50% IV SCH (14:16)
[2025-06-07] MEDS: sodium bicarbonate (8.4%) 1 mEq/ml syringe IV ONE ×2 (14:16→23:07)
[2025-06-07 14:39] LABS: MEAN PLATELET VOLUME 9.1 FL (7.4-10.4); RED CELL DISTRIBUTION WIDTH 16.4 % (11.5-14.5)
--- NOTE | 2025-06-07 14:39 | RADIOLOGY REPORT ---
EXAM: DI CHEST,SINGLE VIEW Indication: ET Tube PLacement - PT PRONE , WILL PAGE WHEN FLIPPED TO SUPINE Technique: Single frontal view of the chest was obtained Comparison: DI CHEST,SINGLE VIEW on DOS: 06/06/25, DI CHEST,SINGLE VIEW on DOS: 06/05/25, DI CHEST,SING LE VIEW on DOS: 06/05/25, CT CT CHEST on DOS: 06/01/25, DI CHEST,SINGLE VIEW on DOS: 06/01/25 FINDINGS: Lines and Tubes: Endotracheal tube projects 4.6 cm above the carla. Bilateral internal jugular centr al venous catheter tips project over the superior vena cava. Lungs: Multifocal consolidative opacities, worsened compared to prior exam. Pleura: Trace bilateral pleural effusions No pneumothorax. Cardiomediastinal contours: Unremarkable Bones: No acute osseous abnormality. IMPRESSION: Worsening multifocal consolidative opacities compared to prior exam.
[2025-06-07 14:51] LABS: CALCIUM CVVH 7.2 MG/DL (8.5-10.1); CREATININE 1.89 MG/DL (0.40-0.90); TOTAL CARBON DIOXIDE 17.5 MMOL/L (24-32); eGFR 30 ML/MIN
[2025-06-07 14:53] LABS: PHOSPHORUS 6.8 MG/DL (2.3-4.5)
[2025-06-07 15:08] LABS: BANDS% (MANUAL) 8.0 % (0-10); METAMYLEOCYTES% (MANUAL) 1.0 % (0-0); NEUTROPHILS % (MANUAL) 74.0 % (42-75); NUCLEATED RED BLOOD CELLS 14 /100WBC (0-0)
[2025-06-07 15:09] LABS: LYMPHOCYTES % (MANUAL) 15.0 % (21-51); MONOCYTES % (MANUAL) 2.0 % (2-12); PLATELET ESTIMATE DECREASED
[2025-06-07 17:06] LABS: APTT > 139 SECONDS (22-32); INR 4.0 INR
--- NOTE | 2025-06-07 17:39 | PROGRESS NOTE- Residence ---
Progress Note - Resident Providers to CC Resident Creating Document: TYLER CHAVARRIA CC: ANNIE GONZALEZ MD ~ Antibiotic Timeout Antibiotic Ordered?: Yes Subjective The patient has been evaluated at bedside in CICU. She continues to to be proned. Still very ill appearing with poor prognosis Objective Vital Signs Date Time Temp Pulse Resp B/P (MAP) Pulse Ox O2 Delivery O2 Flow Rate FiO2 06/07/25 16:44 69 49 90 06/07/25 16:00 75/50 (58) Mechanical Ventilator 06/07/25 15:51 95.9 06/07/25 13:00 96 06/06/25 08:00 0.0 Result Diagram: 06/07/25 1415 06/07/25 1415 General: Jaundiced appearance, Thin ill-appearing female in mild acute distress. Awake Alert and oriented x 4. HEENT: Central line present on the left. Flushed face and neck, Conjunctival icterus noted, excoriations noted on upper and lower lips. Neck: No masses Resp: Shallow and rapid breathing. Coarse breath sounds bilaterally. Cardiovascular: Regular rate and rhythm, S1-S2 heard. HoloSystolic murmur in the left lower sternal border. Abdomen: Slightly distended and appears tender to palpation throughout, no rigidity, bowel sounds present. Neuro: No gross sensory or motor abnormalities noted Extremities: No cyanosis,clubbing or edema. Skin: Juandiced/icteric appearance. Multiple small spider angiomas noted along with needle track moraes related to IV drug abuse. Coagulation Studies Laboratory Tests Test 06/07/25 15:40 Prothrombin Time 35.6 SECONDS (9.0-12.0) H INR International Normalized Ratio 4.0 INR #*H Activated Partial Thromboplast Time > 139 SECONDS (22-32) *H Fibrinogen 88 MG/DL (177-424) L D-Dimer 23.41 MG/L FEU (0-0.50) H Coagulation Comments Coagulation Clinical Comments Plan Plan ID: Septic shock with multiorgan dysfunction Infective endocarditis Acute metabolic encephalopathy 2/2 above Gaitan criteria: Blood cultures positive for Staphylococcus aureus, evidence of endocardial involvement in echocardiogram, predisposing injection drug use, fever: Echocardiogram shows finding consistent with i.e. of mitral valve and aortic valve Repeat blood cultures negative so far Completed nafcillin Continue clindamycin, starts cefazolin per ID Continue norepinephrine and vasopressin. On albumin 5%. Will continue recommendations per ID Respiratory: Acute hypoxic respiratory failure ARDS Multifocal pneumonia with septic emboli Intubated, Sedated and mechanically ventilated Continue prone ventilation Antibiotics as above GI: Decompensated liver cirrhosis Ascites: S/p paracentesis on 07/06/2025, small amount of fluid evidenced not enough for drainage. Metabolic encephalopathy secondary to sepsis and underlying hepatic encephalopathy Pancytopenia Severe thrombocytopenia with consumptive coagulopathy, DIC Severe normocytic anemia Continue monitoring Continue tube feeds Renal: SHWETHA secondary to acute tubular necrosis High anion gap metabolic acidosis Hypokalemia Hyponatremia Continue CVVH per Nephrology Continue monitoring CMP and blood gas Hematologic: Severe blood loss anemia Severe Thrombocytopenia Received 4 units of PRBC and 5 units of platelets Continue monitoring H&H Hypoglycemia: On dextrose 10% Continue monitoring blood sugar Substance use disorder, methamphetamines Severe protein malnutrition Failure to thrive Code Status: DNR GI prophylaxis: Protonix Nutrition: Tube feeds Prognosis: Guarded Disposition: Continue care in CICU. Continue medical management Tyler Talley MD Internal Medicine Resident PGY-2 Date of Service: Jun 07, 2025 Billing Provider: ANNIE GONZALEZ MD, LEONARDO LUIS Jun 07, 2025 17:39
--- NOTE | 2025-06-07 17:50 | PROGRESS NOTE ---
Progress Note Dictate Providers to CC ~ Subjective Subjective: She continues to deteriorate. She is still on continuous renal replacement therapy with high-dose vasopressors. Norepinephrine is currently at 1 mcg/kg per minute. She is also on vasopressin as well as phenylephrine. She is also receiving blood and albumin. Blood pressure remains low. She still has a high oxygen requirement. Objective Objective: Afebrile with systolic blood pressure in the 60s and heart rate in the low 100s on 90% FiO2 with peep 12 Middle-aged female currently comatose and intubated (she appears to be off sedatives and paralytics right now) Right internal jugular temporary dialysis catheter Left internal jugular central venous catheter Lungs with coarse breath sounds bilaterally Heart tachycardic and regular Extremities edematous Lab Results: 06/07/25 1415 06/07/25 1415 Lab comments: 06/05 blood cultures negative Radiology comments: Chest x-ray with diffuse bilateral pulmonary opacities Problem\Assessment\Plan Additional Plan 1. MSSA sepsis with right-sided infective endocarditis with bilateral pulmonary septic emboli 2. Acute respiratory failure with high oxygen requirement 3. Acute renal failure, currently on CRRT 4. Septic shock on high-dose vasopressors 5. Severe coagulopathy and thrombocytopenia with evidence of DIC - sepsis + liver disease 6. Acute hepatic failure 7. Anemia - transfused 8. Severe hypoglycemia - likely related to hepatic failure 9. Homelessness with polysubstance abuse Continue cefazolin and clindamycin Supportive care per weaving machine operator although she has likely reached the point of medical futility Fortunately, code status has been changed to DNR Withdrawal of care would certainly be appropriate OMEGA STEVE MD Jun 07, 2025 17:50
--- NOTE | 2025-06-07 18:27 | PROGRESS NOTE- Residence ---
Progress Note - Resident Providers to CC Resident Creating Document: TISH LEMON RES ~ Antibiotic Timeout Antibiotic Ordered?: Yes Subjective Seen and examined at bedside. Continues to be intubated and sedated done in prone position. She is extremely sick, critical and deteriorating. Objective Vital Signs Date Time Temp Pulse Resp B/P (MAP) Pulse Ox O2 Delivery O2 Flow Rate FiO2 06/07/25 18:09 95.0 102 28 68/51 (57) Mechanical Ventilator 90 06/07/25 13:00 96 06/06/25 08:00 0.0 Result Diagram: 06/07/25 1415 06/07/25 141 General: Jaundiced appearance, Thin ill-appearing female intubated and sedated. HEENT: Flushed face and neck, Conjunctival icterus noted, excoriations noted on upper and lower lips. Neck: Right IJ dialysis catheter in place. No masses Resp: Shallow and rapid breathing. Coarse breath sounds bilaterally. Cardiovascular: Regular rate and rhythm, S1-S2 heard. Holo Systolic murmur in the left lower sternal border. Abdomen: Slightly distended and appears tender to palpation throughout, guarding present, no rigidity, bowel sounds present. Neuro: No gross sensory or motor abnormalities noted Extremities: No cyanosis,clubbing or edema. Skin: Juandiced/icteric appearance. Multiple small spider angiomas noted along with needle track moraes related to IV drug abuse. Coagulation Studies Laboratory Tests Test 06/07/25 15:40 Prothrombin Time 35.6 SECONDS (9.0-12.0) H INR International Normalized Ratio 4.0 INR #*H Activated Partial Thromboplast Time > 139 SECONDS (22-32) *H Fibrinogen 88 MG/DL (177-424) L D-Dimer 23.41 MG/L FEU (0-0.50) H Coagulation Comments Coagulation Clinical Comments Plan Plan Severe sepsis, secondary to infective endocarditis POA Definitive Right sided infective endocarditis, severe tricuspid regurgitation Multifocal cavitary pneumonia due to septic emboli Multiorgan dysfunction Metabolic encephalopathy due to sepsis and possible underlying hepatic encephalopathy - resolved Respiratory alkalosis and metabolic acidosis Blood cultures from 06/01/2025 positive for gram-positive cocci in clusters. Repeat Blood cultures from 06/02/2025 are positive for Gram-positive cocci in clusters MSSA. CT chest Abdomen: multiple cavitary nodules of the lung bases with ground-glass opacity of the lung bases and linear atelectasis. cholelithiasis and moderate volume ascites. mild hepatosplenomegaly. Continuing supportive care with oxygen supplementation, IV fluids for hydration and maintenance. Evaluated by weight caller Dr. Jones on 06/03 in view of significant respiratory distress with the tachypnea and respiratory rate going as high as 40-45. Dr. Jones recommended medical management in the PCU for now, will reconsult if conditin detoriates Continue IV methylprednisolone 60 mg b.i.d. Continue DuoNeb nebulizations, albuterol as needed. Initially treated with IV vancomycin, IV cefepime and IV metronidazole. Started IV Nafcillin 2g per ID recommendations Director Of Channel Marketing (Dr. Dumont) consulted, appreciate recs Currently undergoing continuous CVVH on pressor support intubated and sedated placed prone and managed in the ICU Also getting blood transfusion She is on clindamycin and cefazolin Her prognosis is very poor and she is likely to deteriorate soon, code status changed to DNR today. Decompensated liver cirrhosis Ascites, Ultrasound abdomen 06/03/2025 - Hepatic cirrhosis, Moderate ascites, Cholelithiasis and thickened edematous appearance of the gallbladder wall. CT scan of the abdomen 06/02/2025- Significant for cholelithiasis, moderate volume ascites and limited evaluation of the pancreas and appendix. There was wall thickening of the small bowel loops possibly secondary to the surrounding ascites versus colitis/enteritis. Paracentesis to rule out spontaneous bacterial peritonitis. The AST, ALT improving. Bilirubin is trending up, total bilirubin 10.5. HIDA Scan - inconclusive, patient unable to tolerate the exam Continue lactulose. Monitor LFTs, INR, ammonia. She is refusing oral lactulose, Paracentesis was done on 06/05 with minimal output Severe thrombocytopenia (28,000) with consumptive coagulopathy, DIC Severe anemia S/p 2 units PRBC and platelet transfusions Hemoglobin is 10.4, platelets 28. Stool occult blood negative. No active bleeding noted. PT and APTT 17.2 and 1.8 respectively and fibrinogen level 116, D-dimer 10.4 confirming DIC. Bilateral foot pallor with intact pulses probably due to microvascular ischemia secondary to sepsis induced DIC. Transfuse [place] [id number] or if bleeding. Severe anemia requiring blood transfusion Acute kidney injury secondary to ATN 1st episode of dialysis CVVH on 06/05/2025 Nephrology consult for dialysis evaluation in view of rising BUN and creatinine and oliguria. Respiratory alkalosis with possible underlying mixed anion gap metabolic acidosis. Avoid nephrotoxic drugs. Possible infective endocarditis related glomerulonephritis. Continue aggressive fluid resuscitation. Might be heading towards dialysis. We will follow up accordingly as per the Nephrology recommendations. Currently undergoing continuous CVVH, management per nephrology Dr. Garcia Substance abuse: meth and fentanyl Patient was history of IV drug use Social service and substance abuse navigator consulted Diffuse myalgias and arthralgias Creatinine kinase is normal. Severe protein calorie malnutrition BMI 18.3 Nutrition consulted Code Status: DNR DVT prophylaxis: None in view of DIC and thrombocytopenia Analgesia/sedation: None Line/tube: PIV, Lynch's, right IJ dialysis catheter GI prophylaxis: Protonix Prognosis: Critical, she is very sick with multiorgan failure and high risk of detoriating. Currently in the ICU managed by the weight caller, hospitalist team will continue to follow. Tish Lemon MD IM Resident PGY 3 Date of Service: Jun 07, 2025 Billing Provider: ANDREY JOY MD, ELIZABETH, RES Jun 07, 2025 18:27
[2025-06-07] MEDS: calcium chloride 100 MG/1 ML inj IV ONE ×2 (18:45→23:07)
[2025-06-07] MEDS: ringers solution, lactated 500ml IV solution IV ONE (20:15)
[2025-06-07] MEDS ORDERED: epiNEPHrine inj 5 MG in normal saline 250ml IV soln 245 ML IV PRN (20:15)
[2025-06-07] MEDS: epiNEPHrine 10 MG in NS 250ml IV SOLUTION IV SCH (21:20)
[2025-06-07 21:23] LABS: ABG BASE EXCESS -21.8 mmol/L (-2.0-3.0); ABG HCO3 12.5 mmol/L (21.0-28.0); ABG OXYGEN SATURATION 85.4 % (94.0-98.0); ABG PCO2 (T) 70.4 mmHg (32.0-45.0); ABG PH (T) 6.857 (7.350-7.450); ABG PO2 (T) 55.2 mmHg (83.0-108.0); FCOHb 1.8 % (0.5-1.5); FHHb 14.3 % (0.0-5.0); FIO2 100.0 mmHg/%; FMetHb 0.2 % (0.0-1.5); FO2Hb 83.7 % (94.0-98.0); MODE VENT - AC/PRVC; PATIENT TEMPERATURE 35.5; PEEP 12 cm H2O; RESPIRATORY RATE 28 b/min; TIDAL VOLUME 350 mL; TOTAL HEMOGLOBIN 12.1 G/dl (12.0-16.0)
[2025-06-07 21:59] LABS: MEAN PLATELET VOLUME 8.0 FL (7.4-10.4); RED CELL DISTRIBUTION WIDTH 16.2 % (11.5-14.5)
[2025-06-07 22:11] LABS: CALCIUM CVVH 7.6 MG/DL (8.5-10.1); CREATININE 1.58 MG/DL (0.40-0.90); TOTAL CARBON DIOXIDE 15.2 MMOL/L (24-32); eGFR 37 ML/MIN
[2025-06-07 22:25] LABS: PHOSPHORUS 7.8 MG/DL (2.3-4.5)
[2025-06-07 22:34] LABS: BANDS% (MANUAL) 35 % (0-10); NEUTROPHILS % (MANUAL) 49 % (42-75)
[2025-06-07 22:35] LABS: LYMPHOCYTES % (MANUAL) 16 % (21-51); NUCLEATED RED BLOOD CELLS 21 /100WBC (0-0); PLATELET ESTIMATE DECREASED
[2025-06-07] MEDS: dextrose 50%-water 50ml dispensing syringe IV ONE (23:08)
[2025-06-07] MEDS: insulin regular, human 10 units/0.1 ml syringe IV ONE (23:12)
[2025-06-08] VITALS (21 sets, daily range): BP systolic 33–77; BP diastolic 29–56; PULSE 46–125; RESP 23–40; TEMP 95.6; O2SAT 37–82
[2025-06-08 03:08] LABS: MEAN PLATELET VOLUME 8.2 FL (7.4-10.4); RED CELL DISTRIBUTION WIDTH 17.0 % (11.5-14.5)
[2025-06-08 03:24] LABS: ABG BASE EXCESS -22.1 mmol/L (-2.0-3.0); ABG HCO3 11.7 mmol/L (21.0-28.0); ABG OXYGEN SATURATION 84.1 % (94.0-98.0); ABG PCO2 (T) 67.8 mmHg (32.0-45.0); ABG PH (T) 6.849 (7.350-7.450); ABG PO2 (T) 52.7 mmHg (83.0-108.0); FCOHb 1.7 % (0.5-1.5); FHHb 15.6 % (0.0-5.0); FIO2 100.0 mmHg/%; FMetHb 0.0 % (0.0-1.5); FO2Hb 82.7 % (94.0-98.0); MODE VENT - AC/PRVC; PATIENT TEMPERATURE 36.2; PEEP 12 cm H2O; RESPIRATORY RATE 28 b/min; TIDAL VOLUME 350 mL; TOTAL HEMOGLOBIN 10.9 G/dl (12.0-16.0)
[2025-06-08 03:33] LABS: CALCIUM CVVH 7.6 MG/DL (8.5-10.1); CREATININE 1.50 MG/DL (0.40-0.90); TOTAL CARBON DIOXIDE 15.8 MMOL/L (24-32); eCRCL 46 ML/MIN; eGFR 39 ML/MIN
[2025-06-08 03:40] LABS: PHOSPHORUS 7.6 MG/DL (2.3-4.5)
[2025-06-08 04:39] LABS: BANDS% (MANUAL) 35 % (0-10); LYMPHOCYTES % (MANUAL) 10 % (21-51); METAMYLEOCYTES% (MANUAL) 2 % (0-0); MONOCYTES % (MANUAL) 1 % (2-12); NEUTROPHILS % (MANUAL) 52 % (42-75); NUCLEATED RED BLOOD CELLS 10 /100WBC (0-0); PLATELET ESTIMATE DECREASED
[2025-06-08 04:41] LABS: ELLIPTOCYTES FEW
[2025-06-08] MEDS: sodium bicarbonate (8.4%) 1 mEq/ml syringe IV ONE (04:49)
--- NOTE | 2025-06-08 06:57 | RADIOLOGY REPORT ---
CHEST RADIOGRAPH Indication: ET Tube PLacement Technique: Single frontal view of the chest was obtained Comparison: DI CHEST,SINGLE VIEW on DOS: 06/07/25 FINDINGS: Lines and Tubes: Right and left central venous catheters terminate in the superior vena cava. The ent arnav tube courses below the left hemidiaphragm and the tip extends outside the field of view. The en dotracheal tube terminates 2.2 cm above the carla. Lungs: Patchy diffuse bilateral pulmonary consolidation. Pleura: No effusion. No pneumothorax. Cardiomediastinal contours: Partially obscured but appears stable. Bones: No acute osseous abnormality. IMPRESSION: 1. Appropriate position of the support lines and tubes. 2. Diffuse significant bilateral airspace consolidation similar to prior study which may reflect ARDS or pneumonia.
[2025-06-08 08:27] LABS: MEAN PLATELET VOLUME 9.0 FL (7.4-10.4); RED CELL DISTRIBUTION WIDTH 17.0 % (11.5-14.5)
[2025-06-08 08:36] LABS: CALCIUM CVVH 7.1 MG/DL (8.5-10.1)
[2025-06-08 08:37] LABS: CREATININE 1.46 MG/DL (0.40-0.90); PHOSPHORUS 7.2 MG/DL (2.3-4.5); eGFR 40 ML/MIN
[2025-06-08 08:39] LABS: TOTAL CARBON DIOXIDE 14.2 MMOL/L (24-32)
[2025-06-08] MEDS: epiNEPHrine inj 10 MG in normal saline 250ml IV soln 240 ML IV SCH (09:06)
[2025-06-08] MEDS ORDERED: morphine 10mg/ml inj. IV PRN (10:50)
[2025-06-08 11:12] LABS: ATYPICAL PANCA <1:20 titer (Neg:<1:20); CYTOPLASMIC (C-ANCA) <1:20 titer (Neg:<1:20); PERINUCLEAR (P-ANCA) <1:20 titer (Neg:<1:20)
--- NOTE | 2025-06-08 11:35 | PROGRESS NOTE ---
Subjective Subjective Seen and examined at bedside. Continues to be intubated and sedated in supine position. She has a systolic blood pressure in the 40s and diastolic blood pressure in the 20s and has remained with severe hypotension since yesterday. Pupils are dilated and fixed without any gag, no corneal, no papillary and no dolls eyes. Reason for visit: Pulmonary critical care follow-up Reviewed: Care Plan, H&P, Labs, Radiology Review of Systems Changes from previous H/P or p: No Changes Daily Progress Note Exam Vitals Vital Signs Date Time Temp Pulse Resp B/P (MAP) Pulse Ox O2 Delivery O2 Flow Rate FiO2 06/08/25 10:43 100 06/08/25 10:10 95.6 74 28 Mechanical Ventilator 06/08/25 07:18 47 06/06/25 08:00 0.0 Result Diagram: 06/08/2580506/08/25805 Exam General: Jaundiced appearance, Thin ill-appearing female in mild acute distress. Awake Alert and oriented x 4. HEENT: Pupils dilated and fixed at around 4 mm in diameter. Central line present on the left. Flushed face and neck, Conjunctival icterus noted, excoriations noted on upper and lower lips, cyanotic tongue. Neck: No masses Resp: Shallow and rapid breathing. Coarse breath sounds bilaterally. Cardiovascular: Regular rate and rhythm, S1-S2 heard. HoloSystolic murmur in the left lower sternal border. Abdomen: Slightly distended and appears tender to palpation throughout, no rigidity, bowel sounds present. Neuro: No gross sensory or motor abnormalities noted Extremities: No cyanosis,clubbing or edema. Skin: Juandiced/icteric appearance. Multiple small spider angiomas noted along with needle track moraes related to IV drug abuse. Neuro: No papillary, no gag, no corneal and no dolls eyes highly suggestive of brain Results Coagulation Studies Laboratory Tests Test 06/07/25 15:40 Prothrombin Time 35.6 SECONDS (9.0-12.0) H INR International Normalized Ratio 4.0 INR #*H Activated Partial Thromboplast Time > 139 SECONDS (22-32) *H Fibrinogen 88 MG/DL (177-424) L D-Dimer 23.41 MG/L FEU (0-0.50) H DIC Profile Interpretation See dic report Coagulation Comments Coagulation Clinical Comments VTE VTE Risk Score VTE Risk Score Reference Ranges: Score 0-1 = Low Risk (Aggressive mobilization; early ambulation; no VTE prophylaxis required) Score 2: Moderate Risk (Intermittent/Pneumatic Compression Device OR Lovenox/Heparin/Coumadin) Score 3-4: High Risk (Intermittent/Pneumatic Compression Device AND Lovenox/Heparin/Coumadin) Score > or = 5: Highest Risk (Intermittent/Pneumatic Compression Device AND Lovenox/Heparin/Coumadin) Assessment/Plan Plan ID: Septic shock with multiorgan dysfunction Infective endocarditis Acute metabolic encephalopathy 2/2 above Gaitan criteria: Blood cultures positive for Staphylococcus aureus, evidence of endocardial involvement in echocardiogram, predisposing injection drug use, fever: Echocardiogram shows finding consistent with i.e. of mitral valve and aortic valve Repeat blood cultures negative so far Completed nafcillin Continue clindamycin, starts cefazolin per ID Continue norepinephrine and vasopressin. On albumin 5%. Will continue recommendations per ID Respiratory: Acute hypoxic respiratory failure ARDS Multifocal pneumonia with septic emboli Intubated, on 100% FiO2 with a pulse oximeter reading of 92%. Off sedation and mechanically ventilated Continue supine position ventilation Antibiotics as above GI: Decompensated liver cirrhosis Ascites: S/p paracentesis on 07/06/2025, small amount of fluid evidenced not enough for drainage. Metabolic encephalopathy secondary to sepsis and underlying hepatic encephalopathy Pancytopenia Severe thrombocytopenia with consumptive coagulopathy, DIC Severe normocytic anemia Continue monitoring Continue tube feeds Renal: SHWETHA secondary to acute tubular necrosis, now on CVVHD High anion gap metabolic acidosis with lactic acidosis and acute kidney injury Hypokalemia Hyponatremia Continue CVVH per Nephrology Continue monitoring CMP and blood gas Hematologic: In DIC! Acute blood loss anemia Severe Thrombocytopenia, secondary to sepsis Received 4 units of PRBC, 10 pack of cryoprecipitate and 5 units of platelets Continue monitoring H&H Hypoglycemia: Resolved with dextrose infusion. On dextrose 10% Continue monitoring blood sugar Substance use disorder, methamphetamines Severe protein malnutrition Failure to thrive Overall assessment this morning was that of a moribund patient who most likely was brain because of lack of adequate perfusion pressures for close to 24 hours despite the patient being on norepinephrine, Arturo-Synephrine and epinephrine. Epinephrine was exchanged for dopamine overnight. Code Status: DNR GI prophylaxis: Protonix Nutrition: Tube feeds Prognosis: Guarded Social: The patient is father and two sisters arrived today and I explained to them that the patient most likely was brain given absent brainstem reflexes and severe hypotension with perfusion pressures not able to support life despite being on three pressors. In addition to this, patient was in multisystem organ failure with a lactate level of 14.7. I encouraged the patient's family to transition to comfort measures given her poor outlook with no chances of recovery. The family deliberated and returned the verdict of comfort care. Patient was extubated and immediately i.e. cardiac arrest, though I think she already was in PE arrest i.e. no blood pressure despite being on three pressors.. Expected Outcome/Goals Expected Outcomes/Goals: Tolerance to TF, wt maintenance, bowel regularity, skin integrity ANNIE GONZALEZ MD Jun 08, 2025 11:35
--- NOTE | 2025-06-08 15:41 | PROGRESS NOTE- Residence ---
Progress Note - Resident Providers to CC Resident Creating Document: SINAI LEMON, LEAH ~ Antibiotic Timeout Antibiotic Ordered?: No Subjective Patient even before I could see or examined her. Objective Vital Signs Date Time Temp Pulse Resp B/P (MAP) Pulse Ox O2 Delivery O2 Flow Rate FiO2 06/08/25 10:43 100 06/08/25 10:10 95.6 74 28 Mechanical Ventilator 06/08/25 07:18 47 06/06/25 08:00 0.0 Result Diagram: 06/08/25 0806 06/08/25 0806 Coagulation Studies Laboratory Tests Test 06/07/25 15:40 Prothrombin Time 35.6 SECONDS (9.0-12.0) H INR International Normalized Ratio 4.0 INR #*H Activated Partial Thromboplast Time > 139 SECONDS (22-32) *H Fibrinogen 88 MG/DL (177-424) L D-Dimer 23.41 MG/L FEU (0-0.50) H DIC Profile Interpretation See dic report Coagulation Comments Coagulation Clinical Comments Plan Plan Septic shock with multiorgan dysfunction Infective endocarditis Acute metabolic encephalopathy 2/2 above Gaitan criteria: Blood cultures positive for Staphylococcus aureus, evidence of endocardial involvement in echocardiogram, predisposing injection drug use, fever Acute hypoxic respiratory failure ARDS Multifocal pneumonia with septic emboli Decompensated liver cirrhosis Ascites: S/p paracentesis on 07/06/2025, small amount of fluid evidenced not enough for drainage. Metabolic encephalopathy secondary to sepsis and underlying hepatic encephalopathy Pancytopenia Severe thrombocytopenia with consumptive coagulopathy, DIC Severe normocytic anemia SHWETHA secondary to acute tubular necrosis, now on CVVHD High anion gap metabolic acidosis with lactic acidosis and acute kidney injury Hypokalemia Hyponatremia DIC Acute blood loss anemia Severe Thrombocytopenia, secondary to sepsis Hypoglycemia: Resolved with dextrose infusion. Substance use disorder, methamphetamines Severe protein malnutrition Failure to thrive Anoxic brain injury Code status this morning changed to DNR with comfort care, patient early this morning. Date of Service: Jun 08, 2025 Billing Provider: ANDREY JOY MD, ELIZABETH, LEAH Jun 08, 2025 15:40
== END 2025-06-08 13:38 | DRG 720 ==
LOC: ER 19:31 → ED HOLD 22:21 → EDBEDREQ 23:28 → PCU 3S 06-02 01:00 → CICU 2S 06-05 17:17
PROVIDERS: ADMIT Internal Medicine; ATTEND Family Medicine
PROC: 30233N1 Transfusion of Nonautologous Red Blood Cells into Peripheral Vein, Percutaneous Approach (ICD-10-PCS; 2025-06-02)
PROC: 30233R1 Transfusion of Nonautologous Platelets into Peripheral Vein, Percutaneous Approach (ICD-10-PCS; 2025-06-02)
PROC: CF141ZZ Planar Nuclear Medicine Imaging of Gallbladder using Technetium 99m (Tc-99m) (ICD-10-PCS; 2025-06-04)
PROC: 02HV33Z Insertion of Infusion Device into Superior Vena Cava, Percutaneous Approach (ICD-10-PCS; principal; 2025-06-05)
PROC: 5A1945Z Respiratory Ventilation, 24-96 Consecutive Hours (ICD-10-PCS; 2025-06-05)
PROC: 0W9G3ZZ Drainage of Peritoneal Cavity, Percutaneous Approach (ICD-10-PCS; 2025-06-05)
PROC: B548ZZA Ultrasonography of Superior Vena Cava, Guidance (ICD-10-PCS; 2025-06-05)
PROC: 0BH17EZ Insertion of Endotracheal Airway into Trachea, Via Natural or Artificial Opening (ICD-10-PCS; 2025-06-05)
PROC: 6A550Z3 Pheresis of Plasma, Single (ICD-10-PCS; 2025-06-05)
PROC: 5A1D90Z Performance of Urinary Filtration, Continuous, Greater than 18 hours Per Day (ICD-10-PCS; 2025-06-07)
PROC: 30233M1 Transfusion of Nonautologous Plasma Cryoprecipitate into Peripheral Vein, Percutaneous Approach (ICD-10-PCS; 2025-06-07)
PROC: 30243K1 Transfusion of Nonautologous Frozen Plasma into Central Vein, Percutaneous Approach (ICD-10-PCS; 2025-06-07)
DX: A41.9 Sepsis, unspecified organism (principal); D65 Disseminated intravascular coagulation [defibrination syndrome]; I26.90 Septic pulmonary embolism without acute cor pulmonale; I33.0 Acute and subacute infective endocarditis; I76 Septic arterial embolism; J80 Acute respiratory distress syndrome; G93.41 Metabolic encephalopathy; E43 Unspecified severe protein-calorie malnutrition; R18.8 Other ascites; N17.0 Acute kidney failure with tubular necrosis; D62 Acute posthemorrhagic anemia; E87.1 Hypo-osmolality and hyponatremia; D61.818 Other pancytopenia; E87.20 Acidosis, unspecified; I21.A1 Myocardial infarction type 2; J18.9 Pneumonia, unspecified organism; R23.1 Pallor; F11.10 Opioid abuse, uncomplicated; R74.01 Elevation of levels of liver transaminase levels; K74.60 Unspecified cirrhosis of liver; B18.2 Chronic viral hepatitis C; F15.10 Other stimulant abuse, uncomplicated; H57.04 Mydriasis; E87.6 Hypokalemia; K76.82 Hepatic encephalopathy; J45.909 Unspecified asthma, uncomplicated; Z66 Do not resuscitate; F19.10 Other psychoactive substance abuse, uncomplicated; E16.2 Hypoglycemia, unspecified; F41.9 Anxiety disorder, unspecified; F17.210 Nicotine dependence, cigarettes, uncomplicated; R65.21 Severe sepsis with septic shock; F32.A Depression, unspecified; G89.29 Other chronic pain; R62.7 Adult failure to thrive; Z68.21 Body mass index [BMI] 21.0-21.9, adult; Z88.8 Allergy status to other drugs, medicaments and biological substances; Z59.00 Homelessness unspecified
CPT/HCPCS: 36415; 36430; 36600; 49083; 70450; 71045; 71250; 74176; 76700; 78226; 80048; 80053; 80069; 80202; 80305; 80320; 80329; 81001; 82140; 82248; 82272; 82330; 82550; 82570; 82575; 82595; 82803; 82948; 83605; 83615; 83735; 83874; 83880; 83930; 83935; 84100; 84133; 84134; 84145; 84156; 84300; 84443; 84478; 84484; 85007; 85018; 85025; 85027; 85379; 85384; 85610; 85651; 85730; 86038; 86060; 86160; 86256; 86592; 86703; 86803; 86885; 86900; 86901; 86920; 87040; 87045; 87046; 87070; 87077; 87081; 87088; 87186; 87207; 87340; 87522; 93308; 94002; 94003; 94640; 94760; 96365; 96367; 96368; 99285; A4314; A4333; A4353; A4615; A5200; A6196; A6213; A6250; A6258; A6446; A6449; A6455; A7015; A9537; A9900; C1729; C1751; E1594; G0378; J0131; J0169; J0690; J0692; J0696; J1171; J1815; J1938; J2003; J2060; J2250; J2270; J2371; J2470; J2543; J2704; J2919; J3010; J3360; J3373; J3480; J3490; J7030; J7040; J7050; J7070; J7120; P9012; P9016; P9035; P9045; P9047; P9059; Q9963